=== PATIENT | female | born 1940 | race Caucasian/White ===

== ENCOUNTER 2018-07-05 16:35 | Inpatient (IN) | payer BC, MEDICARE ==
[2018-07-05] MEDS ORDERED: IPRATROPIUM-ALBUTEROL 3 ML NEB INHALATION STA ×2 (16:53→20:23)
[2018-07-05] MEDS ORDERED: DILTIAZEM DRIP BOLUS FROM BAG 1 MG SOLN IV ONE (16:54)
[2018-07-05] MEDS ORDERED: DILTIAZEM 125 MG in SODIUM CHLORIDE 0.9% 100 ML IV SCH (17:00)
--- NOTE | 2018-07-05 17:00 | ED ---
General Adult HPI - General Chief complaint: Shortness of Breath Stated complaint: SOB Time Seen by Provider: 07/05/18 16:48 Source: patient, EMS, RN notes reviewed Limitations: no limitations - History of Present Illness Initial comments: Patient is a pleasant 77-year-old female presenting to the emergency department with difficulty in breathing. Patient does have history of similar symptoms previously associated with COPD. Patient states her breathing is worse than normal. No significant cough. No chest pain or palpitations. Patient did have a fall yesterday on the steps and struck her back. Patient does not have significant discomfort at this time. No fevers. Patient denies any history of headache arrhythmia or atrial fibrillation. Patient does not take blood thinners. - Related Data Home Medications Medication Instructions Recorded Confirmed Hydroxychloroquine Sulfate 200 mg PO BID 12/25/13 07/05/18 [Plaquenil] Budesonide [Pulmicort] 0.5 mg INHALATION RT-BID 07/05/18 07/05/18 Montelukast [Singulair] 10 mg PO HS 07/05/18 07/05/18 Allergies Allergy/AdvReac Type Severity Reaction Status Date / Time Sulfa (Sulfonamide Allergy Rash/Hives Verified 07/05/18 17:26 Antibiotics) Review of Systems ROS Statement: Those systems with pertinent positive or pertinent negative responses have been documented in the HPI. ROS Other: All systems not noted in ROS Statement are negative. Constitutional: Denies: fever Eyes: Denies: eye pain ENT: Denies: ear pain Respiratory: Reports: dyspnea Cardiovascular: Denies: chest pain Endocrine: Reports: fatigue Gastrointestinal: Denies: abdominal pain Genitourinary: Denies: dysuria Musculoskeletal: Denies: back pain Skin: Denies: rash Neurological: Denies: weakness Past Medical History Past Medical History: COPD, Eye Disorder, GERD/Reflux, Rheumatoid Arthritis (RA) Additional Past Medical History / Comment(s): Scleroderma, Cataracts History of Any Multi-Drug Resistant Organisms: None Reported Past Surgical History: Tonsillectomy, Tubal Ligation Additional Past Surgical History / Comment(s): Colonoscopy, R cataract surgery in the past. Past Anesthesia/Blood Transfusion Reactions: No Reported Reaction Smoking Status: Current every day smoker - Past Family History Mother Family Medical History: Cancer Additional Family Medical History / Comment(s): OVARIAN. General Exam Limitations: no limitations General appearance: alert Head exam: Present: atraumatic Eye exam: Present: normal appearance, PERRL ENT exam: Present: normal oropharynx Neck exam: Present: normal inspection Respiratory exam: Present: respiratory distress, accessory muscle use, decreased breath sounds, prolonged expiratory Cardiovascular Exam: Present: tachycardia GI/Abdominal exam: Present: soft. Absent: tenderness Extremities exam: Present: normal inspection, other (Clubbing of the fingers). Absent: pedal edema, calf tenderness Back exam: Present: normal inspection Neurological exam: Present: alert Psychiatric exam: Present: normal affect, normal mood Skin exam: Present: normal color Course Vital Signs 07/05/18 07/05/18 07/05/18 16:50 16:59 17:06 Temperature 97.8 F Pulse Rate 163 H 149 H 154 H Respiratory 30 H Rate Blood Pressure 136/110 O2 Sat by Pulse 89 L Oximetry 07/05/18 07/05/18 07/05/18 17:19 18:01 18:26 Temperature Pulse Rate 161 H 131 H 133 H Respiratory 24 22 24 Rate Blood Pressure 115/84 112/74 102/55 O2 Sat by Pulse 89 L 99 95 Oximetry 07/05/18 07/05/18 18:28 20:28 Temperature Pulse Rate 63 105 H Respiratory 14 Rate Blood Pressure 117/56 O2 Sat by Pulse 96 Oximetry - Reevaluation(s) Reevaluation #1: 07/05/18 20:19 Patient reevaluated and somewhat improved. Patient and family updated on results and plan. Case was discussed in detail with Dr. Boucher, who will admit covering for Dr. Jeffers. He does request Hemoccult. If negative she does request heparin. He also requests one unit of red cells. Case was also discussed with Dr. Medina, who will consult for cardiology. He does also agree with heparinization. 07/05/18 20:41 Patient has pneumonia on chest x-ray. There is concern for possible sepsis diagnosed at 2039. Blood culture and lactic acid have been ordered. IV antibiotics will be ordered. EKG Findings - EKG Comments: EKG Findings:: A. fib with RVR, rate 154. QRS 84. QT 306. QTc 490. Normal axis. Lateral ST depression. Normal QRS. Medical Decision Making - Medical Decision Making Patient reevaluated and still appear short of breath however no longer in respiratory distress. Patient remains in A. fib. Heart rate has improved to 135-140. Patient and family updated on results and plan. Patient has previously seen Dr. Medina with pulmonary. - Lab Data Result diagrams: 07/05/18 17:02 07/05/18 17:02 Lab Results 07/05/18 07/05/18 07/05/18 Range/Units 17:02 17:02 17:02 WBC 12.7 H (3.8-10.6) k/uL RBC 3.21 L (3.80-5.40) m/uL Hgb 7.7 L (11.4-16.0) gm/dL Hct 25.5 L (34.0-46.0) % MCV 79.4 L (80.0-100.0) fL MCH 24.0 L (25.0-35.0) pg MCHC 30.2 L (31.0-37.0) g/dL RDW 18.0 H (11.5-15.5) % Plt Count 362 (150-450) k/uL Neutrophils % 80 % Lymphocytes % 16 % Monocytes % 3 % Eosinophils % 1 % Basophils % 0 % Neutrophils # 10.1 H (1.3-7.7) k/uL Lymphocytes # 2.1 (1.0-4.8) k/uL Monocytes # 0.3 (0-1.0) k/uL Eosinophils # 0.1 (0-0.7) k/uL Basophils # 0.1 (0-0.2) k/uL Hypochromasia Marked Anisocytosis Slight Microcytosis Slight PT (9.0-12.0) sec INR (<1.2) APTT (22.0-30.0) sec Sodium 137 (137-145) mmol/L Potassium 5.4 H (3.5-5.1) mmol/L Chloride 103 (98-107) mmol/L Carbon Dioxide 18 L (22-30) mmol/L Anion Gap 16 mmol/L BUN 51 H (7-17) mg/dL Creatinine 1.17 H (0.52-1.04) mg/dL Est GFR (CKD-EPI)AfAm 53 (>60 ml/min/1.73 sqM) Est GFR (CKD-EPI)NonAf 46 (>60 ml/min/1.73 sqM) Glucose 107 H (74-99) mg/dL Calcium 9.0 (8.4-10.2) mg/dL Magnesium 1.9 (1.6-2.3) mg/dL Total Bilirubin 0.8 (0.2-1.3) mg/dL AST 24 (14-36) U/L ALT 20 (9-52) U/L Alkaline Phosphatase 70 (38-126) U/L Creatine Kinase 66 (30-135) U/L CK-MB (CK-2) 2.3 (0.0-2.4) ng/mL Troponin I 0.065 H* (0.000-0.034) ng/mL Total Protein 6.8 (6.3-8.2) g/dL Albumin 3.3 L (3.5-5.0) g/dL TSH 5.960 H (0.465-4.680) mIU/L Free T4 1.96 (0.78-2.19) ng/dL Free T3 pg/mL 1.5 L (2.8-5.3) pg/ml Stool Occult Blood (Negative) 07/05/18 07/05/18 Range/Units 17:02 20:19 WBC (3.8-10.6) k/uL RBC (3.80-5.40) m/uL Hgb (11.4-16.0) gm/dL Hct (34.0-46.0) % MCV (80.0-100.0) fL MCH (25.0-35.0) pg MCHC (31.0-37.0) g/dL RDW (11.5-15.5) % Plt Count (150-450) k/uL Neutrophils % % Lymphocytes % % Monocytes % % Eosinophils % % Basophils % % Neutrophils # (1.3-7.7) k/uL Lymphocytes # (1.0-4.8) k/uL Monocytes # (0-1.0) k/uL Eosinophils # (0-0.7) k/uL Basophils # (0-0.2) k/uL Hypochromasia Anisocytosis Microcytosis PT 11.9 (9.0-12.0) sec INR 1.1 (<1.2) APTT 20.2 L (22.0-30.0) sec Sodium (137-145) mmol/L Potassium (3.5-5.1) mmol/L Chloride (98-107) mmol/L Carbon Dioxide (22-30) mmol/L Anion Gap mmol/L BUN (7-17) mg/dL Creatinine (0.52-1.04) mg/dL Est GFR (CKD-EPI)AfAm (>60 ml/min/1.73 sqM) Est GFR (CKD-EPI)NonAf (>60 ml/min/1.73 sqM) Glucose (74-99) mg/dL Calcium (8.4-10.2) mg/dL Magnesium (1.6-2.3) mg/dL Total Bilirubin (0.2-1.3) mg/dL AST (14-36) U/L ALT (9-52) U/L Alkaline Phosphatase (38-126) U/L Creatine Kinase (30-135) U/L CK-MB (CK-2) (0.0-2.4) ng/mL Troponin I (0.000-0.034) ng/mL Total Protein (6.3-8.2) g/dL Albumin (3.5-5.0) g/dL TSH (0.465-4.680) mIU/L Free T4 (0.78-2.19) ng/dL Free T3 pg/mL (2.8-5.3) pg/ml Stool Occult Blood Negative (Negative) - Radiology Data Radiology results: image reviewed (Chest x-ray shows pleural thickening and infiltrate. No heart failure.) Critical Care Time Critical Care Time: Yes Total Critical Care Time: 34 Disposition Clinical Impression: Atrial fibrillation with RVR, Acute exacerbation of chronic obstructive airways disease, Anemia, Pneumonia, Sepsis Disposition: ADMITTED IP TO THIS [facility] Condition: Serious Is patient prescribed a controlled substance at d/c from ED?: No Referrals: Angeles Jeffers DO [Primary Care Provider] - 1-2 days Decision Time: 20:41
[2018-07-05 17:16] LABS: Anisocytosis Slight; Basophils # (A) 0.1 k/uL (0-0.2); Basophils % (A) 0 %; Eosinophils # (A) 0.1 k/uL (0-0.7); Eosinophils % (A) 1 %; HCT 25.5 % (34.0-46.0); HGB 7.7 gm/dL (11.4-16.0); Hypochromasia Marked; Lymphocytes # (A) 2.1 k/uL (1.0-4.8); Lymphocytes % (A) 16 %; MCHC 30.2 g/dL (31.0-37.0); MCV 79.4 fL (80.0-100.0); Mean Platelet Volume 7.5; Microcytosis Slight; Monocytes # (A) 0.3 k/uL (0-1.0); Monocytes % (A) 3 %; Neutrophils # (A) 10.1 k/uL (1.3-7.7); Neutrophils % (A) 80 %; Platelet Count 362 k/uL (150-450); RBC 3.21 m/uL (3.80-5.40); WBC 12.7 k/uL (3.8-10.6)
[2018-07-05 17:24] LABS: Albumin 3.3 g/dL (3.5-5.0); Magnesium 1.9 mg/dL (1.6-2.3); Potassium 5.4 mmol/L (3.5-5.1); Total Bilirubin 0.8 mg/dL (0.2-1.3); Total Protein 6.8 g/dL (6.3-8.2)
[2018-07-05 17:34] LABS: INR 1.1 (<1.2); Prothrombin Time 11.9 sec (9.0-12.0)
[2018-07-05 17:36] LABS: Partial Thromboplastin Time 20.2 sec (22.0-30.0)
[2018-07-05 17:41] LABS: Creatine Kinase MB 2.3 ng/mL (0.0-2.4); T4, Free (Free Thyroxine) 1.96 ng/dL (0.78-2.19)
[2018-07-05 17:44] LABS: Troponin I 0.065 ng/mL (0.000-0.034)
--- NOTE | 2018-07-05 17:56 | XR ---
EXAMINATION TYPE: XR chest 1V portable DATE OF EXAM: 07/05/2018 COMPARISON: NONE HISTORY: Short of breath TECHNIQUE: Single frontal view of the chest is obtained. FINDINGS: Heart and mediastinum appear shifted slightly to the right side. There is blunting of righ t costophrenic angle and probably some atelectasis right lower lobe. There is airspace infiltrate lef t lower lobe. There is no gross heart failure. There are chest leads. IMPRESSION: Infiltrate and pleural thickening and volume loss in the right lower lobe. Follow-up rec ommended. Mild left lower lobe pneumonia. No heart failure seen.
[2018-07-05] MEDS ORDERED: HEPARIN SODIUM,PORCINE 5,000 UNIT/ML 1 ML VIAL IV PRN (20:37)
[2018-07-05] MEDS ORDERED: HEPARIN SODIUM,PORCINE 5,000 UNIT/ML 1 ML VIAL IV ONE (20:37)
[2018-07-05] MEDS ORDERED: HEPARIN SOD,PORK IN 0.45% NACL 25,000 UNIT in 0.45% NACL 1 250ML.BAG IV SCH (20:45)
[2018-07-05] MEDS ORDERED: ASPIRIN 81 MG PO STA (20:48)
[2018-07-05] MEDS ORDERED: methylPREDNISolone SOD SUCCI 125 MG/2 ML VIAL IV STA (20:48)
[2018-07-05] MEDS ORDERED: AZITHROMYCIN 500 MG in SODIUM CHLORIDE 0.9% 250 ML IVPB STA (20:48)
[2018-07-05] MEDS ORDERED: PNEUMONIA PROTOCOL UTILIZED 1 EACH MISC PO PRN (20:48)
[2018-07-05] MEDS ORDERED: SODIUM CHLORIDE 0.9% 1,000 ML IV ONE (23:34)
[2018-07-06 00:17] LABS: Glucose,Whole Blood 159 mg/dL (75-99)
[2018-07-06] MEDS ORDERED: NALOXONE 0.4 MG/ML 1 ML VIAL IV PRN (00:51)
[2018-07-06 01:07] LABS: Appearance,Urine Clear (Clear); Bilirubin,Urine Negative (Negative); Blood,Urine Negative (Negative); Color,Urine Yellow; Glucose,Urine (UA) Negative (Negative); Ketones,Urine Negative (Negative); Leukocyte Esterase,Urine Negative (Negative); Nitrite,Urine Negative (Negative); Protein,Urine Trace (Negative); Specific Gravity,Urine 1.018 (1.001-1.035); Urobilinogen,Urine <2.0 mg/dL (<2.0)
[2018-07-06] MEDS ORDERED: SODIUM CHLORIDE 0.9% 1,000 ML IV ONE ×2 (01:12→03:00)
[2018-07-06] MEDS: ALPRAZolam 0.25 MG TAB PO PRN ×3 (01:23→22:08)
[2018-07-06] MEDS: SODIUM CHLORIDE 0.9% 1,000 ML IV SCH ×3 (01:23→20:29)
[2018-07-06] MEDS: methylPREDNISolone SOD SUCCI 125 MG/2 ML VIAL IV SCH ×4 (01:26→17:17)
[2018-07-06 01:42] LABS: Glucose,Whole Blood 143 mg/dL (75-99)
[2018-07-06 04:34] LABS: Anisocytosis Slight; Basophils % (A) 0 %; Eosinophils # (A) 0.1 k/uL (0-0.7); Eosinophils % (A) 1 %; HCT 20.2 % (34.0-46.0); Hypochromasia Marked; Lymphocytes # (A) 1.6 k/uL (1.0-4.8); Lymphocytes % (A) 16 %; MCH 24.1 pg (25.0-35.0); MCHC 29.2 g/dL (31.0-37.0); MCV 82.2 fL (80.0-100.0); Mean Platelet Volume 7.7; Monocytes # (A) 0.1 k/uL (0-1.0); Monocytes % (A) 1 %; Neutrophils # (A) 8.3 k/uL (1.3-7.7); Neutrophils % (A) 82 %; Platelet Count 260 k/uL (150-450); RBC 2.45 m/uL (3.80-5.40); RDW 18.1 % (11.5-15.5); WBC 10.2 k/uL (3.8-10.6)
[2018-07-06 05:02] LABS: Calcium 8.2 mg/dL (8.4-10.2); Magnesium 1.8 mg/dL (1.6-2.3); Phosphorus 4.2 mg/dL (2.5-4.5); Potassium 4.3 mmol/L (3.5-5.1)
[2018-07-06 05:04] LABS: HGB 5.9 gm/dL (11.4-16.0)
[2018-07-06 06:06] LABS: Glucose,Whole Blood 135 mg/dL (75-99)
[2018-07-06 06:23] LABS: Anisocytosis Slight; Hypochromasia Marked; MCH 24.6 pg (25.0-35.0); MCHC 30.3 g/dL (31.0-37.0); MCV 81.1 fL (80.0-100.0); Mean Platelet Volume 7.4; Microcytosis Slight; Platelet Count 270 k/uL (150-450); RBC 2.45 m/uL (3.80-5.40); RDW 18.1 % (11.5-15.5); WBC 9.9 k/uL (3.8-10.6)
[2018-07-06 06:26] LABS: HCT 19.9 % (34.0-46.0)
[2018-07-06] MEDS: IPRATROPIUM-ALBUTEROL 3 ML NEB INHALATION SCH ×4 (07:30→21:27)
[2018-07-06] MEDS ORDERED: INSULIN ASPART (NovoLOG) 100 UNIT/ML VIAL SQ SCH ×4 (07:30→12:30)
--- NOTE | 2018-07-06 08:28 | XR ---
EXAMINATION TYPE: XR chest 1V portable DATE OF EXAM: 07/06/2018 Comparison: 07/05/2018 Clinical History: 77-year-old female pneumonia Findings: Patient is rotated towards the right ultrasound and a retrocardiac mediastinal contours. Heart appear s shifted into the right side of the chest suggesting volume loss on this side. Patchy bibasilar opac ities are demonstrated with hyperinflation. Impression: 1. Cardiomegaly and COPD. 2. There seems to be volume loss at the right base which shift of the heart to this side. Correlate f or any known diagnosis. Otherwise, further characterization may be needed. 3. Patchy bibasilar atelectasis or infiltrates are unchanged.
[2018-07-06] MEDS ORDERED: ASPIRIN 325 MG TAB PO SCH (09:00)
[2018-07-06] MEDS: HEPARIN SODIUM,PORCINE 5,000 UNIT/ML 1 ML VIAL SQ SCH ×2 (10:00→20:24)
[2018-07-06] MEDS: VERAPAMIL 40 MG TAB PO SCH ×3 (10:01→20:24)
--- NOTE | 2018-07-06 11:27 | CONS ---
CONSULTATION REASON FOR CONSULTATION: Probably new onset atrial fibrillation. Mrs Madalyn Rosado is a 77-year-old lady who is currently an active smoker, came into the hospital with increasing shortness of breath to the emergency room last evening and was hospitalized. She has history of smoking, continues to smoke even now. She came in with worsening shortness of breath and after arrival she was found to be in atrial fibrillation with moderate ventricular rate. She has been initiated on intravenous Cardizem and the rate has improved. At the time of my evaluation, she is actually resting comfortably on oxygen with acceptable oxygen saturation. PAST MEDICAL HISTORY: 1. Rheumatoid arthritis. 2. Smoking and COPD. 3. History of some previous tonsillectomy, cataract surgery. 4. Patient has a anemia of chronic disease. Details are unavailable. ALLERGIES: She is allergic to SULFA drugs. MEDICATIONS: Include Plaquenil 200 mg b.i.d., Singulair, and Pulmicort. EKG performed yesterday revealed atrial fib with a moderately rapid ventricular rate, nonspecific ST-T wave changes with poor R-wave progression. Repeat EKG revealed a lowered heart rate in the 90s with atrial fib. PHYSICAL EXAMINATION: Blood pressure is 118/70, pulse rate is about 90 irregular. HEENT unremarkable. Fundus was not examined by me. NECK: Supple, there is JVD of 1-2 cm, no carotid bruit. Heart exam reveals S1, S2 with irregular rhythm, short systolic murmur. Lungs revealed diminished air entry, bilateral lung oliver. Abdomen is soft, nontender. Lower extremities reveal diminished pulses. Central nervous system is normal. IMPRESSION: 1. Exacerbation of chronic obstructive pulmonary disease. 2. Rheumatoid arthritis. 3. Anemia. 4. Probably new onset atrial fibrillation with a controlled rate. 5. RECOMMENDATIONS: I am recommending that we discontinue the IV heparin mainly because of the fact that her hemoglobin is low and she is receiving blood transfusion. Apparently, her hemoglobin yesterday when she came in was 7.7 and heparin was initiated, but it is now 6.0 this morning. We will therefore discontinue the IV heparin, put her on 3000 units subcu heparin q.12 hours. We will continue the Cardizem drip for now but will place her on verapamil 40 mg b.i.d., assess LV function and right-sided pressures by way of echocardiogram. We will start her on verapamil 40 mg t.i.d. and based on clinical course, will make further recommendations. Given the fact the patient's hemoglobin is low and has dropped, she is not a good candidate for long-term anticoagulation. She weighs only 48 kg and overall she seems to be somewhat malnourished as well. I would not recommend long-term anticoagulation. Prognosis remains guarded. Thank you very much for the consult. HENRY / HAKEEM: [id number] /
--- NOTE | 2018-07-06 11:49 | ECHOF ---
Referral Reason:a fib MEASUREMENTS -------- HEIGHT: 170.2 cm WEIGHT: 48.1 kg BP: 89/69 RVIDd: 3.5 cm (< 3.3) IVSd: 1.2 cm (0.6 - 1.1) LVIDd: 3.9 cm (3.9 - 5.3) LVPWd: 1.1 cm (0.6 - 1.1) IVSs: 1.6 cm LVIDs: 2.1 cm LVPWs: 1.7 cm LA Diam: 3.8 cm (2.7 - 3.8) LAESV Index (A-L): 65.88 ml/m Ao Diam: 3.2 cm (2.0 - 3.7) AV Cusp: 2.0 cm (1.5 - 2.6) MV EXCURSION: 13.059 mm (> 18.000) MV EF SLOPE: 77 mm/s (70 - 150) EPSS: 0.7 cm RAP: 5.00 mmHg RVSP: 40.38 mmHg FINDINGS -------- Atrial fibrillation. This was a technically good study. The left ventricular size is normal. There is borderline concentric left ventricular hypertrophy. Overall left ventricular systolic function is normal with, an EF between 60 - 65 %. The right ventricle is mildly enlarged. LA is severely dilated >40 ml/m2 The right atrium is normal in size. Aortic valve is trileaflet and is mildly thickened. The mitral valve leaflets are mildly thickened. Mild mitral annular calcification present. Modera [id number] mitral regurgitation is present. The peak and mean MV gradients are 11.21mmHg 3.13mmH g as measured by doppler. Mild tricuspid regurgitation present. There is mild pulmonary hypertension. The right ventricular systolic pressure, as measured by Doppler, is 40.38mmHg. The pulmonic valve was not well visualized. The aortic root size is normal. Normal inferior vena cava with normal inspiratory collapse consistent with estimated right atrial pre ssure of 5 mmHg. There is a trivial pericardial effusion present. CONCLUSIONS -------- 1. Atrial fibrillation. 2. This was a technically good study. 3. The left ventricular size is normal. 4. There is borderline concentric left ventricular hypertrophy. 5. Overall left ventricular systolic function is normal with, an EF between 60 - 65 %. 6. The right ventricle is mildly enlarged. 7. LA is severely dilated >40 ml/m2 8. The right atrium is normal in size. 9. Aortic valve is trileaflet and is mildly thickened. 10. The mitral valve leaflets are mildly thickened. 11. Mild mitral annular calcification present. 12. The peak and mean MV gradients are 11.21mmHg 3.13mmHg as measured by doppler. 13. Mild tricuspid regurgitation present. 14. There is mild pulmonary hypertension. 15. The right ventricular systolic pressure, as measured by Doppler, is 40.38mmHg. 16. The pulmonic valve was not well visualized. 17. The aortic root size is normal. 18. Normal inferior vena cava with normal inspiratory collapse consistent with estimated right atrial pressure of 5 mmHg. 19. There is a trivial pericardial effusion present. PERSONAL COMPUTER NETWORK ANALYST: Roseline Dunbar RDCS
[2018-07-06 12:09] LABS: Glucose,Whole Blood 153 mg/dL (75-99)
[2018-07-06] MEDS: INSULIN ASPART (NovoLOG) 100 UNIT/ML VIAL SQ SCH ×3 (12:19→20:55)
[2018-07-06 13:00] LABS: Anisocytosis Slight; Basophils % (A) 0 %; Eosinophils % (A) 0 %; HCT 25.6 % (34.0-46.0); Hypochromasia Marked; Lymphocytes % (A) 16 %; MCH 25.1 pg (25.0-35.0); MCHC 30.6 g/dL (31.0-37.0); MCV 82.2 fL (80.0-100.0); Mean Platelet Volume 8.1; Monocytes # (A) 0.3 k/uL (0-1.0); Monocytes % (A) 2 %; Neutrophils # (A) 9.8 k/uL (1.3-7.7); Neutrophils % (A) 80 %; Platelet Count 271 k/uL (150-450); Poikilocytosis Moderate; RBC 3.12 m/uL (3.80-5.40); RDW 17.6 % (11.5-15.5); WBC 12.2 k/uL (3.8-10.6)
[2018-07-06 13:11] LABS: HGB 7.8 gm/dL (11.4-16.0)
--- NOTE | 2018-07-06 13:52 | P.CNPUL ---
History of Present Illness Consult date: 07/06/18 Reason for consult: dyspnea, chest pain Chief complaint: shortness of breath History of present illness: This is a 77-year-old female who presented emergency department complaining of shortness of breath. The patient states that she couldn't get to the bathroom without getting very short of breath and feeling a burning sensation in her chest. She states she did have a cough. She did note that laying on her side helped her breathe better. She states she had a computed tomography scan at [facility] a few months ago. She is an active smoker. She states that she did quit last year and started again smoking in June. She smokes about 5 cigarettes per day at this time. She used to smoke 1 pack per day since the age of [age] years old. She states "I was a chain smoker." She does use a nebulizer at home and follows with Dr. ELVIS Medina in the office. The patient has known pulmonary hypertension as well and was following with Dr. Horne. Last PFT was done 11/17/2017 and showed severe COPD with and FEV1 32% of predicted. The patient has a history of systemic sclerosis as well. The patient was found in the ER to be in atrial fibrillation with RVR, IV cardizen drip was initiated. She was also found to be anemic. Hemoglobin was recheck and found to be 6.0, she was transfused 1 unit of PRBC. She denies melanotic stools, hematochezia. She denies any signs/symptoms of bleeding. Her lactic acid was also elevated at 7, repeat 10, and she was subsequently admitted to the ICU. CXR shows c ardiomegaly, COPD, right base volume loss with shift of heart to the right side, patchy bibasilar atelectasis or infiltrates. After 4L of fluid bolus and IVF at 100 cc/hr over night, the patient's lactic acid is improving to 5.1. She has not been hypotensive. She is 100% on 2L NC. She has been afebrile. She did receive multiple albuterol treatments in the ED as well. Review of Systems All systems: negative Past Medical History Past Medical History: COPD, Eye Disorder, GERD/Reflux, Rheumatoid Arthritis (RA) Additional Past Medical History / Comment(s): Scleroderma, Cataracts History of Any Multi-Drug Resistant Organisms: None Reported Past Surgical History: Tonsillectomy, Tubal Ligation Additional Past Surgical History / Comment(s): Colonoscopy, R cataract surgery in the past. Past Anesthesia/Blood Transfusion Reactions: No Reported Reaction Past Psychological History: Depression Additional Psychological History / Comment(s): FROM CANCER. Smoking Status: Current every day smoker Past Alcohol Use History: Rare Past Drug Use History: None Reported - Past Family History Mother Family Medical History: Cancer Additional Family Medical History / Comment(s): OVARIAN. Medications and Allergies Home Medications Medication Instructions Recorded Confirmed Type Hydroxychloroquine Sulfate 200 mg PO BID 12/25/13 07/05/18 History [Plaquenil] Budesonide [Pulmicort] 0.5 mg INHALATION RT-BID 07/05/18 07/05/18 History Montelukast [Singulair] 10 mg PO HS 07/05/18 07/05/18 History Allergies Allergy/AdvReac Type Severity Reaction Status Date / Time Sulfa (Sulfonamide Allergy Rash/Hives Verified 07/05/18 17:26 Antibiotics) Physical Exam Osteopathic Statement: *. No significant issues noted on an osteopathic structural exam other than those noted in the History and Physical/Consult. Vitals: Vital Signs Temp Pulse Resp BP Pulse Ox 07/06/18 13:04 82 07/06/18 13:00 77 28 H 132/79 100 07/06/18 12:53 80 07/06/18 12:00 97.4 F L 85 23 111/64 98 07/06/18 11:00 76 24 128/78 99 07/06/18 10:25 97.4 F L 80 33 H 138/83 97 07/06/18 10:00 82 34 H 138/108 97 07/06/18 09:00 98 34 H 117/91 94 L 07/06/18 08:00 97.4 F L 78 36 H 110/71 99 07/06/18 07:47 97.4 F L 87 24 110/71 99 07/06/18 07:39 89 07/06/18 07:30 78 07/06/18 07:27 97.5 F L 87 26 H 113/75 97 07/06/18 07:17 97.7 F 93 27 H 93/74 98 07/06/18 07:07 97.5 F L 80 24 100/67 98 07/06/18 07:00 101 H 36 H 103/64 99 07/06/18 06:00 95 33 H 89/69 98 07/06/18 05:00 90 30 H 108/76 98 07/06/18 04:00 97.7 F 80 38 H 139/63 95 07/06/18 03:00 95 26 H 122/72 96 07/06/18 02:00 96 28 H 132/77 96 07/06/18 01:00 97.4 F L 90 34 H 122/69 95 07/05/18 23:48 98 30 H 101/66 97 07/05/18 23:00 98.5 F 109 H 26 H 105/74 97 07/05/18 21:57 115 H 30 H 126/68 95 07/05/18 21:04 115 H 24 125/64 95 07/05/18 20:38 102 H 07/05/18 20:28 105 H 07/05/18 18:28 63 14 117/56 96 07/05/18 18:26 133 H 24 102/55 95 07/05/18 18:01 131 H 22 112/74 99 07/05/18 17:19 161 H 24 115/84 89 L 07/05/18 17:06 154 H 07/05/18 16:59 149 H 07/05/18 16:50 97.8 F 163 H 30 H 136/110 89 L Intake and Output 07/05/18 07/06/18 07/06/18 22:59 06:59 14:59 Intake Total 3740.775 1620 Output Total 400 310 Balance 3340.775 1310 Intake: IV 540 Sodium Chloride 0.9% 1, 540 000 ml @ 100 mls/hr IV . Q10H OTONIEL Rx#:[id number] Intake, IV Titration 3740.775 100 Amount Azithromycin 500 mg In 250 Sodium Chloride 0.9% 250 ml @ 250 mls/hr IVPB ONCE STA Rx#:[id number] Heparin Sod,Pork in 0.45% 40.775 NaCl 25,000 unit In 0.45 % NaCl 1 250ml.bag @ 12 UNITS/KG/HR 5.77 mls/hr IV .Q24H OTONIEL Rx#: [id number] Sodium Chloride 0.9% 1, 400 100 000 ml @ 100 mls/hr IV . Q10H OTONIEL Rx#:[id number] Sodium Chloride 0.9% 1, 1000 000 ml @ 999 mls/hr IV . Q1H1M ONE Rx#:[id number] Sodium Chloride 0.9% 1, 1000 000 ml @ 999 mls/hr IV . Q1H1M ONE Rx#:[id number] Sodium Chloride 0.9% 1, 1000 000 ml @ 999 mls/hr IV . Q1H1M ONE Rx#:[id number] cefTRIAXone 1 gm In 50 Sodium Chloride 0.9% 50 ml @ 100 mls/hr IVPB ONCE STA Rx#:[id number] Oral 360 Blood Product 620 Rc As-3 Unit 310 [id number] Output: Urine 400 310 Other: Voiding Method Indwelling Catheter Indwelling Catheter Weight 48.081 kg Gen.: Patient is alert and oriented 3, conversational dyspnea Cardiovascular: Irregular rate and rhythm, S1/S2 Lungs: Diminished breath sounds bilaterally otherwise clear Abdomen: Soft nontender nondistended positive bowel sounds Extremities no edema Results - Laboratory Findings CBC and BMP: 07/06/18 12:30 07/06/18 04:20 PT/INR, D-dimer PT 11.9 sec (9.0-12.0) 07/05/18 17:02 INR 1.1 (<1.2) 07/05/18 17:02 Abnormal lab findings: Abnormal Labs 07/05/18 07/05/18 07/05/18 17:02 17:02 17:02 WBC 12.7 H RBC 3.21 L Hgb 7.7 L Hct 25.5 L MCV 79.4 L MCH 24.0 L MCHC 30.2 L RDW 18.0 H Neutrophils # 10.1 H APTT Potassium 5.4 H Carbon Dioxide 18 L BUN 51 H Creatinine 1.17 H Glucose 107 H POC Glucose (mg/dL) Plasma Lactic Acid Feliberto Calcium Troponin I 0.065 H* Albumin 3.3 L HDL Cholesterol TSH 5.960 H Free T3 pg/mL 1.5 L Urine Protein Crossmatch 07/05/18 07/05/18 07/05/18 17:02 20:50 21:32 WBC RBC Hgb Hct MCV MCH MCHC RDW Neutrophils # APTT 20.2 L Potassium Carbon Dioxide BUN Creatinine Glucose POC Glucose (mg/dL) Plasma Lactic Acid Feliberto 7.4 H* Calcium Troponin I Albumin HDL Cholesterol TSH Free T3 pg/mL Urine Protein Crossmatch See Detail 07/05/18 07/06/18 07/06/18 22:55 00:05 00:40 WBC RBC Hgb Hct MCV MCH MCHC RDW Neutrophils # APTT Potassium Carbon Dioxide BUN Creatinine Glucose POC Glucose (mg/dL) 159 H Plasma Lactic Acid Feliberto Calcium Troponin I 0.078 H* Albumin HDL Cholesterol TSH Free T3 pg/mL Urine Protein Trace H Crossmatch 07/06/18 07/06/18 07/06/18 01:13 01:30 04:20 WBC RBC 2.45 L Hgb 5.9 L* D Hct 20.2 L MCV MCH 24.1 L MCHC 29.2 L RDW 18.1 H Neutrophils # 8.3 H APTT Potassium Carbon Dioxide BUN Creatinine Glucose POC Glucose (mg/dL) 143 H Plasma Lactic Acid Feliberto 10.4 H* Calcium Troponin I Albumin HDL Cholesterol TSH Free T3 pg/mL Urine Protein Crossmatch 07/06/18 07/06/18 07/06/18 04:20 04:20 04:20 WBC RBC Hgb Hct MCV MCH MCHC RDW Neutrophils # APTT 38.3 H Potassium Carbon Dioxide 14 L BUN 58 H Creatinine 1.11 H Glucose 125 H POC Glucose (mg/dL) Plasma Lactic Acid Feliberto Calcium 8.2 L Troponin I 0.059 H* Albumin HDL Cholesterol 29 L TSH Free T3 pg/mL Urine Protein Crossmatch 07/06/18 07/06/18 07/06/18 05:54 06:02 06:02 WBC RBC 2.45 L Hgb 6.0 L* Hct 19.9 L* MCV MCH 24.6 L MCHC 30.3 L RDW 18.1 H Neutrophils # APTT Potassium Carbon Dioxide BUN Creatinine Glucose POC Glucose (mg/dL) 135 H Plasma Lactic Acid Feliberto 6.0 H* Calcium Troponin I Albumin HDL Cholesterol TSH Free T3 pg/mL Urine Protein Crossmatch 07/06/18 07/06/18 07/06/18 09:53 11:57 12:30 WBC 12.2 H RBC 3.12 L Hgb 7.8 L D Hct 25.6 L MCV MCH MCHC 30.6 L RDW 17.6 H Neutrophils # 9.8 H APTT Potassium Carbon Dioxide BUN Creatinine Glucose POC Glucose (mg/dL) 153 H Plasma Lactic Acid Feliberto 5.1 H* Calcium Troponin I Albumin HDL Cholesterol TSH Free T3 pg/mL Urine Protein Crossmatch - Diagnostic Findings Chest x-ray: report reviewed, image reviewed Assessment and Plan Assessment: Acute hypoxic respiratory failure Acute exacerbation of COPD, severe, FEV1 32% of predicted Active tobacco abuse Lactic acidosis, multifactorial 3 out of 4 SIRS present on admission, sepsis New onset atrial fibrillation Acute symptomatic anemia, unclear etiology NSTEMI ALFIE, unsure of baseline creatinine History of RA and systemic sclerosis Agree with cardiology to discontinue heparin drip due to anemia FOB negative Cardizem drip changed to oral Transfuse for hemoglobin <7 Echocardiogram Consult dietitian, PT and OT223 CTA now Solumedrol taper DC Azithromycin and Rocephin, start Levaquin and Zosyn Blood, urine, sputum cultures IVF resuscitation achieved, will decrease IVF to 40 cc/hr Repeat LA in AM Duonemonica, Pulmicort, Singulair Smoking cessation O2 to maintain saturation > or = 90% Obtain record of CT done at [facility] GI and DVT prophylaxis: Subcu heparin, Protonix CT from [facility] reviewed, shows right sided volume loss, small pleural effusions, and possible CHF, emphysema, moderate pericardial effusion Thank you for this consultation. We will continue to follow along. Further recommendations pending, patient may need bronchoscopy CCT 75 minutes
--- NOTE | 2018-07-06 15:06 | CT ---
EXAMINATION TYPE: CT angio chest DATE OF EXAM: 07/06/2018 2:42 PM COMPARISON: Chest x-ray and 07/06/2018 HISTORY: Difficulty breathing. CT DLP: 200.5 mGycm Automated exposure control for dose reduction was used. CONTRAST: CTA scan of the thorax is performed with IV Contrast, patient injected with 100 mL of Isovue 370, pul monary embolism protocol. . FINDINGS: LUNGS: Diffuse emphysematous changes. Linear areas interlobular septal thickening seen and there is p leural-based. Findings are chronic. Tree-in-bud pattern seen in the right middle lobe. There are smal l bilateral pleural effusions. Basilar consolidation noted. Axial image 22 demonstrates a 2 mm nodule in the anterior segment of the right upper lobe MEDIASTINUM: There is satisfactory enhancement of the pulmonary artery and its branches, there is no CT evidence for pulmonary embolism. There is soft tissue fullness in the subcarinal region. However, there is significant artifact. This finding could be followed with subsequent with a standard CT sca n to represent an area of adenopathy measuring 24 Hounsfield units.. Heart is markedly enlarged. Ther e is reflux of contrast within the hepatic veins which can be associated with right ventricular dysfu nction or strain, correlate clinically. Right ventricle appears to be enlarged. Atherosclerotic wall e of the aorta. Small pericardial effusion noted OTHER: Hypertrophic and degenerative changes of the vertebral column. IMPRESSION: 1. Severe cardiomegaly with small pericardial effusion and bilateral pleural effusions with basilar a telectasis favored over pneumonia correlate clinically. Mild central venous congestion in the differe ntial diagnosis. See above. 2. COPD. 3. tree-in-bud pattern seen in the right middle lobe is nonspecific but may be associated with granul omatous disease including mycobacterium. 4. There is a 2 mm nodule anterior segment right upper lobe too small to characterize. Six-month foll ow-up recommended to confirm stability. 5. Suspect a nonspecific subcarinal lymphadenopathy as discussed above.
[2018-07-06] MEDS: LEVOFLOXACIN 500 MG TAB PO SCH (15:10)
[2018-07-06] MEDS: PANTOPRAZOLE 40 MG TABLET PO SCH (15:10)
[2018-07-06] MEDS: PIPERACILLIN-TAZOBACTAM 3.375 GM in SODIUM CHLORIDE 0.9% 100 ML IVPB SCH (15:10)
--- NOTE | 2018-07-06 15:30 | XR ---
EXAMINATION TYPE: XR chest 2V DATE OF EXAM: 07/06/2018 COMPARISON: Earlier today an CT today HISTORY: 77 year-old female rule out right lung collapse, shortness of breath and cough TECHNIQUE: AP and lateral views FINDINGS: Redemonstrated shift of the heart into the right side of the chest. Review of the CT performed today show severe right atrial dilatation which may in part account for this finding. Review of the CT show s no evidence for lobar collapse. Patchy left basilar opacity. Hyperinflation. Heart is enlarged. No lobar collapse is seen on the CT performed today. There is severe right atrial dilatation which may i n part account for the radiographic appearance. Of mild reticular densities within the right midlung. IMPRESSION: 1. Moderate cardiomegaly with severe enlargement of the right atrium. This in part, likely accounts f or the appearance of the heart in the right side of the chest. 2. COPD and small effusions with adjacent atelectasis. Correlate for mild CHF. 3. Faint reticular densities right midlung could represent bronchiolitis or atypical infections.
[2018-07-06] MEDS ORDERED: FUROSEMIDE 10 MG/ML 2 ML VIAL IV ONE (16:28)
[2018-07-06 17:09] LABS: Glucose,Whole Blood 196 mg/dL (75-99)
--- NOTE | 2018-07-06 19:59 | HP ---
HISTORY AND PHYSICAL DATE OF ADMISSION: 07/05/2018 DATE OF SERVICE: 07/06/2018 PRESENTING COMPLAINT: Shortness of breath. HISTORY OF PRESENTING COMPLAINT: This is a 77-year-old patient who follows with Dr. Angeles Jeffers. The patient is a long- standing smoker. She actually fell at home, but the patient was feeling more and more short of breath with wheezing, cough, and she presented to the ER. Patient was found to be in atrial fibrillation with rapid ventricular rate. She was initially put on a Cardizem drip. The patient is primarily short of breath. There is no sputum production. No fever or chills. The patient was admitted to the ICU with consultation to phototypesetting equipment monitor. The patient does follow with police justice Dr. Andreas Medina. REVIEW OF SYSTEMS: CONSTITUTIONAL: Tired. Decreased appetite. HEENT: None. RESPIRATORY: As above. CARDIOVASCULAR: Heart racing. GASTROINTESTINAL: None. GENITOURINARY: None. MUSCULOSKELETAL: Some pain in the joints. DERMATOLOGICAL: None. HEMATOLOGICAL: None. LYMPHATICS: None. PSYCHIATRY: Anxious. NEUROLOGICAL: None. PAST MEDICAL HISTORY: 1. COPD. 2. GERD. 3. Rheumatoid arthritis. 4. Scleroderma. PAST SURGICAL HISTORY: 1. Tonsillectomy. 2. Tubal ligation. 3. Right cataract surgery. SOCIAL HISTORY: Lives by herself. . She has been smoking for a long time. Alcohol rarely. FAMILY HISTORY: Ovarian cancer. HOME MEDICATIONS: 1. Singulair 10 mg at bedtime. 2. Plaquenil 200 mg b.i.d. 3. Pulmicort 0.5 b.i.d. ALLERGIES: SULFA. PHYSICAL EXAMINATION: VITAL SIGNS ON PRESENTATION: Temperature 97.8, pulse 163, respiration 30, blood pressure 136/110, pulse ox 89% on 2 L. GENERAL APPEARANCE: Very thin build. Somewhat restless. Sitting up. EYES: Pupils equal. Conjunctivae normal. HEENT: External appearance of nose and ears normal. Oral cavity poor hygiene. NECK: JVD not raised. Mass not palpable. RESPIRATORY: Effort increased. Unable to speak in full sentences. Accessory muscles are working. CARDIOVASCULAR: First and second sounds normal. No edema. ABDOMEN: Soft, non-tender. Liver and spleen not palpable. LYMPHATIC: No lymph node palpable in neck or axillae. PSYCHIATRY: Alert and oriented x3. Mood and affect very anxious-appearing. NEUROLOGICAL: Pupils equal. Cranial nerves grossly intact. Power and sensation grossly intact. INVESTIGATIONS: White count 12.7, hemoglobin 7.7, potassium 5.4, BUN 51, creatinine 1.17. Lactic acid 7.4. Troponin 0.065. TSH 5.9. Influenza A and B negative. Chest x-ray film, personally reviewed by me, shows mediastinum pulled to the right; the film is also rotated. Cannot rule out dextrocardia. EKG tracing, personally reviewed by me, shows atrial fibrillation with rapid ventricular rate with some ST-segment depression. Chest CTA shows diffuse emphysematous changes. It shows cardiomegaly. Two- D echocardiogram shows EF of 60% to 65%, moderate to severe mitral regurgitation. Repeat chest x-ray from today again shows the heart to be pushed to the right. ASSESSMENT: 1. Acute severe chronic obstructive pulmonary disease exacerbation in a current smoker. 2. Chronic nicotine dependence. Patient is an active cigarette smoker. 3. Hyperkalemia. 4. Acute renal failure. 5. Positive troponin, probably from hemodynamic mismatch. Cannot rule out underlying coronary artery disease. 6. Severe anemia. Hemoglobin did drop down to 5.9. The patient was ordered a unit of blood. 7. Need to rule out right lower lobe collapse, given the x-ray appearances. 8. New-onset atrial fibrillation, rate uncontrolled on presentation. 9. Acute kidney injury; at this point, cause unknown. 10.Severe protein-calorie malnutrition, probably from decreased oral intake. BMI is only 16.6, with severe wasting of muscles. PLAN: Patient is on bronchodilators, inhaled steroids, IV Solu-Medrol; also on IV Zosyn. IV Cardizem was later discontinued. Put on verapamil. Because of low hemoglobin, anticoagulation was held. Both Cardiology and Pulmonary are following the patient. Also had a nicotine patch. Dietitian will be consulted and supplements will be added. MMODL / IJN: [id number] /
[2018-07-06 20:24] LABS: Glucose,Whole Blood 226 mg/dL (75-99)
[2018-07-06] MEDS: MONTELUKAST 10 MG TAB PO SCH (20:24)
[2018-07-06] MEDS: FUROSEMIDE 10 MG/ML 2 ML VIAL IV SCH (20:24)
[2018-07-06] MEDS ORDERED: AZITHROMYCIN 500 MG TAB PO SCH (20:50)
[2018-07-06] MEDS: BUDESONIDE 0.5 MG/2 ML NEBU INHALATION SCH (21:27)
[2018-07-07] MEDS: methylPREDNISolone SOD SUCCI 125 MG/2 ML VIAL IV SCH ×4 (00:09→17:02)
[2018-07-07] MEDS: PIPERACILLIN-TAZOBACTAM 3.375 GM in SODIUM CHLORIDE 0.9% 100 ML IVPB SCH ×3 (00:09→15:09)
[2018-07-07 05:51] LABS: Anisocytosis Slight; Basophils % (A) 0 %; Eosinophils # (A) 0.1 k/uL (0-0.7); Eosinophils % (A) 1 %; HCT 22.7 % (34.0-46.0); Hypochromasia Marked; Lymphocytes # (A) 0.8 k/uL (1.0-4.8); Lymphocytes % (A) 6 %; MCH 24.7 pg (25.0-35.0); MCHC 30.5 g/dL (31.0-37.0); MCV 81.1 fL (80.0-100.0); Mean Platelet Volume 7.8; Microcytosis Slight; Monocytes # (A) 0.3 k/uL (0-1.0); Monocytes % (A) 2 %; Neutrophils # (A) 12.7 k/uL (1.3-7.7); Neutrophils % (A) 90 %; Platelet Count 251 k/uL (150-450); Poikilocytosis Marked; RDW 18.3 % (11.5-15.5)
[2018-07-07 05:53] LABS: HGB 6.9 gm/dL (11.4-16.0)
[2018-07-07] MEDS: SODIUM CHLORIDE 0.9% 1,000 ML IV SCH (05:56)
[2018-07-07 06:14] LABS: Albumin 2.9 g/dL (3.5-5.0); Magnesium 1.9 mg/dL (1.6-2.3); Phosphorus 3.7 mg/dL (2.5-4.5); Potassium 3.4 mmol/L (3.5-5.1); Total Bilirubin 0.9 mg/dL (0.2-1.3); Total Protein 6.1 g/dL (6.3-8.2)
[2018-07-07] MEDS: POTASSIUM CHLORIDE ER 20 MEQ TAB.ER PO SCH ×2 (06:27→08:32)
[2018-07-07] MEDS: PANTOPRAZOLE 40 MG TABLET PO SCH (06:27)
[2018-07-07] MEDS: MAGNESIUM SULFATE-D5W PMX 1 GM in DEXTROSE/WATER 1 100ML.BAG IVPB SCH ×2 (06:29→08:31)
[2018-07-07] MEDS: INSULIN ASPART (NovoLOG) 100 UNIT/ML VIAL SQ SCH ×4 (06:50→22:08)
[2018-07-07 06:58] LABS: Glucose,Whole Blood 176 mg/dL (75-99)
--- NOTE | 2018-07-07 07:08 | XR ---
EXAMINATION TYPE: XR chest 1V portable DATE OF EXAM: 07/07/2018 HISTORY: Shortness of breath. COMPARISON: 07/06/2018 TECHNIQUE: Single view of the chest is submitted. FINDINGS: Demonstrated are scattered senescent parenchymal change. Right basilar increased density with volume loss may reflect atelectasis and/or infiltrate. No signif icant change appreciated. Improved aeration left lower lobe. The heart is stable. Hilar and mediastinal structures are within normal limits. Degenerative changes are seen of the dorsal spine. IMPRESSION: 1. Right basilar increased density with volume loss may reflect atelectasis and/or infiltrate. No si gnificant change appreciated. Improved aeration left lower lobe.
[2018-07-07] MEDS: IPRATROPIUM-ALBUTEROL 3 ML NEB INHALATION SCH ×4 (07:28→20:08)
[2018-07-07] MEDS: BUDESONIDE 0.5 MG/2 ML NEBU INHALATION SCH ×2 (07:28→20:08)
[2018-07-07] MEDS: HEPARIN SODIUM,PORCINE 5,000 UNIT/ML 1 ML VIAL SQ SCH ×2 (08:33→22:07)
[2018-07-07] MEDS: VERAPAMIL 40 MG TAB PO SCH (08:33)
[2018-07-07] MEDS: FUROSEMIDE 10 MG/ML 2 ML VIAL IV SCH ×2 (08:33→22:07)
--- NOTE | 2018-07-07 10:19 | PN ---
PROGRESS NOTE Mrs. Rosado is in atrial fib, rate is controlled. She is on verapamil, which I will increase to 180 mg SR. Given her low hemoglobin, need for blood transfusion, we will not anticoagulate her. She has significant COPD. She still smokes unfortunately. Vitals are stable. Heart rate is about 90 to 95 per minute, irregular. JVD 1 cm. No carotid bruit. S1-S2 heard normally with irregular rate and rhythm, short systolic murmur. Lungs reveal diminished air entry. Abdomen and lower extremities exam unchanged. This patient has COPD with exacerbation with atrial fibrillation which is probably new onset, but given the circumstances, no anticoagulation. Will use verapamil for rate control and she has improved a lot in terms of rate control from yesterday. No aggressive intervention. I will see her as needed from a cardiac standpoint. MMODL / IJN: [id number] /
--- NOTE | 2018-07-07 11:22 | P.PN ---
Subjective Progress Note Date: 07/07/18 07/07/2018: Patient seen and examined in the intensive care unit with nursing staff at bedside. The patient is currently on room air with O2 saturation 95%. She does have significant conversational dyspnea. She's been hemodynamically stable. Her hemoglobin did drop to 6.9 overnight. She was transfused another unit of packed red blood cells this morning. Lactic acid is improving, down to 2-3. Objective - Vital Signs Vital signs: Vital Signs Temp 97.7 F 07/07/18 10:42 Pulse 101 H 07/07/18 10:42 Resp 28 H 07/07/18 10:42 BP 131/77 07/07/18 10:42 Pulse Ox 95 07/07/18 10:42 Intake & Output 07/06/18 07/07/18 07/07/18 18:59 06:59 18:59 Intake Total 2920 580 900 Output Total 1040 1870 650 Balance 1880 -1290 250 Weight 48.081 kg 56.3 kg Intake: IV 880 580 230 Magnesium Sulfate-D5w Pmx 100 1 gm In Dextrose/Water 1 100ml.bag @ 100 mls/hr IVPB Q1H [facility] Rx#: [id number] Piperacillin-Tazobactam 3 100 100 50 .375 gm In Sodium Chloride 0.9% 100 ml @ 25 mls/hr IVPB Q8HR [facility] Rx# :[id number] Sodium Chloride 0.9% 1, 780 480 80 000 ml @ 40 mls/hr IV . Q24H [facility] Rx#:[id number] Intake, IV Titration 100 Amount Sodium Chloride 0.9% 1, 100 000 ml @ 40 mls/hr IV . Q24H [facility] Rx#:[id number] Oral 1320 360 Blood Product 620 310 Rc As-1 Unit 310 [id number] Rc As-3 Unit 310 [id number] Output: Urine 1040 1870 650 Other: Voiding Method Indwelling Catheter Indwelling Catheter Indwelling Catheter - Exam Gen.: Patient is alert and oriented 3, conversational dyspnea Cardiovascular: Irregular rate and rhythm, S1/S2 Lungs: Diminished breath sounds bilaterally otherwise clear Abdomen: Soft nontender nondistended positive bowel sounds Extremities no edema - Labs CBC & Chem 7: 07/07/18 04:30 07/07/18 04:30 Labs: Abnormal Lab Results - Last 24 Hours (Table) 07/05/18 07/06/18 07/06/18 Range/Units 20:50 11:57 12:30 WBC 12.2 H (3.8-10.6) k/uL RBC 3.12 L (3.80-5.40) m/uL Hgb 7.8 L D (11.4-16.0) gm/dL Hct 25.6 L (34.0-46.0) % MCH (25.0-35.0) pg MCHC 30.6 L (31.0-37.0) g/dL RDW 17.6 H (11.5-15.5) % Neutrophils # 9.8 H (1.3-7.7) k/uL Lymphocytes # (1.0-4.8) k/uL Sodium (137-145) mmol/L Potassium (3.5-5.1) mmol/L Chloride (98-107) mmol/L Carbon Dioxide (22-30) mmol/L BUN (7-17) mg/dL Creatinine (0.52-1.04) mg/dL Glucose (74-99) mg/dL POC Glucose (mg/dL) 153 H (75-99) mg/dL Plasma Lactic Acid Feliberto (0.7-2.0) mmol/L Total Protein (6.3-8.2) g/dL Albumin (3.5-5.0) g/dL Crossmatch See Detail 07/06/18 07/06/18 07/07/18 Range/Units 16:58 20:13 04:30 WBC 14.0 H (3.8-10.6) k/uL RBC 2.80 L (3.80-5.40) m/uL Hgb 6.9 L* (11.4-16.0) gm/dL Hct 22.7 L (34.0-46.0) % MCH 24.7 L (25.0-35.0) pg MCHC 30.5 L (31.0-37.0) g/dL RDW 18.3 H (11.5-15.5) % Neutrophils # 12.7 H (1.3-7.7) k/uL Lymphocytes # 0.8 L (1.0-4.8) k/uL Sodium (137-145) mmol/L Potassium (3.5-5.1) mmol/L Chloride (98-107) mmol/L Carbon Dioxide (22-30) mmol/L BUN (7-17) mg/dL Creatinine (0.52-1.04) mg/dL Glucose (74-99) mg/dL POC Glucose (mg/dL) 196 H 226 H (75-99) mg/dL Plasma Lactic Acid Feliberto (0.7-2.0) mmol/L Total Protein (6.3-8.2) g/dL Albumin (3.5-5.0) g/dL Crossmatch 07/07/18 07/07/18 07/07/18 Range/Units 04:30 04:30 06:46 WBC (3.8-10.6) k/uL RBC (3.80-5.40) m/uL Hgb (11.4-16.0) gm/dL Hct (34.0-46.0) % MCH (25.0-35.0) pg MCHC (31.0-37.0) g/dL RDW (11.5-15.5) % Neutrophils # (1.3-7.7) k/uL Lymphocytes # (1.0-4.8) k/uL Sodium 136 L (137-145) mmol/L Potassium 3.4 L (3.5-5.1) mmol/L Chloride 108 H (98-107) mmol/L Carbon Dioxide 17 L (22-30) mmol/L BUN 57 H (7-17) mg/dL Creatinine 1.07 H (0.52-1.04) mg/dL Glucose 144 H (74-99) mg/dL POC Glucose (mg/dL) 176 H (75-99) mg/dL Plasma Lactic Acid Feliberto 2.2 H* (0.7-2.0) mmol/L Total Protein 6.1 L (6.3-8.2) g/dL Albumin 2.9 L (3.5-5.0) g/dL Crossmatch 07/07/18 Range/Units 10:18 WBC (3.8-10.6) k/uL RBC (3.80-5.40) m/uL Hgb (11.4-16.0) gm/dL Hct (34.0-46.0) % MCH (25.0-35.0) pg MCHC (31.0-37.0) g/dL RDW (11.5-15.5) % Neutrophils # (1.3-7.7) k/uL Lymphocytes # (1.0-4.8) k/uL Sodium (137-145) mmol/L Potassium (3.5-5.1) mmol/L Chloride (98-107) mmol/L Carbon Dioxide (22-30) mmol/L BUN (7-17) mg/dL Creatinine (0.52-1.04) mg/dL Glucose (74-99) mg/dL POC Glucose (mg/dL) (75-99) mg/dL Plasma Lactic Acid Feliberto 3.6 H* (0.7-2.0) mmol/L Total Protein (6.3-8.2) g/dL Albumin (3.5-5.0) g/dL Crossmatch Microbiology - Last 24 Hours (Table) 07/06/18 16:45 Gram Stain - Preliminary Sputum Sputum Culture - Preliminary 07/05/18 20:50 Blood Culture - Preliminary Blood No Growth after 24 hours 07/06/18 16:45 Urine Culture - Preliminary Urine,Catheterized Assessment and Plan Assessment: Acute hypoxic respiratory failure Acute exacerbation of COPD, severe, FEV1 32% of predicted Active tobacco abuse Lactic acidosis, multifactorial 3 out of 4 SIRS present on admission, sepsis New onset atrial fibrillation Acute symptomatic anemia, unclear etiology NSTEMI ALFIE, unsure of baseline creatinine History of RA and systemic sclerosis Agree with cardiology to discontinue heparin drip due to anemia FOB negative PO Verapamil Transfuse for hemoglobin <7, 1 unit PRBC today ,recheck this afternoon, consider hematology consult as the patient has no s/sx of bleeding Echocardiogram reviewed Consult dietitian, PT and OT Solumedrol taper Levaquin and Zosyn Blood, urine, sputum cultures KVO IVF Duonebs, Pulmicort, Singulair Smoking cessation Check LDH, haptoglobin, PT/INR/PTT, D-dimer O2 to maintain saturation > or = 90% GI and DVT prophylaxis: Subcu heparin, Protonix CT from [facility] reviewed, shows right sided volume loss, small pleural effusions, and possible CHF, emphysema, moderate pericardial effusion
[2018-07-07 11:53] LABS: Glucose,Whole Blood 240 mg/dL (75-99)
[2018-07-07] MEDS: VERAPAMIL SR 180 MG TABLET.ER PO SCH (11:56)
[2018-07-07] MEDS: LEVOFLOXACIN 500 MG TAB PO SCH (13:18)
[2018-07-07 14:01] LABS: Anisocytosis Slight; Basophils % (A) 0 %; Eosinophils % (A) 0 %; HCT 29.6 % (34.0-46.0); Hypochromasia Marked; Lymphocytes # (A) 0.9 k/uL (1.0-4.8); Lymphocytes % (A) 4 %; MCH 25.5 pg (25.0-35.0); MCHC 31.5 g/dL (31.0-37.0); MCV 81.1 fL (80.0-100.0); Mean Platelet Volume 7.6; Microcytosis Slight; Monocytes # (A) 0.5 k/uL (0-1.0); Monocytes % (A) 3 %; Neutrophils # (A) 18.9 k/uL (1.3-7.7); Neutrophils % (A) 93 %; Platelet Count 257 k/uL (150-450); Poikilocytosis Moderate; RBC 3.65 m/uL (3.80-5.40); RDW 18.9 % (11.5-15.5); WBC 20.4 k/uL (3.8-10.6)
[2018-07-07] MEDS: ALPRAZolam 0.25 MG TAB PO PRN (14:11)
[2018-07-07 14:19] LABS: D-Dimer 1.61 mg/L FEU (<0.60); Partial Thromboplastin Time 23.1 sec (22.0-30.0); Prothrombin Time 10.7 sec (9.0-12.0)
[2018-07-07 14:39] LABS: HGB 9.3 gm/dL (11.4-16.0)
[2018-07-07 17:02] LABS: Glucose,Whole Blood 159 mg/dL (75-99)
[2018-07-07] MEDS: CALCIUM CARBONATE 500 MG CHEWABLE PO PRN (17:08)
--- NOTE | 2018-07-07 18:11 | P.PN ---
Subjective on-call hospitalist covering for Dr. Zelaya this is a pleasant 77 years old female with past medical history of COPD and rheumatoid arthritis, scleroderma and GERD. Presents with severe acute COPD exacerbation.patient currently remains in the ICU, improving slowly. She is a bit tachycardic above 100 . She saturating 93% on room air.her WBC is 20.4 k but she is on steroids too. . INR is 1.6. Plasma lactic acid 3.6. She remains on Xanax, Pulmicort, Levaquin, and Solu-Medrol 60 mg every 6 hours. She is also on Zosyn and Protonix.pulmonary team R following the case closely. As well as cardiology team review of systems CONSTITUTIONAL: No fever, no malaise, no fatigue. HEENT: No recent visual problems or hearing problems. Denied any sore throat. CARDIOVASCULAR: No orthopnea, PND, no palpitations, no syncope. PULMONARY: no hemoptysis. GASTROINTESTINAL: No diarrhea, no nausea, no vomiting, no abdominal pain. Normoactive bowel sounds. NEUROLOGICAL: No headaches, no weakness, no numbness. HEMATOLOGICAL: Denies any bleeding or petechiae. GENITOURINARY: Denies any burning micturition, frequency, or urgency. MUSCULOSKELETAL/RHEUMATOLOGICAL: Denies any joint pain, swelling, or any muscle pain. ENDOCRINE: Denies any polyuria or polydipsia. medication: Albuterol, Xanax, Pulmicort, Tums, Lasix, heparin, NovoLog, Levaquin , some Medrol, Zosyn, Singulair, Protonix, verapamil. Objective - Vital Signs Vital signs: Vital Signs Temp 97.7 F 07/07/18 16:00 Pulse 98 07/07/18 17:00 Resp 24 07/07/18 17:00 BP 150/96 07/07/18 17:00 Pulse Ox 94 L 07/07/18 17:00 Intake & Output 07/06/18 07/07/18 07/07/18 18:59 06:59 18:59 Intake Total 2920 580 2130 Output Total 1040 1870 1525 Balance 1880 -1290 605 Weight 48.081 kg 56.3 kg Intake: IV 880 580 430 Magnesium Sulfate-D5w Pmx 100 1 gm In Dextrose/Water 1 100ml.bag @ 100 mls/hr IVPB Q1H [facility] Rx#: [id number] Piperacillin-Tazobactam 3 100 100 150 .375 gm In Sodium Chloride 0.9% 100 ml @ 25 mls/hr IVPB Q8HR [facility] Rx# :[id number] Sodium Chloride 0.9% 1, 780 480 180 000 ml @ 40 mls/hr IV . Q24H [facility] Rx#:[id number] Intake, IV Titration 100 Amount Sodium Chloride 0.9% 1, 100 000 ml @ 40 mls/hr IV . Q24H [facility] Rx#:[id number] Oral 1320 1080 Blood Product 620 620 Rc As-1 Unit 310 [id number] Rc As-3 Unit 310 [id number] Output: Urine 1040 1870 1525 Other: Voiding Method Indwelling Catheter Indwelling Catheter Indwelling Catheter - Exam GENERAL: The patient is alert and oriented x3, not in any acute distress. Well developed, well nourished. HEENT: Pupils are round and equally reacting to light. EOMI. No scleral icterus. No conjunctival pallor. Normocephalic, atraumatic. No pharyngeal erythema. No thyromegaly. CARDIOVASCULAR: S1 and S2 present. No murmurs, rubs, or gallops. -PULMONARY: Chest is clear to auscultation, bilateral wheezing ABDOMEN: Soft, nontender, nondistended, normoactive bowel sounds. No palpable or ganomegaly. MUSCULOSKELETAL: No joint swelling or deformity. EXTREMITIES: No cyanosis, clubbing, or pedal edema. NEUROLOGICAL: Gross neurological examination did not reveal any focal deficits. SKIN: No rashes. - Labs CBC & Chem 7: 07/07/18 13:26 07/07/18 13:26 Labs: Abnormal Lab Results - Last 24 Hours (Table) 07/05/18 07/06/18 07/07/18 Range/Units 20:50 20:13 04:30 WBC 14.0 H (3.8-10.6) k/uL RBC 2.80 L (3.80-5.40) m/uL Hgb 6.9 L* (11.4-16.0) gm/dL Hct 22.7 L (34.0-46.0) % MCH 24.7 L (25.0-35.0) pg MCHC 30.5 L (31.0-37.0) g/dL RDW 18.3 H (11.5-15.5) % Neutrophils # 12.7 H (1.3-7.7) k/uL Lymphocytes # 0.8 L (1.0-4.8) k/uL D-Dimer (<0.60) mg/L FEU Sodium (137-145) mmol/L Potassium (3.5-5.1) mmol/L Chloride (98-107) mmol/L Carbon Dioxide (22-30) mmol/L BUN (7-17) mg/dL Creatinine (0.52-1.04) mg/dL Glucose (74-99) mg/dL POC Glucose (mg/dL) 226 H (75-99) mg/dL Plasma Lactic Acid Feliberto (0.7-2.0) mmol/L Total Protein (6.3-8.2) g/dL Albumin (3.5-5.0) g/dL Crossmatch See Detail 07/07/18 07/07/18 07/07/18 Range/Units 04:30 04:30 06:46 WBC (3.8-10.6) k/uL RBC (3.80-5.40) m/uL Hgb (11.4-16.0) gm/dL Hct (34.0-46.0) % MCH (25.0-35.0) pg MCHC (31.0-37.0) g/dL RDW (11.5-15.5) % Neutrophils # (1.3-7.7) k/uL Lymphocytes # (1.0-4.8) k/uL D-Dimer (<0.60) mg/L FEU Sodium 136 L (137-145) mmol/L Potassium 3.4 L (3.5-5.1) mmol/L Chloride 108 H (98-107) mmol/L Carbon Dioxide 17 L (22-30) mmol/L BUN 57 H (7-17) mg/dL Creatinine 1.07 H (0.52-1.04) mg/dL Glucose 144 H (74-99) mg/dL POC Glucose (mg/dL) 176 H (75-99) mg/dL Plasma Lactic Acid Feliberto 2.2 H* (0.7-2.0) mmol/L Total Protein 6.1 L (6.3-8.2) g/dL Albumin 2.9 L (3.5-5.0) g/dL Crossmatch 07/07/18 07/07/18 07/07/18 Range/Units 10:18 11:41 13:26 WBC (3.8-10.6) k/uL RBC (3.80-5.40) m/uL Hgb (11.4-16.0) gm/dL Hct (34.0-46.0) % MCH (25.0-35.0) pg MCHC (31.0-37.0) g/dL RDW (11.5-15.5) % Neutrophils # (1.3-7.7) k/uL Lymphocytes # (1.0-4.8) k/uL D-Dimer 1.61 H (<0.60) mg/L FEU Sodium (137-145) mmol/L Potassium (3.5-5.1) mmol/L Chloride (98-107) mmol/L Carbon Dioxide (22-30) mmol/L BUN (7-17) mg/dL Creatinine (0.52-1.04) mg/dL Glucose (74-99) mg/dL POC Glucose (mg/dL) 240 H (75-99) mg/dL Plasma Lactic Acid Feliberto 3.6 H* (0.7-2.0) mmol/L Total Protein (6.3-8.2) g/dL Albumin (3.5-5.0) g/dL Crossmatch 07/07/18 07/07/18 Range/Units 13:26 16:50 WBC 20.4 H (3.8-10.6) k/uL RBC 3.65 L (3.80-5.40) m/uL Hgb 9.3 L D (11.4-16.0) gm/dL Hct 29.6 L (34.0-46.0) % MCH (25.0-35.0) pg MCHC (31.0-37.0) g/dL RDW 18.9 H (11.5-15.5) % Neutrophils # 18.9 H (1.3-7.7) k/uL Lymphocytes # 0.9 L (1.0-4.8) k/uL D-Dimer (<0.60) mg/L FEU Sodium (137-145) mmol/L Potassium (3.5-5.1) mmol/L Chloride (98-107) mmol/L Carbon Dioxide (22-30) mmol/L BUN (7-17) mg/dL Creatinine (0.52-1.04) mg/dL Glucose (74-99) mg/dL POC Glucose (mg/dL) 159 H (75-99) mg/dL Plasma Lactic Acid Feliberto (0.7-2.0) mmol/L Total Protein (6.3-8.2) g/dL Albumin (3.5-5.0) g/dL Crossmatch Microbiology - Last 24 Hours (Table) 07/06/18 16:45 Gram Stain - Preliminary Sputum Sputum Culture - Preliminary 07/05/18 20:50 Blood Culture - Preliminary Blood No Growth after 24 hours 07/06/18 16:45 Urine Culture - Preliminary Urine,Catheterized Assessment and Plan Assessment: acute hypoxic respiratory failure Severe advanced COPD acute exacerbation Atrial fibrillation, heart rate slightly tachycardic. Acute blood loss anemia. Her heparin drip was stopped elevated lactic acid Leukocytosis, mostly reactive History of rheumatoid arthritis History of 60 dermal History of GERD Plan: this is a pleasant 77 years old female who presents because of acute COPD exacerbation, and atrial fibrillation, with GI bleeds after heparin was started, her heparin drip was stopped. Continue with breathing treatment, steroids, antibiotics. Oxygen therapy to keep saturation more than 90%. Cardiology and pulmonary consult is appreciated.Labs and medication were reviewed.. Continue s glenda treatment. Continue with symptomatic treatment. Resume home medication. Monitor lytes and vitals. DVT and GI prophylaxis. Further recommendations of the clinical course of the patient DVT prophylaxis: Subcutaneous heparin GI Prophylaxis: Ppi Prognosis is guarded
[2018-07-07 20:50] LABS: Glucose,Whole Blood 144 mg/dL (75-99)
[2018-07-07] MEDS: MONTELUKAST 10 MG TAB PO SCH (22:06)
[2018-07-08] MEDS: methylPREDNISolone SOD SUCCI 125 MG/2 ML VIAL IV SCH ×3 (00:55→12:36)
[2018-07-08] MEDS: PIPERACILLIN-TAZOBACTAM 3.375 GM in SODIUM CHLORIDE 0.9% 100 ML IVPB SCH ×3 (00:56→16:32)
[2018-07-08 05:55] LABS: Anisocytosis Slight; Basophils % (A) 0 %; Eosinophils % (A) 0 %; HCT 26.8 % (34.0-46.0); HGB 8.6 gm/dL (11.4-16.0); Hypochromasia Marked; Lymphocytes # (A) 0.7 k/uL (1.0-4.8); Lymphocytes % (A) 5 %; MCH 26.4 pg (25.0-35.0); MCHC 32.3 g/dL (31.0-37.0); Mean Platelet Volume 7.6; Microcytosis Slight; Monocytes # (A) 0.4 k/uL (0-1.0); Monocytes % (A) 2 %; Neutrophils # (A) 13.3 k/uL (1.3-7.7); Neutrophils % (A) 92 %; Platelet Count 226 k/uL (150-450); Poikilocytosis Marked; RBC 3.27 m/uL (3.80-5.40); RDW 19.5 % (11.5-15.5); WBC 14.5 k/uL (3.8-10.6)
[2018-07-08 06:03] LABS: Albumin 3.1 g/dL (3.5-5.0); Calcium 9.4 mg/dL (8.4-10.2); Magnesium 2.2 mg/dL (1.6-2.3); Potassium 3.5 mmol/L (3.5-5.1); Total Bilirubin 0.7 mg/dL (0.2-1.3); Total Protein 6.3 g/dL (6.3-8.2)
[2018-07-08] MEDS ORDERED: Potassium Replacement Protocol 1 EACH MISC MISCELLANE PRN (06:09)
[2018-07-08 07:12] LABS: Glucose,Whole Blood 189 mg/dL (75-99)
[2018-07-08] MEDS: PANTOPRAZOLE 40 MG TABLET PO SCH (07:21)
[2018-07-08] MEDS: POTASSIUM CHLORIDE ER 20 MEQ TAB.ER PO SCH ×2 (07:21→09:40)
[2018-07-08] MEDS: INSULIN ASPART (NovoLOG) 100 UNIT/ML VIAL SQ SCH ×4 (07:23→20:42)
[2018-07-08] MEDS: IPRATROPIUM-ALBUTEROL 3 ML NEB INHALATION SCH ×4 (07:36→20:46)
[2018-07-08] MEDS: BUDESONIDE 0.5 MG/2 ML NEBU INHALATION SCH ×2 (07:36→20:46)
--- NOTE | 2018-07-08 08:29 | XR ---
EXAMINATION TYPE: XR chest 1V portable DATE OF EXAM: 07/08/2018 COMPARISON: 07/07/2018 HISTORY: Shortness of breath TECHNIQUE: Single frontal view of the chest is obtained. FINDINGS: There is continued evidence of right hemithorax volume loss, mediastinal shift to the righ t that is partially exaggerated by rotation, right basilar airspace disease. Background emphysema is seen with hyperaeration of the left lung. Generalized osseous demineralization is present. Cardiomedi astinal silhouette is enlarged. IMPRESSION: Redemonstration of right-sided volume loss, rightward mediastinal shift, and small right pleural effusion. Volume loss suggests a component of atelectasis although underlying pneumonia morirs ins a possibility.
[2018-07-08] MEDS: FUROSEMIDE 10 MG/ML 2 ML VIAL IV SCH ×2 (09:41→20:41)
[2018-07-08] MEDS: HEPARIN SODIUM,PORCINE 5,000 UNIT/ML 1 ML VIAL SQ SCH ×2 (09:41→20:42)
[2018-07-08] MEDS: ALPRAZolam 0.25 MG TAB PO PRN ×2 (09:50→15:40)
[2018-07-08] MEDS: VERAPAMIL SR 180 MG TABLET.ER PO SCH ×2 (12:05→19:02)
[2018-07-08 12:14] LABS: Glucose,Whole Blood 209 mg/dL (75-99)
--- NOTE | 2018-07-08 12:15 | CDI ---
Documentation Clarification Form Date: 07/08/2018 12:08:01 PM From: Yen MelissaChaidezCRISTY lawton, CCDS Admit Date: 07/05/2018 10:07:00 PM Patient Name: Madalyn Rosado Visit Number: [id number] Discharge Date: ATTENTION: The Clinical Documentation Specialists (CDI) and [facility] Coding Staff appreciate your assistance in clarifying documentation. Please respond to the clarification below the line at the bottom and electronically sign. The CDI & [facility] Coding staff will review the response and follow-up if needed. Please note: Queries are made part of the Legal Health Record. If you have any questions, please contact the author of this message via ITS. Dr. See Medina: Atrial Fibrillation is documented in the Cardiology Consult and subsequent progress notes as a "new onset". History/Risk Factors: COPD, Smoker, RA & Scleroderma. Clinical Indicators: Presented with SOB, PO 89% on 2Lnc, diagnosed with Acute Exacerbation of COPD & new onset Atrial Fibrillation. Also diagnosed with severe anemia, has elevated troponins (documented as probable hemodynamic mismatch) & ALFIE. Per the pulmonary consult, also diagnosed with Sepsis. EKG: R 154 Atrial fibrillation w/RVR w/PVCs. EKG 07/06: R 88 Atrial Fibrillation Treatment: Initially started on IV Heparin drip, Albuterol INH, IV Cardizem drip, IV Azithromycin, IV Rocephin & IV Solumedrol, received IV fluid bolus. In your professional opinion, can you please clarify the type of Atrial Fibrillation, if known? Chronic/Permanent Paroxysmal Persistent Other, please specify Unable to determine (Last Revision: July 2017) Persistent MTDD
--- NOTE | 2018-07-08 12:26 | CDI ---
Documentation Clarification Form Date: 07/08/2018 12:17:16 PM From: Yen MelissaChaidezCRISTY lawton, CCDS Admit Date: 07/05/2018 10:07:00 PM Patient Name: Madalyn Rosado Visit Number: [id number] Discharge Date: ATTENTION: The Clinical Documentation Specialists (CDI) and [facility] Coding Staff appreciate your assistance in clarifying documentation. Please respond to the clarification below the line at the bottom and electronically sign. The CDI & [facility] Coding staff will review the response and follow-up if needed. Please note: Queries are made part of the Legal Health Record. If you have any questions, please contact the author of this message via ITS. Dr. Chauhan Sheet: Per the Pulmonary consult note & subsequent PN, the patient is diagnosed with Sepsis. History/Risk Factors: COPD, smoker, Scleroderma & RA. Clinical Indicators: Presented with severe SOB & anemia. Diagnosed with Acute exacerbation of COPD, Severe anemia, new onset Atrial Fibrillation & Severe protein calorie malnutrition. VS: T 97.8, P 163^, R 30^ (sob, labored, accessory muscle use), PO 89 on 2Lnc. WBC: WBC 12.7^, Hgb 7.78 - 6.0, Lactic Acid 7.4^^, Trops elevated 0.1, 0.1, 0.1. Blood cultures: Negative @ 48 hrs, Sputum culture pending, Urine culture negative: final. Chest CR: LLL Pneumonia Treatment: Albuterol INH, O2 2Lnc, IV Cardizem drip, IV Heparin drip, Transfused 2 units PRBCs, IV fluid bolus, IV Azithromycin, IV Rocephin. In your professional opinion, please clarify if these findings signify one of the following conditions, whether the condition is POA, and cause, if known: o Sepsis ruled out o SIRS, without underlying infectious process o Sepsis, please specify cause if known o Severe Sepsis, please specify any acute organ dysfunctions o Septic Shock o Other, please specify o Unable to determine Present on Admission Yes No Identify the (suspected) organism (Last Revision: July 2017) Unable to determine MTDD
[2018-07-08] MEDS ORDERED: VERAPAMIL 40 MG TAB PO STA (13:20)
[2018-07-08] MEDS: LEVOFLOXACIN 500 MG TAB PO SCH (13:24)
[2018-07-08] MEDS: CALCIUM CARBONATE 500 MG CHEWABLE PO PRN (13:24)
[2018-07-08] MEDS ORDERED: SENNOSIDES 8.6 MG TAB PO PRN (13:39)
[2018-07-08 15:29] LABS: Reticulocyte % 2.8 % (0.5-2.0)
--- NOTE | 2018-07-08 15:46 | P.PN ---
Subjective Progress Note Date: 07/08/18 07/08/2018: Patient seen and examined in the intensive care unit with nursing staff at bedside. The patient is sitting up in the chair on room air. She states that she is no longer short of breath and is feeling better overall. She denies fevers and chills. She has been hemodynamically stable and afebrile. She does continue to have atrial fibrillation, rate is uncontrolled, rate 110- 120. The patient also remains hypertensive. Objective - Vital Signs Vital signs: Vital Signs Temp 97.7 F 07/08/18 12:00 Pulse 130 H 07/08/18 14:00 Resp 46 H 07/08/18 14:00 BP 145/110 07/08/18 14:00 Pulse Ox 93 L 07/08/18 14:00 Intake & Output 07/07/18 07/08/18 07/08/18 18:59 06:59 18:59 Intake Total 2165 465 1030 Output Total 5049 030 0530 Balance 565 -400 -305 Weight 55.1 kg 55.1 kg Intake: IV 465 225 90 Magnesium Sulfate-D5w Pmx 100 1 gm In Dextrose/Water 1 100ml.bag @ 100 mls/hr IVPB Q1H [facility] Rx#: [id number] Piperacillin-Tazobactam 3 175 125 .375 gm In Sodium Chloride 0.9% 100 ml @ 25 mls/hr IVPB Q8HR [facility] Rx# :[id number] Sodium Chloride 0.9% 1, 190 100 90 000 ml @ 40 mls/hr IV . Q24H [facility] Rx#:[id number] Intake, IV Titration 100 Amount Piperacillin-Tazobactam 3 100 .375 gm In Sodium Chloride 0.9% 100 ml @ 25 mls/hr IVPB Q8HR [facility] Rx# :[id number] Oral 1080 240 840 Blood Product 620 Rc As-1 Unit 310 [id number] Output: Urine 4555 506 3749 Other: Voiding Method Indwelling Catheter Indwelling Catheter - Exam Gen.: Patient is alert and oriented 3, conversational dyspnea Cardiovascular: Tachycardia, Irregular rate and rhythm, S1/S2 Lungs: Diminished breath sounds bilaterally otherwise clear Abdomen: Soft nontender nondistended positive bowel sounds Extremities no edema - Labs CBC & Chem 7: 07/08/18 05:28 07/08/18 05:28 Labs: Abnormal Lab Results - Last 24 Hours (Table) 07/07/18 07/07/18 07/07/18 Range/Units 04:30 16:50 20:38 WBC (3.8-10.6) k/uL RBC (3.80-5.40) m/uL Hgb (11.4-16.0) gm/dL Hct (34.0-46.0) % RDW (11.5-15.5) % Neutrophils # (1.3-7.7) k/uL Lymphocytes # (1.0-4.8) k/uL Haptoglobin 220.0 H (31.2-198.0) mg/dL BUN (7-17) mg/dL Creatinine (0.52-1.04) mg/dL Glucose (74-99) mg/dL POC Glucose (mg/dL) 159 H 144 H (75-99) mg/dL Albumin (3.5-5.0) g/dL 07/08/18 07/08/18 07/08/18 Range/Units 05:28 05:28 07:01 WBC 14.5 H (3.8-10.6) k/uL RBC 3.27 L (3.80-5.40) m/uL Hgb 8.6 L (11.4-16.0) gm/dL Hct 26.8 L (34.0-46.0) % RDW 19.5 H (11.5-15.5) % Neutrophils # 13.3 H (1.3-7.7) k/uL Lymphocytes # 0.7 L (1.0-4.8) k/uL Haptoglobin (31.2-198.0) mg/dL BUN 53 H (7-17) mg/dL Creatinine 1.18 H (0.52-1.04) mg/dL Glucose 166 H (74-99) mg/dL POC Glucose (mg/dL) 189 H (75-99) mg/dL Albumin 3.1 L (3.5-5.0) g/dL 07/08/18 Range/Units 12:02 WBC (3.8-10.6) k/uL RBC (3.80-5.40) m/uL Hgb (11.4-16.0) gm/dL Hct (34.0-46.0) % RDW (11.5-15.5) % Neutrophils # (1.3-7.7) k/uL Lymphocytes # (1.0-4.8) k/uL Haptoglobin (31.2-198.0) mg/dL BUN (7-17) mg/dL Creatinine (0.52-1.04) mg/dL Glucose (74-99) mg/dL POC Glucose (mg/dL) 209 H (75-99) mg/dL Albumin (3.5-5.0) g/dL Microbiology - Last 24 Hours (Table) 07/06/18 16:45 Gram Stain - Final Sputum Sputum Culture - Final 07/05/18 20:50 Blood Culture - Preliminary Blood No Growth after 48 hours 07/06/18 16:45 Urine Culture - Final Urine,Catheterized Assessment and Plan Assessment: Acute hypoxic respiratory failure, improving Acute exacerbation of COPD, severe, FEV1 32% of predicted Active tobacco abuse Lactic acidosis, multifactorial 3 out of 4 SIRS present on admission, sepsis New onset atrial fibrillation Acute symptomatic anemia, unclear etiology NSTEMI ALFIE, unsure of baseline creatinine History of RA and systemic sclerosis PO Verapamil Transfuse for hemoglobin <7, 1 unit PRBC today ,recheck this afternoon, consider hematology consult as the patient has no s/sx of bleeding PT and OT Solumedrol taper Levaquin and Zosyn KVO IVF Duonebs, Pulmicort, Singulair Smoking cessation O2 to maintain saturation > or = 90% GI and DVT prophylaxis: Subcu heparin, Protonix CT from [facility] reviewed, shows right sided volume loss, small pleural effusions, and possible CHF, emphysema, moderate pericardial effusion Ok to transfer out of the ICU today, anticipate DC in 24-48 hours pending patient's course
[2018-07-08] MEDS: methylPREDNISolone SOD SUCCI 40 MG/ML 1 ML VIAL IV SCH (16:32)
[2018-07-08 17:45] LABS: Glucose,Whole Blood 205 mg/dL (75-99)
[2018-07-08] MEDS ORDERED: INSULIN ASPART (NovoLOG) 100 UNIT/ML VIAL SQ ONE (17:48)
--- NOTE | 2018-07-08 17:55 | P.PN ---
Subjective on-call hospitalist covering for Dr. Zelaya this is a pleasant 77 years old female with past medical history of COPD and rheumatoid arthritis, scleroderma and GERD. Presents with severe acute COPD exacerbation.patient currently remains in the ICU, improving slowly. She is a bit tachycardic above 100 . She saturating 93% on room air.her WBC is 20.4 k but she is on steroids too. . INR is 1.6. Plasma lactic acid 3.6. She remains on Xanax, Pulmicort, Levaquin, and Solu-Medrol 60 mg every 6 hours. She is also on Zosyn and Protonix.pulmonary team R following the case closely. As well as cardiology team 07/08/2018 Patient remains in the ICU, however her dyspnea is significantly improved. She denies chest pain, she has some coughing. No abdominal pain. Patient is still tachycardiac and heart rate is uncontrolled, discussed with us to speak with fixture repairer fabricator team for further evaluation. However her blood pressure is stable and she saturating 91% on room air. I reviewed the labs which showing WBC of 14.5 K, hemoglobin 8.6, creatinine 1.1. Patient remains on Lasix 20 mg twice a day, Levaquin and steroids. Today also patient was complaining of from constipation. Senna and Colace has been added. Verapamil dose has been inc reased by cardiology team. We'll keep monitoring her heart rate closely. However patient has been evaluated by pulmonary team given her breathing is more stable she was cleared by sterile processing manager for patient to be transferred to the general medical floor review of systems CONSTITUTIONAL: No fever, no malaise, no fatigue. HEENT: No recent visual problems or hearing problems. Denied any sore throat. CARDIOVASCULAR: No orthopnea, PND, no palpitations, no syncope. PULMONARY: no hemoptysis. GASTROINTESTINAL: No diarrhea, no nausea, no vomiting, no abdominal pain. Normoactive bowel sounds. NEUROLOGICAL: No headaches, no weakness, no numbness. HEMATOLOGICAL: Denies any bleeding or petechiae. GENITOURINARY: Denies any burning micturition, frequency, or urgency. MUSCULOSKELETAL/RHEUMATOLOGICAL: Denies any joint pain, swelling, or any muscle pain. ENDOCRINE: Denies any polyuria or polydipsia. medication: Albuterol, Xanax, Pulmicort, Tums, Lasix, heparin, NovoLog, Levaquin, some Medrol, Zosyn, Singulair, Protonix, verapamil. Objective - Vital Signs Vital signs: Vital Signs Temp 97.6 F 07/08/18 16:00 Pulse 110 H 07/08/18 17:00 Resp 23 07/08/18 17:00 BP 148/88 07/08/18 17:00 Pulse Ox 83 L 07/08/18 17:00 Intake & Output 07/07/18 07/08/18 07/08/18 18:59 06:59 18:59 Intake Total 2165 465 1150 Output Total 4783 682 5009 Balance 565 -400 -340 Weight 55.1 kg 55.1 kg Intake: IV 465 225 110 Magnesium Sulfate-D5w Pmx 100 1 gm In Dextrose/Water 1 100ml.bag @ 100 mls/hr IVPB Q1H [facility] Rx#: [id number] Piperacillin-Tazobactam 3 175 125 .375 gm In Sodium Chloride 0.9% 100 ml @ 25 mls/hr IVPB Q8HR [facility] Rx# :[id number] Sodium Chloride 0.9% 1, 190 100 110 000 ml @ 40 mls/hr IV . Q24H [facility] Rx#:[id number] Intake, IV Titration 200 Amount Piperacillin-Tazobactam 3 200 .375 gm In Sodium Chloride 0.9% 100 ml @ 25 mls/hr IVPB Q8HR [facility] Rx# :[id number] Oral 1080 240 840 Blood Product 620 Rc As-1 Unit 310 [id number] Output: Urine 6736 686 6014 Other: Voiding Method Indwelling Catheter Indwelling Catheter - Exam GENERAL: The patient is alert and oriented x3, not in any acute distress. Well developed, well nourished. HEENT: Pupils are round and equally reacting to light. EOMI. No scleral icterus. No conjunctival pallor. Normocephalic, atraumatic. No pharyngeal erythema. No thyromegaly. CARDIOVASCULAR: S1 and S2 present. No murmurs, rubs, or gallops. -PULMONARY: Chest is clear to auscultation, bilateral wheezing ABDOMEN: Soft, nontender, nondistended, normoactive bowel sounds. No palpable organomegaly. MUSCULOSKELETAL: No joint swelling or deformity. EXTREMITIES: No cyanosis, clubbing, or pedal edema. NEUROLOGICAL: Gross neurological examination did not reveal any focal deficits. SKIN: No rashes. - Labs CBC & Chem 7: 07/08/18 05:28 07/08/18 05:28 Labs: Abnormal Lab Results - Last 24 Hours (Table) 07/07/18 07/07/18 07/08/18 Range/Units 04:30 20:38 05:28 WBC 14.5 H (3.8-10.6) k/uL RBC 3.27 L (3.80-5.40) m/uL Hgb 8.6 L (11.4-16.0) gm/dL Hct 26.8 L (34.0-46.0) % RDW 19.5 H (11.5-15.5) % Neutrophils # 13.3 H (1.3-7.7) k/uL Lymphocytes # 0.7 L (1.0-4.8) k/uL Retic Count (0.5-2.0) % Haptoglobin 220.0 H (31.2-198.0) mg/dL BUN (7-17) mg/dL Creatinine (0.52-1.04) mg/dL Glucose (74-99) mg/dL POC Glucose (mg/dL) 144 H (75-99) mg/dL Albumin (3.5-5.0) g/dL 07/08/18 07/08/18 07/08/18 Range/Units 05:28 05:30 07:01 WBC (3.8-10.6) k/uL RBC (3.80-5.40) m/uL Hgb (11.4-16.0) gm/dL Hct (34.0-46.0) % RDW (11.5-15.5) % Neutrophils # (1.3-7.7) k/uL Lymphocytes # (1.0-4.8) k/uL Retic Count 2.8 H (0.5-2.0) % Haptoglobin (31.2-198.0) mg/dL BUN 53 H (7-17) mg/dL Creatinine 1.18 H (0.52-1.04) mg/dL Glucose 166 H (74-99) mg/dL POC Glucose (mg/dL) 189 H (75-99) mg/dL Albumin 3.1 L (3.5-5.0) g/dL 07/08/18 07/08/18 Range/Units 12:02 17:33 WBC (3.8-10.6) k/uL RBC (3.80-5.40) m/uL Hgb (11.4-16.0) gm/dL Hct (34.0-46.0) % RDW (11.5-15.5) % Neutrophils # (1.3-7.7) k/uL Lymphocytes # (1.0-4.8) k/uL Retic Count (0.5-2.0) % Haptoglobin (31.2-198.0) mg/dL BUN (7-17) mg/dL Creatinine (0.52-1.04) mg/dL Glucose (74-99) mg/dL POC Glucose (mg/dL) 209 H 205 H (75-99) mg/dL Albumin (3.5-5.0) g/dL Microbiology - Last 24 Hours (Table) 07/06/18 16:45 Gram Stain - Final Sputum Sputum Culture - Final 07/05/18 20:50 Blood Culture - Preliminary Blood No Growth after 48 hours 07/06/18 16:45 Urine Culture - Final Urine,Catheterized Assessment and Plan Assessment: acute hypoxic respiratory failure Severe advanced COPD acute exacerbation Atrial fibrillation, heart rate slightly tachycardic. Acute blood loss anemia. Her heparin drip was stopped elevated lactic acid Leukocytosis, mostly reactive History of rheumatoid arthritis History of 60 dermal History of GERD Plan: this is a pleasant 77 years old female who presents because of acute COPD exacerbation, and atrial fibrillation, with GI bleeds after heparin was started, her heparin drip was stopped. Continue with breathing treatment, steroids, antibiotics. Oxygen therapy to keep saturation more than 90%. Cardiology and pulmonary consult is appreciated.Labs and medication were reviewed.. Continue same treatment. Continue with symptomatic treatment. Resume home medication. Monitor lytes and vitals. DVT and GI prophylaxis. Further recommendations of the clinical course of the patient DVT prophylaxis: Subcutaneous heparin GI Prophylaxis: Ppi Prognosis is guarded
[2018-07-08 19:47] LABS: Folate, Serum 15.2 ng/mL; Iron Saturation 5.41 (12.00-45.00)
[2018-07-08 20:10] LABS: Protein, Total 6.6 g/dL (6.2-8.2)
[2018-07-08 20:38] LABS: Glucose,Whole Blood 179 mg/dL (75-99)
[2018-07-08] MEDS: MONTELUKAST 10 MG TAB PO SCH (20:42)
[2018-07-08] MEDS: DOCUSATE 100 MG CAP PO SCH (20:42)
--- NOTE | 2018-07-08 22:53 | P.CONS ---
History of Present Illness - Reason for Consult Consult date: 07/08/18 Anemia Requesting physician: Debra Abrams - Chief Complaint Shortness of Breath - History of Present Illness Ms Rosado is a 77-year-old female, lifelong Smoker, with known history of pulmonary hypertension, COPD, systemic sclerosis, Rheumatoid Arthritis (follows with Rheumatology) and per patient has been on the same treatment for her RA over the past 3 years. She originally presented to ED with complaints of burning in chest, increased shortness of breath, and non-productive cough. She follows with pulmonology as an outpatient. On presentation she was found to be anemic, hgb 5.9. She was in Atrial Fibbrillation with RVR, and IV Cardizem was initiated. She received a unit of PRBC. She denies s/s bleeding. On presentation she did have lactic acid 7, then 10. Admitted to ICU for close monitoring. She has remained afebrile. IV Hydration, Septic WOrk-up, and aggressive supportive care has followed since admission. During interview on initial consultation patient is very winded with speaking, labile oxygen saturation, without oxygen. 86-90%. She is jumping subjects and pleasantly excited about discussion. Son at bedside states this is normal, although her effort of breathing is more. She denies personal history of cancer. Per Patient she has taken Plaquenil for three years Because of her anemia Hematology has been consulted. Review of Systems A 14 point review of systems assessed and completed and all negative except HPI Past Medical History Past Medical History: COPD, Eye Disorder, GERD/Reflux, Rheumatoid Arthritis (RA) Additional Past Medical History / Comment(s): Scleroderma, Cataracts History of Any Multi-Drug Resistant Organisms: None Reported Past Surgical History: Tonsillectomy, Tubal Ligation Additional Past Surgical History / Comment(s): Colonoscopy, R cataract surgery in the past. Past Anesthesia/Blood Transfusion Reactions: No Reported Reaction Past Psychological History: Depression Additional Psychological History / Comment(s): FROM CANCER. Smoking Status: Current every day smoker Past Alcohol Use History: Rare Past Drug Use History: None Reported - Past Family History Mother Family Medical History: Cancer Additional Family Medical History / Comment(s): OVARIAN. Medications and Allergies Home Medications Medication Instructions Recorded Confirmed Type Hydroxychloroquine Sulfate 200 mg PO BID 12/25/13 07/05/18 History [Plaquenil] Budesonide [Pulmicort] 0.5 mg INHALATION RT-BID 07/05/18 07/05/18 History Montelukast [Singulair] 10 mg PO HS 07/05/18 07/05/18 History Allergies Allergy/AdvReac Type Severity Reaction Status Date / Time Sulfa (Sulfonamide Allergy Rash/Hives Verified 07/05/18 17:26 Antibiotics) Physical Exam Vitals: Vital Signs Temp Pulse Resp BP Pulse Ox 07/08/18 21:01 101 H 07/08/18 20:48 105 H 07/08/18 20:00 97.5 F L 108 H 26 H 146/97 93 L 07/08/18 19:00 115 H 24 146/100 92 L 07/08/18 18:00 123 H 23 152/97 78 L 07/08/18 17:00 110 H 23 148/88 83 L 07/08/18 16:38 114 H 07/08/18 16:29 115 H 07/08/18 16:00 97.6 F 109 H 24 151/93 91 L 07/08/18 15:00 108 H 23 154/96 92 L 07/08/18 14:00 130 H 46 H 145/110 93 L 07/08/18 13:00 117 H 28 H 130/102 90 L 07/08/18 12:00 97.7 F 113 H 30 H 144/101 91 L 07/08/18 11:20 105 H 07/08/18 11:07 107 H 07/08/18 11:00 112 H 25 H 134/98 91 L 07/08/18 10:00 109 H 13 134/98 92 L 07/08/18 09:00 112 H 24 147/95 93 L 07/08/18 08:00 97.6 F 104 H 23 128/106 92 L 07/08/18 07:52 100 07/08/18 07:36 109 H 07/08/18 07:00 96 17 144/85 88 L 07/08/18 06:00 101 H 29 H 120/79 90 L 07/08/18 05:00 98 33 H 125/73 93 L 07/08/18 04:00 98.2 F 97 29 H 126/66 91 L 07/08/18 03:00 87 28 H 121/68 92 L 07/08/18 02:00 89 30 H 119/72 91 L 07/08/18 01:00 97 29 H 108/61 90 L 07/08/18 00:00 98 F 84 23 105/62 92 L 07/07/18 23:00 86 23 142/91 93 L Intake and Output 07/08/18 07/08/18 07/08/18 06:59 14:59 22:59 Intake Total 160 1020 160 Output Total 650 1255 345 Balance -311 -090 -571 Intake: IV 160 80 60 Piperacillin-Tazobactam 3 100 .375 gm In Sodium Chloride 0.9% 100 ml @ 25 mls/hr IVPB Q8HR [facility] Rx# :[id number] Sodium Chloride 0.9% 1, 60 80 60 000 ml @ 40 mls/hr IV . Q24H [facility] Rx#:[id number] Intake, IV Titration 100 100 Amount Piperacillin-Tazobactam 3 100 100 .375 gm In Sodium Chloride 0.9% 100 ml @ 25 mls/hr IVPB Q8HR [facility] Rx# :[id number] Oral 840 Output: Urine 650 1255 345 Other: Voiding Method Indwelling Catheter Indwelling Catheter Indwelling Catheter Weight 55.1 kg 55.1 kg Gen: ALert, FLight of ideas, Mild respiratory Distress with fast communication Head: NC/NT Neck: Supple, Midline No adenopathy on palpation axilary or cervical Denition poor, no thrush Lungs: Wheezes expiratory and Diminished throughout, Increased effort noted Heart: Irreg, Irreg Abdomen: Soft, ND, NT Ext: No edema Results CBC & Chem 7: 07/08/18 05:28 07/08/18 05:28 Labs: Abnormal Lab Results - Last 24 Hours (Table) 07/07/18 07/08/18 07/08/18 Range/Units 04:30 05:28 05:28 WBC 14.5 H (3.8-10.6) k/uL RBC 3.27 L (3.80-5.40) m/uL Hgb 8.6 L (11.4-16.0) gm/dL Hct 26.8 L (34.0-46.0) % RDW 19.5 H (11.5-15.5) % Neutrophils # 13.3 H (1.3-7.7) k/uL Lymphocytes # 0.7 L (1.0-4.8) k/uL Retic Count (0.5-2.0) % Haptoglobin 220.0 H (31.2-198.0) mg/dL BUN 53 H (7-17) mg/dL Creatinine 1.18 H (0.52-1.04) mg/dL Glucose 166 H (74-99) mg/dL POC Glucose (mg/dL) (75-99) mg/dL Iron (50-170) ug/dL Iron Saturation (12.00-45.00) Albumin 3.1 L (3.5-5.0) g/dL 07/08/18 07/08/18 07/08/18 Range/Units 05:30 07:01 07:30 WBC (3.8-10.6) k/uL RBC (3.80-5.40) m/uL Hgb (11.4-16.0) gm/dL Hct (34.0-46.0) % RDW (11.5-15.5) % Neutrophils # (1.3-7.7) k/uL Lymphocytes # (1.0-4.8) k/uL Retic Count 2.8 H (0.5-2.0) % Haptoglobin (31.2-198.0) mg/dL BUN (7-17) mg/dL Creatinine (0.52-1.04) mg/dL Glucose (74-99) mg/dL POC Glucose (mg/dL) 189 H (75-99) mg/dL Iron 19 L (50-170) ug/dL Iron Saturation 5.41 L (12.00-45.00) Albumin (3.5-5.0) g/dL 07/08/18 07/08/18 07/08/18 Range/Units 12:02 17:33 20:27 WBC (3.8-10.6) k/uL RBC (3.80-5.40) m/uL Hgb (11.4-16.0) gm/dL Hct (34.0-46.0) % RDW (11.5-15.5) % Neutrophils # (1.3-7.7) k/uL Lymphocytes # (1.0-4.8) k/uL Retic Count (0.5-2.0) % Haptoglobin (31.2-198.0) mg/dL BUN (7-17) mg/dL Creatinine (0.52-1.04) mg/dL Glucose (74-99) mg/dL POC Glucose (mg/dL) 209 H 205 H 179 H (75-99) mg/dL Iron (50-170) ug/dL Iron Saturation (12.00-45.00) Albumin (3.5-5.0) g/dL Microbiology - Last 24 Hours (Table) 07/06/18 16:45 Gram Stain - Final Sputum Sputum Culture - Final 07/05/18 20:50 Blood Culture - Preliminary Blood No Growth after 48 hours 07/06/18 16:45 Urine Culture - Final Urine,Catheterized CT scan - chest: report reviewed Assessment and Plan (1) Normocytic anemia Current Visit: Yes Status: Acute Code(s): D64.9 - ANEMIA, UNSPECIFIED SNOMED Code(s): 798886946 (2) Acute chronic obstructive pulmonary disease with respiratory distress Current Visit: Yes Status: Acute Code(s): J44.9 - CHRONIC OBSTRUCTIVE PULMONARY DISEASE, UNSPECIFIED; R06.03 - ACUTE RESPIRATORY DISTRESS SNOMED Code(s): 109064233 (3) Leukocytosis Current Visit: Yes Status: Acute Code(s): D72.829 - ELEVATED WHITE BLOOD CELL COUNT, UNSPECIFIED SNOMED Code(s): 701752831 (4) Rheumatoid arthritis Current Visit: Yes Status: Acute Code(s): M06.9 - RHEUMATOID ARTHRITIS, UNSPECIFIED SNOMED Code(s): 98290556 (5) SIRS (systemic inflammatory response syndrome) Current Visit: Yes Status: Acute Code(s): R65.10 - SIRS OF NON-INFECTIOUS ORIGIN W/O ACUTE ORGAN DYSFUNCTION SNOMED Code(s): 695072171 (6) Atrial fibrillation with RVR Current Visit: Yes Status: Acute Code(s): I48.91 - UNSPECIFIED ATRIAL FIBRILLATION SNOMED Code(s): 184652502524005 Plan: Assessment and Recommendations: 1. Acute on Chronic Normocytic Anemia: - Likely Multifactorial with components of: * Deficiency (Saturation 5%, Iron = 19), Ferritin 109 - Increased secondary to Inflammation * Chronic Inflammation/Illness * Bone Marrow Suppression secondary to Antirheumatic Agent - Monitor Daily CBC and Transfuse with PRBC for Hemoglobin 7 or less - Parental Iron is resonable once bacteremia is ruled out, PO Iron ok at this time - Stool for Occult blood negative, although with evidence of iron deficiency component a GI Evaluation is recommended - Further anemia work-up ordered, will await results. 2. 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 SIRS 3/4: - Awaiting Guillory Cultures - Supportive Care and management ICU Team 4. Rheumatoid Arthritis: - FOllows with Rheumatology - Treatment with PLaquenil, currently on hold 5. Leukocytosis - Reactive 6. New onset Afib with RVR: - Cardiology and ICU Management Thank you for allowing us to care for this patient, we will follow along with you.
[2018-07-09] MEDS: PIPERACILLIN-TAZOBACTAM 3.375 GM in SODIUM CHLORIDE 0.9% 100 ML IVPB SCH ×4 (00:15→23:29)
[2018-07-09] MEDS: methylPREDNISolone SOD SUCCI 40 MG/ML 1 ML VIAL IV SCH ×4 (00:15→23:29)
--- NOTE | 2018-07-09 02:32 | P.PN ---
Subjective Progress Note Date: 07/09/18 07/09/2018: Patient seen and examined in the intensive care unit. Patient states she is doing very well. She states her breathing is getting better. She states she is unable to sleep well and has no needs or complaints at this time. The patient's O2 saturation is 93% on room air. Her heart rate is down to 100s. Objective - Vital Signs Vital signs: Vital Signs Temp 97.6 F 07/09/18 00:00 Pulse 99 07/09/18 00:00 Resp 24 07/09/18 00:00 BP 125/66 07/09/18 00:00 Pulse Ox 92 L 07/09/18 00:00 Intake & Output 07/08/18 07/08/18 07/09/18 06:59 18:59 06:59 Intake Total 465 1150 20 Output Total 865 1490 420 Balance -400 -340 -400 Weight 55.1 kg 55.1 kg Intake: IV 225 110 20 Piperacillin-Tazobactam 3 125 .375 gm In Sodium Chloride 0.9% 100 ml @ 25 mls/hr IVPB Q8HR [facility] Rx# :[id number] Sodium Chloride 0.9% 1, 100 110 20 000 ml @ 40 mls/hr IV . Q24H [facility] Rx#:[id number] Intake, IV Titration 200 Amount Piperacillin-Tazobactam 3 200 .375 gm In Sodium Chloride 0.9% 100 ml @ 25 mls/hr IVPB Q8HR [facility] Rx# :[id number] Oral 240 840 Output: Urine 865 1490 420 Other: Voiding Method Indwelling Catheter Indwelling Catheter Indwelling Catheter - Exam Gen.: Patient is alert and oriented 3, conversational dyspnea Cardiovascular: Tachycardia, Irregular rate and rhythm, S1/S2 Lungs: Diminished breath sounds bilaterally otherwise clear Abdomen: Soft nontender nondistended positive bowel sounds Extremities no edema - Labs CBC & Chem 7: 07/08/18 05:28 07/08/18 05:28 Labs: Abnormal Lab Results - Last 24 Hours (Table) 07/07/18 07/08/18 07/08/18 Range/Units 04:30 05:28 05:28 WBC 14.5 H (3.8-10.6) k/uL RBC 3.27 L (3.80-5.40) m/uL Hgb 8.6 L (11.4-16.0) gm/dL Hct 26.8 L (34.0-46.0) % RDW 19.5 H (11.5-15.5) % Neutrophils # 13.3 H (1.3-7.7) k/uL Lymphocytes # 0.7 L (1.0-4.8) k/uL Retic Count (0.5-2.0) % Haptoglobin 220.0 H (31.2-198.0) mg/dL BUN 53 H (7-17) mg/dL Creatinine 1.18 H (0.52-1.04) mg/dL Glucose 166 H (74-99) mg/dL POC Glucose (mg/dL) (75-99) mg/dL Iron (50-170) ug/dL Iron Saturation (12.00-45.00) Albumin 3.1 L (3.5-5.0) g/dL 07/08/18 07/08/18 07/08/18 Range/Units 05:30 07:01 07:30 WBC (3.8-10.6) k/uL RBC (3.80-5.40) m/uL Hgb (11.4-16.0) gm/dL Hct (34.0-46.0) % RDW (11.5-15.5) % Neutrophils # (1.3-7.7) k/uL Lymphocytes # (1.0-4.8) k/uL Retic Count 2.8 H (0.5-2.0) % Haptoglobin (31.2-198.0) mg/dL BUN (7-17) mg/dL Creatinine (0.52-1.04) mg/dL Glucose (74-99) mg/dL POC Glucose (mg/dL) 189 H (75-99) mg/dL Iron 19 L (50-170) ug/dL Iron Saturation 5.41 L (12.00-45.00) Albumin (3.5-5.0) g/dL 07/08/18 07/08/18 07/08/18 Range/Units 12:02 17:33 20:27 WBC (3.8-10.6) k/uL RBC (3.80-5.40) m/uL Hgb (11.4-16.0) gm/dL Hct (34.0-46.0) % RDW (11.5-15.5) % Neutrophils # (1.3-7.7) k/uL Lymphocytes # (1.0-4.8) k/uL Retic Count (0.5-2.0) % Haptoglobin (31.2-198.0) mg/dL BUN (7-17) mg/dL Creatinine (0.52-1.04) mg/dL Glucose (74-99) mg/dL POC Glucose (mg/dL) 209 H 205 H 179 H (75-99) mg/dL Iron (50-170) ug/dL Iron Saturation (12.00-45.00) Albumin (3.5-5.0) g/dL Microbiology - Last 24 Hours (Table) 07/05/18 20:50 Blood Culture - Preliminary Blood No Growth after 72 hours 07/06/18 16:45 Gram Stain - Final Sputum Sputum Culture - Final Assessment and Plan Assessment: Acute hypoxic respiratory failure, improving Acute exacerbation of COPD, severe, FEV1 32% of predicted Active tobacco abuse Lactic acidosis, multifactorial 3 out of 4 SIRS present on admission, sepsis New onset atrial fibrillation Acute symptomatic anemia, unclear etiology NSTEMI ALFIE, unsure of baseline creatinine History of RA and systemic sclerosis PO Verapamil Transfuse for hemoglobin <7, 1 unit PRBC today ,recheck this afternoon, consider hematology consult as the patient has no s/sx of bleeding PT and OT Solumedrol taper Levaquin and Zosyn KVO IVF Duonebs, Pulmicort, Singulair Smoking cessation O2 to maintain saturation > or = 90% GI and DVT prophylaxis: Subcu heparin, Protonix CT from [facility] reviewed, shows right sided volume loss, small pleural effusions, and possible CHF, emphysema, moderate pericardial effusion Ok to transfer out of the ICU today, anticipate DC in 24-48 hours pending patient's course Start PO ferrous sulfate
[2018-07-09 05:23] LABS: Anisocytosis Moderate; Basophils % (A) 0 %; Eosinophils % (A) 0 %; HCT 27.4 % (34.0-46.0); HGB 8.8 gm/dL (11.4-16.0); Hypochromasia Marked; Lymphocytes # (A) 0.6 k/uL (1.0-4.8); Lymphocytes % (A) 5 %; MCH 26.4 pg (25.0-35.0); MCV 82.6 fL (80.0-100.0); Microcytosis Slight; Monocytes # (A) 0.3 k/uL (0-1.0); Monocytes % (A) 3 %; Neutrophils # (A) 10.5 k/uL (1.3-7.7); Neutrophils % (A) 91 %; Platelet Count 221 k/uL (150-450); Poikilocytosis Moderate; RBC 3.32 m/uL (3.80-5.40); WBC 11.5 k/uL (3.8-10.6)
[2018-07-09 05:32] LABS: Potassium 3.7 mmol/L (3.5-5.1)
[2018-07-09 05:33] LABS: Albumin 3.1 g/dL (3.5-5.0); Calcium 9.8 mg/dL (8.4-10.2); Total Bilirubin 0.7 mg/dL (0.2-1.3); Total Protein 6.3 g/dL (6.3-8.2)
[2018-07-09] MEDS ORDERED: POTASSIUM CHLORIDE ER 20 MEQ TAB.ER PO SCH (07:00)
[2018-07-09 07:05] LABS: Glucose,Whole Blood 183 mg/dL (75-99)
[2018-07-09] MEDS: IPRATROPIUM-ALBUTEROL 3 ML NEB INHALATION SCH ×4 (08:14→19:40)
[2018-07-09] MEDS: BUDESONIDE 0.5 MG/2 ML NEBU INHALATION SCH ×2 (08:14→19:40)
[2018-07-09] MEDS: PANTOPRAZOLE 40 MG TABLET PO SCH (08:39)
[2018-07-09] MEDS: FERROUS SULFATE 325 MG TAB PO SCH ×2 (08:39→15:13)
[2018-07-09] MEDS: INSULIN ASPART (NovoLOG) 100 UNIT/ML VIAL SQ SCH ×4 (08:39→21:25)
[2018-07-09] MEDS: HEPARIN SODIUM,PORCINE 5,000 UNIT/ML 1 ML VIAL SQ SCH ×2 (08:40→21:24)
[2018-07-09] MEDS: DOCUSATE 100 MG CAP PO SCH ×2 (08:40→21:24)
[2018-07-09] MEDS: FUROSEMIDE 10 MG/ML 2 ML VIAL IV SCH ×2 (08:40→21:24)
[2018-07-09] MEDS: VERAPAMIL SR 240 MG TABLET.ER PO SCH (08:41)
[2018-07-09] MEDS: ALPRAZolam 0.25 MG TAB PO PRN ×2 (08:59→15:12)
[2018-07-09] MEDS: LEVOFLOXACIN 500 MG TAB PO SCH (11:07)
[2018-07-09 11:43] LABS: Glucose,Whole Blood 163 mg/dL (75-99)
[2018-07-09] MEDS ORDERED: VERAPAMIL SR 240 MG TABLET.ER PO SCH (12:00)
--- NOTE | 2018-07-09 12:44 | P.PN ---
Subjective on-call hospitalist covering for Dr. Zelaya this is a pleasant 77 years old female with past medical history of COPD and rheumatoid arthritis, scleroderma and GERD. Presents with severe acute COPD exacerbation.patient currently remains in the ICU, improving slowly. She is a bit tachycardic above 100 . She saturating 93% on room air.her WBC is 20.4 k but she is on steroids too. . INR is 1.6. Plasma lactic acid 3.6. She remains on Xanax, Pulmicort, Levaquin, and Solu-Medrol 60 mg every 6 hours. She is also on Zosyn and Protonix.pulmonary team R following the case closely. As well as cardiology team 07/08/2018 Patient remains in the ICU, however her dyspnea is significantly improved. She denies chest pain, she has some coughing. No abdominal pain. Patient is still tachycardiac and heart rate is uncontrolled, discussed with us to speak with double bass player team for further evaluation. However her blood pressure is stable and she saturating 91% on room air. I reviewed the labs which showing WBC of 14.5 K, hemoglobin 8.6, creatinine 1.1. Patient remains on Lasix 20 mg twice a day, Levaquin and steroids. Today also patient was complaining of from constipation. Senna and Colace has been added. Verapamil dose has been inc reased by cardiology team. We'll keep monitoring her heart rate closely. However patient has been evaluated by pulmonary team given her breathing is more stable she was cleared by it program auditor for patient to be transferred to the general medical floor 07/09/18 pt is doing better today , she is less dyspneic , with some cough, no chest pain , she eating diet well , she is still on oxygen therapy 2 L with nasal cannulas. he is tachycardic around 104. Leukocytosis improving. Anemia at 8.8. Cr eatinine is stable at 1.1pulmonary follow-up is appreciated. Start iron pills. Cardiology team placed the patient on verapamil 240 mg by mouth daily. physical therapy evaluation Discharge planning in 24-48 hours review of systems CONSTITUTIONAL: No fever, no malaise, no fatigue. HEENT: No recent visual problems or hearing problems. Denied any sore throat. CARDIOVASCULAR: No orthopnea, PND, no palpitations, no syncope. PULMONARY: no hemoptysis. GASTROINTESTINAL: No diarrhea, no nausea, no vomiting, no abdominal pain. Normoactive bowel sounds. NEUROLOGICAL: No headaches, no weakness, no numbness. HEMATOLOGICAL: Denies any bleeding or petechiae. GENITOURINARY: Denies any burning micturition, frequency, or urgency. MUSCULOSKELETAL/RHEUMATOLOGICAL: Denies any joint pain, swelling, or any muscle pain. ENDOCRINE: Denies any polyuria or polydipsia. medication: Albuterol, Xanax, Pulmicort, Tums, Lasix, heparin, NovoLog, Levaquin, some Medrol, Zosyn, Singulair, Protonix, verapamil. Objective - Vital Signs Vital signs: Vital Signs Temp 97.8 F 07/09/18 11:04 Pulse 104 H 07/09/18 11:53 Resp 18 07/09/18 11:04 BP 123/71 07/09/18 11:04 Pulse Ox 93 L 07/09/18 11:04 Intake & Output 07/08/18 07/09/18 07/09/18 18:59 06:59 18:59 Intake Total 1150 110 140 Output Total 3975 858 7891 Balance -340 -710 -1060 Weight 55.1 kg Intake: IV 110 110 40 Sodium Chloride 0.9% 1, 110 110 40 000 ml @ 40 mls/hr IV . Q24H [facility] Rx#:[id number] Intake, IV Titration 200 Amount Piperacillin-Tazobactam 3 200 .375 gm In Sodium Chloride 0.9% 100 ml @ 25 mls/hr IVPB Q8HR [facility] Rx# :[id number] Oral 840 100 Output: Urine 2259 444 0224 Uretheral (Simmons) 1200 Other: Voiding Method Indwelling Catheter Indwelling Catheter Indwelling Catheter - Exam GENERAL: The patient is alert and oriented x3, not in any acute distress. Well developed, well nourished. HEENT: Pupils are round and equally reacting to light. EOMI. No scleral icterus. No conjunctival pallor. Normocephalic, atraumatic. No pharyngeal erythema. No thyromegaly. CARDIOVASCULAR: S1 and S2 present. No murmurs, rubs, or gallops. -PULMONARY: Chest is clear to auscultation, bilateral wheezing ABDOMEN: Soft, nontender, nondistended, normoactive bowel sounds. No palpable organomegaly. MUSCULOSKELETAL: No joint swelling or deformity. EXTREMITIES: No cyanosis, clubbing, or pedal edema. NEUROLOGICAL: Gross neurological examination did not reveal any focal deficits. SKIN: No rashes. - Labs CBC & Chem 7: 07/09/18 04:39 07/09/18 04:39 Labs: Abnormal Lab Results - Last 24 Hours (Table) 07/08/18 07/08/18 07/08/18 Range/Units 05:30 07:30 17:33 WBC (3.8-10.6) k/uL RBC (3.80-5.40) m/uL Hgb (11.4-16.0) gm/dL Hct (34.0-46.0) % RDW (11.5-15.5) % Neutrophils # (1.3-7.7) k/uL Lymphocytes # (1.0-4.8) k/uL Retic Count 2.8 H (0.5-2.0) % BUN (7-17) mg/dL Creatinine (0.52-1.04) mg/dL Glucose (74-99) mg/dL POC Glucose (mg/dL) 205 H (75-99) mg/dL Iron 19 L (50-170) ug/dL Iron Saturation 5.41 L (12.00-45.00) Albumin (3.5-5.0) g/dL Free [place] LC, Quant 3.18 H (0.33-1.94) mg/dL 07/08/18 07/09/18 07/09/18 Range/Units 20:27 04:39 04:39 WBC 11.5 H (3.8-10.6) k/uL RBC 3.32 L (3.80-5.40) m/uL Hgb 8.8 L (11.4-16.0) gm/dL Hct 27.4 L (34.0-46.0) % RDW 20.0 H (11.5-15.5) % Neutrophils # 10.5 H (1.3-7.7) k/uL Lymphocytes # 0.6 L (1.0-4.8) k/uL Retic Count (0.5-2.0) % BUN 53 H (7-17) mg/dL Creatinine 1.14 H (0.52-1.04) mg/dL Glucose 153 H (74-99) mg/dL POC Glucose (mg/dL) 179 H (75-99) mg/dL Iron (50-170) ug/dL Iron Saturation (12.00-45.00) Albumin 3.1 L (3.5-5.0) g/dL Free [place] LC, Quant (0.33-1.94) mg/dL 07/09/18 07/09/18 Range/Units 06:54 11:14 WBC (3.8-10.6) k/uL RBC (3.80-5.40) m/uL Hgb (11.4-16.0) gm/dL Hct (34.0-46.0) % RDW (11.5-15.5) % Neutrophils # (1.3-7.7) k/uL Lymphocytes # (1.0-4.8) k/uL Retic Count (0.5-2.0) % BUN (7-17) mg/dL Creatinine (0.52-1.04) mg/dL Glucose (74-99) mg/dL POC Glucose (mg/dL) 183 H 163 H (75-99) mg/dL Iron (50-170) ug/dL Iron Saturation (12.00-45.00) Albumin (3.5-5.0) g/dL Free [place] LC, Quant (0.33-1.94) mg/dL Microbiology - Last 24 Hours (Table) 07/05/18 20:50 Blood Culture - Preliminary Blood No Growth after 72 hours 07/06/18 16:45 Gram Stain - Final Sputum Sputum Culture - Final Assessment and Plan Assessment: acute hypoxic respiratory failure Severe advanced COPD acute exacerbation Atrial fibrillation, heart rate slightly tachycardic. Acute blood loss anemia. Her heparin drip was stopped elevated lactic acid Leukocytosis, mostly reactive History of rheumatoid arthritis History of 60 dermal History of GERD Plan: this is a pleasant 77 years old female who presents because of acute COPD exacerbation, and atrial fibrillation, with GI bleeds after heparin was started, her heparin drip was stopped. Continue with breathing treatment, steroids, antibiotics. Oxygen therapy to keep saturation more than 90%. Cardiology and pulmonary consult is appreciated.Labs and medication were reviewed.. Continue same treatment. Continue with symptomatic treatment. Resume home medication. Monitor lytes and vitals. DVT and GI prophylaxis. Further recommendations of the clinical course of the patient DVT prophylaxis: Subcutaneous heparin GI Prophylaxis: Ppi Prognosis is guarded
[2018-07-09 16:28] LABS: Glucose,Whole Blood 204 mg/dL (75-99)
[2018-07-09 21:10] LABS: Glucose,Whole Blood 143 mg/dL (75-99)
[2018-07-09] MEDS: VERAPAMIL SR 180 MG TABLET.ER PO SCH (21:25)
[2018-07-09] MEDS: MONTELUKAST 10 MG TAB PO SCH (21:25)
[2018-07-09 22:17] LABS: Glucose,Whole Blood 221 mg/dL (75-99)
[2018-07-10 06:14] LABS: Glucose,Whole Blood 204 mg/dL (75-99)
[2018-07-10] MEDS: INSULIN ASPART (NovoLOG) 100 UNIT/ML VIAL SQ SCH ×4 (06:33→23:06)
[2018-07-10] MEDS: FERROUS SULFATE 325 MG TAB PO SCH ×2 (06:34→17:01)
[2018-07-10] MEDS: PANTOPRAZOLE 40 MG TABLET PO SCH (06:34)
[2018-07-10 07:57] LABS: Anisocytosis Moderate; Basophils % (A) 0 %; Eosinophils % (A) 0 %; HGB 9.5 gm/dL (11.4-16.0); Hypochromasia Marked; Lymphocytes # (A) 0.6 k/uL (1.0-4.8); Lymphocytes % (A) 7 %; MCH 25.7 pg (25.0-35.0); MCHC 30.7 g/dL (31.0-37.0); MCV 83.8 fL (80.0-100.0); Mean Platelet Volume 7.9; Microcytosis Slight; Monocytes # (A) 0.3 k/uL (0-1.0); Monocytes % (A) 3 %; Neutrophils # (A) 8.1 k/uL (1.3-7.7); Neutrophils % (A) 89 %; Platelet Count 223 k/uL (150-450); Poikilocytosis Moderate; RDW 20.9 % (11.5-15.5); WBC 9.1 k/uL (3.8-10.6)
[2018-07-10] MEDS: HEPARIN SODIUM,PORCINE 5,000 UNIT/ML 1 ML VIAL SQ SCH ×2 (08:11→23:03)
[2018-07-10] MEDS: FUROSEMIDE 10 MG/ML 2 ML VIAL IV SCH ×2 (08:11→23:02)
[2018-07-10] MEDS: methylPREDNISolone SOD SUCCI 40 MG/ML 1 ML VIAL IV SCH ×3 (08:12→23:03)
[2018-07-10] MEDS: DOCUSATE 100 MG CAP PO SCH ×2 (08:12→23:02)
[2018-07-10] MEDS: PIPERACILLIN-TAZOBACTAM 3.375 GM in SODIUM CHLORIDE 0.9% 100 ML IVPB SCH ×3 (08:12→23:09)
--- NOTE | 2018-07-10 08:27 | P.PN ---
<Ann Pierson A - Last Filed: 07/10/18 09:58> Subjective Progress Note Date: 07/10/18 IMPRESSION / ASSESSMENT: New onset atrial fibrillation Acute hypoxic respiratory failure with COPD exacerbation Sepsis Rheumatoid arthritis Anemia, symptomatic of unclear etiology PLAN: Increase verapamil to 240 mg twice daily Monitor rate for possible further medication adjustments Continue Lasix 20 mg IV every 12 hours Not candidate for long-term anticoagulation due to anemia HPI This is a 77-year-old female presented to the hospital with increasing shortness of breath and has been under treatment with Dr. Abrams for COPD exacerbation. Upon arrival to the hospital patient was in atrial fibrillation with moderate ventricular rate and patient initially started on Cardizem drip with improved rate. Patient was also on heparin drip which was discontinued and started heparin subcu. Patient is currently on verapamil 240 mg in the a.m. and 180 mg at bedtime, Lasix 20 mg IV every 12 hours. Patient has had good urine output. Patient was transferred to the selective care stepdown unit yesterday area and her manager cardiac cath has been A. fib running up to 120s with PVCs in pairs. Patient denies shortness of breath but appears dyspneic with talking. She is complaining of midabdominal stomachache, dry mouth and anxiety. Patient has not had a bowel movement since admission. She currently denies chest pain or shortness of breath. ROS: No fever chills or rigors, no cough, phlegm or expectoration, no nausea, vomiting or diarrhea, no hematuria, dysuria, no musculoskeletal complaints, no strokes or seizures, no skin lesions. EXAMINATION: Gen: This is a thin 77-year-old female. Patient appears dyspneic with conversation. HEENT: Head is atraumatic, normocephalic. Pupils equal, round. Sclerae is anicteric. NECK: Supple. No JVD. No lymphadenopathy. No thyromegaly. LUNGS: Diminished breath sounds with a few scattered wheezes. Mild intercostal retractions and accessory muscle usage. HEART: Irregularly irregular. No murmur. ABDOMEN: Soft. Bowel sounds are present. No masses. Mild mid abdominal tenderness. Simmons draining clear [place] urine. EXTREMITIES: No pedal edema. No calf tenderness. Dorsalis pedis +2 bilaterally. NEUROLOGICAL: Patient is awake, alert and oriented x3. Cranial nerves 2 through 12 are grossly intact. REVIEW OF LABS, ECG & MEDICAL DATA WBC 9.1, hemoglobin 9.5, platelet count 223. TSH 5.960 with normal free T4 1 0.96. Nurse practitioner note has been reviewed, I agree with documented findings and plan of care. Patient was seen and examined. Objective - Vital Signs Vital signs: Vital Signs Temp 97.3 F L 07/10/18 08:00 Pulse 102 H 07/10/18 08:00 Resp 18 07/10/18 08:00 BP 180/88 07/10/18 08:00 Pulse Ox 95 07/10/18 08:00 Intake & Output 07/09/18 07/10/18 07/10/18 18:59 06:59 18:59 Intake Total 140 Output Total 1200 1200 Balance -1060 -1200 Intake: IV 40 Sodium Chloride 0.9% 1, 40 000 ml @ 40 mls/hr IV . Q24H [facility] Rx#:[id number] Oral 100 Output: Urine 1200 1200 Uretheral (Simmons) 1200 Other: Voiding Method Indwelling Catheter Indwelling Catheter Indwelling Catheter - Labs CBC & Chem 7: 07/10/18 07:21 07/10/18 07:21 Labs: Abnormal Lab Results - Last 24 Hours (Table) 07/08/18 07/09/18 07/09/18 Range/Units 07:30 11:14 16:17 RBC (3.80-5.40) m/uL Hgb (11.4-16.0) gm/dL Hct (34.0-46.0) % MCHC (31.0-37.0) g/dL RDW (11.5-15.5) % Neutrophils # (1.3-7.7) k/uL Lymphocytes # (1.0-4.8) k/uL POC Glucose (mg/dL) 163 H 204 H (75-99) mg/dL Free [place] LC, Quant 3.18 H (0.33-1.94) mg/dL 07/09/18 07/09/18 07/10/18 Range/Units 21:09 21:47 06:12 RBC (3.80-5.40) m/uL Hgb (11.4-16.0) gm/dL Hct (34.0-46.0) % MCHC (31.0-37.0) g/dL RDW (11.5-15.5) % Neutrophils # (1.3-7.7) k/uL Lymphocytes # (1.0-4.8) k/uL POC Glucose (mg/dL) 143 H 221 H 204 H (75-99) mg/dL Free [place] LC, Quant (0.33-1.94) mg/dL 07/10/18 Range/Units 07:21 RBC 3.70 L (3.80-5.40) m/uL Hgb 9.5 L (11.4-16.0) gm/dL Hct 31.0 L (34.0-46.0) % MCHC 30.7 L (31.0-37.0) g/dL RDW 20.9 H (11.5-15.5) % Neutrophils # 8.1 H (1.3-7.7) k/uL Lymphocytes # 0.6 L (1.0-4.8) k/uL POC Glucose (mg/dL) (75-99) mg/dL Free [place] LC, Quant (0.33-1.94) mg/dL Microbiology - Last 24 Hours (Table) 07/05/18 20:50 Blood Culture - Preliminary Blood No Growth after 96 hours <Roger Salinas - Last Filed: 07/11/18 10:35> Objective - Vital Signs Vital signs: Vital Signs Temp 98 F 07/11/18 08:00 Pulse 88 07/11/18 08:57 Resp 20 07/11/18 08:00 BP 180/82 07/11/18 08:00 Pulse Ox 96 07/11/18 08:00 Intake & Output 07/10/18 07/11/18 07/11/18 18:59 06:59 18:59 Intake Total 200 200 240 Output Total 1300 1750 Balance -1100 -1550 240 Intake: IV 200 Sodium Chloride 0.9% 1, 200 000 ml @ 40 mls/hr IV . Q24H [facility] Rx#:[id number] Oral 200 240 Output: Urine 1300 1750 Other: Voiding Method Indwelling Catheter Indwelling Catheter # Bowel Movements 1 - Labs CBC & Chem 7: 07/11/18 06:18 07/11/18 06:18 Labs: Abnormal Lab Results - Last 24 Hours (Table) 07/10/18 07/10/18 07/10/18 Range/Units 11:14 16:19 20:59 WBC (3.8-10.6) k/uL Hgb (11.4-16.0) gm/dL Hct (34.0-46.0) % RDW (11.5-15.5) % Neutrophils # (1.3-7.7) k/uL Lymphocytes # (1.0-4.8) k/uL Potassium (3.5-5.1) mmol/L Chloride (98-107) mmol/L Carbon Dioxide (22-30) mmol/L BUN (7-17) mg/dL Creatinine (0.52-1.04) mg/dL Glucose (74-99) mg/dL POC Glucose (mg/dL) 111 H 188 H 185 H (75-99) mg/dL Total Protein (6.3-8.2) g/dL Albumin (3.5-5.0) g/dL 07/11/18 07/11/18 07/11/18 Range/Units 05:55 06:18 06:18 WBC 22.0 H (3.8-10.6) k/uL Hgb 10.4 L (11.4-16.0) gm/dL Hct 32.3 L (34.0-46.0) % RDW 20.8 H (11.5-15.5) % Neutrophils # 20.6 H (1.3-7.7) k/uL Lymphocytes # 0.4 L (1.0-4.8) k/uL Potassium 3.1 L (3.5-5.1) mmol/L Chloride 97 L (98-107) mmol/L Carbon Dioxide 33 H (22-30) mmol/L BUN 58 H (7-17) mg/dL Creatinine 1.15 H (0.52-1.04) mg/dL Glucose 117 H (74-99) mg/dL POC Glucose (mg/dL) 133 H (75-99) mg/dL Total Protein 6.2 L (6.3-8.2) g/dL Albumin 3.1 L (3.5-5.0) g/dL Microbiology - Last 24 Hours (Table) 07/05/18 20:50 Blood Culture - Preliminary Blood No Growth after 120 hours
[2018-07-10 08:36] LABS: Albumin 3.2 g/dL (3.5-5.0); Calcium 9.7 mg/dL (8.4-10.2); Potassium 4.4 mmol/L (3.5-5.1); Total Bilirubin 0.9 mg/dL (0.2-1.3); Total Protein 6.5 g/dL (6.3-8.2)
[2018-07-10] MEDS: IPRATROPIUM-ALBUTEROL 3 ML NEB INHALATION SCH ×4 (08:49→20:04)
[2018-07-10] MEDS: BUDESONIDE 0.5 MG/2 ML NEBU INHALATION SCH ×2 (08:49→20:15)
[2018-07-10] MEDS: VERAPAMIL SR 240 MG TABLET.ER PO SCH ×2 (09:07→23:02)
[2018-07-10 11:15] LABS: Glucose,Whole Blood 111 mg/dL (75-99)
[2018-07-10] MEDS: LEVOFLOXACIN 500 MG TAB PO SCH (12:05)
[2018-07-10 16:40] LABS: Glucose,Whole Blood 188 mg/dL (75-99)
--- NOTE | 2018-07-10 17:01 | P.PN ---
Subjective on-call hospitalist covering for Dr. Zelaya this is a pleasant 77 years old female with past medical history of COPD and rheumatoid arthritis, scleroderma and GERD. Presents with severe acute COPD exacerbation.patient currently remains in the ICU, improving slowly. She is a bit tachycardic above 100 . She saturating 93% on room air.her WBC is 20.4 k but she is on steroids too. . INR is 1.6. Plasma lactic acid 3.6. She remains on Xanax, Pulmicort, Levaquin, and Solu-Medrol 60 mg every 6 hours. She is also on Zosyn and Protonix.pulmonary team R following the case closely. As well as cardiology team 07/08/2018 Patient remains in the ICU, however her dyspnea is significantly improved. She denies chest pain, she has some coughing. No abdominal pain. Patient is still tachycardiac and heart rate is uncontrolled, discussed with us to speak with construction administrator team for further evaluation. However her blood pressure is stable and she saturating 91% on room air. I reviewed the labs which showing WBC of 14.5 K, hemoglobin 8.6, creatinine 1.1. Patient remains on Lasix 20 mg twice a day, Levaquin and steroids. Today also patient was complaining of from constipation. Senna and Colace has been added. Verapamil dose has been inc reased by cardiology team. We'll keep monitoring her heart rate closely. However patient has been evaluated by pulmonary team given her breathing is more stable she was cleared by mess attendant for patient to be transferred to the general medical floor 07/09/18 pt is doing better today , she is less dyspneic , with some cough, no chest pain , she eating diet well , she is still on oxygen therapy 2 L with nasal cannulas. he is tachycardic around 104. Leukocytosis improving. Anemia at 8.8. Cr eatinine is stable at 1.1pulmonary follow-up is appreciated. Start iron pills. Cardiology team placed the patient on verapamil 240 mg by mouth daily. physical therapy evaluation Discharge planning in 24-48 hours 07/10/2018 She remains intubated comfortable not in distress. She is still have some dyspnea with some cough. No chest pain. Vitals stable. Patient is afebrile. She saturating 96% on 2 L via NC. Leukocytosis is improved from 11.5 down to 9.1K, creatinine is slightly went up from 1.1 to 1.3. Posterior as well as decrease yesterday by pulmonary team. Patient plan was discussed with the patient including her problems like anemia. Also patient remains on antibiotics including Levaquin and Zosyn. Lasix IV twice a day and steroids review of systems CONSTITUTIONAL: No fever, no malaise, no fatigue. HEENT: No recent visual problems or hearing problems. Denied any sore throat. CARDIOVASCULAR: No orthopnea, PND, no palpitations, no syncope. PULMONARY: no hemoptysis. GASTROINTESTINAL: No diarrhea, no nausea, no vomiting, no abdominal pain. Normoactive bowel sounds. NEUROLOGICAL: No headaches, no weakness, no numbness. HEMATOLOGICAL: Denies any bleeding or petechiae. GENITOURINARY: Denies any burning micturition, frequency, or urgency. MUSCULOSKELETAL/RHEUMATOLOGICAL: Denies any joint pain, swelling, or any muscle pain. ENDOCRINE: Denies any polyuria or polydipsia. medication: Albuterol, Xanax, Pulmicort, Tums, Lasix, heparin, NovoLog, Levaquin, some Medrol, Zosyn, Singulair, Protonix, verapamil. Objective - Vital Signs Vital signs: Vital Signs Temp 97.3 F L 07/10/18 12:00 Pulse 96 07/10/18 15:55 Resp 18 07/10/18 12:00 BP 157/91 07/10/18 12:00 Pulse Ox 96 07/10/18 15:46 Intake & Output 07/09/18 07/10/18 07/10/18 18:59 06:59 18:59 Intake Total 140 Output Total 1200 1200 1300 Balance -1060 -1200 -1300 Intake: IV 40 Sodium Chloride 0.9% 1, 40 000 ml @ 40 mls/hr IV . Q24H [facility] Rx#:[id number] Oral 100 Output: Urine 1200 1200 1300 Uretheral (Simmons) 1200 Other: Voiding Method Indwelling Catheter Indwelling Catheter Indwelling Catheter - Exam GENERAL: The patient is alert and oriented x3, not in any acute distress. Well developed, well nourished. HEENT: Pupils are round and equally reacting to light. EOMI. No scleral icterus. No conjunctival pallor. Normocephalic, atraumatic. No pharyngeal erythema. No thyromegaly. CARDIOVASCULAR: S1 and S2 present. No murmurs, rubs, or gallops. -PULMONARY: Chest is clear to auscultation, bilateral wheezing ABDOMEN: Soft, nontender, nondistended, normoactive bowel sounds. No palpable organomegaly. MUSCULOSKELETAL: No joint swelling or deformity. EXTREMITIES: No cyanosis, clubbing, or pedal edema. NEUROLOGICAL: Gross neurological examination did not reveal any focal deficits. SKIN: No rashes. - Labs CBC & Chem 7: 07/10/18 07:21 07/10/18 07:21 Labs: Abnormal Lab Results - Last 24 Hours (Table) 07/09/18 07/09/18 07/10/18 Range/Units 21:09 21:47 06:12 RBC (3.80-5.40) m/uL Hgb (11.4-16.0) gm/dL Hct (34.0-46.0) % MCHC (31.0-37.0) g/dL RDW (11.5-15.5) % Neutrophils # (1.3-7.7) k/uL Lymphocytes # (1.0-4.8) k/uL Carbon Dioxide (22-30) mmol/L BUN (7-17) mg/dL Creatinine (0.52-1.04) mg/dL Glucose (74-99) mg/dL POC Glucose (mg/dL) 143 H 221 H 204 H (75-99) mg/dL Albumin (3.5-5.0) g/dL 07/10/18 07/10/18 07/10/18 Range/Units 07:21 07:21 11:14 RBC 3.70 L (3.80-5.40) m/uL Hgb 9.5 L (11.4-16.0) gm/dL Hct 31.0 L (34.0-46.0) % MCHC 30.7 L (31.0-37.0) g/dL RDW 20.9 H (11.5-15.5) % Neutrophils # 8.1 H (1.3-7.7) k/uL Lymphocytes # 0.6 L (1.0-4.8) k/uL Carbon Dioxide 32 H (22-30) mmol/L BUN 54 H (7-17) mg/dL Creatinine 1.35 H (0.52-1.04) mg/dL Glucose 155 H (74-99) mg/dL POC Glucose (mg/dL) 111 H (75-99) mg/dL Albumin 3.2 L (3.5-5.0) g/dL 07/10/18 Range/Units 16:19 RBC (3.80-5.40) m/uL Hgb (11.4-16.0) gm/dL Hct (34.0-46.0) % MCHC (31.0-37.0) g/dL RDW (11.5-15.5) % Neutrophils # (1.3-7.7) k/uL Lymphocytes # (1.0-4.8) k/uL Carbon Dioxide (22-30) mmol/L BUN (7-17) mg/dL Creatinine (0.52-1.04) mg/dL Glucose (74-99) mg/dL POC Glucose (mg/dL) 188 H (75-99) mg/dL Albumin (3.5-5.0) g/dL Microbiology - Last 24 Hours (Table) 07/05/18 20:50 Blood Culture - Preliminary Blood No Growth after 96 hours Assessment and Plan Assessment: acute hypoxic respiratory failure Severe advanced COPD acute exacerbation Atrial fibrillation, heart rate slightly tachycardic. Acute blood loss anemia. Her heparin drip was stopped elevated lactic acid Leukocytosis, mostly reactive History of rheumatoid arthritis History of 60 dermal History of GERD Plan: this is a pleasant 77 years old female who presents because of acute COPD e xacerbation, and atrial fibrillation, with GI bleeds after heparin was started, her heparin drip was stopped. Continue with breathing treatment, steroids, antibiotics. Oxygen therapy to keep saturation more than 90%. Cardiology and pulmonary consult is appreciated.Labs and medication were reviewed.. Continue same treatment. Continue with symptomatic treatment. Resume home medication. Monitor lytes and vitals. DVT and GI prophylaxis. Further recommendations of the clinical course of the patient DVT prophylaxis: Subcutaneous heparin GI Prophylaxis: Ppi Prognosis is guarded
--- NOTE | 2018-07-10 20:01 | PN ---
PROGRESS NOTE DATE OF SERVICE: July 10, 2018. She continues to have shortness of breath. PHYSICAL EXAMINATION: Respiratory rate is 18, pulse rate of 70, temperature 97.3, blood pressure 139/70, O2 saturation on 2 L by nasal cannula is 94%. HEENT: Unremarkable. Chest is prolonged expiration. Occasional crackles. Cardiovascular system is S1, S2. Abdomen is soft. There is no pedal edema. Labs and medications were reviewed. IMPRESSION: At this time: 1. Acute hypoxic respiratory failure. 2. Chronic obstructive pulmonary disease with acute exacerbation. 3. History of rheumatoid arthritis on systemic sclerosis with recent pleural effusion and pericardial effusion that seems to be doing better overall. Continue current medications. Taper Solu-Medrol. Continue Levaquin and Zosyn. Increase activity level. Prognosis at this time is fair. MMODL / IJN: [id number] /
[2018-07-10 21:00] LABS: Glucose,Whole Blood 185 mg/dL (75-99)
[2018-07-10] MEDS: MONTELUKAST 10 MG TAB PO SCH (23:02)
[2018-07-11 05:56] LABS: Glucose,Whole Blood 133 mg/dL (75-99)
[2018-07-11] MEDS: PANTOPRAZOLE 40 MG TABLET PO SCH (06:47)
[2018-07-11] MEDS: FERROUS SULFATE 325 MG TAB PO SCH ×2 (06:47→16:54)
[2018-07-11] MEDS: INSULIN ASPART (NovoLOG) 100 UNIT/ML VIAL SQ SCH ×4 (06:48→21:58)
[2018-07-11 07:30] LABS: Albumin 3.1 g/dL (3.5-5.0); Anisocytosis Moderate; Basophils # (A) 0.1 k/uL (0-0.2); Basophils % (A) 0 %; Calcium 9.2 mg/dL (8.4-10.2); Eosinophils # (A) 0.1 k/uL (0-0.7); Eosinophils % (A) 1 %; HCT 32.3 % (34.0-46.0); HGB 10.4 gm/dL (11.4-16.0); Hypochromasia Slight; Lymphocytes # (A) 0.4 k/uL (1.0-4.8); Lymphocytes % (A) 2 %; MCH 26.4 pg (25.0-35.0); MCHC 32.2 g/dL (31.0-37.0); MCV 81.9 fL (80.0-100.0); Mean Platelet Volume 6.9; Microcytosis Slight; Monocytes # (A) 0.8 k/uL (0-1.0); Monocytes % (A) 3 %; Neutrophils # (A) 20.6 k/uL (1.3-7.7); Neutrophils % (A) 94 %; Platelet Count 247 k/uL (150-450); Poikilocytosis Moderate; Potassium 3.1 mmol/L (3.5-5.1); RBC 3.94 m/uL (3.80-5.40); RDW 20.8 % (11.5-15.5); Total Bilirubin 1.1 mg/dL (0.2-1.3); Total Protein 6.2 g/dL (6.3-8.2)
[2018-07-11] MEDS: IPRATROPIUM-ALBUTEROL 3 ML NEB INHALATION SCH ×4 (08:40→19:23)
[2018-07-11] MEDS: BUDESONIDE 0.5 MG/2 ML NEBU INHALATION SCH ×2 (08:40→19:23)
[2018-07-11] MEDS: PIPERACILLIN-TAZOBACTAM 3.375 GM in SODIUM CHLORIDE 0.9% 100 ML IVPB SCH ×2 (09:26→16:11)
[2018-07-11] MEDS: methylPREDNISolone SOD SUCCI 40 MG/ML 1 ML VIAL IV SCH ×3 (09:26→22:45)
[2018-07-11] MEDS: FUROSEMIDE 10 MG/ML 2 ML VIAL IV SCH ×2 (09:27→21:57)
[2018-07-11] MEDS: DOCUSATE 100 MG CAP PO SCH ×2 (09:34→21:57)
[2018-07-11] MEDS: HEPARIN SODIUM,PORCINE 5,000 UNIT/ML 1 ML VIAL SQ SCH ×2 (09:34→21:59)
[2018-07-11] MEDS: POTASSIUM CHLORIDE ER 20 MEQ TAB.ER PO SCH ×4 (09:34→18:29)
[2018-07-11 11:27] LABS: Glucose,Whole Blood 135 mg/dL (75-99)
[2018-07-11] MEDS: VERAPAMIL SR 240 MG TABLET.ER PO SCH ×2 (11:54→21:58)
--- NOTE | 2018-07-11 13:58 | P.PN ---
Subjective Progress Note Date: 07/11/18 This is a 77-year-old female presented to the hospital with increasing shortness of breath and has been under treatment with Dr. Abrams for COPD exacerbation. Upon arrival to the hospital patient was in atrial fibrillation with moderate ventricular rate and patient initially started on Cardizem drip with improved rate. Patient was also on heparin drip which was discontinued and started heparin subcu. Patient is currently on verapamil 240 mg twice a day , Lasix 20 mg IV every 12 hours. Patient has had good urine output. Been up in the chair at bedside today, overall breathing is significantly improved. He diuresed well through the night last night. Sodium 139, potassium 3.1, BUN 58 creatinine 1.1. White blood cell count 22, hemoglobin 10.4, platelet count 247. Objective - Vital Signs Vital signs: Vital Signs Temp 97.6 F 07/11/18 11:41 Pulse 80 07/11/18 12:11 Resp 28 H 07/11/18 11:41 BP 122/64 07/11/18 11:41 Pulse Ox 95 07/11/18 11:41 Intake & Output 07/10/18 07/11/18 07/11/18 18:59 06:59 18:59 Intake Total 200 200 480 Output Total 1300 1750 300 Balance -1100 -1550 180 Intake: IV 200 Sodium Chloride 0.9% 1, 200 000 ml @ 40 mls/hr IV . Q24H [facility] Rx#:[id number] Oral 200 480 Output: Urine 1300 1750 300 Other: Voiding Method Indwelling Catheter Indwelling Catheter # Bowel Movements 1 - Exam Gen: This is a thin 77-year-old female. In no acute distress at the time of my examination HEENT: Head is atraumatic, normocephalic. Pupils equal, round. Sclerae is anict dorothy. NECK: Supple. No JVD. No lymphadenopathy. No thyromegaly. LUNGS: Diminished breath sounds with a few scattered wheezes. Mild intercostal retractions and accessory muscle usage. HEART: Irregularly irregular. No murmur. ABDOMEN: Soft. Bowel sounds are present. No masses. Mild mid abdominal tenderness. Simmons draining clear [place] urine. EXTREMITIES: No pedal edema. No calf tenderness. Dorsalis pedis +2 bilaterally. NEUROLOGICAL: Patient is awake, alert and oriented x3. Cranial nerves 2 through 12 are grossly intact. - Labs CBC & Chem 7: 07/11/18 06:18 07/11/18 06:18 Labs: Abnormal Lab Results - Last 24 Hours (Table) 07/10/18 07/10/18 07/11/18 Range/Units 16:19 20:59 05:55 WBC (3.8-10.6) k/uL Hgb (11.4-16.0) gm/dL Hct (34.0-46.0) % RDW (11.5-15.5) % Neutrophils # (1.3-7.7) k/uL Lymphocytes # (1.0-4.8) k/uL Potassium (3.5-5.1) mmol/L Chloride (98-107) mmol/L Carbon Dioxide (22-30) mmol/L BUN (7-17) mg/dL Creatinine (0.52-1.04) mg/dL Glucose (74-99) mg/dL POC Glucose (mg/dL) 188 H 185 H 133 H (75-99) mg/dL Total Protein (6.3-8.2) g/dL Albumin (3.5-5.0) g/dL 07/11/18 07/11/18 07/11/18 Range/Units 06:18 06:18 11:23 WBC 22.0 H (3.8-10.6) k/uL Hgb 10.4 L (11.4-16.0) gm/dL Hct 32.3 L (34.0-46.0) % RDW 20.8 H (11.5-15.5) % Neutrophils # 20.6 H (1.3-7.7) k/uL Lymphocytes # 0.4 L (1.0-4.8) k/uL Potassium 3.1 L (3.5-5.1) mmol/L Chloride 97 L (98-107) mmol/L Carbon Dioxide 33 H (22-30) mmol/L BUN 58 H (7-17) mg/dL Creatinine 1.15 H (0.52-1.04) mg/dL Glucose 117 H (74-99) mg/dL POC Glucose (mg/dL) 135 H (75-99) mg/dL Total Protein 6.2 L (6.3-8.2) g/dL Albumin 3.1 L (3.5-5.0) g/dL Microbiology - Last 24 Hours (Table) 07/05/18 20:50 Blood Culture - Preliminary Blood No Growth after 120 hours Assessment and Plan Plan: Assessment and plan #1 New onset atrial fibrillation, paroxysmal #2 Acute hypoxic respiratory failure with COPD exacerbation #3 Sepsis #4 Rheumatoid arthritis #5 Anemia, symptomatic of unclear etiology Plan We will repeat a chest x-ray, continue current dose of IV Lasix for 24 hours. Continue verapamil 240 mg twice a day. Patient is felt not to be a candidate for long-term anticoagulation because of low hemoglobin. DNP note has been reviewed, I agree with a documented findings and plan of care. Patient was seen and examined.
--- NOTE | 2018-07-11 15:45 | XR ---
EXAMINATION TYPE: XR chest 2V DATE OF EXAM: 07/11/2018 COMPARISON: Chest CT July 06, 2018. Chest x-ray July 08, 2018 and older x-rays. HISTORY: CHF progress study. TECHNIQUE: Frontal and lateral views of the chest are obtained. FINDINGS: There is persistent right-sided volume loss with mediastinal shift. There is persistent c ardiomegaly. There is persistent small right pleural effusion with associated right basilar atelectas is and/or infiltrate felt slightly improved from prior but there is new small left pleural effusion i dentified on current study. Upper lungs remain clear without pneumothorax. Overlying EKG leads are re demonstrated. Background chronic emphysematous change noted seen better on recent CT. The osseous str uctures are intact. IMPRESSION: Persistent right-sided volume loss and cardiomegaly on background chronic emphysematous change. New small left pleural effusion is present. Small right pleural effusion with right basilar a telectasis and/or infiltrate is slightly improved from most recent prior.
[2018-07-11] MEDS: LEVOFLOXACIN 250 MG TAB PO SCH (16:10)
[2018-07-11 16:35] LABS: Glucose,Whole Blood 130 mg/dL (75-99)
--- NOTE | 2018-07-11 17:45 | P.PN ---
Subjective Progress Note Date: 07/11/18 Principal diagnosis: Pneumonia, iron deficiency In f/u today pt is sitting in chair, she states feeling ok, no fever, nausea, vomiting, she is SOB on exertion, no chest pain, bleeding to report Objective - Vital Signs Vital signs: Vital Signs Temp 97.6 F 07/11/18 15:40 Pulse 99 07/11/18 15:40 Resp 20 07/11/18 15:40 BP 123/76 07/11/18 15:40 Pulse Ox 92 L 07/11/18 15:40 Intake & Output 07/10/18 07/11/18 07/11/18 18:59 06:59 18:59 Intake Total 200 200 680 Output Total 1300 1750 300 Balance -1100 -1550 380 Intake: IV 200 200 Piperacillin-Tazobactam 3 200 .375 gm In Sodium Chloride 0.9% 100 ml @ 25 mls/hr IVPB Q8HR [facility] Rx# :[id number] Sodium Chloride 0.9% 1, 200 000 ml @ 40 mls/hr IV . Q24H [facility] Rx#:[id number] Oral 200 480 Output: Urine 1300 1750 300 Other: Voiding Method Indwelling Catheter Indwelling Catheter Indwelling Catheter # Bowel Movements 1 - Constitutional General appearance: Present: cooperative, no acute distress, thin - EENT Eyes: Present: anicteric sclerae, EOMI, poor dentition ENT: Present: hearing grossly normal - Respiratory Respiratory: bilateral: other (harsh breath sounds throughout) - Cardiovascular Details: mild finger clubbing, nicotine stains to nails Heart sounds: normal: S1, S2 - Gastrointestinal General gastrointestinal: Present: normal bowel sounds, soft - Neurologic Neurologic: Present: CNII-XII intact - Musculoskeletal Musculoskeletal: Present: strength equal bilaterally - Psychiatric Psychiatric: Present: A&O x's 3, appropriate affect, intact judgment & insight - Labs CBC & Chem 7: 07/11/18 06:18 07/11/18 16:35 Labs: Abnormal Lab Results - Last 24 Hours (Table) 07/10/18 07/11/18 07/11/18 Range/Units 20:59 05:55 06:18 WBC 22.0 H (3.8-10.6) k/uL Hgb 10.4 L (11.4-16.0) gm/dL Hct 32.3 L (34.0-46.0) % RDW 20.8 H (11.5-15.5) % Neutrophils # 20.6 H (1.3-7.7) k/uL Lymphocytes # 0.4 L (1.0-4.8) k/uL Potassium (3.5-5.1) mmol/L Chloride (98-107) mmol/L Carbon Dioxide (22-30) mmol/L BUN (7-17) mg/dL Creatinine (0.52-1.04) mg/dL Glucose (74-99) mg/dL POC Glucose (mg/dL) 185 H 133 H (75-99) mg/dL Total Protein (6.3-8.2) g/dL Albumin (3.5-5.0) g/dL 07/11/18 07/11/18 07/11/18 Range/Units 06:18 11:23 16:31 WBC (3.8-10.6) k/uL Hgb (11.4-16.0) gm/dL Hct (34.0-46.0) % RDW (11.5-15.5) % Neutrophils # (1.3-7.7) k/uL Lymphocytes # (1.0-4.8) k/uL Potassium 3.1 L (3.5-5.1) mmol/L Chloride 97 L (98-107) mmol/L Carbon Dioxide 33 H (22-30) mmol/L BUN 58 H (7-17) mg/dL Creatinine 1.15 H (0.52-1.04) mg/dL Glucose 117 H (74-99) mg/dL POC Glucose (mg/dL) 135 H 130 H (75-99) mg/dL Total Protein 6.2 L (6.3-8.2) g/dL Albumin 3.1 L (3.5-5.0) g/dL 07/11/18 Range/Units 16:35 WBC (3.8-10.6) k/uL Hgb (11.4-16.0) gm/dL Hct (34.0-46.0) % RDW (11.5-15.5) % Neutrophils # (1.3-7.7) k/uL Lymphocytes # (1.0-4.8) k/uL Potassium 3.3 L (3.5-5.1) mmol/L Chloride (98-107) mmol/L Carbon Dioxide (22-30) mmol/L BUN (7-17) mg/dL Creatinine (0.52-1.04) mg/dL Glucose (74-99) mg/dL POC Glucose (mg/dL) (75-99) mg/dL Total Protein (6.3-8.2) g/dL Albumin (3.5-5.0) g/dL Microbiology - Last 24 Hours (Table) 07/05/18 20:50 Blood Culture - Preliminary Blood No Growth after 120 hours Assessment and Plan (1) Iron deficiency anemia Narrative/Plan: GI consult requested. Pt states a history of colon polyp, she does not remember last colonoscopy, no documentation in this EMR of procedure. Oral iron ordered, cont at home. May consider a dose of parenteral iron dose once cleared from pneumonia Current Visit: Yes Status: Acute Priority: Medium Code(s): D50.9 - IRON DEFICIENCY ANEMIA, UNSPECIFIED SNOMED Code(s): 98861767
--- NOTE | 2018-07-11 18:48 | P.PN ---
Subjective on-call hospitalist covering for Dr. Zelaya this is a pleasant 77 years old female with past medical history of COPD and rheumatoid arthritis, scleroderma and GERD. Presents with severe acute COPD exacerbation.patient currently remains in the ICU, improving slowly. She is a bit tachycardic above 100 . She saturating 93% on room air.her WBC is 20.4 k but she is on steroids too. . INR is 1.6. Plasma lactic acid 3.6. She remains on Xanax, Pulmicort, Levaquin, and Solu-Medrol 60 mg every 6 hours. She is also on Zosyn and Protonix.pulmonary team R following the case closely. As well as cardiology team 07/08/2018 Patient remains in the ICU, however her dyspnea is significantly improved. She denies chest pain, she has some coughing. No abdominal pain. Patient is still tachycardiac and heart rate is uncontrolled, discussed with us to speak with financial reporting director team for further evaluation. However her blood pressure is stable and she saturating 91% on room air. I reviewed the labs which showing WBC of 14.5 K, hemoglobin 8.6, creatinine 1.1. Patient remains on Lasix 20 mg twice a day, Levaquin and steroids. Today also patient was complaining of from constipation. Senna and Colace has been added. Verapamil dose has been inc reased by cardiology team. We'll keep monitoring her heart rate closely. However patient has been evaluated by pulmonary team given her breathing is more stable she was cleared by ncr operator for patient to be transferred to the general medical floor 07/09/18 pt is doing better today , she is less dyspneic , with some cough, no chest pain , she eating diet well , she is still on oxygen therapy 2 L with nasal cannulas. he is tachycardic around 104. Leukocytosis improving. Anemia at 8.8. Cr eatinine is stable at 1.1pulmonary follow-up is appreciated. Start iron pills. Cardiology team placed the patient on verapamil 240 mg by mouth daily. physical therapy evaluation Discharge planning in 24-48 hours 07/10/2018 She remains intubated comfortable not in distress. She is still have some dyspnea with some cough. No chest pain. Vitals stable. Patient is afebrile. She saturating 96% on 2 L via NC. Leukocytosis is improved from 11.5 down to 9.1K, creatinine is slightly went up from 1.1 to 1.3. Posterior as well as decrease yesterday by pulmonary team. Patient plan was discussed with the patient including her problems like anemia. Also patient remains on antibiotics including Levaquin and Zosyn. Lasix IV twice a day and steroids 07/11/2018 pt is still dyspneic , not in resp distress. CXR: new small left pleural effusion , with a small right pleural effusion with right basilar atelectasis and/or infiltrate is slightly improved. Patient was not found to candidate for long-term anticoagulation because of his low hemoglobin as per cardiology team review of systems CONSTITUTIONAL: No fever, no malaise, no fatigue. HEENT: No recent visual problems or hearing problems. Denied any sore throat. CARDIOVASCULAR: No orthopnea, PND, no palpitations, no syncope. PULMONARY: no hemoptysis. GASTROINTESTINAL: No diarrhea, no nausea, no vomiting, no abdominal pain. Normoactive bowel sounds. NEUROLOGICAL: No headaches, no weakness, no numbness. HEMATOLOGICAL: Denies any bleeding or petechiae. GENITOURINARY: Denies any burning micturition, frequency, or urgency. MUSCULOSKELETAL/RHEUMATOLOGICAL: Denies any joint pain, swelling, or any muscle pain. ENDOCRINE: Denies any polyuria or polydipsia. medication: Albuterol, Xanax, Pulmicort, Tums, Lasix, heparin, NovoLog, Levaquin, some Medrol, Zosyn, Singulair, Protonix, verapamil. Objective - Vital Signs Vital signs: Vital Signs Temp 97.6 F 07/11/18 15:40 Pulse 99 07/11/18 15:40 Resp 20 07/11/18 15:40 BP 123/76 07/11/18 15:40 Pulse Ox 92 L 07/11/18 15:40 Intake & Output 07/10/18 07/11/18 07/11/18 18:59 06:59 18:59 Intake Total 200 200 680 Output Total 1300 1750 300 Balance -1100 -1550 380 Intake: IV 200 200 Piperacillin-Tazobactam 3 200 .375 gm In Sodium Chloride 0.9% 100 ml @ 25 mls/hr IVPB Q8HR [facility] Rx# :[id number] Sodium Chloride 0.9% 1, 200 000 ml @ 40 mls/hr IV . Q24H [facility] Rx#:[id number] Oral 200 480 Output: Urine 1300 1750 300 Other: Voiding Method Indwelling Catheter Indwelling Catheter Indwelling Catheter # Bowel Movements 1 - Exam GENERAL: The patient is alert and oriented x3, not in any acute distress. Well developed, well nourished. HEENT: Pupils are round and equally reacting to light. EOMI. No scleral icterus. No conjunctival pallor. Normocephalic, atraumatic. No pharyngeal erythema. No thyromegaly. CARDIOVASCULAR: S1 and S2 present. No murmurs, rubs, or gallops. -PULMONARY: Chest is clear to auscultation, bilateral wheezing ABDOMEN: Soft, nontender, nondistended, normoactive bowel sounds. No palpable organomegaly. MUSCULOSKELETAL: No joint swelling or deformity. EXTREMITIES: No cyanosis, clubbing, or pedal edema. NEUROLOGICAL: Gross neurological examination did not reveal any focal deficits. SKIN: No rashes. - Labs CBC & Chem 7: 07/11/18 06:18 07/11/18 16:35 Labs: Abnormal Lab Results - Last 24 Hours (Table) 07/10/18 07/11/18 07/11/18 Range/Units 20:59 05:55 06:18 WBC 22.0 H (3.8-10.6) k/uL Hgb 10.4 L (11.4-16.0) gm/dL Hct 32.3 L (34.0-46.0) % RDW 20.8 H (11.5-15.5) % Neutrophils # 20.6 H (1.3-7.7) k/uL Lymphocytes # 0.4 L (1.0-4.8) k/uL Potassium (3.5-5.1) mmol/L Chloride (98-107) mmol/L Carbon Dioxide (22-30) mmol/L BUN (7-17) mg/dL Creatinine (0.52-1.04) mg/dL Glucose (74-99) mg/dL POC Glucose (mg/dL) 185 H 133 H (75-99) mg/dL Total Protein (6.3-8.2) g/dL Albumin (3.5-5.0) g/dL 07/11/18 07/11/18 07/11/18 Range/Units 06:18 11:23 16:31 WBC (3.8-10.6) k/uL Hgb (11.4-16.0) gm/dL Hct (34.0-46.0) % RDW (11.5-15.5) % Neutrophils # (1.3-7.7) k/uL Lymphocytes # (1.0-4.8) k/uL Potassium 3.1 L (3.5-5.1) mmol/L Chloride 97 L (98-107) mmol/L Carbon Dioxide 33 H (22-30) mmol/L BUN 58 H (7-17) mg/dL Creatinine 1.15 H (0.52-1.04) mg/dL Glucose 117 H (74-99) mg/dL POC Glucose (mg/dL) 135 H 130 H (75-99) mg/dL Total Protein 6.2 L (6.3-8.2) g/dL Albumin 3.1 L (3.5-5.0) g/dL 07/11/18 Range/Units 16:35 WBC (3.8-10.6) k/uL Hgb (11.4-16.0) gm/dL Hct (34.0-46.0) % RDW (11.5-15.5) % Neutrophils # (1.3-7.7) k/uL Lymphocytes # (1.0-4.8) k/uL Potassium 3.3 L (3.5-5.1) mmol/L Chloride (98-107) mmol/L Carbon Dioxide (22-30) mmol/L BUN (7-17) mg/dL Creatinine (0.52-1.04) mg/dL Glucose (74-99) mg/dL POC Glucose (mg/dL) (75-99) mg/dL Total Protein (6.3-8.2) g/dL Albumin (3.5-5.0) g/dL Microbiology - Last 24 Hours (Table) 07/05/18 20:50 Blood Culture - Preliminary Blood No Growth after 120 hours Assessment and Plan Assessment: acute hypoxic respiratory failure Severe advanced COPD acute exacerbation Atrial fibrillation, heart rate slightly tachycardic. Acute blood loss anemia. Her heparin drip was stopped elevated lactic acid Leukocytosis, mostly reactive History of rheumatoid arthritis History of 62 dermal History of GERD Plan: this is a pleasant 77 years old female who presents because of acute COPD ex acerbation, and atrial fibrillation, with GI bleeds after heparin was started, her heparin drip was stopped. Continue with breathing treatment, steroids, antibiotics. Oxygen therapy to keep saturation more than 90%. Cardiology and pulmonary consult is appreciated.Labs and medication were reviewed.. Continue same treatment. Continue with symptomatic treatment. Resume home medication. Monitor lytes and vitals. DVT and GI prophylaxis. Further recommendations of the clinical course of the patient DVT prophylaxis: Subcutaneous heparin GI Prophylaxis: Ppi Prognosis is guarded
--- NOTE | 2018-07-11 20:18 | PN ---
PROGRESS NOTE DATE OF SERVICE: 07/11/2018 This patient is doing better overall. She is less short of breath. On physical examination, respiratory rate is 20, pulse rate 99, temperature 97.6, blood pressure 123/76. Oxygen saturation on 2 L by nasal cannula is 92%. HEENT: Unremarkable. Chest reveals prolonged expiration with expiratory wheeze. Cardiovascular system reveals an S1, S2. No S3. No S4. Abdomen is soft. There is no pedal edema. Chest x-ray continues to show some volume loss on the right with small pleural effusions. IMPRESSION AT THIS TIME: 1. Acute hypoxic respiratory failure. 2. Chronic obstructive pulmonary disease with exacerbation. 3. History of rheumatoid arthritis with recent pleural and pericardial effusion, which seems to be doing somewhat better overall. Continue Levaquin, Zosyn and steroids. Increase her activity level. Continue bronchodilators. Her prognosis at this time is fair. MMODL / IJN: [id number] /
[2018-07-11] MEDS: MONTELUKAST 10 MG TAB PO SCH (21:58)
[2018-07-11] MEDS ORDERED: POTASSIUM CHLORIDE ER 20 MEQ TAB.ER PO STA (23:11)
[2018-07-11 23:19] LABS: Glucose,Whole Blood 185 mg/dL (75-99)
[2018-07-12] MEDS: PIPERACILLIN-TAZOBACTAM 3.375 GM in SODIUM CHLORIDE 0.9% 100 ML IVPB SCH ×3 (01:22→17:53)
[2018-07-12] MEDS: LEVOFLOXACIN 500 MG TAB PO SCH (02:20)
[2018-07-12 05:42] LABS: Glucose,Whole Blood 199 mg/dL (75-99)
[2018-07-12] MEDS: FERROUS SULFATE 325 MG TAB PO SCH ×2 (05:50→17:53)
[2018-07-12] MEDS: PANTOPRAZOLE 40 MG TABLET PO SCH (05:50)
[2018-07-12] MEDS: INSULIN ASPART (NovoLOG) 100 UNIT/ML VIAL SQ SCH ×4 (06:31→17:38)
[2018-07-12] MEDS: IPRATROPIUM-ALBUTEROL 3 ML NEB INHALATION SCH ×4 (07:02→21:32)
[2018-07-12] MEDS: BUDESONIDE 0.5 MG/2 ML NEBU INHALATION SCH ×2 (07:02→22:44)
[2018-07-12 07:10] LABS: Anisocytosis Moderate; Basophils % (A) 0 %; Eosinophils # (A) 0.2 k/uL (0-0.7); Eosinophils % (A) 1 %; HCT 30.1 % (34.0-46.0); HGB 9.5 gm/dL (11.4-16.0); Hypochromasia Moderate; Lymphocytes # (A) 0.5 k/uL (1.0-4.8); Lymphocytes % (A) 2 %; MCH 25.9 pg (25.0-35.0); MCHC 31.6 g/dL (31.0-37.0); Mean Platelet Volume 7.3; Microcytosis Slight; Monocytes # (A) 0.7 k/uL (0-1.0); Monocytes % (A) 3 %; Neutrophils # (A) 22.9 k/uL (1.3-7.7); Neutrophils % (A) 94 %; Platelet Count 235 k/uL (150-450); Poikilocytosis Slight; RBC 3.67 m/uL (3.80-5.40); RDW 21.2 % (11.5-15.5); WBC 24.4 k/uL (3.8-10.6)
[2018-07-12 07:20] LABS: Calcium 9.5 mg/dL (8.4-10.2); Potassium 4.9 mmol/L (3.5-5.1)
[2018-07-12] MEDS: HEPARIN SODIUM,PORCINE 5,000 UNIT/ML 1 ML VIAL SQ SCH ×2 (08:51→23:57)
[2018-07-12] MEDS: methylPREDNISolone SOD SUCCI 40 MG/ML 1 ML VIAL IV SCH ×2 (08:51→17:52)
[2018-07-12] MEDS: DOCUSATE 100 MG CAP PO SCH ×2 (08:51→22:32)
[2018-07-12] MEDS ORDERED: Potassium Replacement Protocol 1 EACH MISC MISCELLANE PRN (10:02)
--- NOTE | 2018-07-12 10:23 | P.PN ---
Subjective on-call hospitalist covering for Dr. Zelaya this is a pleasant 77 years old female with past medical history of COPD and rheumatoid arthritis, scleroderma and GERD. Presents with severe acute COPD exacerbation.patient currently remains in the ICU, improving slowly. She is a bit tachycardic above 100 . She saturating 93% on room air.her WBC is 20.4 k but she is on steroids too. . INR is 1.6. Plasma lactic acid 3.6. She remains on Xanax, Pulmicort, Levaquin, and Solu-Medrol 60 mg every 6 hours. She is also on Zosyn and Protonix.pulmonary team R following the case closely. As well as cardiology team 07/08/2018 Patient remains in the ICU, however her dyspnea is significantly improved. She denies chest pain, she has some coughing. No abdominal pain. Patient is still tachycardiac and heart rate is uncontrolled, discussed with us to speak with shrimp trawler team for further evaluation. However her blood pressure is stable and she saturating 91% on room air. I reviewed the labs which showing WBC of 14.5 K, hemoglobin 8.6, creatinine 1.1. Patient remains on Lasix 20 mg twice a day, Levaquin and steroids. Today also patient was complaining of from constipation. Senna and Colace has been added. Verapamil dose has been inc reased by cardiology team. We'll keep monitoring her heart rate closely. However patient has been evaluated by pulmonary team given her breathing is more stable she was cleared by fish hatchery laborer for patient to be transferred to the general medical floor 07/09/18 pt is doing better today , she is less dyspneic , with some cough, no chest pain , she eating diet well , she is still on oxygen therapy 2 L with nasal cannulas. he is tachycardic around 104. Leukocytosis improving. Anemia at 8.8. Cr eatinine is stable at 1.1pulmonary follow-up is appreciated. Start iron pills. Cardiology team placed the patient on verapamil 240 mg by mouth daily. physical therapy evaluation Discharge planning in 24-48 hours 07/10/2018 She remains intubated comfortable not in distress. She is still have some dyspnea with some cough. No chest pain. Vitals stable. Patient is afebrile. She saturating 96% on 2 L via NC. Leukocytosis is improved from 11.5 down to 9.1K, creatinine is slightly went up from 1.1 to 1.3. Posterior as well as decrease yesterday by pulmonary team. Patient plan was discussed with the patient including her problems like anemia. Also patient remains on antibiotics including Levaquin and Zosyn. Lasix IV twice a day and steroids 07/11/2018 pt is still dyspneic , not in resp distress. CXR: new small left pleural effusion , with a small right pleural effusion with right basilar atelectasis and/or infiltrate is slightly improved. Patient was not found to candidate for long-term anticoagulation because of his low hemoglobin as per cardiology team 07/12/2018 Patient remains to be dyspneic, however is better than before and it looks like to close to her baseline. She is needing only 4 L of oxygen via nasal cannula. An patient's postoperative go to [facility] upon discharge. She walked a little bit today. However she needs more strengthening exercises. Her creatinine went today from 1.1 to 1.99. Patient is currently on IV Lasix 20 mg twice a day. We are going to hold that. Pulmonary team R following the case closely. Patient also on A. fib but she is not a candidate for anticoagulation because of her anemia. She is status post blood transfusion. GI appointments/referral is recommended. review of systems CONSTITUTIONAL: No fever, no malaise, no fatigue. HEENT: No recent visual problems or hearing problems. Denied any sore throat. CARDIOVASCULAR: No orthopnea, PND, no palpitations, no syncope. PULMONARY: no hemoptysis. GASTROINTESTINAL: No diarrhea, no nausea, no vomiting, no abdominal pain. Normoactive bowel sounds. NEUROLOGICAL: No headaches, no weakness, no numbness. HEMATOLOGICAL: Denies any bleeding or petechiae. GENITOURINARY: Denies any burning micturition, frequency, or urgency. MUSCULOSKELETAL/RHEUMATOLOGICAL: Denies any joint pain, swelling, or any muscle pain. ENDOCRINE: Denies any polyuria or polydipsia. medication: Albuterol, Xanax, Pulmicort, Tums, Lasix, heparin, NovoLog, Levaquin, some Medrol, Zosyn, Singulair, Protonix, verapamil. Objective - Vital Signs Vital signs: Vital Signs Temp 97.7 F 07/12/18 08:30 Pulse 80 07/12/18 08:30 Resp 22 07/12/18 08:30 BP 137/84 07/12/18 08:30 Pulse Ox 99 07/12/18 08:30 Intake & Output 07/11/18 07/12/18 07/12/18 18:59 06:59 18:59 Intake Total 680 200 Output Total 300 300 Balance 380 -100 Intake: IV 200 Piperacillin-Tazobactam 3 200 .375 gm In Sodium Chloride 0.9% 100 ml @ 25 mls/hr IVPB Q8HR [facility] Rx# :[id number] Oral 480 200 Output: Urine 300 300 Other: Voiding Method Indwelling Catheter Indwelling Catheter Indwelling Catheter # Voids 0 # Bowel Movements 1 - Exam GENERAL: The patient is alert and oriented x3, not in any acute distress. Well developed, well nourished. HEENT: Pupils are round and equally reacting to light. EOMI. No scleral icterus. No conjunctival pallor. Normocephalic, atraumatic. No pharyngeal erythema. No thyromegaly. CARDIOVASCULAR: S1 and S2 present. No murmurs, rubs, or gallops. -PULMONARY: Chest is clear to auscultation, bilateral wheezing ABDOMEN: Soft, nontender, nondistended, normoactive bowel sounds. No palpable organomegaly. MUSCULOSKELETAL: No joint swelling or deformity. EXTREMITIES: No cyanosis, clubbing, or pedal edema. NEUROLOGICAL: Gross neurological examination did not reveal any focal deficits. SKIN: No rashes. - Labs CBC & Chem 7: 07/12/18 06:13 07/12/18 06:13 Labs: Abnormal Lab Results - Last 24 Hours (Table) 07/11/18 07/11/18 07/11/18 Range/Units 11:23 16:31 16:35 WBC (3.8-10.6) k/uL RBC (3.80-5.40) m/uL Hgb (11.4-16.0) gm/dL Hct (34.0-46.0) % RDW (11.5-15.5) % Neutrophils # (1.3-7.7) k/uL Lymphocytes # (1.0-4.8) k/uL Potassium 3.3 L (3.5-5.1) mmol/L Chloride (98-107) mmol/L BUN (7-17) mg/dL Creatinine (0.52-1.04) mg/dL Glucose (74-99) mg/dL POC Glucose (mg/dL) 135 H 130 H (75-99) mg/dL 07/11/18 07/12/18 07/12/18 Range/Units 21:26 05:40 06:13 WBC 24.4 H (3.8-10.6) k/uL RBC 3.67 L (3.80-5.40) m/uL Hgb 9.5 L (11.4-16.0) gm/dL Hct 30.1 L (34.0-46.0) % RDW 21.2 H (11.5-15.5) % Neutrophils # 22.9 H (1.3-7.7) k/uL Lymphocytes # 0.5 L (1.0-4.8) k/uL Potassium (3.5-5.1) mmol/L Chloride (98-107) mmol/L BUN (7-17) mg/dL Creatinine (0.52-1.04) mg/dL Glucose (74-99) mg/dL POC Glucose (mg/dL) 185 H 199 H (75-99) mg/dL 07/12/18 Range/Units 06:13 WBC (3.8-10.6) k/uL RBC (3.80-5.40) m/uL Hgb (11.4-16.0) gm/dL Hct (34.0-46.0) % RDW (11.5-15.5) % Neutrophils # (1.3-7.7) k/uL Lymphocytes # (1.0-4.8) k/uL Potassium (3.5-5.1) mmol/L Chloride 96 L (98-107) mmol/L BUN 72 H (7-17) mg/dL Creatinine 1.99 H (0.52-1.04) mg/dL Glucose 164 H (74-99) mg/dL POC Glucose (mg/dL) (75-99) mg/dL Microbiology - Last 24 Hours (Table) 07/05/18 20:50 Blood Culture - Final Blood No Growth after 144 hours Assessment and Plan Assessment: acute hypoxic respiratory failure Severe advanced COPD acute exacerbation Atrial fibrillation, heart rate slightly tachycardic. Acute blood loss anemia. Her heparin drip was stopped elevated lactic acid Leukocytosis, mostly reactive History of rheumatoid arthritis History of 60 dermal History of GERD Plan: this is a pleasant 77 years old female who presents because of acute COPD exacerbation, and atrial fibrillation, with GI bleeds after heparin was started, her heparin drip was stopped. Continue with breathing treatment, steroids, antibiotics. Oxygen therapy to keep saturation more than 90%. Cardiology and pulmonary consult is appreciated.Labs and medication were reviewed.. Continue same treatment. Continue with symptomatic treatment. Resume home medication. Monitor lytes and vitals. DVT and GI prophylaxis. Further recommendations of the clinical course of the patient DVT prophylaxis: Subcutaneous heparin GI Prophylaxis: Ppi Prognosis is guarded
--- NOTE | 2018-07-12 10:39 | P.PN ---
Subjective Progress Note Date: 07/12/18 This is a 77-year-old female presented to the hospital with increasing shortness of breath and has been under treatment with Dr. Abrams for COPD exacerbation. Upon arrival to the hospital patient was in atrial fibrillation with moderate ventricular rate and patient initially started on Cardizem drip with improved rate. Patient was also on heparin drip which was discontinued and started heparin subcu. Patient is currently on verapamil 240 mg twice a day , Lasix 20 mg IV every 12 hours. Patient has had good urine output. Been up in the chair at bedside today, overall breathing is significantly improved. He diuresed well through the night last night. Sodium 139, potassium 3.1, BUN 58 creatinine 1.1. White blood cell count 22, hemoglobin 10.4, platelet count 247. 07/12/2018 Patient was seen and examined this morning, much more short of breath today. Continues to be in atrial fibrillation, heart rate in the 80s. Repeat chest x- ray performed yesterday showed persistent right sided volume loss and cardiomegaly on the background of chronic emphysema. New small left pleural e ffusion noted. Small right pleural effusion with right basilar atelectasis and/or infiltrate is slightly improved from most recent. Blood pressure 136/80 this morning. 99% on 4 L of oxygen. White blood cell count 24.4, hemoglobin 9.5, platelet count 235. Sodium 138, potassium 4.9, BUN 72 and creatinine 1.9. We will discontinue her IV Lasix today, creatinine did go from 1.1-1.9. From tomorrow start her on a small dose of oral diuretics. Objective - Vital Signs Vital signs: Vital Signs Temp 97.7 F 07/12/18 08:30 Pulse 80 07/12/18 08:30 Resp 22 07/12/18 08:30 BP 137/84 07/12/18 08:30 Pulse Ox 99 07/12/18 08:30 Intake & Output 07/11/18 07/12/18 07/12/18 18:59 06:59 18:59 Intake Total 680 200 Output Total 300 300 Balance 380 -100 Intake: IV 200 Piperacillin-Tazobactam 3 200 .375 gm In Sodium Chloride 0.9% 100 ml @ 25 mls/hr IVPB Q8HR [facility] Rx# :[id number] Oral 480 200 Output: Urine 300 300 Other: Voiding Method Indwelling Catheter Indwelling Catheter Indwelling Catheter # Voids 0 # Bowel Movements 1 - Exam Gen: This is a thin 77-year-old female. In no acute distress at the time of my examination HEENT: Head is atraumatic, normocephalic. Pupils equal, round. Sclerae is anicteric. NECK: Supple. No JVD. No lymphadenopathy. No thyromegaly. LUNGS: Diminished breath sounds with a few scattered wheezes. Mild intercostal retractions and accessory muscle usage. Decreased air exchange throughout HEART: Irregularly irregular. No murmur. ABDOMEN: Soft. Bowel sounds are present. No masses. Mild mid abdominal tenderness. Simmons draining clear [place] urine. EXTREMITIES: No pedal edema. No calf tenderness. Dorsalis pedis +2 bilaterally. NEUROLOGICAL: Patient is awake, alert and oriented x3. Cranial nerves 2 through 12 are grossly intact. - Labs CBC & Chem 7: 07/12/18 06:13 07/12/18 06:13 Labs: Abnormal Lab Results - Last 24 Hours (Table) 07/11/18 07/11/18 07/11/18 Range/Units 11:23 16:31 16:35 WBC (3.8-10.6) k/uL RBC (3.80-5.40) m/uL Hgb (11.4-16.0) gm/dL Hct (34.0-46.0) % RDW (11.5-15.5) % Neutrophils # (1.3-7.7) k/uL Lymphocytes # (1.0-4.8) k/uL Potassium 3.3 L (3.5-5.1) mmol/L Chloride (98-107) mmol/L BUN (7-17) mg/dL Creatinine (0.52-1.04) mg/dL Glucose (74-99) mg/dL POC Glucose (mg/dL) 135 H 130 H (75-99) mg/dL 07/11/18 07/12/18 07/12/18 Range/Units 21:26 05:40 06:13 WBC 24.4 H (3.8-10.6) k/uL RBC 3.67 L (3.80-5.40) m/uL Hgb 9.5 L (11.4-16.0) gm/dL Hct 30.1 L (34.0-46.0) % RDW 21.2 H (11.5-15.5) % Neutrophils # 22.9 H (1.3-7.7) k/uL Lymphocytes # 0.5 L (1.0-4.8) k/uL Potassium (3.5-5.1) mmol/L Chloride (98-107) mmol/L BUN (7-17) mg/dL Creatinine (0.52-1.04) mg/dL Glucose (74-99) mg/dL POC Glucose (mg/dL) 185 H 199 H (75-99) mg/dL 07/12/18 Range/Units 06:13 WBC (3.8-10.6) k/uL RBC (3.80-5.40) m/uL Hgb (11.4-16.0) gm/dL Hct (34.0-46.0) % RDW (11.5-15.5) % Neutrophils # (1.3-7.7) k/uL Lymphocytes # (1.0-4.8) k/uL Potassium (3.5-5.1) mmol/L Chloride 96 L (98-107) mmol/L BUN 72 H (7-17) mg/dL Creatinine 1.99 H (0.52-1.04) mg/dL Glucose 164 H (74-99) mg/dL POC Glucose (mg/dL) (75-99) mg/dL Microbiology - Last 24 Hours (Table) 07/05/18 20:50 Blood Culture - Final Blood No Growth after 144 hours Assessment and Plan Plan: Assessment and plan #1 New onset atrial fibrillation, paroxysmal #2 Acute hypoxic respiratory failure with COPD exacerbation #3 Sepsis #4 Rheumatoid arthritis #5 Anemia, symptomatic of unclear etiology Plan We will repeat a chest x-ray, discontinue IV Lasix.. Continue verapamil 240 mg twice a day. GI service is also been consulted regarding the anemia, if cleared by them patient will require anticoagulation for stroke prevention. DNP note has been reviewed, I agree with a documented findings and plan of care. Patient was seen and examined.
[2018-07-12] MEDS ORDERED: POTASSIUM CHLORIDE ER 20 MEQ TAB.ER PO SCH (11:00)
[2018-07-12 11:17] LABS: Albumin 3.05 g/dL (3.80-4.90); Gamma Globulin 1.56 g/dL (0.70-1.50)
[2018-07-12 11:31] LABS: Glucose,Whole Blood 111 mg/dL (75-99)
--- NOTE | 2018-07-12 11:34 | XR ---
EXAMINATION TYPE: XR chest 1V portable DATE OF EXAM: 07/12/2018 COMPARISON: 07/11/2018 HISTORY: Shortness of breath TECHNIQUE: Single frontal view of the chest is obtained. FINDINGS: There is continued evidence of right hemithorax volume loss, mediastinal shift to the righ t that is partially exaggerated by rotation, right basilar airspace disease. Background emphysema is seen with hyperaeration of the left lung. Generalized osseous demineralization is present. Cardiomedi astinal silhouette is enlarged. 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 IMPRESSION: Stable bilateral consolidation and pleural effusion correlate for pneumonia. Otherwise c onsider CHF.
[2018-07-12] MEDS: VERAPAMIL SR 240 MG TABLET.ER PO SCH ×2 (12:31→22:49)
[2018-07-12] MEDS ORDERED: SODIUM CHLORIDE 0.9% 500 ML 500 ML IV ONE (13:14)
[2018-07-12 14:46] LABS: ABG Base Excess 6.5 mmol/L; ABG HCO3 31 mmol/L (21-25); ABG Oxygen Saturation 95.2 % (94-97); ABG PCO2 48 mmHg (35-45); ABG PH 7.42 (7.35-7.45); ABG PO2 77 mmHg (83-108); ABG TCO2 32 mmol/L (19-24)
[2018-07-12] MEDS: ALPRAZolam 0.25 MG TAB PO PRN (15:03)
[2018-07-12] MEDS: LEVOFLOXACIN 250 MG TAB PO SCH (15:03)
[2018-07-12] MEDS: SODIUM CHLORIDE 0.9% 1,000 ML IV SCH (15:04)
--- NOTE | 2018-07-12 15:12 | P.PN ---
Subjective Progress Note Date: 07/12/18 Principal diagnosis: Pneumonia, iron deficiency In f/u today pt is sitting up in bed, she is angry and not very co-operative Objective - Vital Signs Vital signs: Vital Signs Temp 97.7 F 07/12/18 08:30 Pulse 91 07/12/18 11:28 Resp 16 07/12/18 11:28 BP 137/84 07/12/18 08:30 Pulse Ox 99 07/12/18 08:30 Intake & Output 07/11/18 07/12/18 07/12/18 18:59 06:59 18:59 Intake Total 680 200 Output Total 300 300 Balance 380 -100 Weight 55.1 kg Intake: IV 200 Piperacillin-Tazobactam 3 200 .375 gm In Sodium Chloride 0.9% 100 ml @ 25 mls/hr IVPB Q8HR [facility] Rx# :[id number] Oral 480 200 Output: Urine 300 300 Other: Voiding Method Indwelling Catheter Indwelling Catheter Indwelling Catheter # Voids 0 # Bowel Movements 1 - Exam Patient is sitting up in bed when I entered the room. She asked me if I was "in on it with them", when I asked her what was the matter she explained that she felt that staff was "out to get her" she was not able to clearly define what she though was going on. Staff member walked by the open-door to the room patient shouted to her "what do you want with me?" I did not perform a physical exam due to patient's agitation. She was visualized sitting up in bed, her respirations became shallow and she was losing her breath with speaking as she became more anxious, she started to settle down as I was closer to the door. - Labs CBC & Chem 7: 07/12/18 06:13 07/12/18 06:13 Labs: Abnormal Lab Results - Last 24 Hours (Table) 07/08/18 07/11/18 07/11/18 Range/Units 07:30 16:31 16:35 WBC (3.8-10.6) k/uL RBC (3.80-5.40) m/uL Hgb (11.4-16.0) gm/dL Hct (34.0-46.0) % RDW (11.5-15.5) % Neutrophils # (1.3-7.7) k/uL Lymphocytes # (1.0-4.8) k/uL ABG pCO2 (35-45) mmHg ABG pO2 (83-108) mmHg ABG HCO3 (21-25) mmol/L ABG Total CO2 (19-24) mmol/L Potassium 3.3 L (3.5-5.1) mmol/L Chloride (98-107) mmol/L BUN (7-17) mg/dL Creatinine (0.52-1.04) mg/dL Glucose (74-99) mg/dL POC Glucose (mg/dL) 130 H (75-99) mg/dL Albumin (PEP) 3.05 L (3.80-4.90) g/dL [id number] 0.54 H (0.10-0.40) g/dL Gamma Globulins 1.56 H (0.70-1.50) g/dL 07/11/18 07/12/18 07/12/18 Range/Units 21:26 05:40 06:13 WBC 24.4 H (3.8-10.6) k/uL RBC 3.67 L (3.80-5.40) m/uL Hgb 9.5 L (11.4-16.0) gm/dL Hct 30.1 L (34.0-46.0) % RDW 21.2 H (11.5-15.5) % Neutrophils # 22.9 H (1.3-7.7) k/uL Lymphocytes # 0.5 L (1.0-4.8) k/uL ABG pCO2 (35-45) mmHg ABG pO2 (83-108) mmHg ABG HCO3 (21-25) mmol/L ABG Total CO2 (19-24) mmol/L Potassium (3.5-5.1) mmol/L Chloride (98-107) mmol/L BUN (7-17) mg/dL Creatinine (0.52-1.04) mg/dL Glucose (74-99) mg/dL POC Glucose (mg/dL) 185 H 199 H (75-99) mg/dL Albumin (PEP) (3.80-4.90) g/dL Kysie-6-Axkhzhdiw (0.10-0.40) g/dL Gamma Globulins (0.70-1.50) g/dL 07/12/18 07/12/18 07/12/18 Range/Units 06:13 11:29 14:43 WBC (3.8-10.6) k/uL RBC (3.80-5.40) m/uL Hgb (11.4-16.0) gm/dL Hct (34.0-46.0) % RDW (11.5-15.5) % Neutrophils # (1.3-7.7) k/uL Lymphocytes # (1.0-4.8) k/uL ABG pCO2 48 H (35-45) mmHg ABG pO2 77 L (83-108) mmHg ABG HCO3 31 H (21-25) mmol/L ABG Total CO2 32 H (19-24) mmol/L Potassium (3.5-5.1) mmol/L Chloride 96 L (98-107) mmol/L BUN 72 H (7-17) mg/dL Creatinine 1.99 H (0.52-1.04) mg/dL Glucose 164 H (74-99) mg/dL POC Glucose (mg/dL) 111 H (75-99) mg/dL Albumin (PEP) (3.80-4.90) g/dL Txemx-0-Cxbpumafg (0.10-0.40) g/dL Gamma Globulins (0.70-1.50) g/dL Microbiology - Last 24 Hours (Table) 07/05/18 20:50 Blood Culture - Final Blood No Growth after 144 hours Assessment and Plan (1) Iron deficiency anemia Narrative/Plan: I reviewed with patient the reason that I was seeing her. Clarified I was seeing her for anemia and that it was good that she was taking her iron. GI consult pending. History of colon polyp, she does not remember last colonoscopy. Oral iron ordered, cont at home. May consider a dose of parenteral iron dose once cleared from pneumonia Current Visit: Yes Status: Acute Priority: Medium Code(s): D50.9 - IRON DEFICIENCY ANEMIA, UNSPECIFIED SNOMED Code(s): 19463581
--- NOTE | 2018-07-12 16:19 | PN ---
PROGRESS NOTE DATE OF SERVICE: 07/12/2018 This patient has been hemodynamically stable and is less short of breath. On physical examination respiratory rate is 22, pulse rate 80, temperature 97.7, blood pressure 137/84, oxygen saturation on 4 L by nasal cannula 99%. HEENT is unremarkable. Chest reveals prolonged expiration. Cardiovascular system is in S1, S2. Abdomen is soft. There is no edema. IMPRESSION AT THIS TIME: 1. Acute hypoxic respiratory failure secondary to chronic obstructive pulmonary disease with acute exacerbation. 2. Rheumatoid arthritis with recent pleural and pericardial effusion. 3. Pneumonia. 4. Renal failure. 5. Atrial fibrillation with rapid ventricular response. Continue current medications. I agree with discharge planning with close outpatient followup. Increase her activity level. MMODL / IJN: [id number] /
[2018-07-12 16:50] LABS: Glucose,Whole Blood 115 mg/dL (75-99)
[2018-07-12 17:14] LABS: Amorphous Sediment,Urine Occasional /hpf; Appearance,Urine Cloudy (Clear); Bilirubin,Urine Negative (Negative); Blood,Urine Small (Negative); Budding Yeast,Urine Moderate /hpf; Color,Urine Yellow; Glucose,Urine (UA) Negative (Negative); Hyaline Casts,Urine 1 /lpf (0-2); Hyphae Yeast, Urine Occasional /hpf; Ketones,Urine Negative (Negative); Leukocyte Esterase,Urine Negative (Negative); Mucus,Urine Rare /hpf; Nitrite,Urine Negative (Negative); Protein,Urine 1+ (Negative); RBC,Urine 23 /hpf (0-5); Specific Gravity,Urine 1.018 (1.001-1.035); Squamous Epithelial Cell,Urine 29 /hpf (0-4); Urobilinogen,Urine <2.0 mg/dL (<2.0); WBC,Urine 11 /hpf (0-5)
--- NOTE | 2018-07-12 18:04 | CT ---
EXAMINATION TYPE: CT brain wo con DATE OF EXAM: 07/12/2018 COMPARISON: None HISTORY: Altered mental status. CT DLP: 1083.4 mGycm Automated exposure control for dose reduction was used. FINDINGS: There is cerebral cortical atrophy. There is no mass effect nor midline shift. There is no sign of in tracranial hemorrhage. There is some white matter hypodensity in both parietal lobes. There is 1.5 cm hypodense area anterior right internal capsule. There is 7 mm hypodensity in the genu of the right i nternal capsule. Calvarium is intact. IMPRESSION: CEREBRAL ATROPHY. OLD LACUNAR INFARCTS. NO ACUTE INTRACRANIAL ABNORMALITY.
[2018-07-12 19:43] LABS: Anisocytosis Moderate; HCT 33.5 % (34.0-46.0); Hypochromasia Marked; MCH 25.5 pg (25.0-35.0); MCHC 29.9 g/dL (31.0-37.0); MCV 85.1 fL (80.0-100.0); Mean Platelet Volume 8.1; Microcytosis Slight; Platelet Count 281 k/uL (150-450); Poikilocytosis Slight; RBC 3.94 m/uL (3.80-5.40); RDW 21.1 % (11.5-15.5); WBC 28.9 k/uL (3.8-10.6)
[2018-07-12 19:54] LABS: Calcium 9.7 mg/dL (8.4-10.2); Potassium 4.8 mmol/L (3.5-5.1)
[2018-07-12 20:45] LABS: Glucose,Whole Blood 111 mg/dL (75-99)
[2018-07-12] MEDS ORDERED: VANCOMYCIN IV PER PHARMACY 1 EACH MISC MISCELLANE PRN (20:47)
[2018-07-12] MEDS ORDERED: VANCOMYCIN 1,000 MG in SODIUM CHLORIDE 0.9% 250 ML IVPB ONE (21:30)
[2018-07-12 21:32] LABS: ABG Base Excess 2.1 mmol/L; ABG HCO3 30 mmol/L (21-25); ABG Oxygen Saturation 92.5 % (94-97); ABG PH 7.22 (7.35-7.45); ABG PO2 79 mmHg (83-108); ABG TCO2 32 mmol/L (19-24)
[2018-07-12] MEDS: FORMOTEROL FUMARATE 20 MCG/2 ML NEBU INHALATION SCH (21:32)
[2018-07-12 21:36] LABS: ABG PCO2 73 mmHg (35-45)
--- NOTE | 2018-07-12 21:39 | XR ---
EXAMINATION TYPE: XR chest 1V portable DATE OF EXAM: 07/12/2018 COMPARISON: Today HISTORY: Short of breath TECHNIQUE: Single frontal view of the chest is obtained. FINDINGS: Heart is enlarged. There is pulmonary vascular congestion. There is mild blunting of the c ostophrenic angles. There is airspace infiltrate left lower lobe. IMPRESSION: Mild congestive heart failure. Left lower lobe pneumonia. No change compared to exam ear lier today.
[2018-07-12 22:05] LABS: Glucose,Whole Blood 106 mg/dL (75-99)
--- NOTE | 2018-07-12 22:35 | P.CONS ---
History of Present Illness - Reason for Consult Consult date: 07/12/18 Anemia Requesting physician: Tanvir Zelaya - Chief Complaint Shortness of breath - History of Present Illness 77-year-old female with a medical history significant for pulmonary hypertension, COPD, systemic sclerosis, rheumatoid arthritis and tobacco abuse who presented to the hospital with complaints of shortness of breath. The patient reported worsening shortness of breath with associated cough and chest pain. Currently the patient is being treated for an exacerbation of COPD as well as atrial fibrillation. The patient was found to be anemic during her hospitalization and has been seen by the hematology service and started on iron supplementation. She denies any prior history of peptic ulcer disease. She does believe she was treated for anemia in the past. She denies any associated abdominal pain. She denies any change in bowel habits. She denies any upper endoscopy, but does report a remote history of colonoscopy. Patient had iron studies consistent with deficiency with iron level XIX, TIBC 351, iron saturation 5.9, hemoglobin was found to be 9.5 today from 10.4 previously, alkaline phosphatase 57, total bilirubin 1.1, AST 34 and ALT 42. The patient had stool testing which was negative for occult blood. Review of Systems REVIEW OF SYSTEMS: CONSTITUTIONAL: Denies any fevers, chills, weight change or fatigue. CARDIOVASCULAR: Denies any chest pain, palpitations high or low blood pressures RESPIRATORY: Shortness of breath and cough on presentation, denies any hemoptysis. GENITOURINARY: No dysuria or hematuria. MUSCULOSKELETAL: No weakness reported. SKIN: Denies any new rashes or lesions, jaundice or pallor. PSYCHIATRIC: Denies any depression or anxiety. NEUROLOGY: Denies headache, denies any new focal deficits. EARS/NOSE/THROAT: No recent hearing change, congestion, nasal discharge or sore throat. EYES: No pain in eyes, discharge or change in vision. GASTROINTESTINAL: As per HPI. Past Medical History Past Medical History: COPD, Eye Disorder, GERD/Reflux, Rheumatoid Arthritis (RA) Additional Past Medical History / Comment(s): Scleroderma, Cataracts History of Any Multi-Drug Resistant Organisms: None Reported Past Surgical History: Tonsillectomy, Tubal Ligation Additional Past Surgical History / Comment(s): Colonoscopy, R cataract surgery in the past. Past Anesthesia/Blood Transfusion Reactions: No Reported Reaction Past Psychological History: Depression Additional Psychological History / Comment(s): FROM CANCER. Smoking Status: Current every day smoker Past Alcohol Use History: Rare Past Drug Use History: None Reported - Past Family History Mother Family Medical History: Cancer Additional Family Medical History / Comment(s): OVARIAN. Medications and Allergies Home Medications Medication Instructions Recorded Confirmed Type Hydroxychloroquine Sulfate 200 mg PO BID 12/25/13 07/05/18 History [Plaquenil] Budesonide [Pulmicort] 0.5 mg INHALATION RT-BID 07/05/18 07/05/18 History Montelukast [Singulair] 10 mg PO HS 07/05/18 07/05/18 History Allergies Allergy/AdvReac Type Severity Reaction Status Date / Time Sulfa (Sulfonamide Allergy Rash/Hives Verified 07/05/18 17:26 Antibiotics) Physical Exam Vitals: Vital Signs Temp Pulse Pulse Resp BP Pulse Ox 07/12/18 20:00 97.9 F 111 H 26 H 132/79 88 L 07/12/18 17:02 92 07/12/18 16:55 90 07/12/18 16:00 97.8 F 100 22 129/85 93 L 07/12/18 12:00 98.0 F 92 24 119/90 93 L 07/12/18 11:28 91 16 07/12/18 11:20 90 18 07/12/18 08:30 97.7 F 80 22 137/84 99 07/12/18 07:18 90 07/12/18 07:05 94 94 L 07/12/18 04:15 98 F 85 22 121/56 95 07/12/18 04:00 85 22 07/12/18 00:00 97.8 F 80 20 129/60 92 L Intake and Output 07/12/18 07/12/18 07/12/18 06:59 14:59 22:59 Intake Total 200 700 Output Total 300 150 Balance -300 50 700 Intake: IV 100 Piperacillin-Tazobactam 3 100 .375 gm In Sodium Chloride 0.9% 100 ml @ 25 mls/hr IVPB Q8HR [facility] Rx# :[id number] Intake, IV Titration 600 Amount Sodium Chloride 0.9% 1, 600 000 ml @ 75 mls/hr IV . [id number] [facility] Rx#:[id number] Oral 200 Output: Urine 300 150 Other: Voiding Method Indwelling Catheter Indwelling Catheter Indwelling Catheter # Voids 0 Weight 55.1 kg On physical examination, patient appears comfortable in no apparent distress. HEAD: Normocephalic, atraumatic. EYES: No scleral icterus. No conjunctival injection. MOUTH: No lesions, tongue midline. NECK: Trachea midline, no gross abnormalities. CHEST: Decreased air entry in all lung oliver. HEART: Irregularly irregular. ABDOMEN: Soft. Bowel sounds are positive. No organomegaly. No guarding or rigidity. EXTREMITIES: No pedal edema. SKIN: No rashes, no jaundice. NEUROLOGIC: Alert and oriented x3. No focal deficits. Results CBC & Chem 7: 07/12/18 19:19 07/12/18 19:19 Labs: Abnormal Lab Results - Last 24 Hours (Table) 07/08/18 07/11/18 07/12/18 Range/Units 07:30 21:26 05:40 WBC (3.8-10.6) k/uL RBC (3.80-5.40) m/uL Hgb (11.4-16.0) gm/dL Hct (34.0-46.0) % MCHC (31.0-37.0) g/dL RDW (11.5-15.5) % Neutrophils # (1.3-7.7) k/uL Lymphocytes # (1.0-4.8) k/uL ABG pH (7.35-7.45) ABG pCO2 (35-45) mmHg ABG pO2 (83-108) mmHg ABG HCO3 (21-25) mmol/L ABG Total CO2 (19-24) mmol/L ABG O2 Saturation (94-97) % Chloride (98-107) mmol/L Carbon Dioxide (22-30) mmol/L BUN (7-17) mg/dL Creatinine (0.52-1.04) mg/dL Glucose (74-99) mg/dL POC Glucose (mg/dL) 185 H 199 H (75-99) mg/dL Troponin I (0.000-0.034) ng/mL Albumin (PEP) 3.05 L (3.80-4.90) g/dL Ffzvk-3-Qzpeekqns 0.54 H (0.10-0.40) g/dL Gamma Globulins 1.56 H (0.70-1.50) g/dL Urine Appearance (Clear) Urine Protein (Negative) Urine Blood (Negative) Urine RBC (0-5) /hpf Urine WBC (0-5) /hpf Ur Squamous Epith Cells (0-4) /hpf Amorphous Sediment (None) /hpf Urine Mucus (None) /hpf Urine Yeast (Budding) (None) /hpf 07/12/18 07/12/18 07/12/18 Range/Units 06:13 06:13 11:29 WBC 24.4 H (3.8-10.6) k/uL RBC 3.67 L (3.80-5.40) m/uL Hgb 9.5 L (11.4-16.0) gm/dL Hct 30.1 L (34.0-46.0) % MCHC (31.0-37.0) g/dL RDW 21.2 H (11.5-15.5) % Neutrophils # 22.9 H (1.3-7.7) k/uL Lymphocytes # 0.5 L (1.0-4.8) k/uL ABG pH (7.35-7.45) ABG pCO2 (35-45) mmHg ABG pO2 (83-108) mmHg ABG HCO3 (21-25) mmol/L ABG Total CO2 (19-24) mmol/L ABG O2 Saturation (94-97) % Chloride 96 L (98-107) mmol/L Carbon Dioxide (22-30) mmol/L BUN 72 H (7-17) mg/dL Creatinine 1.99 H (0.52-1.04) mg/dL Glucose 164 H (74-99) mg/dL POC Glucose (mg/dL) 111 H (75-99) mg/dL Troponin I (0.000-0.034) ng/mL Albumin (PEP) (3.80-4.90) g/dL Dbmww-2-Pzdboredo (0.10-0.40) g/dL Gamma Globulins (0.70-1.50) g/dL Urine Appearance (Clear) Urine Protein (Negative) Urine Blood (Negative) Urine RBC (0-5) /hpf Urine WBC (0-5) /hpf Ur Squamous Epith Cells (0-4) /hpf Amorphous Sediment (None) /hpf Urine Mucus (None) /hpf Urine Yeast (Budding) (None) /hpf 07/12/18 07/12/18 07/12/18 Range/Units 14:43 16:30 16:40 WBC (3.8-10.6) k/uL RBC (3.80-5.40) m/uL Hgb (11.4-16.0) gm/dL Hct (34.0-46.0) % MCHC (31.0-37.0) g/dL RDW (11.5-15.5) % Neutrophils # (1.3-7.7) k/uL Lymphocytes # (1.0-4.8) k/uL ABG pH (7.35-7.45) ABG pCO2 48 H (35-45) mmHg ABG pO2 77 L (83-108) mmHg ABG HCO3 31 H (21-25) mmol/L ABG Total CO2 32 H (19-24) mmol/L ABG O2 Saturation (94-97) % Chloride (98-107) mmol/L Carbon Dioxide (22-30) mmol/L BUN (7-17) mg/dL Creatinine (0.52-1.04) mg/dL Glucose (74-99) mg/dL POC Glucose (mg/dL) 115 H (75-99) mg/dL Troponin I (0.000-0.034) ng/mL Albumin (PEP) (3.80-4.90) g/dL Hwkoc-0-Alsryqhzp (0.10-0.40) g/dL Gamma Globulins (0.70-1.50) g/dL Urine Appearance Cloudy H (Clear) Urine Protein 1+ H (Negative) Urine Blood Small H (Negative) Urine RBC 23 H (0-5) /hpf Urine WBC 11 H (0-5) /hpf Ur Squamous Epith Cells 29 H (0-4) /hpf Amorphous Sediment Occasional H (None) /hpf Urine Mucus Rare H (None) /hpf Urine Yeast (Budding) Moderate H (None) /hpf 07/12/18 07/12/18 07/12/18 Range/Units 19:19 19:19 19:19 WBC 28.9 H (3.8-10.6) k/uL RBC (3.80-5.40) m/uL Hgb 10.0 L (11.4-16.0) gm/dL Hct 33.5 L (34.0-46.0) % MCHC 29.9 L (31.0-37.0) g/dL RDW 21.1 H (11.5-15.5) % Neutrophils # (1.3-7.7) k/uL Lymphocytes # (1.0-4.8) k/uL ABG pH (7.35-7.45) ABG pCO2 (35-45) mmHg ABG pO2 (83-108) mmHg ABG HCO3 (21-25) mmol/L ABG Total CO2 (19-24) mmol/L ABG O2 Saturation (94-97) % Chloride 97 L (98-107) mmol/L Carbon Dioxide 31 H (22-30) mmol/L BUN 79 H (7-17) mg/dL Creatinine 2.24 H (0.52-1.04) mg/dL Glucose 107 H (74-99) mg/dL POC Glucose (mg/dL) (75-99) mg/dL Troponin I 0.087 H* (0.000-0.034) ng/mL Albumin (PEP) (3.80-4.90) g/dL Meqjc-8-Srerpptex (0.10-0.40) g/dL Gamma Globulins (0.70-1.50) g/dL Urine Appearance (Clear) Urine Protein (Negative) Urine Blood (Negative) Urine RBC (0-5) /hpf Urine WBC (0-5) /hpf Ur Squamous Epith Cells (0-4) /hpf Amorphous Sediment (None) /hpf Urine Mucus (None) /hpf Urine Yeast (Budding) (None) /hpf 07/12/18 07/12/18 07/12/18 Range/Units 20:44 21:13 22:03 WBC (3.8-10.6) k/uL RBC (3.80-5.40) m/uL Hgb (11.4-16.0) gm/dL Hct (34.0-46.0) % MCHC (31.0-37.0) g/dL RDW (11.5-15.5) % Neutrophils # (1.3-7.7) k/uL Lymphocytes # (1.0-4.8) k/uL ABG pH 7.22 L (7.35-7.45) ABG pCO2 73 H* (35-45) mmHg ABG pO2 79 L (83-108) mmHg ABG HCO3 30 H (21-25) mmol/L ABG Total CO2 32 H (19-24) mmol/L ABG O2 Saturation 92.5 L (94-97) % Chloride (98-107) mmol/L Carbon Dioxide (22-30) mmol/L BUN (7-17) mg/dL Creatinine (0.52-1.04) mg/dL Glucose (74-99) mg/dL POC Glucose (mg/dL) 111 H 106 H (75-99) mg/dL Troponin I (0.000-0.034) ng/mL Albumin (PEP) (3.80-4.90) g/dL Sbyvq-4-Rhuyfpdpw (0.10-0.40) g/dL Gamma Globulins (0.70-1.50) g/dL Urine Appearance (Clear) Urine Protein (Negative) Urine Blood (Negative) Urine RBC (0-5) /hpf Urine WBC (0-5) /hpf Ur Squamous Epith Cells (0-4) /hpf Amorphous Sediment (None) /hpf Urine Mucus (None) /hpf Urine Yeast (Budding) (None) /hpf Microbiology - Last 24 Hours (Table) 07/05/18 20:50 Blood Culture - Final Blood No Growth after 144 hours Assessment and Plan (1) Iron deficiency anemia Narrative/Plan: Patient found to be anemic with laboratory findings consistent with iron deficiency, however normocytic nature likely secondary to multifactorial et iology of anemia with likely component of anemia of chronic disease given chronic diseases. Stool testing was also found to be negative for occult blood making GI bleed less likely. Current Visit: Yes Status: Acute Priority: Medium Code(s): D50.9 - IRON DEFICIENCY ANEMIA, UNSPECIFIED SNOMED Code(s): 43813037 (2) Atrial fibrillation with RVR Current Visit: Yes Status: Acute Code(s): I48.91 - UNSPECIFIED ATRIAL FIBRILLATION SNOMED Code(s): 530406867968169 (3) Rheumatoid arthritis Current Visit: Yes Status: Acute Code(s): M06.9 - RHEUMATOID ARTHRITIS, UNSPECIFIED SNOMED Code(s): 41662491 Plan: Supportive care Okay for diet Continue treatment of other comorbidities Continue iron supplementation Continue to monitor hemoglobin and hematocrit and transfuse as needed Continue to monitor for signs or symptoms of GI bleeding No plans for endoscopic evaluation at this time given current treatment of COPD exacerbation and comorbidities, would likely benefit from EGD and colonoscopy. In the outpatient setting when medically optimized Thank you for allowing us participate in the care of the patient we will continue to follow
[2018-07-12] MEDS ORDERED: LORazepam 2 MG/ML INJ IV STA (22:45)
[2018-07-12] MEDS: MONTELUKAST 10 MG TAB PO SCH (22:49)
[2018-07-13] MEDS: methylPREDNISolone SOD SUCCI 125 MG/2 ML VIAL IV SCH ×3 (00:01→17:29)
[2018-07-13 00:10] LABS: ABG Base Excess 1.9 mmol/L; ABG HCO3 28 mmol/L (21-25); ABG Oxygen Saturation 85.6 % (94-97); ABG PCO2 56 mmHg (35-45); ABG PH 7.31 (7.35-7.45); ABG TCO2 30 mmol/L (19-24)
[2018-07-13 00:14] LABS: ABG PO2 57 mmHg (83-108)
[2018-07-13] MEDS: LORazepam 2 MG/ML INJ IV PRN ×2 (01:25→04:34)
[2018-07-13] MEDS: SODIUM CHLORIDE 0.9% 1,000 ML IV SCH (02:36)
[2018-07-13 06:34] LABS: Calcium 9.2 mg/dL (8.4-10.2); Magnesium 2.3 mg/dL (1.6-2.3); Phosphorus 8.4 mg/dL (2.5-4.5); Potassium 4.9 mmol/L (3.5-5.1)
[2018-07-13 06:35] LABS: Anisocytosis Moderate; HCT 29.8 % (34.0-46.0); HGB 9.1 gm/dL (11.4-16.0); Hypochromasia Marked; MCH 26.2 pg (25.0-35.0); MCHC 30.7 g/dL (31.0-37.0); MCV 85.6 fL (80.0-100.0); Mean Platelet Volume 8.4; Platelet Count 222 k/uL (150-450); Poikilocytosis Slight; RBC 3.48 m/uL (3.80-5.40); RDW 20.8 % (11.5-15.5); WBC 26.9 k/uL (3.8-10.6)
[2018-07-13 06:50] LABS: Glucose,Whole Blood 60 mg/dL (75-99)
[2018-07-13] MEDS ORDERED: DEXTROSE 50%-WATER 50 ML SYRINGE IVP STA (06:51)
[2018-07-13 06:52] LABS: Glucose,Whole Blood 58 mg/dL (75-99)
[2018-07-13] MEDS ORDERED: DEXTROSE 50%-WATER 50 ML SYRINGE IVP ONE (06:55)
[2018-07-13] MEDS ORDERED: DEXTROSE 5% IN WATER 1,000 ML IV SCH (07:15)
[2018-07-13 07:17] LABS: Glucose,Whole Blood 88 mg/dL (75-99)
[2018-07-13] MEDS: FERROUS SULFATE 325 MG TAB PO SCH ×2 (07:56→17:29)
[2018-07-13] MEDS: INSULIN ASPART (NovoLOG) 100 UNIT/ML VIAL SQ SCH ×4 (07:56→20:23)
[2018-07-13] MEDS: PANTOPRAZOLE 40 MG TABLET PO SCH (07:57)
[2018-07-13] MEDS: DOCUSATE 100 MG CAP PO SCH ×2 (07:57→20:21)
[2018-07-13] MEDS: VERAPAMIL SR 240 MG TABLET.ER PO SCH ×2 (08:57→20:22)
[2018-07-13] MEDS: HEPARIN SODIUM,PORCINE 5,000 UNIT/ML 1 ML VIAL SQ SCH ×2 (09:00→17:29)
[2018-07-13] MEDS: IPRATROPIUM-ALBUTEROL 3 ML NEB INHALATION SCH ×4 (09:03→20:03)
[2018-07-13] MEDS: FORMOTEROL FUMARATE 20 MCG/2 ML NEBU INHALATION SCH ×2 (09:03→20:03)
[2018-07-13] MEDS: BUDESONIDE 1 MG/2 ML NEBU INHALATION SCH ×2 (09:03→20:03)
[2018-07-13] MEDS: PIPERACILLIN-TAZOBACTAM 3.375 GM in SODIUM CHLORIDE 0.9% 100 ML IVPB SCH ×2 (09:33→21:07)
[2018-07-13 09:44] LABS: Glucose,Whole Blood 111 mg/dL (75-99)
--- NOTE | 2018-07-13 11:23 | P.PN ---
Subjective She is still short of breath. She was in atrial fibrillation with RVR but is unable to swallow pills. On examination her blood pressures 139/87 mmHg pulse rate is in the 70s in A. fib. She was on oral verapamil which controlled her rates Breath sounds are reduced bilaterally Rhythm is irregular Suggest Start IV Cardizem without a bolus until she is able to swallow and then reconsider back to by mouth verapamil. However up until then IV Cardizem should continue Objective - Vital Signs Vital signs: Vital Signs Temp 97.4 F L 07/13/18 08:00 Pulse 75 07/13/18 09:24 Resp 22 07/13/18 09:00 BP 139/87 07/13/18 09:00 Pulse Ox 99 07/13/18 09:00 Intake & Output 07/12/18 07/13/18 07/13/18 18:59 06:59 18:59 Intake Total 900 925 225 Output Total 150 370 190 Balance 750 555 35 Weight 55.1 kg 54 kg Intake: IV 100 75 Dextrose 5% in Water 1, 75 000 ml @ 75 mls/hr IV . [id number] [facility] Rx#:[id number] Piperacillin-Tazobactam 3 100 .375 gm In Sodium Chloride 0.9% 100 ml @ 25 mls/hr IVPB Q8HR [facility] Rx# :[id number] Intake, IV Titration 600 925 150 Amount Sodium Chloride 0.9% 1, 600 675 150 000 ml @ 75 mls/hr IV . [id number] [facility] Rx#:[id number] Vancomycin 1,000 mg In 250 Sodium Chloride 0.9% 250 ml @ 125 mls/hr IVPB ONCE ONE Rx#:[id number] Oral 200 Output: Urine 150 370 190 Other: Voiding Method Indwelling Catheter Indwelling Catheter Indwelling Catheter # Voids 0 - Labs CBC & Chem 7: 07/13/18 05:23 07/13/18 05:23 Labs: Abnormal Lab Results - Last 24 Hours (Table) 07/12/18 07/12/18 07/12/18 Range/Units 00:02 11:29 14:43 WBC (3.8-10.6) k/uL RBC (3.80-5.40) m/uL Hgb (11.4-16.0) gm/dL Hct (34.0-46.0) % MCHC (31.0-37.0) g/dL RDW (11.5-15.5) % ABG pH 7.31 L (7.35-7.45) ABG pCO2 56 H 48 H (35-45) mmHg ABG pO2 57 L* 77 L (83-108) mmHg ABG HCO3 28 H 31 H (21-25) mmol/L ABG Total CO2 30 H 32 H (19-24) mmol/L ABG O2 Saturation 85.6 L (94-97) % Chloride (98-107) mmol/L Carbon Dioxide (22-30) mmol/L BUN (7-17) mg/dL Creatinine (0.52-1.04) mg/dL Glucose (74-99) mg/dL POC Glucose (mg/dL) 111 H (75-99) mg/dL Phosphorus (2.5-4.5) mg/dL Troponin I (0.000-0.034) ng/mL Urine Appearance (Clear) Urine Protein (Negative) Urine Blood (Negative) Urine RBC (0-5) /hpf Urine WBC (0-5) /hpf Ur Squamous Epith Cells (0-4) /hpf Amorphous Sediment (None) /hpf Urine Mucus (None) /hpf Urine Yeast (Budding) (None) /hpf 07/12/18 07/12/18 07/12/18 Range/Units 16:30 16:40 19:19 WBC 28.9 H (3.8-10.6) k/uL RBC (3.80-5.40) m/uL Hgb 10.0 L (11.4-16.0) gm/dL Hct 33.5 L (34.0-46.0) % MCHC 29.9 L (31.0-37.0) g/dL RDW 21.1 H (11.5-15.5) % ABG pH (7.35-7.45) ABG pCO2 (35-45) mmHg ABG pO2 (83-108) mmHg ABG HCO3 (21-25) mmol/L ABG Total CO2 (19-24) mmol/L ABG O2 Saturation (94-97) % Chloride (98-107) mmol/L Carbon Dioxide (22-30) mmol/L BUN (7-17) mg/dL Creatinine (0.52-1.04) mg/dL Glucose (74-99) mg/dL POC Glucose (mg/dL) 115 H (75-99) mg/dL Phosphorus (2.5-4.5) mg/dL Troponin I (0.000-0.034) ng/mL Urine Appearance Cloudy H (Clear) Urine Protein 1+ H (Negative) Urine Blood Small H (Negative) Urine RBC 23 H (0-5) /hpf Urine WBC 11 H (0-5) /hpf Ur Squamous Epith Cells 29 H (0-4) /hpf Amorphous Sediment Occasional H (None) /hpf Urine Mucus Rare H (None) /hpf Urine Yeast (Budding) Moderate H (None) /hpf 07/12/18 07/12/18 07/12/18 Range/Units 19:19 19: 20:44 WBC (3.8-10.6) k/uL RBC (3.80-5.40) m/uL Hgb (11.4-16.0) gm/dL Hct (34.0-46.0) % MCHC (31.0-37.0) g/dL RDW (11.5-15.5) % ABG pH (7.35-7.45) ABG pCO2 (35-45) mmHg ABG pO2 (83-108) mmHg ABG HCO3 (21-25) mmol/L ABG Total CO2 (19-24) mmol/L ABG O2 Saturation (94-97) % Chloride 97 L (98-107) mmol/L Carbon Dioxide 31 H (22-30) mmol/L BUN 79 H (7-17) mg/dL Creatinine 2.24 H (0.52-1.04) mg/dL Glucose 107 H (74-99) mg/dL POC Glucose (mg/dL) 111 H (75-99) mg/dL Phosphorus (2.5-4.5) mg/dL Troponin I 0.087 H* (0.000-0.034) ng/mL Urine Appearance (Clear) Urine Protein (Negative) Urine Blood (Negative) Urine RBC (0-5) /hpf Urine WBC (0-5) /hpf Ur Squamous Epith Cells (0-4) /hpf Amorphous Sediment (None) /hpf Urine Mucus (None) /hpf Urine Yeast (Budding) (None) /hpf 07/12/18 07/12/18 07/13/18 Range/Units 21:13 22:03 05:23 WBC 26.9 H (3.8-10.6) k/uL RBC 3.48 L (3.80-5.40) m/uL Hgb 9.1 L (11.4-16.0) gm/dL Hct 29.8 L (34.0-46.0) % MCHC 30.7 L (31.0-37.0) g/dL RDW 20.8 H (11.5-15.5) % ABG pH 7.22 L (7.35-7.45) ABG pCO2 73 H* (35-45) mmHg ABG pO2 79 L (83-108) mmHg ABG HCO3 30 H (21-25) mmol/L ABG Total CO2 32 H (19-24) mmol/L ABG O2 Saturation 92.5 L (94-97) % Chloride (98-107) mmol/L Carbon Dioxide (22-30) mmol/L BUN (7-17) mg/dL Creatinine (0.52-1.04) mg/dL Glucose (74-99) mg/dL POC Glucose (mg/dL) 106 H (75-99) mg/dL Phosphorus (2.5-4.5) mg/dL Troponin I (0.000-0.034) ng/mL Urine Appearance (Clear) Urine Protein (Negative) Urine Blood (Negative) Urine RBC (0-5) /hpf Urine WBC (0-5) /hpf Ur Squamous Epith Cells (0-4) /hpf Amorphous Sediment (None) /hpf Urine Mucus (None) /hpf Urine Yeast (Budding) (None) /hpf 07/13/18 07/13/18 07/13/18 Range/Units 05:23 06:48 06:51 WBC (3.8-10.6) k/uL RBC (3.80-5.40) m/uL Hgb (11.4-16.0) gm/dL Hct (34.0-46.0) % MCHC (31.0-37.0) g/dL RDW (11.5-15.5) % ABG pH (7.35-7.45) ABG pCO2 (35-45) mmHg ABG pO2 (83-108) mmHg ABG HCO3 (21-25) mmol/L ABG Total CO2 (19-24) mmol/L ABG O2 Saturation (94-97) % Chloride (98-107) mmol/L Carbon Dioxide (22-30) mmol/L BUN 88 H (7-17) mg/dL Creatinine 2.35 H (0.52-1.04) mg/dL Glucose 127 H (74-99) mg/dL POC Glucose (mg/dL) 60 L 58 L (75-99) mg/dL Phosphorus 8.4 H (2.5-4.5) mg/dL Troponin I (0.000-0.034) ng/mL Urine Appearance (Clear) Urine Protein (Negative) Urine Blood (Negative) Urine RBC (0-5) /hpf Urine WBC (0-5) /hpf Ur Squamous Epith Cells (0-4) /hpf Amorphous Sediment (None) /hpf Urine Mucus (None) /hpf Urine Yeast (Budding) (None) /hpf 07/13/18 Range/Units 09:42 WBC (3.8-10.6) k/uL RBC (3.80-5.40) m/uL Hgb (11.4-16.0) gm/dL Hct (34.0-46.0) % MCHC (31.0-37.0) g/dL RDW (11.5-15.5) % ABG pH (7.35-7.45) ABG pCO2 (35-45) mmHg ABG pO2 (83-108) mmHg ABG HCO3 (21-25) mmol/L ABG Total CO2 (19-24) mmol/L ABG O2 Saturation (94-97) % Chloride (98-107) mmol/L Carbon Dioxide (22-30) mmol/L BUN (7-17) mg/dL Creatinine (0.52-1.04) mg/dL Glucose (74-99) mg/dL POC Glucose (mg/dL) 111 H (75-99) mg/dL Phosphorus (2.5-4.5) mg/dL Troponin I (0.000-0.034) ng/mL Urine Appearance (Clear) Urine Protein (Negative) Urine Blood (Negative) Urine RBC (0-5) /hpf Urine WBC (0-5) /hpf Ur Squamous Epith Cells (0-4) /hpf Amorphous Sediment (None) /hpf Urine Mucus (None) /hpf Urine Yeast (Budding) (None) /hpf Microbiology - Last 24 Hours (Table) 07/12/18 16:40 Urine Culture - Preliminary Urine,Catheterized
[2018-07-13 11:50] LABS: Glucose,Whole Blood 205 mg/dL (75-99)
[2018-07-13] MEDS: DILTIAZEM 125 MG in SODIUM CHLORIDE 0.9% 100 ML IV SCH ×2 (11:50→23:05)
[2018-07-13] MEDS ORDERED: VANCOMYCIN 1,000 MG in SODIUM CHLORIDE 0.9% 250 ML IVPB ONE (12:00)
--- NOTE | 2018-07-13 12:02 | XR ---
EXAMINATION TYPE: XR chest 1V portable DATE OF EXAM: 07/13/2018 COMPARISON: 07/12/2018 HISTORY: Shortness of breath TECHNIQUE: Single frontal view of the chest is obtained. FINDINGS: Bilateral consolidation and small effusion. Heart markedly enlarged. Hyperinflation sugges ts COPD. Calcified nodule the right upper lobe could been the basis of a granuloma. Findings stable. IMPRESSION: Bilateral infiltrate and pleural effusion superimposed on a background of COPD are stabl e..
--- NOTE | 2018-07-13 12:05 | P.PN ---
Subjective Progress Note Date: 07/13/18 07/13/2017: Patient seen and examined in the intensive care unit with nursing staff and the patient's son at bedside. The patient is currently on BiPAP and is resting comfortably. She does open her eyes to verbal stimuli. The patient has been given Ativan overnight in order to tolerate the BiPAP. Her a.m. ABG is reviewed and shows improving hypercapnic respiratory failure. We will obtain a repeat chest x-ray this morning. The patient's condition along with multiple comorbidities is discussed with the sudden at length. The son is agreeable to continue DO NOT RESUSCITATE and DO NOT INTUBATE CODE STATUS. If the patient's condition does not improve in the next 24-48 hours he will consider comfort care. Objective - Vital Signs Vital signs: Vital Signs Temp 97.4 F L 07/13/18 08:00 Pulse 86 07/13/18 11:37 Resp 17 07/13/18 11:00 BP 134/70 07/13/18 11:00 Pulse Ox 97 07/13/18 11:00 Intake & Output 07/12/18 07/13/18 07/13/18 18:59 06:59 18:59 Intake Total 900 925 375 Output Total 150 370 280 Balance 750 555 95 Weight 55.1 kg 54 kg Intake: IV 100 225 Dextrose 5% in Water 1, 225 000 ml @ 75 mls/hr IV . [id number] [facility] Rx#:[id number] Piperacillin-Tazobactam 3 100 .375 gm In Sodium Chloride 0.9% 100 ml @ 25 mls/hr IVPB Q8HR [facility] Rx# :[id number] Intake, IV Titration 600 925 150 Amount Sodium Chloride 0.9% 1, 600 675 150 000 ml @ 75 mls/hr IV . [id number] [facility] [place] Rx#:[id number] Vancomycin 1,000 mg In 250 Sodium Chloride 0.9% 250 ml @ 125 mls/hr IVPB ONCE ONE Rx#:[id number] Oral 200 Output: Urine 150 370 280 Other: Voiding Method Indwelling Catheter Indwelling Catheter Indwelling Catheter # Voids 0 - Exam Gen.: Patient is somnolent but arousable to verbal stimuli, on BiPAP, resting comfortably Cardiovascular: Regular rate and rhythm, S1/S2 Lungs: Diminished breath sounds bilaterally Abdomen: Soft nontender nondistended positive bowel sounds Extremities: No edema - Labs CBC & Chem 7: 07/13/18 05:23 07/13/18 05:23 Labs: Abnormal Lab Results - Last 24 Hours (Table) 07/12/18 07/12/18 07/12/18 Range/Units 00:02 14:43 16:30 WBC (3.8-10.6) k/uL RBC (3.80-5.40) m/uL Hgb (11.4-16.0) gm/dL Hct (34.0-46.0) % MCHC (31.0-37.0) g/dL RDW (11.5-15.5) % ABG pH 7.31 L (7.35-7.45) ABG pCO2 56 H 48 H (35-45) mmHg ABG pO2 57 L* 77 L (83-108) mmHg ABG HCO3 28 H 31 H (21-25) mmol/L ABG Total CO2 30 H 32 H (19-24) mmol/L ABG O2 Saturation 85.6 L (94-97) % Chloride (98-107) mmol/L Carbon Dioxide (22-30) mmol/L BUN (7-17) mg/dL Creatinine (0.52-1.04) mg/dL Glucose (74-99) mg/dL POC Glucose (mg/dL) 115 H (75-99) mg/dL Phosphorus (2.5-4.5) mg/dL Troponin I (0.000-0.034) ng/mL Urine Appearance (Clear) Urine Protein (Negative) Urine Blood (Negative) Urine RBC (0-5) /hpf Urine WBC (0-5) /hpf Ur Squamous Epith Cells (0-4) /hpf Amorphous Sediment (None) /hpf Urine Mucus (None) /hpf Urine Yeast (Budding) (None) /hpf 07/12/18 07/12/18 07/12/18 Range/Units 16:40 19:19 19:19 WBC 28.9 H (3.8-10.6) k/uL RBC (3.80-5.40) m/uL Hgb 10.0 L (11.4-16.0) gm/dL Hct 33.5 L (34.0-46.0) % MCHC 29.9 L (31.0-37.0) g/dL RDW 21.1 H (11.5-15.5) % ABG pH (7.35-7.45) ABG pCO2 (35-45) mmHg ABG pO2 (83-108) mmHg ABG HCO3 (21-25) mmol/L ABG Total CO2 (19-24) mmol/L ABG O2 Saturation (94-97) % Chloride 97 L (98-107) mmol/L Carbon Dioxide 31 H (22-30) mmol/L BUN 79 H (7-17) mg/dL Creatinine 2.24 H (0.52-1.04) mg/dL Glucose 107 H (74-99) mg/dL POC Glucose (mg/dL) (75-99) mg/dL Phosphorus (2.5-4.5) mg/dL Troponin I (0.000-0.034) ng/mL Urine Appearance Cloudy H (Clear) Urine Protein 1+ H (Negative) Urine Blood Small H (Negative) Urine RBC 23 H (0-5) /hpf Urine WBC 11 H (0-5) /hpf Ur Squamous Epith Cells 29 H (0-4) /hpf Amorphous Sediment Occasional H (None) /hpf Urine Mucus Rare H (None) /hpf Urine Yeast (Budding) Moderate H (None) /hpf 07/12/18 07/12/18 07/12/18 Range/Units 19:19 20:44 21:13 WBC (3.8-10.6) k/uL RBC (3.80-5.40) m/uL Hgb (11.4-16.0) gm/dL Hct (34.0-46.0) % MCHC (31.0-37.0) g/dL RDW (11.5-15.5) % ABG pH 7.22 L (7.35-7.45) ABG pCO2 73 H* (35-45) mmHg ABG pO2 79 L (83-108) mmHg ABG HCO3 30 H (21-25) mmol/L ABG Total CO2 32 H (19-24) mmol/L ABG O2 Saturation 92.5 L (94-97) % Chloride (98-107) mmol/L Carbon Dioxide (22-30) mmol/L BUN (7-17) mg/dL Creatinine (0.52-1.04) mg/dL Glucose (74-99) mg/dL POC Glucose (mg/dL) 111 H (75-99) mg/dL Phosphorus (2.5-4.5) mg/dL Troponin I 0.087 H* (0.000-0.034) ng/mL Urine Appearance (Clear) Urine Protein (Negative) Urine Blood (Negative) Urine RBC (0-5) /hpf Urine WBC (0-5) /hpf Ur Squamous Epith Cells (0-4) /hpf Amorphous Sediment (None) /hpf Urine Mucus (None) /hpf Urine Yeast (Budding) (None) /hpf 07/12/18 07/13/18 07/13/18 Range/Units 22:03 05:23 05:23 WBC 26.9 H (3.8-10.6) k/uL RBC 3.48 L (3.80-5.40) m/uL Hgb 9.1 L (11.4-16.0) gm/dL Hct 29.8 L (34.0-46.0) % MCHC 30.7 L (31.0-37.0) g/dL RDW 20.8 H (11.5-15.5) % ABG pH (7.35-7.45) ABG pCO2 (35-45) mmHg ABG pO2 (83-108) mmHg ABG HCO3 (21-25) mmol/L ABG Total CO2 (19-24) mmol/L ABG O2 Saturation (94-97) % Chloride (98-107) mmol/L Carbon Dioxide (22-30) mmol/L BUN 88 H (7-17) mg/dL Creatinine 2.35 H (0.52-1.04) mg/dL Glucose 127 H (74-99) mg/dL POC Glucose (mg/dL) 106 H (75-99) mg/dL Phosphorus 8.4 H (2.5-4.5) mg/dL Troponin I (0.000-0.034) ng/mL Urine Appearance (Clear) Urine Protein (Negative) Urine Blood (Negative) Urine RBC (0-5) /hpf Urine WBC (0-5) /hpf Ur Squamous Epith Cells (0-4) /hpf Amorphous Sediment (None) /hpf Urine Mucus (None) /hpf Urine Yeast (Budding) (None) /hpf 04/06/2807/13/18 07/13/18 Range/Units 06:48 06:51 09:42 WBC (3.8-10.6) k/uL RBC (3.80-5.40) m/uL Hgb (11.4-16.0) gm/dL Hct (34.0-46.0) % MCHC (31.0-37.0) g/dL RDW (11.5-15.5) % ABG pH (7.35-7.45) ABG pCO2 (35-45) mmHg ABG pO2 (83-108) mmHg ABG HCO3 (21-25) mmol/L ABG Total CO2 (19-24) mmol/L ABG O2 Saturation (94-97) % Chloride (98-107) mmol/L Carbon Dioxide (22-30) mmol/L BUN (7-17) mg/dL Creatinine (0.52-1.04) mg/dL Glucose (74-99) mg/dL POC Glucose (mg/dL) 60 L 58 L 111 H (75-99) mg/dL Phosphorus (2.5-4.5) mg/dL Troponin I (0.000-0.034) ng/mL Urine Appearance (Clear) Urine Protein (Negative) Urine Blood (Negative) Urine RBC (0-5) /hpf Urine WBC (0-5) /hpf Ur Squamous Epith Cells (0-4) /hpf Amorphous Sediment (None) /hpf Urine Mucus (None) /hpf Urine Yeast (Budding) (None) /hpf Microbiology - Last 24 Hours (Table) 07/12/18 16:40 Urine Culture - Preliminary Urine,Catheterized Assessment and Plan Assessment: Acute hypoxic respiratory failure, improving Acute exacerbation of COPD, severe, FEV1 32% of predicted Active tobacco abuse Lactic acidosis, multifactorial 3 out of 4 SIRS present on admission, sepsis Hypoglycemia New onset atrial fibrillation Acute symptomatic anemia, unclear etiology NSTEMI ALFIE, unsure of baseline creatinine History of RA and systemic sclerosis Continue bipap support, family has made the decision for DNR/DNI PO Verapamil changed to IV cardizem per cardiology Transfuse for hemoglobin <7 Solumedrol 60 Q8 Levaquin, vanco, Zosyn D5W @ 75 cc/hr, DC 0.9NS @ 75 cc/hr Duonebs, Pulmicort, Singulair Smoking cessation Consult nephrology and ID O2 to maintain saturation > or = 90% GI and DVT prophylaxis: Subcu heparin, Protonix CT from [facility] reviewed, shows right sided volume loss, small pleural effusions, and possible CHF, emphysema, moderate pericardial effusion CXR now- reviewed, shows improving left midlung infiltrate and improving atelectasis right lung Blood, urine, sputum cultures Monitor urine output and renal function Stop Ativan and try to wake patient up and wean off bipap Goals of care discussed with the patient's son, will continue care and re- discuss in 24-48 hours depending on patient's clinical course.
[2018-07-13 14:14] LABS: Glucose,Whole Blood 130 mg/dL (75-99)
--- NOTE | 2018-07-13 14:43 | P.PN ---
Subjective Progress Note Date: 07/13/18 Principal diagnosis: Pneumonia, iron deficiency, identified IgM lambda paraprotein Pt is seen in ICU with bi-pap on, she was hard to arouse and went back to sleep right away Objective - Vital Signs Vital signs: Vital Signs Temp 97.4 F L 07/13/18 08:00 Pulse 86 07/13/18 11:37 Resp 17 07/13/18 11:00 BP 134/70 07/13/18 11:00 Pulse Ox 97 07/13/18 11:00 Intake & Output 07/12/18 07/13/18 07/13/18 18:59 06:59 18:59 Intake Total 900 925 450 Output Total 150 370 325 Balance 750 555 125 Weight 55.1 kg 54 kg Intake: IV 100 300 Dextrose 5% in Water 1, 300 000 ml @ 75 mls/hr IV . [id number] [facility] Rx#:[id number] Piperacillin-Tazobactam 3 100 .375 gm In Sodium Chloride 0.9% 100 ml @ 25 mls/hr IVPB Q8HR [facility] Rx# :[id number] Intake, IV Titration 600 925 150 Amount Sodium Chloride 0.9% 1, 600 675 150 000 ml @ 75 mls/hr IV . [id number] [facility] Rx#:[id number] Vancomycin 1,000 mg In 250 Sodium Chloride 0.9% 250 ml @ 125 mls/hr IVPB ONCE ONE Rx#:[id number] Oral 200 Output: Urine 150 370 325 Other: Voiding Method Indwelling Catheter Indwelling Catheter Indwelling Catheter # Voids 0 - Constitutional General appearance: Present: no acute distress, thin - EENT Eyes: Present: poor dentition - Respiratory Respiratory: bilateral: diminished - Cardiovascular Heart sounds: normal: S1, S2 - Peripheral edema leg Peripheral Edema: bilateral: None - Gastrointestinal General gastrointestinal: Present: normal bowel sounds, soft - Musculoskeletal Musculoskeletal: Present: generalized weakness - Psychiatric Psychiatric: Absent: A&O x's 3, appropriate affect, intact judgment & insight - Labs CBC & Chem 7: 07/13/18 05:23 07/13/18 05:23 Labs: Abnormal Lab Results - Last 24 Hours (Table) 07/12/18 07/12/18 07/12/18 Range/Units 00:02 14:43 16:30 WBC (3.8-10.6) k/uL RBC (3.80-5.40) m/uL Hgb (11.4-16.0) gm/dL Hct (34.0-46.0) % MCHC (31.0-37.0) g/dL RDW (11.5-15.5) % ABG pH 7.31 L (7.35-7.45) ABG pCO2 56 H 48 H (35-45) mmHg ABG pO2 57 L* 77 L (83-108) mmHg ABG HCO3 28 H 31 H (21-25) mmol/L ABG Total CO2 30 H 32 H (19-24) mmol/L ABG O2 Saturation 85.6 L (94-97) % Chloride (98-107) mmol/L Carbon Dioxide (22-30) mmol/L BUN (7-17) mg/dL Creatinine (0.52-1.04) mg/dL Glucose (74-99) mg/dL POC Glucose (mg/dL) 115 H (75-99) mg/dL Phosphorus (2.5-4.5) mg/dL Troponin I (0.000-0.034) ng/mL Urine Appearance (Clear) Urine Protein (Negative) Urine Blood (Negative) Urine RBC (0-5) /hpf Urine WBC (0-5) /hpf Ur Squamous Epith Cells (0-4) /hpf Amorphous Sediment (None) /hpf Urine Mucus (None) /hpf Urine Yeast (Budding) (None) /hpf 07/12/18 07/12/18 07/12/18 Range/Units 16:40 19:19 19:19 WBC 28.9 H (3.8-10.6) k/uL RBC (3.80-5.40) m/uL Hgb 10.0 L (11.4-16.0) gm/dL Hct 33.5 L (34.0-46.0) % MCHC 29.9 L (31.0-37.0) g/dL RDW 21.1 H (11.5-15.5) % ABG pH (7.35-7.45) ABG pCO2 (35-45) mmHg ABG pO2 (83-108) mmHg ABG HCO3 (21-25) mmol/L ABG Total CO2 (19-24) mmol/L ABG O2 Saturation (94-97) % Chloride 97 L (98-107) mmol/L Carbon Dioxide 31 H (22-30) mmol/L BUN 79 H (7-17) mg/dL Creatinine 2.24 H (0.52-1.04) mg/dL Glucose 107 H (74-99) mg/dL POC Glucose (mg/dL) (75-99) mg/dL Phosphorus (2.5-4.5) mg/dL Troponin I (0.000-0.034) ng/mL Urine Appearance Cloudy H (Clear) Urine Protein 1+ H (Negative) Urine Blood Small H (Negative) Urine RBC 23 H (0-5) /hpf Urine WBC 11 H (0-5) /hpf Ur Squamous Epith Cells 29 H (0-4) /hpf Amorphous Sediment Occasional H (None) /hpf Urine Mucus Rare H (None) /hpf Urine Yeast (Budding) Moderate H (None) /hpf 07/12/18 07/12/18 07/12/18 Range/Units 19:19 20:44 21:13 WBC (3.8-10.6) k/uL RBC (3.80-5.40) m/uL Hgb (11.4-16.0) gm/dL Hct (34.0-46.0) % MCHC (31.0-37.0) g/dL RDW (11.5-15.5) % ABG pH 7.22 L (7.35-7.45) ABG pCO2 73 H* (35-45) mmHg ABG pO2 79 L (83-108) mmHg ABG HCO3 30 H (21-25) mmol/L ABG Total CO2 32 H (19-24) mmol/L ABG O2 Saturation 92.5 L (94-97) % Chloride (98-107) mmol/L Carbon Dioxide (22-30) mmol/L BUN (7-17) mg/dL Creatinine (0.52-1.04) mg/dL Glucose (74-99) mg/dL POC Glucose (mg/dL) 111 H (75-99) mg/dL Phosphorus (2.5-4.5) mg/dL Troponin I 0.087 H* (0.000-0.034) ng/mL Urine Appearance (Clear) Urine Protein (Negative) Urine Blood (Negative) Urine RBC (0-5) /hpf Urine WBC (0-5) /hpf Ur Squamous Epith Cells (0-4) /hpf Amorphous Sediment (None) /hpf Urine Mucus (None) /hpf Urine Yeast (Budding) (None) /hpf 07/12/18 07/13/18 07/13/18 Range/Units 22:03 05:23 05:23 WBC 26.9 H (3.8-10.6) k/uL RBC 3.48 L (3.80-5.40) m/uL Hgb 9.1 L (11.4-16.0) gm/dL Hct 29.8 L (34.0-46.0) % MCHC 30.7 L (31.0-37.0) g/dL RDW 20.8 H (11.5-15.5) % ABG pH (7.35-7.45) ABG pCO2 (35-45) mmHg ABG pO2 (83-108) mmHg ABG HCO3 (21-25) mmol/L ABG Total CO2 (19-24) mmol/L ABG O2 Saturation (94-97) % Chloride (98-107) mmol/L Carbon Dioxide (22-30) mmol/L BUN 88 H (7-17) mg/dL Creatinine 2.35 H (0.52-1.04) mg/dL Glucose 127 H (74-99) mg/dL POC Glucose (mg/dL) 106 H (75-99) mg/dL Phosphorus 8.4 H (2.5-4.5) mg/dL Troponin I (0.000-0.034) ng/mL Urine Appearance (Clear) Urine Protein (Negative) Urine Blood (Negative) Urine RBC (0-5) /hpf Urine WBC (0-5) /hpf Ur Squamous Epith Cells (0-4) /hpf Amorphous Sediment (None) /hpf Urine Mucus (None) /hpf Urine Yeast (Budding) (None) /hpf 07/13/18 07/13/18 07/13/18 Range/Units 06:48 06:51 09:42 WBC (3.8-10.6) k/uL RBC (3.80-5.40) m/uL Hgb (11.4-16.0) gm/dL Hct (34.0-46.0) % MCHC (31.0-37.0) g/dL RDW (11.5-15.5) % ABG pH (7.35-7.45) ABG pCO2 (35-45) mmHg ABG pO2 (83-108) mmHg ABG HCO3 (21-25) mmol/L ABG Total CO2 (19-24) mmol/L ABG O2 Saturation (94-97) % Chloride (98-107) mmol/L Carbon Dioxide (22-30) mmol/L BUN (7-17) mg/dL Creatinine (0.52-1.04) mg/dL Glucose (74-99) mg/dL POC Glucose (mg/dL) 60 L 58 L 111 H (75-99) mg/dL Phosphorus (2.5-4.5) mg/dL Troponin I (0.000-0.034) ng/mL Urine Appearance (Clear) Urine Protein (Negative) Urine Blood (Negative) Urine RBC (0-5) /hpf Urine WBC (0-5) /hpf Ur Squamous Epith Cells (0-4) /hpf Amorphous Sediment (None) /hpf Urine Mucus (None) /hpf Urine Yeast (Budding) (None) /hpf 07/13/18 Range/Units 11:48 WBC (3.8-10.6) k/uL RBC (3.80-5.40) m/uL Hgb (11.4-16.0) gm/dL Hct (34.0-46.0) % MCHC (31.0-37.0) g/dL RDW (11.5-15.5) % ABG pH (7.35-7.45) ABG pCO2 (35-45) mmHg ABG pO2 (83-108) mmHg ABG HCO3 (21-25) mmol/L ABG Total CO2 (19-24) mmol/L ABG O2 Saturation (94-97) % Chloride (98-107) mmol/L Carbon Dioxide (22-30) mmol/L BUN (7-17) mg/dL Creatinine (0.52-1.04) mg/dL Glucose (74-99) mg/dL POC Glucose (mg/dL) 205 H (75-99) mg/dL Phosphorus (2.5-4.5) mg/dL Troponin I (0.000-0.034) ng/mL Urine Appearance (Clear) Urine Protein (Negative) Urine Blood (Negative) Urine RBC (0-5) /hpf Urine WBC (0-5) /hpf Ur Squamous Epith Cells (0-4) /hpf Amorphous Sediment (None) /hpf Urine Mucus (None) /hpf Urine Yeast (Budding) (None) /hpf Microbiology - Last 24 Hours (Table) 07/12/18 16:40 Urine Culture - Preliminary Urine,Catheterized - Imaging and Cardiology Chest x-ray: report reviewed CT Scan - head: report reviewed Assessment and Plan (1) Iron deficiency anemia Narrative/Plan: Pt is currently on oral iron. Hgb stable, not requiring transfusion at this time Current Visit: Yes Status: Acute Priority: Medium Code(s): D50.9 - IRON DEFICIENCY ANEMIA, UNSPECIFIED SNOMED Code(s): 78249135 (2) IgM lambda monoclonal gammopathy Narrative/Plan: IgM lambda paraprotein with an M-spike of 0.34 g/dl. 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 Not urgent, can be done as an outpatient. Anticipate lab monitoring initially before procedure is planned. No acute intervention needed. Current condition is not related Hgb is stable. Transfuse for Hgb<7 or if symptomatic Current Visit: Yes Status: Acute Priority: Medium Code(s): D47.2 - MONOCLONAL GAMMOPATHY SNOMED Code(s): 613504396 Plan: Will plan for outpatient f/u of labs Will cont to follow CBC while inpatient Agree with continuing iron supplementation
[2018-07-13] MEDS: LEVOFLOXACIN 250 MG TAB PO SCH (16:24)
[2018-07-13 16:55] LABS: Glucose,Whole Blood 128 mg/dL (75-99)
[2018-07-13] MEDS: DEXTROSE 5%-0.45% NACL 1,000 ML IV SCH (17:27)
--- NOTE | 2018-07-13 17:56 | P.PN ---
Subjective Progress Note Date: 07/13/18 Principal diagnosis: Anemia Patient seen lying in bed in the intensive care unit after being transferred due to respiratory distress. Currently on BiPAP therapy. No reports of GI bleeding per nursing staff. Objective - Vital Signs Vital signs: Vital Signs Temp 97.4 F L 07/13/18 08:00 Pulse 94 07/13/18 16:26 Resp 28 H 07/13/18 16:26 BP 134/70 07/13/18 11:00 Pulse Ox 97 07/13/18 11:00 Intake & Output 07/12/18 07/13/18 07/13/18 18:59 06:59 18:59 Intake Total 900 925 700 Output Total 150 370 795 Balance 750 555 -95 Weight 55.1 kg 54 kg Intake: IV 100 550 Dextrose 5% in Water 1, 400 000 ml @ 75 mls/hr IV . [id number] [facility] Rx#:[id number] Dextrose 5%-0.45% NaCl 1, 150 000 ml @ 50 mls/hr IV . Q20H [facility] Rx#:[id number] Piperacillin-Tazobactam 3 100 .375 gm In Sodium Chloride 0.9% 100 ml @ 25 mls/hr IVPB Q8HR [facility] Rx# :[id number] Intake, IV Titration 600 925 150 Amount Sodium Chloride 0.9% 1, 600 675 150 000 ml @ 75 mls/hr IV . [id number] [facility] Rx#:[id number] Vancomycin 1,000 mg In 250 Sodium Chloride 0.9% 250 ml @ 125 mls/hr IVPB ONCE ONE Rx#:[id number] Oral 200 Output: Urine 150 370 795 Other: Voiding Method Indwelling Catheter Indwelling Catheter Indwelling Catheter # Voids 0 - Exam On physical examination, patient appears comfortable in no apparent distress. HEAD: Normocephalic, atraumatic. EYES: No scleral icterus. No conjunctival injection. MOUTH: No lesions, tongue midline, patient wearing a BiPAP mask. NECK: Trachea midline, no gross abnormalities. CHEST: Coarse respiratory noises in all lung oliver. ABDOMEN: Soft, obese. Bowel sounds are positive. No organomegaly. No guarding or rigidity. EXTREMITIES: No pedal edema. SKIN: No rashes, no jaundice. NEUROLOGIC: Arousable but somnolent. No focal deficits. - Labs CBC & Chem 7: 07/13/18 05:23 07/13/18 05:23 Labs: Abnormal Lab Results - Last 24 Hours (Table) 07/12/18 07/12/18 07/12/18 Range/Units 00:02 19:19 19:19 WBC 28.9 H (3.8-10.6) k/uL RBC (3.80-5.40) m/uL Hgb 10.0 L (11.4-16.0) gm/dL Hct 33.5 L (34.0-46.0) % MCHC 29.9 L (31.0-37.0) g/dL RDW 21.1 H (11.5-15.5) % ABG pH 7.31 L (7.35-7.45) ABG pCO2 56 H (35-45) mmHg ABG pO2 57 L* (83-108) mmHg ABG HCO3 28 H (21-25) mmol/L ABG Total CO2 30 H (19-24) mmol/L ABG O2 Saturation 85.6 L (94-97) % Chloride 97 L (98-107) mmol/L Carbon Dioxide 31 H (22-30) mmol/L BUN 79 H (7-17) mg/dL Creatinine 2.24 H (0.52-1.04) mg/dL Glucose 107 H (74-99) mg/dL POC Glucose (mg/dL) (75-99) mg/dL Phosphorus (2.5-4.5) mg/dL Troponin I (0.000-0.034) ng/mL 07/12/18 07/12/18 07/12/18 Range/Units 19: 20:44 21:13 WBC (3.8-10.6) k/uL RBC (3.80-5.40) m/uL Hgb (11.4-16.0) gm/dL Hct (34.0-46.0) % MCHC (31.0-37.0) g/dL RDW (11.5-15.5) % ABG pH 7.22 L (7.35-7.45) ABG pCO2 73 H* (35-45) mmHg ABG pO2 79 L (83-108) mmHg ABG HCO3 30 H (21-25) mmol/L ABG Total CO2 32 H (19-24) mmol/L ABG O2 Saturation 92.5 L (94-97) % Chloride (98-107) mmol/L Carbon Dioxide (22-30) mmol/L BUN (7-17) mg/dL Creatinine (0.52-1.04) mg/dL Glucose (74-99) mg/dL POC Glucose (mg/dL) 111 H (75-99) mg/dL Phosphorus (2.5-4.5) mg/dL Troponin I 0.087 H* (0.000-0.034) ng/mL 07/12/18 07/13/18 07/13/18 Range/Units 22:03 05:23 05:23 WBC 26.9 H (3.8-10.6) k/uL RBC 3.48 L (3.80-5.40) m/uL Hgb 9.1 L (11.4-16.0) gm/dL Hct 29.8 L (34.0-46.0) % MCHC 30.7 L (31.0-37.0) g/dL RDW 20.8 H (11.5-15.5) % ABG pH (7.35-7.45) ABG pCO2 (35-45) mmHg ABG pO2 (83-108) mmHg ABG HCO3 (21-25) mmol/L ABG Total CO2 (19-24) mmol/L ABG O2 Saturation (94-97) % Chloride (98-107) mmol/L Carbon Dioxide (22-30) mmol/L BUN 88 H (7-17) mg/dL Creatinine 2.35 H (0.52-1.04) mg/dL Glucose 127 H (74-99) mg/dL POC Glucose (mg/dL) 106 H (75-99) mg/dL Phosphorus 8.4 H (2.5-4.5) mg/dL Troponin I (0.000-0.034) ng/mL 07/13/18 07/13/18 07/13/18 Range/Units 06:48 06:51 09:42 WBC (3.8-10.6) k/uL RBC (3.80-5.40) m/uL Hgb (11.4-16.0) gm/dL Hct (34.0-46.0) % MCHC (31.0-37.0) g/dL RDW (11.5-15.5) % ABG pH (7.35-7.45) ABG pCO2 (35-45) mmHg ABG pO2 (83-108) mmHg ABG HCO3 (21-25) mmol/L ABG Total CO2 (19-24) mmol/L ABG O2 Saturation (94-97) % Chloride (98-107) mmol/L Carbon Dioxide (22-30) mmol/L BUN (7-17) mg/dL Creatinine (0.52-1.04) mg/dL Glucose (74-99) mg/dL POC Glucose (mg/dL) 60 L 58 L 111 H (75-99) mg/dL Phosphorus (2.5-4.5) mg/dL Troponin I (0.000-0.034) ng/mL 07/13/18 07/13/18 07/13/18 Range/Units 11:48 14:12 16:53 WBC (3.8-10.6) k/uL RBC (3.80-5.40) m/uL Hgb (11.4-16.0) gm/dL Hct (34.0-46.0) % MCHC (31.0-37.0) g/dL RDW (11.5-15.5) % ABG pH (7.35-7.45) ABG pCO2 (35-45) mmHg ABG pO2 (83-108) mmHg ABG HCO3 (21-25) mmol/L ABG Total CO2 (19-24) mmol/L ABG O2 Saturation (94-97) % Chloride (98-107) mmol/L Carbon Dioxide (22-30) mmol/L BUN (7-17) mg/dL Creatinine (0.52-1.04) mg/dL Glucose (74-99) mg/dL POC Glucose (mg/dL) 205 H 130 H 128 H (75-99) mg/dL Phosphorus (2.5-4.5) mg/dL Troponin I (0.000-0.034) ng/mL Microbiology - Last 24 Hours (Table) 07/12/18 16:40 Urine Culture - Preliminary Urine,Catheterized Assessment and Plan (1) Iron deficiency anemia Narrative/Plan: Patient found to be anemic with laboratory findings consistent with iron deficiency, however normocytic nature likely secondary to multifactorial etiology of anemia with likely component of anemia of chronic disease given chronic diseases, as well as possibility of MGUS. Stool testing was also found to be negative for occult blood making GI bleed less likely. Current Visit: Yes Status: Acute Priority: Medium Code(s): D50.9 - IRON DEFICIENCY ANEMIA, UNSPECIFIED SNOMED Code(s): 71383991 (2) Atrial fibrillation with RVR Current Visit: Yes Status: Acute Code(s): I48.91 - UNSPECIFIED ATRIAL FIBRILLATION SNOMED Code(s): 419533195755783 (3) Rheumatoid arthritis Current Visit: Yes Status: Acute Code(s): M06.9 - RHEUMATOID ARTHRITIS, UNSPECIFIED SNOMED Code(s): 84336473 Plan: Supportive care Okay for diet Continue treatment of other comorbidities Continue iron supplementation Continue to monitor hemoglobin and hematocrit and transfuse as needed Continue to monitor for signs or symptoms of GI bleeding No plans for endoscopic evaluation at this time given current treatment of COPD exacerbation and comorbidities, would likely benefit from EGD and colonoscopy. In the outpatient setting when medically optimized Thank you for allowing us participate in the care of the patient we will continue to follow
[2018-07-13] MEDS: MONTELUKAST 10 MG TAB PO SCH (20:22)
[2018-07-13 20:24] LABS: Glucose,Whole Blood 117 mg/dL (75-99)
--- NOTE | 2018-07-13 21:01 | P.PN ---
Subjective on-call hospitalist covering for Dr. Zelaya this is a pleasant 77 years old female with past medical history of COPD and rheumatoid arthritis, scleroderma and GERD. Presents with severe acute COPD exacerbation.patient currently remains in the ICU, improving slowly. She is a bit tachycardic above 100 . She saturating 93% on room air.her WBC is 20.4 k but she is on steroids too. . INR is 1.6. Plasma lactic acid 3.6. She remains on Xanax, Pulmicort, Levaquin, and Solu-Medrol 60 mg every 6 hours. She is also on Zosyn and Protonix.pulmonary team R following the case closely. As well as cardiology team 07/08/2018 Patient remains in the ICU, however her dyspnea is significantly improved. She denies chest pain, she has some coughing. No abdominal pain. Patient is still tachycardiac and heart rate is uncontrolled, discussed with us to speak with muck miner team for further evaluation. However her blood pressure is stable and she saturating 91% on room air. I reviewed the labs which showing WBC of 14.5 K, hemoglobin 8.6, creatinine 1.1. Patient remains on Lasix 20 mg twice a day, Levaquin and steroids. Today also patient was complaining of from constipation. Senna and Colace has been added. Verapamil dose has been inc reased by cardiology team. We'll keep monitoring her heart rate closely. However patient has been evaluated by pulmonary team given her breathing is more stable she was cleared by marine steam fitter for patient to be transferred to the general medical floor 07/09/18 pt is doing better today , she is less dyspneic , with some cough, no chest pain , she eating diet well , she is still on oxygen therapy 2 L with nasal cannulas. he is tachycardic around 104. Leukocytosis improving. Anemia at 8.8. Cr eatinine is stable at 1.1pulmonary follow-up is appreciated. Start iron pills. Cardiology team placed the patient on verapamil 240 mg by mouth daily. physical therapy evaluation Discharge planning in 24-48 hours 07/10/2018 She remains intubated comfortable not in distress. She is still have some dyspnea with some cough. No chest pain. Vitals stable. Patient is afebrile. She saturating 96% on 2 L via NC. Leukocytosis is improved from 11.5 down to 9.1K, creatinine is slightly went up from 1.1 to 1.3. Posterior as well as decrease yesterday by pulmonary team. Patient plan was discussed with the patient including her problems like anemia. Also patient remains on antibiotics including Levaquin and Zosyn. Lasix IV twice a day and steroids 07/11/2018 pt is still dyspneic , not in resp distress. CXR: new small left pleural effusion , with a small right pleural effusion with right basilar atelectasis and/or infiltrate is slightly improved. Patient was not found to candidate for long-term anticoagulation because of his low hemoglobin as per cardiology team 07/12/2018 Patient remains to be dyspneic, however is better than before and it looks like to close to her baseline. She is needing only 4 L of oxygen via nasal cannula. An patient's postoperative go to [facility] upon discharge. She walked a little bit today. However she needs more strengthening exercises. Her creatinine went today from 1.1 to 1.99. Patient is currently on IV Lasix 20 mg twice a day. We are going to hold that. Pulmonary team R following the case closely. Patient also on A. fib but she is not a candidate for anticoagulation because of her anemia. She is status post blood transfusion. GI appointments/referral is recommended. 07/13/2018 pt is seen and exmined by me in the morning , pt got into respiratory distress in the night before , i was contacted and repeat abg showing ph of PH of 7.22 a nd pco2 of 733. pt was moved to the icu, dr kathleen has been contacted and he reviewed the management with the staff. this morning pt is resting while in BiPAP, i talked to the family Son Pedro Luis and discussed the case with them and the severity of his mother sickness. he mentioned he does not want her intubated , and he said he will discuss it with his 2 sisters also. family are considering comfort care too giving her advanced dis. , pt is not stable enough to do ct scan for now. review of systems CONSTITUTIONAL: No fever, no malaise, no fatigue. HEENT: No recent visual problems or hearing problems. Denied any sore throat. CARDIOVASCULAR: No orthopnea, PND, no palpitations, no syncope. PULMONARY: no hemoptysis. GASTROINTESTINAL: No diarrhea, no nausea, no vomiting, no abdominal pain. Normoactive bowel sounds. NEUROLOGICAL: No headaches, no weakness, no numbness. HEMATOLOGICAL: Denies any bleeding or petechiae. GENITOURINARY: Denies any burning micturition, frequency, or urgency. MUSCULOSKELETAL/RHEUMATOLOGICAL: Denies any joint pain, swelling, or any muscle pain. ENDOCRINE: Denies any polyuria or polydipsia. medication: Albuterol, Xanax, Pulmicort, Tums, Lasix, heparin, NovoLog, Levaquin, some Medrol, Zosyn, Singulair, Protonix, verapamil. Objective - Vital Signs Vital signs: Vital Signs Temp 97.4 F L 07/13/18 08:00 Pulse 80 07/13/18 20:26 Resp 26 H 07/13/18 20:26 BP 134/70 07/13/18 11:00 Pulse Ox 97 07/13/18 11:00 Intake & Output 07/13/18 07/13/18 07/14/18 06:59 18:59 06:59 Intake Total 925 750 100 Output Total 370 870 130 Balance 555 -120 -30 Weight 54 kg Intake: IV 600 100 Dextrose 5% in Water 1, 400 000 ml @ 75 mls/hr IV . [id number] [facility] Rx#:[id number] Dextrose 5%-0.45% NaCl 1, 200 100 000 ml @ 50 mls/hr IV . Q20H [facility] Rx#:[id number] Intake, IV Titration 925 150 Amount Sodium Chloride 0.9% 1, 675 150 000 ml @ 75 mls/hr IV . [id number] [facility] Rx#:[id number] Vancomycin 1,000 mg In 250 Sodium Chloride 0.9% 250 ml @ 125 mls/hr IVPB ONCE ONE Rx#:[id number] Output: Urine 370 870 130 Other: Voiding Method Indwelling Catheter Indwelling Catheter Indwelling Catheter - Exam GENERAL: The patient is alert and oriented x3, not in any acute distress. Well developed, well nourished. HEENT: Pupils are round and equally reacting to light. EOMI. No scleral icterus. No conjunctival pallor. Normocephalic, atraumatic. No pharyngeal erythema. No thyromegaly. CARDIOVASCULAR: S1 and S2 present. No murmurs, rubs, or gallops. -PULMONARY: Chest is clear to auscultation, bilateral wheezing ABDOMEN: Soft, nontender, nondistended, normoactive bowel sounds. No palpable organomegaly. MUSCULOSKELETAL: No joint swelling or deformity. EXTREMITIES: No cyanosis, clubbing, or pedal edema. NEUROLOGICAL: Gross neurological examination did not reveal any focal deficits. SKIN: No rashes. - Labs CBC & Chem 7: 07/13/18 05:23 07/13/18 05:23 Labs: Abnormal Lab Results - Last 24 Hours (Table) 07/12/18 07/12/18 07/12/18 Range/Units 00:02 21:13 22:03 WBC (3.8-10.6) k/uL RBC (3.80-5.40) m/uL Hgb (11.4-16.0) gm/dL Hct (34.0-46.0) % MCHC (31.0-37.0) g/dL RDW (11.5-15.5) % ABG pH 7.31 L 7.22 L (7.35-7.45) ABG pCO2 56 H 73 H* (35-45) mmHg ABG pO2 57 L* 79 L (83-108) mmHg ABG HCO3 28 H 30 H (21-25) mmol/L ABG Total CO2 30 H 32 H (19-24) mmol/L ABG O2 Saturation 85.6 L 92.5 L (94-97) % BUN (7-17) mg/dL Creatinine (0.52-1.04) mg/dL Glucose (74-99) mg/dL POC Glucose (mg/dL) 106 H (75-99) mg/dL Phosphorus (2.5-4.5) mg/dL 07/13/18 07/13/18 07/13/18 Range/Units 05:23 05:23 06:48 WBC 26.9 H (3.8-10.6) k/uL RBC 3.48 L (3.80-5.40) m/uL Hgb 9.1 L (11.4-16.0) gm/dL Hct 29.8 L (34.0-46.0) % MCHC 30.7 L (31.0-37.0) g/dL RDW 20.8 H (11.5-15.5) % ABG pH (7.35-7.45) ABG pCO2 (35-45) mmHg ABG pO2 (83-108) mmHg ABG HCO3 (21-25) mmol/L ABG Total CO2 (19-24) mmol/L ABG O2 Saturation (94-97) % BUN 88 H (7-17) mg/dL Creatinine 2.35 H (0.52-1.04) mg/dL Glucose 127 H (74-99) mg/dL POC Glucose (mg/dL) 60 L (75-99) mg/dL Phosphorus 8.4 H (2.5-4.5) mg/dL 07/13/18 07/13/18 07/13/18 Range/Units 06:51 09:42 11:48 WBC (3.8-10.6) k/uL RBC (3.80-5.40) m/uL Hgb (11.4-16.0) gm/dL Hct (34.0-46.0) % MCHC (31.0-37.0) g/dL RDW (11.5-15.5) % ABG pH (7.35-7.45) ABG pCO2 (35-45) mmHg ABG pO2 (83-108) mmHg ABG HCO3 (21-25) mmol/L ABG Total CO2 (19-24) mmol/L ABG O2 Saturation (94-97) % BUN (7-17) mg/dL Creatinine (0.52-1.04) mg/dL Glucose (74-99) mg/dL POC Glucose (mg/dL) 58 L 111 H 205 H (75-99) mg/dL Phosphorus (2.5-4.5) mg/dL 07/13/18 07/13/18 07/13/18 Range/Units 14:12 16:53 20:22 WBC (3.8-10.6) k/uL RBC (3.80-5.40) m/uL Hgb (11.4-16.0) gm/dL Hct (34.0-46.0) % MCHC (31.0-37.0) g/dL RDW (11.5-15.5) % ABG pH (7.35-7.45) ABG pCO2 (35-45) mmHg ABG pO2 (83-108) mmHg ABG HCO3 (21-25) mmol/L ABG Total CO2 (19-24) mmol/L ABG O2 Saturation (94-97) % BUN (7-17) mg/dL Creatinine (0.52-1.04) mg/dL Glucose (74-99) mg/dL POC Glucose (mg/dL) 130 H 128 H 117 H (75-99) mg/dL Phosphorus (2.5-4.5) mg/dL Microbiology - Last 24 Hours (Table) 07/12/18 16:40 Urine Culture - Preliminary Urine,Catheterized Assessment and Plan Assessment: acute hypoxic respiratory failure Severe advanced COPD acute exacerbation Atrial fibrillation, heart rate slightly tachycardic. Acute blood loss anemia. Her heparin drip was stopped elevated lactic acid Leukocytosis, mostly reactive History of rheumatoid arthritis History of 62 dermal History of GERD Plan: this is a pleasant 77 years old female who presents because of acute COPD exacerbation, and atrial fibrillation, with GI bleeds after heparin was started, her heparin drip was stopped. Continue with breathing treatment, steroids, antibiotics. Oxygen therapy to keep saturation more than 90%. Cardiology and pulmonary consult is appreciated.Labs and medication were reviewed.. Continue same treatment. Continue with symptomatic treatment. Resume home medication. Monitor lytes and vitals. DVT and GI prophylaxis. Further recommendations of the clinical course of the patient DVT prophylaxis: Subcutaneous heparin GI Prophylaxis: Ppi Prognosis is guarded
--- NOTE | 2018-07-13 23:24 | P.CONS ---
History of Present Illness - Reason for Consult Consult date: 07/13/18 - Chief Complaint Progressive shortness of breath - History of Present Illness 77-year-old female presented hospital 8 days ago which point in time she was with severe shortness of breath and was having difficulty with acute exacerbation of COPD and had developed difficulties with atrial fibrillation with a rapid ventricular response and concerns pneumonia. She subsequently has been treated was having some improvement. However. Just today she had acute decompensation and again had atrial fibrillation with rapid ventricular response and was brought to the intensive care unit where she's been treated with BiPAP, Cardizem drip and supportive care. It is noted from documentation that the family is contemplating further reduction of level of care but for now she will not be intubated. The patient is able to relate to no further history given that she has BiPAP in place and is remaining with significant dyspnea. Review of Systems ROS unobtainable: due to mental status (Related to her hypoxia in BiPAP status) Past Medical History Past Medical History: COPD, Eye Disorder, GERD/Reflux, Rheumatoid Arthritis (RA) Additional Past Medical History / Comment(s): Scleroderma, Cataracts History of Any Multi-Drug Resistant Organisms: None Reported Past Surgical History: Tonsillectomy, Tubal Ligation Additional Past Surgical History / Comment(s): Colonoscopy, R cataract surgery in the past. Past Anesthesia/Blood Transfusion Reactions: No Reported Reaction Past Psychological History: Depression Additional Psychological History / Comment(s): FROM CANCER. Smoking Status: Current every day smoker Past Alcohol Use History: Rare Past Drug Use History: None Reported - Past Family History Mother Family Medical History: Cancer Additional Family Medical History / Comment(s): OVARIAN. Medications and Allergies Home Medications and Allergies Comment(s): Current Medications Albuterol/Ipratropium (Duoneb 0.5 Mg-3 Mg/3 Ml Soln) 3 ml INHALATION RT-QID [facility] Last Admin: 07/13/18 20:03 Dose: 3 ml Documented by: Albuterol/Ipratropium (Duoneb 0.5 Mg-3 Mg/3 Ml Soln) 3 ml INHALATION RT-Q4H PRN PRN Reason: shortness of breath Alprazolam (Xanax) 0.25 mg PO TID PRN PRN Reason: Agitation or Acute Anxiety Last Admin: 07/12/18 15:03 Dose: 0.25 mg Documented by: Budesonide (Pulmicort) 1 mg INHALATION RT-BID [facility] Last Admin: 07/13/18 20:03 Dose: 1 mg Documented by: Calcium Carbonate/Glycine (Tums) 500 mg PO QID PRN PRN Reason: Heartburn Last Admin: 07/08/18 13:24 Dose: 500 mg Documented by: Docusate Sodium (Colace) 100 mg PO BID [facility] Last Admin: 07/13/18 20:21 Dose: Not Given Documented by: Ferrous Sulfate (Feosol) 325 mg PO BID-W/MEALS [facility] Last Admin: 07/13/18 17:29 Dose: Not Given Documented by: Formoterol Fumarate (Perforomist) 20 mcg INHALATION RT-BID [facility] Last Admin: 07/13/18 20:03 Dose: 20 mcg Documented by: Heparin Sodium (Porcine) (Heparin) 5,000 unit SQ Q8HR [facility] Last Admin: 07/13/18 17:29 Dose: 5,000 unit Documented by: Piperacillin Sod/Tazobactam (Sod 3.375 gm/ Sodium Chloride) 100 mls @ 25 mls/hr IVPB Q12HR [facility] Last Admin: 07/13/18 21:07 Dose: 25 mls/hr Documented by: Diltiazem HCl 125 mg/ Sodium (Chloride) 125 mls @ 10 mls/hr IV .[id number] [facility] Last Admin: 07/13/18 23:05 Dose: 10 mg/hr, 10 mls/hr Documented by: Dextrose/Sodium Chloride (Dextrose 5%-1/2ns Iv Soln) 1,000 mls @ 50 mls/hr IV .Q20H [facility] Last Admin: 07/13/18 17:27 Dose: 50 mls/hr Documented by: Insulin Aspart (Novolog) 0 unit SQ ACHS [facility]; Protocol Last Admin: 07/13/18 20:23 Dose: Not Given Documented by: Levofloxacin (Levaquin) 250 mg PO Q24H [facility] Last Admin: 07/13/18 16:24 Dose: Not Given Documented by: Methylprednisolone Sodium Succinate (Solu-Medrol) 60 mg IV Q8HR [facility] Last Admin: 07/13/18 17:29 Dose: 60 mg Documented by: Miscellaneous Information (Pneumonia Protocol Utilized) 1 each PO ONCE PRN PRN Reason: Per Protocol Miscellaneous Information (Potassium Per Protocol) 1 each MISCELLANE DAILY PRN; Protocol PRN Reason: Per Protocol Miscellaneous Information (Potassium Per Protocol) 1 each MISCELLANE DAILY PRN; Protocol PRN Reason: Per Protocol Miscellaneous Information (Pharmacy To Dose Iv Vancomycin) 1 each MISCELLANE DIRECTED PRN PRN Reason: Per Protocol Montelukast Sodium (Singulair) 10 mg PO HS [facility] Last Admin: 07/13/18 20:22 Dose: Not Given Documented by: Naloxone HCl (Narcan) 0.2 mg IV Q2M PRN PRN Reason: Opioid Reversal Pantoprazole Sodium (Protonix) 40 mg PO AC-BRKFST [facility] Last Admin: 07/13/18 07:57 Dose: Not Given Documented by: Senna (Senokot) 2 mg PO HS PRN PRN Reason: Constipation Verapamil HCl (Isoptin Sr) 240 mg PO BID [facility] Last Admin: 07/13/18 20:22 Dose: Not Given Documented by: Home Medications Medication Instructions Recorded Confirmed Type Hydroxychloroquine Sulfate 200 mg PO BID 12/25/13 07/05/18 History [Plaquenil] Budesonide [Pulmicort] 0.5 mg INHALATION RT-BID 07/05/18 07/05/18 History Montelukast [Singulair] 10 mg PO HS 07/05/18 07/05/18 History Allergies Allergy/AdvReac Type Severity Reaction Status Date / Time Sulfa (Sulfonamide Allergy Rash/Hives Verified 07/05/18 17:26 Antibiotics) Physical Exam Vitals: Vital Signs Temp Pulse Resp BP Pulse Ox 07/13/18 23:00 86 19 134/81 96 07/13/18 22:00 99 22 143/80 97 07/13/18 21:00 90 22 161/65 98 07/13/18 20:26 80 26 H 07/13/18 20:18 88 26 H 07/13/18 20:03 89 25 H 07/13/18 20:00 97.9 F 89 21 131/65 97 07/13/18 19:00 93 21 136/80 97 07/13/18 16:26 94 28 H 07/13/18 16:14 92 27 H 07/13/18 11:37 86 07/13/18 11:26 84 07/13/18 11:00 82 17 134/70 97 07/13/18 10:00 72 19 130/76 98 07/13/18 09:24 75 07/13/18 09:14 76 07/13/18 09:13 76 07/13/18 09:12 76 22 130/76 100 07/13/18 09:03 76 07/13/18 09:00 73 22 139/87 99 07/13/18 08:00 97.4 F L 73 22 138/69 93 L 07/13/18 07:00 82 23 131/76 93 L 07/13/18 06:00 78 23 126/70 93 L 07/13/18 05:00 69 24 130/65 92 L 07/13/18 04:00 97.7 F 76 22 130/65 92 L 07/13/18 03:00 71 22 128/63 93 L 07/13/18 02:00 75 22 121/64 94 L 07/13/18 01:00 79 24 122/68 91 L 07/13/18 00:00 97.7 F 82 25 H 128/63 90 L Intake and Output 07/13/18 07/13/18 07/14/18 14:59 22:59 06:59 Intake Total 550 500 162.5 Output Total 425 700 40 Balance 125 -200 122.5 Intake: IV 400 400 50 Dextrose 5% in Water 1, 400 000 ml @ 75 mls/hr IV . [id number] [facility] Rx#:[id number] Dextrose 5%-0.45% NaCl 1, 400 50 000 ml @ 50 mls/hr IV . Q20H [facility] Rx#:[id number] Intake, IV Titration 150 100 112.5 Amount Diltiazem 125 mg In 112.5 Sodium Chloride 0.9% 100 ml @ 10 MG/HR 10 mls/hr IV .[id number] [facility] Rx#: [id number] Piperacillin-Tazobactam 3 100 .375 gm In Sodium Chloride 0.9% 100 ml @ 25 mls/hr IVPB Q12HR [facility] Rx #:[id number] Sodium Chloride 0.9% 1, 150 000 ml @ 75 mls/hr IV . [id number] [facility] Rx#:[id number] Output: Urine 425 700 40 Other: Voiding Method Indwelling Catheter Indwelling Catheter 77-year-old woman cachectic HEENT: Anicteric conjunctiva are pink and moist nasal mucosa grossly intact without significant lesions, oral mucosa is dry but no lesions Neck: The neck is supple without significant lymphadenopathy or thyromegaly. Lungs: Symmetrical air entry is noted few basilar cracklesagain wheezing Heart: Irregular with an audible S4 2/6 systolic murmur that does not radiate PMI was nondisplaced Abdomen: Scaphoid Positive bowel sounds soft and nontender without palpable masses or organomegaly. There was no guarding or rebound. Extremities: Extremities show the extensive muscular wasting, lower extremity edema is minimal feet are warm and no acute ulcerations are seen Neuro: Patient is awake with a change of her BiPAP mask she was assisted into a sitting position but she is not able to communicate in an effective fashion. Di d seem to move upper and lower extremities though upon attempting to sit up. Profound generalized weakness skin is evidence of blanchable erythema to the coccyx. Results CBC & Chem 7: 07/13/18 05:23 07/13/18 05:23 Labs: Abnormal Lab Results - Last 24 Hours (Table) 07/12/18 07/13/18 07/13/18 Range/Units 00:02 05:23 05:23 WBC 26.9 H (3.8-10.6) k/uL RBC 3.48 L (3.80-5.40) m/uL Hgb 9.1 L (11.4-16.0) gm/dL Hct 29.8 L (34.0-46.0) % MCHC 30.7 L (31.0-37.0) g/dL RDW 20.8 H (11.5-15.5) % ABG pH 7.31 L (7.35-7.45) ABG pCO2 56 H (35-45) mmHg ABG pO2 57 L* (83-108) mmHg ABG HCO3 28 H (21-25) mmol/L ABG Total CO2 30 H (19-24) mmol/L ABG O2 Saturation 85.6 L (94-97) % BUN 88 H (7-17) mg/dL Creatinine 2.35 H (0.52-1.04) mg/dL Glucose 127 H (74-99) mg/dL POC Glucose (mg/dL) (75-99) mg/dL Phosphorus 8.4 H (2.5-4.5) mg/dL 07/13/18 07/13/18 07/13/18 Range/Units 06:48 06:51 09:42 WBC (3.8-10.6) k/uL RBC (3.80-5.40) m/uL Hgb (11.4-16.0) gm/dL Hct (34.0-46.0) % MCHC (31.0-37.0) g/dL RDW (11.5-15.5) % ABG pH (7.35-7.45) ABG pCO2 (35-45) mmHg ABG pO2 (83-108) mmHg ABG HCO3 (21-25) mmol/L ABG Total CO2 (19-24) mmol/L ABG O2 Saturation (94-97) % BUN (7-17) mg/dL Creatinine (0.52-1.04) mg/dL Glucose (74-99) mg/dL POC Glucose (mg/dL) 60 L 58 L 111 H (75-99) mg/dL Phosphorus (2.5-4.5) mg/dL 07/13/18 07/13/18 07/13/18 Range/Units 11:48 14:12 16:53 WBC (3.8-10.6) k/uL RBC (3.80-5.40) m/uL Hgb (11.4-16.0) gm/dL Hct (34.0-46.0) % MCHC (31.0-37.0) g/dL RDW (11.5-15.5) % ABG pH (7.35-7.45) ABG pCO2 (35-45) mmHg ABG pO2 (83-108) mmHg ABG HCO3 (21-25) mmol/L ABG Total CO2 (19-24) mmol/L ABG O2 Saturation (94-97) % BUN (7-17) mg/dL Creatinine (0.52-1.04) mg/dL Glucose (74-99) mg/dL POC Glucose (mg/dL) 205 H 130 H 128 H (75-99) mg/dL Phosphorus (2.5-4.5) mg/dL 07/13/18 Range/Units 20:22 WBC (3.8-10.6) k/uL RBC (3.80-5.40) m/uL Hgb (11.4-16.0) gm/dL Hct (34.0-46.0) % MCHC (31.0-37.0) g/dL RDW (11.5-15.5) % ABG pH (7.35-7.45) ABG pCO2 (35-45) mmHg ABG pO2 (83-108) mmHg ABG HCO3 (21-25) mmol/L ABG Total CO2 (19-24) mmol/L ABG O2 Saturation (94-97) % BUN (7-17) mg/dL Creatinine (0.52-1.04) mg/dL Glucose (74-99) mg/dL POC Glucose (mg/dL) 117 H (75-99) mg/dL Phosphorus (2.5-4.5) mg/dL Microbiology - Last 24 Hours (Table) 07/12/18 16:40 Urine Culture - Preliminary Urine,Catheterized Laboratory Results WBC 26.9 k/uL (3.8-10.6) H 07/13/18 05:23 RBC 3.48 m/uL (3.80-5.40) L 07/13/18 05:23 Hgb 9.1 gm/dL (11.4-16.0) L 07/13/18 05:23 Hct 29.8 % (34.0-46.0) L 07/13/18 05:23 MCV 85.6 fL (80.0-100.0) 07/13/18 05:23 MCH 26.2 pg (25.0-35.0) 07/13/18 05:23 MCHC 30.7 g/dL (31.0-37.0) L 07/13/18 05:23 RDW 20.8 % (11.5-15.5) H 07/13/18 05:23 Plt Count 222 k/uL (150-450) 07/13/18 05:23 Neutrophils % 94 % 07/12/18 06:13 Lymphocytes % 2 % 07/12/18 06:13 Monocytes % 3 % 07/12/18 06:13 Eosinophils % 1 % 07/12/18 06:13 Basophils % 0 % 07/12/18 06:13 Neutrophils # 22.9 k/uL (1.3-7.7) H 07/12/18 06:13 Lymphocytes # 0.5 k/uL (1.0-4.8) L 07/12/18 06:13 Monocytes # 0.7 k/uL (0-1.0) 07/12/18 06:13 Eosinophils # 0.2 k/uL (0-0.7) 07/12/18 06:13 Basophils # 0.0 k/uL (0-0.2) 07/12/18 06:13 Hypochromasia Marked 07/13/18 05:23 Poikilocytosis Slight 07/13/18 05:23 Anisocytosis Moderate 07/13/18 05:23 Microcytosis Slight 07/12/18 19:19 ESR 2 mm/hr (0-20) 07/08/18 05:30 Retic Count 2.8 % (0.5-2.0) H 07/08/18 05:30 Haptoglobin 220.0 mg/dL (31.2-198.0) H 07/07/18 04:30 PT 10.7 sec (9.0-12.0) 07/07/18 13:26 INR 1.0 (<1.2) 07/07/18 13:26 APTT 23.1 sec (22.0-30.0) 07/07/18 13:26 D-Dimer 1.61 mg/L FEU (<0.60) H 07/07/18 13:26 Sample Site left radial 07/12/18 21:13 ABG pH 7.22 (7.35-7.45) L 07/12/18 21:13 ABG pCO2 73 mmHg (35-45) H* 07/12/18 21:13 ABG pO2 79 mmHg (83-108) L 07/12/18 21:13 ABG HCO3 30 mmol/L (21-25) H 07/12/18 21:13 ABG Total CO2 32 mmol/L (19-24) H 07/12/18 21:13 ABG O2 Saturation 92.5 % (94-97) L 07/12/18 21:13 ABG Base Excess 2.1 mmol/L 07/12/18 21:13 Christiano Test Yes 07/12/18 21:13 FiO2 36 % 07/12/18 21:13 Sodium 141 mmol/L (137-145) 07/13/18 05:23 Potassium 4.9 mmol/L (3.5-5.1) 07/13/18 05:23 Chloride 101 mmol/L (98-107) 07/13/18 05:23 Carbon Dioxide 25 mmol/L (22-30) 07/13/18 05:23 Anion Gap 15 mmol/L 07/13/18 05:23 BUN 88 mg/dL (7-17) H 07/13/18 05:23 Creatinine 2.35 mg/dL (0.52-1.04) H 07/13/18 05:23 Est GFR (CKD-EPI)AfAm 23 (>60 ml/min/1.73 sqM) 07/13/18 05:23 Est GFR (CKD-EPI)NonAf 20 (>60 ml/min/1.73 sqM) 07/13/18 05:23 Glucose 127 mg/dL (74-99) H 07/13/18 05:23 POC Glucose (mg/dL) 117 mg/dL (75-99) H 07/13/18 20:22 POC Glu Department Director ID Kira Fitch 07/13/18 20:22 Lactic Ac Sepsis Rflx Y 07/07/18 06:23 Plasma Lactic Acid Feliberto 1.1 mmol/L (0.7-2.0) 07/12/18 19:19 Calcium 9.2 mg/dL (8.4-10.2) 07/13/18 05:23 Phosphorus 8.4 mg/dL (2.5-4.5) H 07/13/18 05:23 Magnesium 2.3 mg/dL (1.6-2.3) 07/13/18 05:23 Iron 19 ug/dL (50-170) L 07/08/18 07:30 TIBC 351 ug/dL (228-460) 07/08/18 07:30 Iron Saturation 5.41 (12.00-45.00) L 07/08/18 07:30 Ferritin 107.9 ng/mL (10.0-291.0) 07/08/18 07:30 Total Bilirubin 1.1 mg/dL (0.2-1.3) 07/11/18 06:18 AST 34 U/L (14-36) 07/11/18 06:18 ALT 42 U/L (9-52) 07/11/18 06:18 Alkaline Phosphatase 57 U/L (38-126) 07/11/18 06:18 Lactate Dehydrogenase 561 U/L (313-618) 07/08/18 07:30 Creatine Kinase 66 U/L (30-135) 07/05/18 17:02 CK-MB (CK-2) 2.3 ng/mL (0.0-2.4) 07/05/18 17:02 Troponin I 0.087 ng/mL (0.000-0.034) H* 07/12/18 19:19 Total Protein 6.2 g/dL (6.3-8.2) L 07/11/18 06:18 Total Protein (PEP) 6.6 g/dL (6.2-8.2) 07/08/18 07:30 Albumin 3.1 g/dL (3.5-5.0) L 07/11/18 06:18 Albumin (PEP) 3.05 g/dL (3.80-4.90) L 07/08/18 07:30 Srwfi-5-Rrlderxrr 0.54 g/dL (0.10-0.40) H 07/08/18 07:30 Uigsp-0-Hqdzwjpdg 0.73 g/dL (0.60-1.00) 07/08/18 07:30 Beta Globulins 0.71 g/dL (0.60-1.30) 07/08/18 07:30 Gamma Globulins 1.56 g/dL (0.70-1.50) H 07/08/18 07:30 PEP Interpretation SEE NOTE 07/08/18 07:30 Triglycerides 68 mg/dL (<150) 07/06/18 04:20 Cholesterol 90 mg/dL (<200) 07/06/18 04:20 LDL Cholesterol, Calc 47 mg/dL (0-99) 07/06/18 04:20 HDL Cholesterol 29 mg/dL (40-60) L 07/06/18 04:20 Vitamin B12 748.0 pg/mL (200.0-944.0) 07/08/18 07:30 Methylmalonic Acid 0.28 umol/L (<0.40) 07/08/18 07:30 Folate 15.2 ng/mL 07/08/18 07:30 TSH 5.960 mIU/L (0.465-4.680) H 07/05/18 17:02 Free T4 1.96 ng/dL (0.78-2.19) 07/05/18 17:02 Free T3 pg/mL 1.5 pg/ml (2.8-5.3) L 07/05/18 17:02 Urine Color Yellow 07/12/18 16:40 Urine Appearance Cloudy (Clear) H 07/12/18 16:40 Urine pH 5.0 (5.0-8.0) 07/12/18 16:40 Ur Specific [place] 1.018 (1.001-1.035) 07/12/18 16:40 Urine Protein 1+ (Negative) H 07/12/18 16:40 Urine Glucose (UA) Negative (Negative) 07/12/18 16:40 Urine Ketones Negative (Negative) 07/12/18 16:40 Urine Blood Small (Negative) H 07/12/18 16:40 Urine Nitrite Negative (Negative) 07/12/18 16:40 Urine Bilirubin Negative (Negative) 07/12/18 16:40 Urine Urobilinogen <2.0 mg/dL (<2.0) 07/12/18 16:40 Ur Leukocyte Esterase Negative (Negative) 07/12/18 16:40 Urine RBC 23 /hpf (0-5) H 07/12/18 16:40 Urine WBC 11 /hpf (0-5) H 07/12/18 16:40 Ur Squamous Epith Cells 29 /hpf (0-4) H 07/12/18 16:40 Amorphous Sediment Occasional /hpf (None) H 07/12/18 16:40 Hyaline Casts 1 /lpf (0-2) 07/12/18 16:40 Urine Mucus Rare /hpf (None) H 07/12/18 16:40 Ur Yeast w Hyphae Occasional /hpf (None) 07/12/18 16:40 Urine Yeast (Budding) Moderate /hpf (None) H 07/12/18 16:40 Stool Occult Blood Negative (Negative) 07/05/18 20:19 IgG 1580.0 mg/dL (700.0-1600.0) 07/08/18 07:30 IgA 169.0 mg/dL (60.0-350.0) 07/08/18 07:30 IgM 146.0 mg/dL (40.0-280.0) 07/08/18 07:30 Serum MANDEEP Interpret SEE NOTE 07/08/18 07:30 Free [place] LC, Quant 3.18 mg/dL (0.33-1.94) H 07/08/18 07:30 Free Lambda LC, Quant 2.55 mg/dL (0.57-2.63) 07/08/18 07:30 Influenza Type A RNA Not Detected (Not Detectd) 07/05/18 21:00 Influenza Type B (PCR) Not Detected (Not Detectd) 07/05/18 21:00 Blood Type AB Positive 07/05/18 20:50 Blood Type Confirm AB Positive 07/05/18 17:02 Blood Type Recheck CABO Indicated 07/05/18 20:50 Antibody Screen NEGATIVE 07/05/18 20:50 Crossmatch See Detail 07/05/18 20:50 Spec Expiration Date 07/08/2018234907/05/18 20:50 Microbiology 07/12/18 16:40 Urine,Catheterized Urine Culture - Preliminary 07/05/18 20:50 Blood Blood Culture - Final No Growth after 144 hours 07/06/18 16:45 Sputum Gram Stain - Final 07/06/18 16:45 Sputum Sputum Culture - Final 07/06/18 16:45 Urine,Catheterized Urine Culture - Final Chest x-ray: report reviewed (Chest x-ray shows evidence of volume loss the right but no acute infiltrate) CT scan - chest: report reviewed (CT from 8 days prior revealed evidence of the severe cardiomyopathy in the chronic pulmonary changes consistent with COPD and volume overload) Assessment and Plan (1) Acute and chronic respiratory failure ([id number]) Narrative/Plan: 77-year-old female that has a history of advanced COPD has presented with respiratory failure acute on chronic in nature. Now requiring BiPAP therapy has evidence of abnormalities including possibility of infiltrate although the original computed tomography scan at admission did not show evidence of lily pneumonia. She's had significant anemia also complicating her stay. Evidence of some candiduria is seen at this time. Patient is being treated with antibiotic therapy includes vancomycin and Zosyn for concerns to pneumonia in this compromised patient. Eraxis is added for treatment of the underlying fungal infection of the urine that has occurred. Her prognosis is poor and family is contemplating transition to comfort care. Current Visit: Yes Status: Acute Code(s): J96.20 - ACUTE AND CHR RESP FAILURE, UNSP W HYPOXIA OR HYPERCAPNIA SNOMED Code(s): 74559383 (2) IgM lambda monoclonal gammopathy Current Visit: Yes Status: Acute Priority: Medium Code(s): D47.2 - MONOCLONAL GAMMOPATHY SNOMED Code(s): 476270330 (3) Pulmonary cachexia due to chronic obstructive pulmonary disease Current Visit: Yes Status: Acute Code(s): J44.9 - CHRONIC OBSTRUCTIVE PULMONARY DISEASE, UNSPECIFIED; R64 - CACHEXIA SNOMED Code(s): 428909469
[2018-07-14] MEDS: methylPREDNISolone SOD SUCCI 125 MG/2 ML VIAL IV SCH ×4 (00:15→23:59)
[2018-07-14] MEDS: HEPARIN SODIUM,PORCINE 5,000 UNIT/ML 1 ML VIAL SQ SCH ×4 (00:16→23:59)
[2018-07-14 05:10] LABS: Anisocytosis Moderate; HCT 30.1 % (34.0-46.0); HGB 9.6 gm/dL (11.4-16.0); Hypochromasia Moderate; MCH 26.3 pg (25.0-35.0); MCHC 31.8 g/dL (31.0-37.0); MCV 82.5 fL (80.0-100.0); Mean Platelet Volume 8.6; Microcytosis Slight; Platelet Count 210 k/uL (150-450); Poikilocytosis Slight; RBC 3.65 m/uL (3.80-5.40); RDW 21.5 % (11.5-15.5); WBC 23.3 k/uL (3.8-10.6)
[2018-07-14 05:39] LABS: Calcium 9.1 mg/dL (8.4-10.2); Magnesium 2.5 mg/dL (1.6-2.3); Potassium 3.7 mmol/L (3.5-5.1)
[2018-07-14 05:43] LABS: Vancomycin,Random 18.5 ug/mL
[2018-07-14 06:54] LABS: Glucose,Whole Blood 128 mg/dL (75-99)
[2018-07-14] MEDS: IPRATROPIUM-ALBUTEROL 3 ML NEB INHALATION SCH ×4 (07:26→20:56)
[2018-07-14] MEDS: FORMOTEROL FUMARATE 20 MCG/2 ML NEBU INHALATION SCH ×2 (07:26→20:56)
[2018-07-14] MEDS: BUDESONIDE 1 MG/2 ML NEBU INHALATION SCH ×2 (07:26→20:56)
[2018-07-14] MEDS: FERROUS SULFATE 325 MG TAB PO SCH ×2 (07:49→17:16)
[2018-07-14] MEDS: PANTOPRAZOLE 40 MG TABLET PO SCH (07:49)
[2018-07-14] MEDS: INSULIN ASPART (NovoLOG) 100 UNIT/ML VIAL SQ SCH ×4 (07:49→21:46)
[2018-07-14] MEDS: VERAPAMIL SR 240 MG TABLET.ER PO SCH ×2 (07:49→21:36)
[2018-07-14] MEDS: DOCUSATE 100 MG CAP PO SCH ×2 (07:49→21:36)
[2018-07-14] MEDS: PIPERACILLIN-TAZOBACTAM 3.375 GM in SODIUM CHLORIDE 0.9% 100 ML IVPB SCH ×3 (08:00→23:59)
[2018-07-14] MEDS ORDERED: VANCOMYCIN 1,000 MG in SODIUM CHLORIDE 0.9% 250 ML IVPB ONE (09:00)
[2018-07-14] MEDS: DEXTROSE 5%-0.45% NACL 1,000 ML IV SCH (09:54)
[2018-07-14 12:10] LABS: Glucose,Whole Blood 149 mg/dL (75-99)
--- NOTE | 2018-07-14 12:19 | P.PN ---
Subjective Progress Note Date: 07/14/18 Principal diagnosis: Pneumonia, iron deficiency, identified IgM lambda paraprotein In follow-up today patient continues on BiPAP, she is more alert today than yesterday, conversation is still confused. Objective - Vital Signs Vital signs: Vital Signs Temp 98.1 F 07/14/18 08:00 Pulse 86 07/14/18 11:26 Resp 22 07/14/18 09:00 BP 129/80 07/14/18 09:00 Pulse Ox 98 07/14/18 09:00 Intake & Output 07/13/18 07/14/18 07/14/18 18:59 06:59 18:59 Intake Total 750 812.5 400 Output Total 870 985 445 Balance -120 -172.5 -45 Weight 57.3 kg Intake: IV 600 600 400 Dextrose 5% in Water 1, 400 000 ml @ 75 mls/hr IV . [id number] [facility] Rx#:[id number] Dextrose 5%-0.45% NaCl 1, 200 600 300 000 ml @ 50 mls/hr IV . Q20H [facility] Rx#:[id number] Piperacillin-Tazobactam 3 100 .375 gm In Sodium Chloride 0.9% 100 ml @ 25 mls/hr IVPB Q12HR [facility] Rx #:[id number] Intake, IV Titration 150 212.5 Amount Diltiazem 125 mg In 112.5 Sodium Chloride 0.9% 100 ml @ 10 MG/HR 10 mls/hr IV .[id number] [facility] Rx#: [id number] Piperacillin-Tazobactam 3 100 .375 gm In Sodium Chloride 0.9% 100 ml @ 25 mls/hr IVPB Q12HR [facility] Rx #:[id number] Sodium Chloride 0.9% 1, 150 000 ml @ 75 mls/hr IV . [id number] [facility] Rx#:[id number] Output: Urine 870 985 445 Other: Voiding Method Indwelling Catheter Indwelling Catheter Indwelling Catheter - Exam Thin, frail, female laying in bed with BiPAP on, she is in mild distress, she is alert, oriented to self, clubbing of the nails, poor dentition, tenderness to deeper palpation of the abdomen, bowel sounds are positive, bilat eral breath sounds are diminished a few scattered rales, respiratory effort is weak, S1 and S2, irregular. - Labs CBC & Chem 7: 07/14/18 04:14 07/14/18 04:14 Labs: Abnormal Lab Results - Last 24 Hours (Table) 07/13/18 07/13/18 07/13/18 Range/Units 14:12 16:53 20:22 WBC (3.8-10.6) k/uL RBC (3.80-5.40) m/uL Hgb (11.4-16.0) gm/dL Hct (34.0-46.0) % RDW (11.5-15.5) % BUN (7-17) mg/dL Creatinine (0.52-1.04) mg/dL Glucose (74-99) mg/dL POC Glucose (mg/dL) 130 H 128 H 117 H (75-99) mg/dL Magnesium (1.6-2.3) mg/dL 07/14/18 07/14/18 07/14/18 Range/Units 04:14 04:14 06:52 WBC 23.3 H (3.8-10.6) k/uL RBC 3.65 L (3.80-5.40) m/uL Hgb 9.6 L (11.4-16.0) gm/dL Hct 30.1 L (34.0-46.0) % RDW 21.5 H (11.5-15.5) % BUN 79 H (7-17) mg/dL Creatinine 1.83 H (0.52-1.04) mg/dL Glucose 172 H (74-99) mg/dL POC Glucose (mg/dL) 128 H (75-99) mg/dL Magnesium 2.5 H (1.6-2.3) mg/dL 07/14/18 Range/Units 12:08 WBC (3.8-10.6) k/uL RBC (3.80-5.40) m/uL Hgb (11.4-16.0) gm/dL Hct (34.0-46.0) % RDW (11.5-15.5) % BUN (7-17) mg/dL Creatinine (0.52-1.04) mg/dL Glucose (74-99) mg/dL POC Glucose (mg/dL) 149 H (75-99) mg/dL Magnesium (1.6-2.3) mg/dL Microbiology - Last 24 Hours (Table) 07/12/18 21:50 Blood Culture - Preliminary Blood No Growth after 24 hours Assessment and Plan (1) Iron deficiency anemia Narrative/Plan: Pt is currently on oral iron. Hgb stable, not requiring transfusion at this time Current Visit: Yes Status: Acute Priority: Medium Code(s): D50.9 - IRON DEFICIENCY ANEMIA, UNSPECIFIED SNOMED Code(s): 63012428 (2) IgM lambda monoclonal gammopathy Narrative/Plan: IgM lambda paraprotein with an M-spike of 0.34 g/dl. 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 Not urgent, can be done as an outpatient. Anticipate lab monitoring initially before procedure planned. No acute intervention needed. Current condition is not related Did review the above with the patient today. I am not certain of how much of that she understood. Reassured her that we would continue to monitor her labs as appropriate. Current Visit: Yes Status: Acute Priority: Medium Code(s): D47.2 - MONOCLONAL GAMMOPATHY SNOMED Code(s): 050200273 (3) Leukocytosis Narrative/Plan: Leukocytosis is stable, noted to be neutrophils and likely reactive from infection. No acute intervention, patient is being seen and treated by Infectious Disease. Current Visit: Yes Status: Acute Priority: High Code(s): D72.829 - ELEVATED WHITE BLOOD CELL COUNT, UNSPECIFIED SNOMED Code(s): 752506162
[2018-07-14] MEDS: DILTIAZEM 125 MG in SODIUM CHLORIDE 0.9% 100 ML IV SCH ×2 (12:24→23:58)
--- NOTE | 2018-07-14 14:21 | P.PN ---
Subjective Patient is doing very well. She is very excited because [birth year] today Afebrile 97.7F pulse rate in the 80s A. fib Blood pressure 130 was 78 mmHg Breath sounds are reduced bilaterally Heart sounds are soft Impression Atrial fibrillation with RVR, persistent Respiratory failure, on BiPAP machine and unable to swallow Plan Continue IV Cardizem until she can swallow and then she goes back to verapamil 240 mg twice daily Once she is able to swallow please switched to verapamil 240 mg twice daily and stop IV Cardizem Please call cardiology as needed Objective - Vital Signs Vital signs: Vital Signs Temp 97.7 F 07/14/18 12:00 Pulse 84 07/14/18 14:00 Resp 22 07/14/18 14:00 BP 152/67 07/14/18 14:00 Pulse Ox 100 07/14/18 14:00 Intake & Output 07/13/18 07/14/18 07/14/18 18:59 06:59 18:59 Intake Total 750 812.5 625 Output Total 870 985 545 Balance -120 -172.5 80 Weight 57.3 kg Intake: IV 600 600 500 Dextrose 5% in Water 1, 400 000 ml @ 75 mls/hr IV . [id number] [facility] Rx#:[id number] Dextrose 5%-0.45% NaCl 1, 200 600 400 000 ml @ 50 mls/hr IV . Q20H [facility] Rx#:[id number] Piperacillin-Tazobactam 3 100 .375 gm In Sodium Chloride 0.9% 100 ml @ 25 mls/hr IVPB Q12HR [facility] Rx #:[id number] Intake, IV Titration 150 212.5 125 Amount Diltiazem 125 mg In 112.5 125 Sodium Chloride 0.9% 100 ml @ 10 MG/HR 10 mls/hr IV .[id number] [facility] Rx#: [id number] Piperacillin-Tazobactam 3 100 .375 gm In Sodium Chloride 0.9% 100 ml @ 25 mls/hr IVPB Q12HR [facility] Rx #:[id number] Sodium Chloride 0.9% 1, 150 000 ml @ 75 mls/hr IV . [id number] [facility] Rx#:[id number] Output: Urine 870 985 545 Other: Voiding Method Indwelling Catheter Indwelling Catheter Indwelling Catheter - Labs CBC & Chem 7: 07/14/18 04:14 07/14/18 04:14 Labs: Abnormal Lab Results - Last 24 Hours (Table) 07/13/18 07/13/18 07/14/18 Range/Units 16:53 20:22 04:14 WBC (3.8-10.6) k/uL RBC (3.80-5.40) m/uL Hgb (11.4-16.0) gm/dL Hct (34.0-46.0) % RDW (11.5-15.5) % BUN 79 H (7-17) mg/dL Creatinine 1.83 H (0.52-1.04) mg/dL Glucose 172 H (74-99) mg/dL POC Glucose (mg/dL) 128 H 117 H (75-99) mg/dL Magnesium 2.5 H (1.6-2.3) mg/dL 07/14/18 07/14/18 07/14/18 Range/Units 04:14 06:52 12:08 WBC 23.3 H (3.8-10.6) k/uL RBC 3.65 L (3.80-5.40) m/uL Hgb 9.6 L (11.4-16.0) gm/dL Hct 30.1 L (34.0-46.0) % RDW 21.5 H (11.5-15.5) % BUN (7-17) mg/dL Creatinine (0.52-1.04) mg/dL Glucose (74-99) mg/dL POC Glucose (mg/dL) 128 H 149 H (75-99) mg/dL Magnesium (1.6-2.3) mg/dL Microbiology - Last 24 Hours (Table) 07/12/18 21:50 Blood Culture - Preliminary Blood No Growth after 24 hours
[2018-07-14] MEDS: LEVOFLOXACIN 250 MG TAB PO SCH (14:59)
--- NOTE | 2018-07-14 15:59 | CONS ---
CONSULTATION REASON FOR CONSULT: Renal failure. HISTORY OF PRESENT ILLNESS: Patient is a 78-year-old female who was initially admitted to the hospital on 07/05/2018 with shortness of breath and COPD exacerbation. Patient also had new onset AFib with RVR. Patient had chest CT angiogram on 07/06/2018. She was initially admitted to the ICU, improved and was transferred to the floor, then brought back to the ICU with worsening shortness of breath. Serum creatinine was 1.1 on initial admission. It increased to about 1.35 on 07/10/2018 and further increased to 2.24 and 2.3 yesterday. It is now down to 1.83 again. In the meantime, blood pressure has not been significantly low. The patient is maintained on BiPAP. She did have rapid ventricular response and is now on a Cardizem drip. The patient had been on vancomycin as well. Her vancomycin level this morning was 18.5. Currently patient is not on any diuretics. She had an echocardiogram which showed severely dilated left atrium and moderate to severe mitral regurg. Ejection fraction was 60%-65%. Patient has also sustained a non ST-elevation AK. Her cultures are so far negative. Family is present at bedside and they are considering possible comfort care measures. PAST MEDICAL HISTORY: Significant for COPD, gastroesophageal reflux disease, rheumatoid arthritis, scleroderma. PAST SURGICAL HISTORY: Tonsillectomy, tubal ligation, colonoscopy, cataract surgery. SOCIAL HISTORY: Positive for smoking. MEDICATIONS: At home prior to admission included Plaquenil, Pulmicort, Singulair. ALLERGIES: Include SULFA which causes rash and hives. REVIEW OF SYSTEMS: Cannot be obtained. However, there is no active bleeding noted. The patient is not having any fever. No nausea or vomiting. PHYSICAL EXAMINATION: This morning, blood pressure was 129/80, heart rate of 90 per minute. Patient is afebrile. Examination of the heart, S1, S2. Examination of the lungs, bilateral breath sounds are heard. Abdomen is soft, nontender. Examination of the lower extremities shows trace edema bilaterally. SET UP MECHANIC [employer]ATING MACHINES exam is grossly intact. Patient moving all 4 extremities. LABS: Show hemoglobin 9.6 g/dL, sodium 143, potassium 3.7, BUN 79, serum creatinine 1.83. Random vancomycin level 18.5. UA shows 1+ protein on 07/12/2018, blood small. ASSESSMENT: 1. Acute kidney injury, most likely contrast nephropathy. Serum creatinine started to worsen about 3 days after the CAT scan; however, the creatinine really jumped from 1.1-1.9 between 07/11 and 07/12/2018. I do not see any major blood pressure fluctuations at that time. Vancomycin level is not significantly elevated. I believe it is mostly ATN, which is currently nonoliguric. I am not sure if the patient had an episode of atrial fibrillation with RVR around that time. Currently patient is not on any nephrotoxic medications. She is maintained on fluids at 50 mL an hour, which we can continue. I will continue with the antibiotics. Continue treatment for chronic obstructive pulmonary disease. 2. Chronic obstructive pulmonary disease exacerbation. 3. Anemia, rule out iron deficiency. Iron level was as low as 5.4% on iron saturation on 07/08. Patient should get IV iron if she has not received any yet. 4. Atrial fibrillation with a rapid ventricular rate, currently with controlled ventricular response. 5. History of hypertension. 6. Status post acute myocardial infarction, being followed by Cardiology. PLAN: Continue with normal saline at 50 mL an hour. Repeat labs in a.m. Avoid nephrotoxic agents. Renal function is improving. Start IV iron. Overall prognosis is guarded. MMODL / IJN: [id number] /
--- NOTE | 2018-07-14 16:31 | P.PN ---
Subjective on-call hospitalist covering for Dr. Zelaya this is a pleasant 77 years old female with past medical history of COPD and rheumatoid arthritis, scleroderma and GERD. Presents with severe acute COPD exacerbation.patient currently remains in the ICU, improving slowly. She is a bit tachycardic above 100 . She saturating 93% on room air.her WBC is 20.4 k but she is on steroids too. . INR is 1.6. Plasma lactic acid 3.6. She remains on Xanax, Pulmicort, Levaquin, and Solu-Medrol 60 mg every 6 hours. She is also on Zosyn and Protonix.pulmonary team R following the case closely. As well as cardiology team 07/08/2018 Patient remains in the ICU, however her dyspnea is significantly improved. She denies chest pain, she has some coughing. No abdominal pain. Patient is still tachycardiac and heart rate is uncontrolled, discussed with us to speak with computer programming manager team for further evaluation. However her blood pressure is stable and she saturating 91% on room air. I reviewed the labs which showing WBC of 14.5 K, hemoglobin 8.6, creatinine 1.1. Patient remains on Lasix 20 mg twice a day, Levaquin and steroids. Today also patient was complaining of from constipation. Senna and Colace has been added. Verapamil dose has been inc reased by cardiology team. We'll keep monitoring her heart rate closely. However patient has been evaluated by pulmonary team given her breathing is more stable she was cleared by staining machine operator for patient to be transferred to the general medical floor 07/09/18 pt is doing better today , she is less dyspneic , with some cough, no chest pain , she eating diet well , she is still on oxygen therapy 2 L with nasal cannulas. he is tachycardic around 104. Leukocytosis improving. Anemia at 8.8. Cr eatinine is stable at 1.1pulmonary follow-up is appreciated. Start iron pills. Cardiology team placed the patient on verapamil 240 mg by mouth daily. physical therapy evaluation Discharge planning in 24-48 hours 07/10/2018 She remains intubated comfortable not in distress. She is still have some dyspnea with some cough. No chest pain. Vitals stable. Patient is afebrile. She saturating 96% on 2 L via NC. Leukocytosis is improved from 11.5 down to 9.1K, creatinine is slightly went up from 1.1 to 1.3. Posterior as well as decrease yesterday by pulmonary team. Patient plan was discussed with the patient including her problems like anemia. Also patient remains on antibiotics including Levaquin and Zosyn. Lasix IV twice a day and steroids 07/11/2018 pt is still dyspneic , not in resp distress. CXR: new small left pleural effusion , with a small right pleural effusion with right basilar atelectasis and/or infiltrate is slightly improved. Patient was not found to candidate for long-term anticoagulation because of his low hemoglobin as per cardiology team 07/12/2018 Patient remains to be dyspneic, however is better than before and it looks like to close to her baseline. She is needing only 4 L of oxygen via nasal cannula. An patient's postoperative go to [facility] upon discharge. She walked a little bit today. However she needs more strengthening exercises. Her creatinine went today from 1.1 to 1.99. Patient is currently on IV Lasix 20 mg twice a day. We are going to hold that. Pulmonary team R following the case closely. Patient also on A. fib but she is not a candidate for anticoagulation because of her anemia. She is status post blood transfusion. GI appointments/referral is recommended. 07/13/2018 pt is seen and exmined by me in the morning , pt got into respiratory distress in the night before , i was contacted and repeat abg showing ph of PH of 7.22 a nd pco2 of 733. pt was moved to the icu, dr kathleen has been contacted and he reviewed the management with the staff. this morning pt is resting while in BiPAP, i talked to the family Son Pedro Luis and discussed the case with them and the severity of his mother sickness. he mentioned he does not want her intubated , and he said he will discuss it with his 2 sisters also. family are considering comfort care too giving her advanced dis. , pt is not stable enough to do ct scan for now. 08/03/2018 Patient is more awake and alert today. She still in BiPAP in the ICU. However she Holds Logic Conversation . we are trying to take her off BiPAP for short time so she can eat. And also we might send her to CAT scan of the chest without contrast for follow-up since she has worsening dyspnea. However patient has no chest pain. And she was asking me "can I go home tomorrow" . pulmonary/critical care input is appreciated and they R following case closely. Son Mr. Park at bedside and he confirmed to me they want the patient DO NOT RESUSCITATE/DO NOT INTUBATE. Prognosis is guarded review of systems CONSTITUTIONAL: No fever, no malaise, no fatigue. HEENT: No recent visual problems or hearing problems. Denied any sore throat. CARDIOVASCULAR: No orthopnea, PND, no palpitations, no syncope. PULMONARY: no hemoptysis. GASTROINTESTINAL: No diarrhea, no nausea, no vomiting, no abdominal pain. Normoactive bowel sounds. NEUROLOGICAL: No headaches, no weakness, no numbness. HEMATOLOGICAL: Denies any bleeding or petechiae. GENITOURINARY: Denies any burning micturition, frequency, or urgency. MUSCULOSKELETAL/RHEUMATOLOGICAL: Denies any joint pain, swelling, or any muscle pain. ENDOCRINE: Denies any polyuria or polydipsia. medication: Albuterol, Xanax, Pulmicort, Tums, Lasix, heparin, NovoLog, Levaquin, some Medrol, Zosyn, Singulair, Protonix, verapamil. Objective - Vital Signs Vital signs: Vital Signs Temp 97.8 F 07/14/18 16:00 Pulse 93 07/14/18 16:00 Resp 24 07/14/18 16:00 BP 137/77 07/14/18 16:00 Pulse Ox 83 L 07/14/18 16:00 Intake & Output 07/13/18 07/14/18 07/14/18 18:59 06:59 18:59 Intake Total 750 812.5 825 Output Total 870 985 720 Balance -120 -172.5 105 Weight 57.3 kg 57.3 kg Intake: IV 600 600 700 Dextrose 5% in Water 1, 400 000 ml @ 75 mls/hr IV . [id number] [facility] Rx#:[id number] Dextrose 5%-0.45% NaCl 1, 200 600 500 000 ml @ 50 mls/hr IV . Q20H [facility] Rx#:[id number] Piperacillin-Tazobactam 3 200 .375 gm In Sodium Chloride 0.9% 100 ml @ 25 mls/hr IVPB Q12HR [facility] Rx #:[id number] Intake, IV Titration 150 212.5 125 Amount Diltiazem 125 mg In 112.5 125 Sodium Chloride 0.9% 100 ml @ 10 MG/HR 10 mls/hr IV .[id number] [facility] Rx#: [id number] Piperacillin-Tazobactam 3 100 .375 gm In Sodium Chloride 0.9% 100 ml @ 25 mls/hr IVPB Q12HR [facility] Rx #:[id number] Sodium Chloride 0.9% 1, 150 000 ml @ 75 mls/hr IV . [id number] [facility] Rx#:[id number] Output: Urine 870 985 720 Other: Voiding Method Indwelling Catheter Indwelling Catheter Indwelling Catheter - Exam GENERAL: The patient is alert and oriented x3, not in any acute distress. Well developed, well nourished. HEENT: Pupils are round and equally reacting to light. EOMI. No scleral icterus. No conjunctival pallor. Normocephalic, atraumatic. No pharyngeal erythema. No thyromegaly. CARDIOVASCULAR: S1 and S2 present. No murmurs, rubs, or gallops. -PULMONARY: Chest is clear to auscultation, bilateral wheezing ABDOMEN: Soft, nontender, nondistended, normoactive bowel sounds. No palpable organomegaly. MUSCULOSKELETAL: No joint swelling or deformity. EXTREMITIES: No cyanosis, clubbing, or pedal edema. NEUROLOGICAL: Gross neurological examination did not reveal any focal deficits. SKIN: No rashes. - Labs CBC & Chem 7: 07/14/18 04:14 07/14/18 04:14 Labs: Abnormal Lab Results - Last 24 Hours (Table) 07/13/18 07/13/18 07/14/18 Range/Units 16:53 20:22 04:14 WBC (3.8-10.6) k/uL RBC (3.80-5.40) m/uL Hgb (11.4-16.0) gm/dL Hct (34.0-46.0) % RDW (11.5-15.5) % BUN 79 H (7-17) mg/dL Creatinine 1.83 H (0.52-1.04) mg/dL Glucose 172 H (74-99) mg/dL POC Glucose (mg/dL) 128 H 117 H (75-99) mg/dL Magnesium 2.5 H (1.6-2.3) mg/dL 07/14/18 07/14/18 07/14/18 Range/Units 04:14 06:52 12:08 WBC 23.3 H (3.8-10.6) k/uL RBC 3.65 L (3.80-5.40) m/uL Hgb 9.6 L (11.4-16.0) gm/dL Hct 30.1 L (34.0-46.0) % RDW 21.5 H (11.5-15.5) % BUN (7-17) mg/dL Creatinine (0.52-1.04) mg/dL Glucose (74-99) mg/dL POC Glucose (mg/dL) 128 H 149 H (75-99) mg/dL Magnesium (1.6-2.3) mg/dL Microbiology - Last 24 Hours (Table) 07/12/18 21:50 Blood Culture - Preliminary Blood No Growth after 24 hours Assessment and Plan Assessment: acute hypoxic respiratory failure Severe advanced COPD acute exacerbation Atrial fibrillation, heart rate slightly tachycardic. Acute blood loss anemia. Her heparin drip was stopped elevated lactic acid Leukocytosis, mostly reactive History of rheumatoid arthritis History of 60 dermal History of GERD Plan: this is a pleasant 77 years old female who presents because of acute COPD exacerbation, and atrial fibrillation, with GI bleeds after heparin was started, her heparin drip was stopped. Continue with breathing treatment, steroids, antibiotics. Oxygen therapy to keep saturation more than 90%. Cardiology and pulmonary consult is appreciated.Labs and medication were reviewed.. Continue s glenda treatment. Continue with symptomatic treatment. Resume home medication. Monitor lytes and vitals. DVT and GI prophylaxis. Further recommendations of the clinical course of the patient DVT prophylaxis: Subcutaneous heparin GI Prophylaxis: Ppi Prognosis is guarded
[2018-07-14 17:10] LABS: Glucose,Whole Blood 136 mg/dL (75-99)
--- NOTE | 2018-07-14 19:52 | P.PN ---
Subjective Progress Note Date: 07/14/18 Principal diagnosis: Anemia Patient seen lying in bed in the intensive care unit. Currently on BiPAP therapy. No reports of GI bleeding per nursing staff. Patient denying any ab dominal pain. Objective - Vital Signs Vital signs: Vital Signs Temp 97.8 F 07/14/18 16:00 Pulse 87 07/14/18 19:00 Resp 24 07/14/18 19:00 BP 134/84 07/14/18 19:00 Pulse Ox 90 L 07/14/18 19:00 Intake & Output 07/14/18 07/14/18 07/15/18 06:59 18:59 06:59 Intake Total 812.5 925 50 Output Total 985 845 45 Balance -172.5 80 5 Weight 57.3 kg 57.3 kg Intake: IV 600 800 50 Dextrose 5%-0.45% NaCl 1, 600 600 50 000 ml @ 50 mls/hr IV . Q20H [facility] Rx#:[id number] Piperacillin-Tazobactam 3 200 .375 gm In Sodium Chloride 0.9% 100 ml @ 25 mls/hr IVPB Q12HR [facility] Rx #:[id number] Intake, IV Titration 212.5 125 Amount Diltiazem 125 mg In 112.5 125 Sodium Chloride 0.9% 100 ml @ 10 MG/HR 10 mls/hr IV .[id number] [facility] Rx#: [id number] Piperacillin-Tazobactam 3 100 .375 gm In Sodium Chloride 0.9% 100 ml @ 25 mls/hr IVPB Q12HR [facility] Rx #:[id number] Output: Urine 985 845 45 Other: Voiding Method Indwelling Catheter Indwelling Catheter - Exam On physical examination, patient appears comfortable in no apparent distress. HEAD: Normocephalic, atraumatic. EYES: No scleral icterus. No conjunctival injection. MOUTH: No lesions, tongue midline, patient wearing a BiPAP mask. NECK: Trachea midline, no gross abnormalities. CHEST: Coarse respiratory noises in all lung oliver. ABDOMEN: Soft, obese. Bowel sounds are positive. No organomegaly. No guarding or rigidity. EXTREMITIES: No pedal edema. SKIN: No rashes, no jaundice. NEUROLOGIC: Arousable but somnolent. No focal deficits. - Labs CBC & Chem 7: 07/14/18 04:14 07/14/18 04:14 Labs: Abnormal Lab Results - Last 24 Hours (Table) 07/13/18 07/14/18 07/14/18 Range/Units 20:22 04:14 04:14 WBC 23.3 H (3.8-10.6) k/uL RBC 3.65 L (3.80-5.40) m/uL Hgb 9.6 L (11.4-16.0) gm/dL Hct 30.1 L (34.0-46.0) % RDW 21.5 H (11.5-15.5) % BUN 79 H (7-17) mg/dL Creatinine 1.83 H (0.52-1.04) mg/dL Glucose 172 H (74-99) mg/dL POC Glucose (mg/dL) 117 H (75-99) mg/dL Magnesium 2.5 H (1.6-2.3) mg/dL 07/14/18 07/14/18 07/14/18 Range/Units 06:52 12:08 17:08 WBC (3.8-10.6) k/uL RBC (3.80-5.40) m/uL Hgb (11.4-16.0) gm/dL Hct (34.0-46.0) % RDW (11.5-15.5) % BUN (7-17) mg/dL Creatinine (0.52-1.04) mg/dL Glucose (74-99) mg/dL POC Glucose (mg/dL) 128 H 149 H 136 H (75-99) mg/dL Magnesium (1.6-2.3) mg/dL Microbiology - Last 24 Hours (Table) 07/12/18 21:50 Blood Culture Gram Stain - Preliminary Blood Yeast species 07/12/18 21:50 Blood Culture - Final Blood Assessment and Plan (1) Iron deficiency anemia Narrative/Plan: Patient found to be anemic with laboratory findings consistent with iron deficiency, however normocytic nature likely secondary to multifactorial etiology of anemia with likely component of anemia of chronic disease given chronic diseases, as well as possibility of MGUS. Stool testing was also found to be negative for occult blood making GI bleed less likely. Current Visit: Yes Status: Acute Priority: Medium Code(s): D50.9 - IRON DEFICIENCY ANEMIA, UNSPECIFIED SNOMED Code(s): 92176304 (2) Atrial fibrillation with RVR Current Visit: Yes Status: Acute Code(s): I48.91 - UNSPECIFIED ATRIAL FIBRILLATION SNOMED Code(s): 403757907913278 (3) Rheumatoid arthritis Current Visit: Yes Status: Acute Code(s): M06.9 - RHEUMATOID ARTHRITIS, UNSPECIFIED SNOMED Code(s): 37233822 Plan: Supportive care Okay for diet Continue treatment of other comorbidities Continue iron supplementation Continue to monitor hemoglobin and hematocrit and transfuse as needed Continue to monitor for signs or symptoms of GI bleeding No plans for endoscopic evaluation at this time given current treatment of COPD exacerbation and comorbidities, would likely benefit from EGD and colonoscopy. In the outpatient setting when medically optimized Thank you for allowing us participate in the care of the patient, the GI service will stand by please call us with any questions or concerns
[2018-07-14 20:58] LABS: Glucose,Whole Blood 155 mg/dL (75-99)
[2018-07-14] MEDS: MONTELUKAST 10 MG TAB PO SCH (21:36)
--- NOTE | 2018-07-14 22:35 | P.PN ---
Subjective Progress Note Date: 07/14/18 77-year-old female presented hospital 8 days ago which point in time she was with severe shortness of breath and was having difficulty with acute exacerbation of COPD and had developed difficulties with atrial fibrillation with a rapid ventricular response and concerns pneumonia. She subsequently has been treated was having some improvement. However. Just today she had acute decompensation and again had atrial fibrillation with rapid ventricular response and was brought to the intensive care unit where she's been treated with BiPAP, Cardizem drip and supportive care. It is noted from documentation that the family is contemplating further reduction of level of care but for now she will not be intubated. The patient is able to relate to no further history given that she has BiPAP in place and is remaining with significant dyspnea. 07/14/2018 patient is feeling better today. BiPAP is off and she has nasal cannula is eating her meal without difficulties. She received a carrot cake today for her birthday she turned 78 today. Her family members are present and believe that she is definitely more comfortable. Patient vocalizes no new complaints. Pain is under good control. Objective - Vital Signs Vital signs: Vital Signs Temp 98.1 F 07/14/18 20:00 Pulse 90 07/14/18 21:26 Resp 22 07/14/18 21:00 BP 134/84 07/14/18 20:00 Pulse Ox 96 07/14/18 21:00 Intake & Output 07/14/18 07/14/18 07/15/18 06:59 18:59 06:59 Intake Total 812.5 925 200 Output Total 985 845 215 Balance -172.5 80 -15 Weight 57.3 kg 57.3 kg Intake: IV 600 800 200 Dextrose 5%-0.45% NaCl 1, 600 600 200 000 ml @ 50 mls/hr IV . Q20H [facility] Rx#:[id number] Piperacillin-Tazobactam 3 200 .375 gm In Sodium Chloride 0.9% 100 ml @ 25 mls/hr IVPB Q12HR [facility] Rx #:[id number] Intake, IV Titration 212.5 125 Amount Diltiazem 125 mg In 112.5 125 Sodium Chloride 0.9% 100 ml @ 10 MG/HR 10 mls/hr IV .[id number] [facility] Rx#: [id number] Piperacillin-Tazobactam 3 100 .375 gm In Sodium Chloride 0.9% 100 ml @ 25 mls/hr IVPB Q12HR [facility] Rx #:[id number] Output: Urine 985 845 215 Other: Voiding Method Indwelling Catheter Indwelling Catheter Indwelling Catheter - Exam 77-year-old woman cachectic HEENT: Anicteric conjunctiva are pink and moist nasal mucosa grossly intact without significant lesions, oral mucosa is dry but no lesions Neck: The neck is supple without significant lymphadenopathy or thyromegaly. Lungs: Symmetrical air entry is noted few basilar crackles and wheezing Heart: Irregular with an audible S4 2/6 systolic murmur that does not radiate PMI was nondisplaced Abdomen: Scaphoid Positive bowel sounds soft and nontender without palpable masses or organomegaly. There was no guarding or rebound. Extremities: Extremities show the extensive muscular wasting, lower extremity edema is minimal feet are warm and no acute ulcerations are seen Neuro: Patient is awake she is now much more interactive. BiPAP is off. She is able to communicate. Enjoying her meal and her carrot cake for her birthday skin is evidence of blanchable erythema to the coccyx. - Labs CBC & Chem 7: 07/14/18 04:14 07/14/18 04:14 Labs: Abnormal Lab Results - Last 24 Hours (Table) 07/14/18 07/14/18 07/14/18 Range/Units 04:14 04:14 06:52 WBC 23.3 H (3.8-10.6) k/uL RBC 3.65 L (3.80-5.40) m/uL Hgb 9.6 L (11.4-16.0) gm/dL Hct 30.1 L (34.0-46.0) % RDW 21.5 H (11.5-15.5) % BUN 79 H (7-17) mg/dL Creatinine 1.83 H (0.52-1.04) mg/dL Glucose 172 H (74-99) mg/dL POC Glucose (mg/dL) 128 H (75-99) mg/dL Magnesium 2.5 H (1.6-2.3) mg/dL 07/14/18 07/14/18 07/14/18 Range/Units 12:08 17:08 20:56 WBC (3.8-10.6) k/uL RBC (3.80-5.40) m/uL Hgb (11.4-16.0) gm/dL Hct (34.0-46.0) % RDW (11.5-15.5) % BUN (7-17) mg/dL Creatinine (0.52-1.04) mg/dL Glucose (74-99) mg/dL POC Glucose (mg/dL) 149 H 136 H 155 H (75-99) mg/dL Magnesium (1.6-2.3) mg/dL Microbiology - Last 24 Hours (Table) 07/12/18 21:50 Blood Culture Gram Stain - Preliminary Blood Yeast species 07/12/18 21:50 Blood Culture - Final Blood Laboratory Results WBC 23.3 k/uL (3.8-10.6) H 07/14/18 04:14 RBC 3.65 m/uL (3.80-5.40) L 07/14/18 04:14 Hgb 9.6 gm/dL (11.4-16.0) L 07/14/18 04:14 Hct 30.1 % (34.0-46.0) L 07/14/18 04:14 MCV 82.5 fL (80.0-100.0) 07/14/18 04:14 MCH 26.3 pg (25.0-35.0) 07/14/18 04:14 MCHC 31.8 g/dL (31.0-37.0) 07/14/18 04:14 RDW 21.5 % (11.5-15.5) H 07/14/18 04:14 Plt Count 210 k/uL (150-450) 07/14/18 04:14 Neutrophils % 94 % 07/12/18 06:13 Lymphocytes % 2 % 07/12/18 06:13 Monocytes % 3 % 07/12/18 06:13 Eosinophils % 1 % 07/12/18 06:13 Basophils % 0 % 07/12/18 06:13 Neutrophils # 22.9 k/uL (1.3-7.7) H 07/12/18 06:13 Lymphocytes # 0.5 k/uL (1.0-4.8) L 07/12/18 06:13 Monocytes # 0.7 k/uL (0-1.0) 07/12/18 06:13 Eosinophils # 0.2 k/uL (0-0.7) 07/12/18 06:13 Basophils # 0.0 k/uL (0-0.2) 07/12/18 06:13 Hypochromasia Moderate 07/14/18 04:14 Poikilocytosis Slight 07/14/18 04:14 Anisocytosis Moderate 07/14/18 04:14 Microcytosis Slight 07/14/18 04:14 ESR 2 mm/hr (0-20) 07/08/18 05:30 Retic Count 2.8 % (0.5-2.0) H 07/08/18 05:30 Haptoglobin 220.0 mg/dL (31.2-198.0) H 07/07/18 04:30 PT 10.7 sec (9.0-12.0) 07/07/18 13:26 INR 1.0 (<1.2) 07/07/18 13:26 APTT 23.1 sec (22.0-30.0) 07/07/18 13:26 D-Dimer 1.61 mg/L FEU (<0.60) H 07/07/18 13:26 Sample Site left radial 07/12/18 21:13 ABG pH 7.22 (7.35-7.45) L 07/12/18 21:13 ABG pCO2 73 mmHg (35-45) H* 07/12/18 21:13 ABG pO2 79 mmHg (83-108) L 07/12/18 21:13 ABG HCO3 30 mmol/L (21-25) H 07/12/18 21:13 ABG Total CO2 32 mmol/L (19-24) H 07/12/18 21:13 ABG O2 Saturation 92.5 % (94-97) L 07/12/18 21:13 ABG Base Excess 2.1 mmol/L 07/12/18 21:13 Christiano Test Yes 07/12/18 21:13 FiO2 36 % 07/12/18 21:13 Sodium 143 mmol/L (137-145) 07/14/18 04:14 Potassium 3.7 mmol/L (3.5-5.1) 07/14/18 04:14 Chloride 105 mmol/L (98-107) 07/14/18 04:14 Carbon Dioxide 27 mmol/L (22-30) 07/14/18 04:14 Anion Gap 11 mmol/L 07/14/18 04:14 BUN 79 mg/dL (7-17) H 07/14/18 04:14 Creatinine 1.83 mg/dL (0.52-1.04) H 07/14/18 04:14 Est GFR (CKD-EPI)AfAm 31 (>60 ml/min/1.73 sqM) 07/14/18 04:14 Est GFR (CKD-EPI)NonAf 26 (>60 ml/min/1.73 sqM) 07/14/18 04:14 Glucose 172 mg/dL (74-99) H 07/14/18 04:14 POC Glucose (mg/dL) 155 mg/dL (75-99) H 07/14/18 20:56 POC Glu Manager Nc MONROE Purvi Vang 07/14/18 20:56 Lactic Ac Sepsis Rflx Y 07/07/18 06:23 Plasma Lactic Acid Feliberto 1.1 mmol/L (0.7-2.0) 07/12/18 19:19 Calcium 9.1 mg/dL (8.4-10.2) 07/14/18 04:14 Phosphorus 8.4 mg/dL (2.5-4.5) H 07/13/18 05:23 Magnesium 2.5 mg/dL (1.6-2.3) H 07/14/18 04:14 Iron 19 ug/dL (50-170) L 07/08/18 07:30 TIBC 351 ug/dL (228-460) 07/08/18 07:30 Iron Saturation 5.41 (12.00-45.00) L 07/08/18 07:30 Ferritin 107.9 ng/mL (10.0-291.0) 07/08/18 07:30 Total Bilirubin 1.1 mg/dL (0.2-1.3) 07/11/18 06:18 AST 34 U/L (14-36) 07/11/18 06:18 ALT 42 U/L (9-52) 07/11/18 06:18 Alkaline Phosphatase 57 U/L (38-126) 07/11/18 06:18 Lactate Dehydrogenase 561 U/L (313-618) 07/08/18 07:30 Creatine Kinase 66 U/L (30-135) 07/05/18 17:02 CK-MB (CK-2) 2.3 ng/mL (0.0-2.4) 07/05/18 17:02 Troponin I 0.087 ng/mL (0.000-0.034) H* 07/12/18 19:19 Total Protein 6.2 g/dL (6.3-8.2) L 07/11/18 06:18 Total Protein (PEP) 6.6 g/dL (6.2-8.2) 07/08/18 07:30 Albumin 3.1 g/dL (3.5-5.0) L 07/11/18 06:18 Albumin (PEP) 3.05 g/dL (3.80-4.90) L 07/08/18 07:30 Rrstl-3-Ajqtibtiv 0.54 g/dL (0.10-0.40) H 07/08/18 07:30 Iutqz-8-Ycxmcfbtv 0.73 g/dL (0.60-1.00) 07/08/18 07:30 Beta Globulins 0.71 g/dL (0.60-1.30) 07/08/18 07:30 Gamma Globulins 1.56 g/dL (0.70-1.50) H 07/08/18 07:30 PEP Interpretation SEE NOTE 07/08/18 07:30 Triglycerides 68 mg/dL (<150) 07/06/18 04:20 Cholesterol 90 mg/dL (<200) 07/06/18 04:20 LDL Cholesterol, Calc 47 mg/dL (0-99) 07/06/18 04:20 HDL Cholesterol 29 mg/dL (40-60) L 07/06/18 04:20 Vitamin B12 748.0 pg/mL (200.0-944.0) 07/08/18 07:30 Methylmalonic Acid 0.28 umol/L (<0.40) 07/08/18 07:30 Folate 15.2 ng/mL 07/08/18 07:30 TSH 5.960 mIU/L (0.465-4.680) H 07/05/18 17:02 Free T4 1.96 ng/dL (0.78-2.19) 07/05/18 17:02 Free T3 pg/mL 1.5 pg/ml (2.8-5.3) L 07/05/18 17:02 Urine Color Yellow 07/12/18 16:40 Urine Appearance Cloudy (Clear) H 07/12/18 16:40 Urine pH 5.0 (5.0-8.0) 07/12/18 16:40 Ur Specific [place] 1.018 (1.001-1.035) 07/12/18 16:40 Urine Protein 1+ (Negative) H 07/12/18 16:40 Urine Glucose (UA) Negative (Negative) 07/12/18 16:40 Urine Ketones Negative (Negative) 07/12/18 16:40 Urine Blood Small (Negative) H 07/12/18 16:40 Urine Nitrite Negative (Negative) 07/12/18 16:40 Urine Bilirubin Negative (Negative) 07/12/18 16:40 Urine Urobilinogen <2.0 mg/dL (<2.0) 07/12/18 16:40 Ur Leukocyte Esterase Negative (Negative) 07/12/18 16:40 Urine RBC 23 /hpf (0-5) H 07/12/18 16:40 Urine WBC 11 /hpf (0-5) H 07/12/18 16:40 Ur Squamous Epith Cells 29 /hpf (0-4) H 07/12/18 16:40 Amorphous Sediment Occasional /hpf (None) H 07/12/18 16:40 Hyaline Casts 1 /lpf (0-2) 07/12/18 16:40 Urine Mucus Rare /hpf (None) H 07/12/18 16:40 Ur Yeast w Hyphae Occasional /hpf (None) 07/12/18 16:40 Urine Yeast (Budding) Moderate /hpf (None) H 07/12/18 16:40 Stool Occult Blood Negative (Negative) 07/05/18 20:19 Random Vancomycin 18.5 ug/mL 07/14/18 04:14 IgG 1580.0 mg/dL (700.0-1600.0) 07/08/18 07:30 IgA 169.0 mg/dL (60.0-350.0) 07/08/18 07:30 IgM 146.0 mg/dL (40.0-280.0) 07/08/18 07:30 Serum MANDEEP Interpret SEE NOTE 07/08/18 07:30 [place] LC, Quant 3.18 mg/dL (0.33-1.94) H 07/08/18 07:30 Free Lambda LC, Quant 2.55 mg/dL (0.57-2.63) 07/08/18 07:30 Influenza Type A RNA Not Detected (Not Detectd) 07/05/18 21:00 Influenza Type B (PCR) Not Detected (Not Detectd) 07/05/18 21:00 Blood Type AB Positive 07/05/18 20:50 Blood Type Confirm AB Positive 07/05/18 17:02 Blood Type Recheck CABO Indicated 07/05/18 20:50 Antibody Screen NEGATIVE 07/05/18 20:50 Crossmatch See Detail 07/05/18 20:50 Spec Expiration Date 07/08/2018 - 234907/05/18 20:50 Microbiology 07/12/18 21:50 Blood Blood Culture Gram Stain - Preliminary Yeast species 07/12/18 21:50 Blood Blood Culture - Final 07/12/18 16:40 Urine,Catheterized Urine Culture - Preliminary 07/05/18 20:50 Blood Blood Culture - Final No Growth after 144 hours 07/06/18 16:45 Sputum Gram Stain - Final 07/06/18 16:45 Sputum Sputum Culture - Final 07/06/18 16:45 Urine,Catheterized Urine Culture - Final - Imaging and Cardiology Chest x-ray: report reviewed (COPD) Assessment and Plan (1) Acute and chronic respiratory failure ([id number]) Narrative/Plan: 77-year-old female that has a history of advanced COPD has presented with respiratory failure acute on chronic in nature. Now requiring BiPAP therapy has evidence of abnormalities including possibility of infiltrate although the original computed tomography scan at admission did not show evidence of lily pneumonia. She's had significant anemia also complicating her stay. Evidence of some candiduria is seen at this time. Patient is being treated with antibiotic therapy includes vancomycin and Zosyn for concerns to pneumonia in this compromised patient. Eraxis is added for treatment of the underlying fungal infection of the urine that has occurred. Her prognosis is poor and family is contemplating transition to comfort care. 07/14/2018 is on the patient had evidence of candiduria and other laboratory has reported to a positive blood culture for yeast in the blood. Eraxis assertive and started. Follow blood cultures requested for tomorrow. She does not have an dwelling intravenous catheter. His peripheral IVs. We'll continue the Eraxis for now, given her current medications would not be a good candidate for fluconazole. Family is continuing to consider overall care plan. Current Visit: Yes Status: Acute Code(s): J96.20 - ACUTE AND CHR RESP FAILURE, UNSP W HYPOXIA OR HYPERCAPNIA SNOMED Code(s): 95018291 (2) IgM lambda monoclonal gammopathy Current Visit: Yes Status: Acute Priority: Medium Code(s): D47.2 - MONOCLONAL GAMMOPATHY SNOMED Code(s): 824661002 (3) Pulmonary cachexia due to chronic obstructive pulmonary disease Current Visit: Yes Status: Acute Code(s): J44.9 - CHRONIC OBSTRUCTIVE PULMONARY DISEASE, UNSPECIFIED; R64 - CACHEXIA SNOMED Code(s): 212232698
[2018-07-14] MEDS: ANIDULAFUNGIN 100 MG in SODIUM CHLORIDE 0.9% 100 ML IVPB SCH (23:58)
--- NOTE | 2018-07-15 01:03 | PN ---
PROGRESS NOTE DATE OF SERVICE: 07/14/2018. HISTORY: The patient is more awake and alert. She has been off the BiPAP for 2 hours. She has been communicating with the family. On physical examination, respiratory rate is 22, pulse rate of 90, blood pressure 134/84, O2 saturation on 5 L by nasal cannula is 96%. Temperature is 98.1. PHYSICAL EXAM: HEENT reveals pupils are equal. Chest reveals decreased breath sounds with prolonged expiration. There is expiratory wheeze. Cardiovascular system reveals S1, S2. Abdomen is soft. There is trace pedal edema side. LABS: White count is 23.3, hemoglobin of 9.6, platelet count of 210,000. Sodium 143, potassium 3.7, chloride 105, bicarb 27, BUN 79, creatinine 1.83. Microbiological cultures are growing yeast species from her blood. IMPRESSION: 1. Chronic obstructive pulmonary disease with acute exacerbation. 2. Atrial fibrillation with RVR. 3. Terrie sepsis. 4. History of systemic sclerosis. At this point in time, would continue the patient on anti-fungal medication in the form of anidulafungin. Continue bronchodilators, IV steroids, montelukast, and inhaled steroids. Maintain nutrition. Her condition continues to be guarded. She is not to be considered for CPR or intubation. MMODL / IJN: [id number] /
[2018-07-15] MEDS: DEXTROSE 5%-0.45% NACL 1,000 ML IV SCH (06:36)
[2018-07-15 07:16] LABS: Glucose,Whole Blood 113 mg/dL (75-99)
[2018-07-15] MEDS: BUDESONIDE 1 MG/2 ML NEBU INHALATION SCH ×2 (07:16→19:35)
[2018-07-15] MEDS: FORMOTEROL FUMARATE 20 MCG/2 ML NEBU INHALATION SCH ×2 (07:16→19:35)
[2018-07-15] MEDS: IPRATROPIUM-ALBUTEROL 3 ML NEB INHALATION SCH ×4 (07:16→19:35)
[2018-07-15] MEDS: INSULIN ASPART (NovoLOG) 100 UNIT/ML VIAL SQ SCH ×4 (07:25→21:15)
[2018-07-15] MEDS: PIPERACILLIN-TAZOBACTAM 3.375 GM in SODIUM CHLORIDE 0.9% 100 ML IVPB SCH ×2 (08:20→19:59)
[2018-07-15 08:21] LABS: Calcium 9.6 mg/dL (8.4-10.2); Magnesium 2.7 mg/dL (1.6-2.3); Phosphorus 3.6 mg/dL (2.5-4.5)
[2018-07-15 08:34] LABS: Potassium 3.5 mmol/L (3.5-5.1)
[2018-07-15 08:40] LABS: Anisocytosis Moderate; HCT 35.5 % (34.0-46.0); HGB 11.4 gm/dL (11.4-16.0); Hypochromasia Marked; MCH 26.7 pg (25.0-35.0); MCHC 32.1 g/dL (31.0-37.0); MCV 83.1 fL (80.0-100.0); Mean Platelet Volume 9.1; Microcytosis Slight; Platelet Count 198 k/uL (150-450); Poikilocytosis Slight; RBC 4.27 m/uL (3.80-5.40); RDW 20.8 % (11.5-15.5); WBC 28.4 k/uL (3.8-10.6)
[2018-07-15] MEDS: FERROUS SULFATE 325 MG TAB PO SCH ×2 (09:07→16:32)
[2018-07-15] MEDS: VERAPAMIL SR 240 MG TABLET.ER PO SCH ×2 (09:08→21:24)
[2018-07-15] MEDS: CALCIUM CARBONATE 500 MG CHEWABLE PO PRN (09:17)
[2018-07-15] MEDS: POTASSIUM CHLORIDE ER 20 MEQ TAB.ER PO SCH ×2 (09:18→15:12)
[2018-07-15] MEDS: HEPARIN SODIUM,PORCINE 5,000 UNIT/ML 1 ML VIAL SQ SCH ×2 (09:18→16:32)
[2018-07-15] MEDS: PANTOPRAZOLE 40 MG TABLET PO SCH (09:18)
[2018-07-15] MEDS: DOCUSATE 100 MG CAP PO SCH ×2 (09:19→21:23)
[2018-07-15] MEDS: SODIUM FERRIC GLUCONAT-SUCROSE 125 MG in SODIUM CHLORIDE 0.9% 100 ML IVPB SCH (09:19)
[2018-07-15] MEDS: methylPREDNISolone SOD SUCCI 125 MG/2 ML VIAL IV SCH ×2 (09:19→16:35)
[2018-07-15 12:19] LABS: Glucose,Whole Blood 134 mg/dL (75-99)
--- NOTE | 2018-07-15 12:30 | CT ---
EXAMINATION TYPE: CT chest wo con DATE OF EXAM: 07/15/2018 COMPARISON: 07/06/2018 HISTORY: Increased shortness of breath CT DLP: 180.2 mGycm, Automated exposure control for dose reduction was used. CONTRAST: Performed injected with 0 mL of Isovue 300. TECHNIQUE: Axial images were obtained at 5 mm thick sections. Reconstructed images are reviewed on [employer] computer in the coronal plane. FINDINGS: Portion of the thyroid visualized is normal. Small bilateral pleural effusions have developed from the minimal pleural effusions from the comparis on. Compressive atelectasis is at the right base. Mild compressive atelectasis is adjacent to the lef t pleural effusion. No enlarged mediastinal or hilar adenopathy is evident. The heart size is mildly prominent. Moderat e to large pericardial effusion is present. Maximal depth is 2.0 cm. The ascending aorta diameter at the level of the main pulmonary artery is 3.4 cm. The main pulmonary artery diameter at the bifurca tion is 2.[address] sections are obtained through the upper abdomen. Ascites is present. IMPRESSIONS: 1. Increasing size small bilateral pleural effusions. Adjacent compressive atelectasis is present. 2. Mild cardiomegaly. 3. Moderate pericardial effusion. 4. Ascites.
[2018-07-15] MEDS: DILTIAZEM 125 MG in SODIUM CHLORIDE 0.9% 100 ML IV SCH (13:16)
--- NOTE | 2018-07-15 13:32 | P.PN ---
Subjective Progress Note Date: 07/15/18 07/15/2018: Patient seen and examined in the intensive care unit with nursing staff at bedside. The patient just returned from CT of the chest. The patient is having abdominal distention and pain. She has not had much to eat because of this. She did have a bowel movement overnight. The patient has been hemodynamically stable. She was off of BiPAP from 3 AM until 11 AM. She's been placed on BiPAP again so that she can take a nap. CT of the chest shows small bilateral pleural effusions, mild cardiomegaly, moderate pericardial effusion, ascites. Objective - Vital Signs Vital signs: Vital Signs Temp 97.8 F 07/15/18 12:00 Pulse 79 07/15/18 13:00 Resp 16 07/15/18 13:00 BP 145/80 07/15/18 13:00 Pulse Ox 97 07/15/18 12:00 Intake & Output 07/14/18 07/15/18 07/15/18 18:59 06:59 18:59 Intake Total 925 965.667 685 Output Total 845 755 325 Balance 80 210.667 360 Weight 57.3 kg Intake: IV 800 850 300 Anidulafungin 100 mg In 100 Sodium Chloride 0.9% 100 ml @ 84 mls/hr IVPB DAILY @2100 [facility] Rx#:[id number] Dextrose 5%-0.45% NaCl 1, 600 650 300 000 ml @ 50 mls/hr IV . Q20H [facility] Rx#:[id number] Piperacillin-Tazobactam 3 200 100 .375 gm In Sodium Chloride 0.9% 100 ml @ 25 mls/hr IVPB Q12HR [facility] Rx #:[id number] Intake, IV Titration 125 115.667 125 Amount Diltiazem 125 mg In 125 115.667 125 Sodium Chloride 0.9% 100 ml @ 10 MG/HR 10 mls/hr IV .[id number] [facility] Rx#: [id number] Oral 260 Output: Urine 845 755 325 Other: Voiding Method Indwelling Catheter Indwelling Catheter Indwelling Catheter - Exam Gen.: Patient is somnolent but arousable to verbal stimuli, on BiPAP, resting comfortably Cardiovascular: Regular rate and rhythm, S1/S2 Lungs: Diminished breath sounds bilaterally Abdomen: Soft nontender nondistended positive bowel sounds Extremities: No edema - Labs CBC & Chem 7: 07/15/18 07:21 07/15/18 07:21 Labs: Abnormal Lab Results - Last 24 Hours (Table) 07/14/18 07/14/18 07/15/18 Range/Units 17:08 20:56 07:13 WBC (3.8-10.6) k/uL RDW (11.5-15.5) % Sodium (137-145) mmol/L Chloride (98-107) mmol/L BUN (7-17) mg/dL Creatinine (0.52-1.04) mg/dL Glucose (74-99) mg/dL POC Glucose (mg/dL) 136 H 155 H 113 H (75-99) mg/dL Magnesium (1.6-2.3) mg/dL 07/15/18 07/15/18 07/15/18 Range/Units 07:21 07:21 12:17 WBC 28.4 H (3.8-10.6) k/uL RDW 20.8 H (11.5-15.5) % Sodium 146 H (137-145) mmol/L Chloride 111 H (98-107) mmol/L BUN 70 H (7-17) mg/dL Creatinine 1.46 H (0.52-1.04) mg/dL Glucose 153 H (74-99) mg/dL POC Glucose (mg/dL) 134 H (75-99) mg/dL Magnesium 2.7 H (1.6-2.3) mg/dL Microbiology - Last 24 Hours (Table) 07/12/18 16:40 Urine Culture - Final Urine,Catheterized Terrie albicans 07/12/18 21:50 Blood Culture Gram Stain - Preliminary Blood Blood Culture - Preliminary Terrie albicans 07/12/18 21:50 Blood Culture - Final Blood Assessment and Plan Assessment: Acute hypoxic and hypercapnic respiratory failure, requiring NIPPV Acute exacerbation of COPD, severe, FEV1 32% of predicted Small bilateral pleural effusions Moderate pericardial effusion Cadida urine and blood stream infection Active tobacco abuse Lactic acidosis, multifactorial 3 out of 4 SIRS present on admission, sepsis Hypoglycemia New onset atrial fibrillation Acute symptomatic anemia, unclear etiology NSTEMI ALFIE, unsure of baseline creatinine History of RA and systemic sclerosis Continue bipap support, family has made the decision for DNR/DNI Rate control per cardiology Transfuse for hemoglobin <7 Solumedrol 40 Q8 IV iron per nephrology Levaquin, vanco, Zosyn, anidulafungin per ID D5W decrease to 20 cc/hr due to increasing pleural and pericardial effusions Nicolette Puldeborah, Jeaneth, Perforomist Smoking cessation O2 to maintain saturation > or = 90% GI and DVT prophylaxis: Subcu heparin, Protonix Monitor urine output and renal function Abdominal XRay now Continue to monitor in the ICU overnight
--- NOTE | 2018-07-15 14:04 | PN ---
PROGRESS NOTE The patient is seen for followup for acute kidney injury. She is currently seen in the ICU. Patient is comfortable. She is complaining of mild shortness of breath. She is off the BiPAP now. Renal function has improved with creatinine down from 2.35 to 1.4 now. The patient did receive did receive IV contrast for CAT scan on 07/06/2018. She has had good urine output. Patient was admitted for COPD exacerbation. PHYSICAL EXAMINATION: On examination this morning, blood pressure was 153/76, heart rate 78 per minute. Patient is afebrile. EXAMINATION OF THE HEART: S1, S2. EXAMINATION OF THE LUNGS: Bilateral breath sounds are heard. Abdomen is soft, nontender. Examination of lower extremities shows no significant edema. 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 LABS: Labs show sodium 146, potassium 3.5, BUN 70, serum creatinine 1.46. Hemoglobin 11.4. ASSESSMENT: 1. Acute kidney injury, acute tubular necrosis, nonoliguric, currently improving. 2. Disproportionately elevated BUN secondary to steroids. 3. Acute chronic obstructive pulmonary disease exacerbation, somewhat improved. 4. Severe iron deficiency, maintained on IV iron. 5. Atrial fibrillation, currently with controlled ventricular response. 6. Mild hypernatremia. The patient is encouraged to increase oral free water intake. She is maintained on half-normal saline. 7. Hypoglycemia. Maintained on D5 0.45 and patient is encouraged to increase her oral intake. PLAN: Continue gentle IV hydration. Repeat labs in a.m. Avoid nephrotoxic agents. Replace potassium. MMODL / IJN: [id number] /
--- NOTE | 2018-07-15 14:29 | XR ---
EXAMINATION TYPE: XR abdomen acute w cxr DATE OF EXAM: 07/15/2018 COMPARISON: Chest CT same date HISTORY: Dyspnea TECHNIQUE: Supine, upright, and frontal chest views of the abdomen and chest are obtained. FINDINGS: Bilateral pleural effusions and associated atelectasis are again noted. Aorta is dense. He art is enlarged. There are gas-distended loops of small and large bowel in the mid abdomen. There is pneumoperitoneum noted on the CT. There are overlying leads present. No mass effects are seen. No unusual calcifications. Vascular calcifications are present in the pelvis. IMPRESSION: Difficult to exclude bowel obstruction. Probable bibasilar effusions and associated atelectasis. Pneu moperitoneum noted on the CT. Results relayed to patient's nurse Jeanne at the time of interpretat ion at exam in the ICU.
[2018-07-15] MEDS: VANCOMYCIN 1,000 MG in SODIUM CHLORIDE 0.9% 250 ML IVPB SCH (14:56)
[2018-07-15] MEDS: LEVOFLOXACIN 250 MG TAB PO SCH (15:10)
--- NOTE | 2018-07-15 15:29 | P.PN ---
Subjective Progress Note Date: 07/15/18 Principal diagnosis: Multiple Myeloma Hemoglobin stable today and renal function improved. Objective - Vital Signs Vital signs: Vital Signs Temp 97.8 F 07/15/18 12:00 Pulse 79 07/15/18 13:00 Resp 16 07/15/18 13:00 BP 145/80 07/15/18 13:00 Pulse Ox 97 07/15/18 12:00 Intake & Output 07/14/18 07/15/18 07/15/18 18:59 06:59 18:59 Intake Total 925 965.667 685 Output Total 845 755 325 Balance 80 210.667 360 Weight 57.3 kg 57.3 kg Intake: IV 800 850 300 Anidulafungin 100 mg In 100 Sodium Chloride 0.9% 100 ml @ 84 mls/hr IVPB DAILY @2100 [facility] Rx#:[id number] Dextrose 5%-0.45% NaCl 1, 600 650 300 000 ml @ 50 mls/hr IV . Q20H [facility] Rx#:[id number] Piperacillin-Tazobactam 3 200 100 .375 gm In Sodium Chloride 0.9% 100 ml @ 25 mls/hr IVPB Q12HR [facility] Rx #:[id number] Intake, IV Titration 125 115.667 125 Amount Diltiazem 125 mg In 125 115.667 125 Sodium Chloride 0.9% 100 ml @ 10 MG/HR 10 mls/hr IV .[id number] [facility] Rx#: [id number] Oral 260 Output: Urine 845 755 325 Other: Voiding Method Indwelling Catheter Indwelling Catheter Indwelling Catheter - Exam Gen: Awakens and responds, Flight of ideas, Mild respiratory Distress with fast communication Head: NC/NT Neck: Supple, Midline No adenopathy on palpation axilary or cervical Denition poor, no thrush Lungs: Wheezes expiratory and Diminished throughout, Increased effort noted Heart: Irreg, Irreg Abdomen: Soft, ND, N - Labs CBC & Chem 7: 07/15/18 07:21 07/15/18 07:21 Labs: Abnormal Lab Results - Last 24 Hours (Table) 07/14/18 07/14/18 07/15/18 Range/Units 17:08 20:56 07:13 WBC (3.8-10.6) k/uL RDW (11.5-15.5) % Sodium (137-145) mmol/L Chloride (98-107) mmol/L BUN (7-17) mg/dL Creatinine (0.52-1.04) mg/dL Glucose (74-99) mg/dL POC Glucose (mg/dL) 136 H 155 H 113 H (75-99) mg/dL Magnesium (1.6-2.3) mg/dL 07/15/18 07/15/18 07/15/18 Range/Units 07:21 07:21 12:17 WBC 28.4 H (3.8-10.6) k/uL RDW 20.8 H (11.5-15.5) % Sodium 146 H (137-145) mmol/L Chloride 111 H (98-107) mmol/L BUN 70 H (7-17) mg/dL Creatinine 1.46 H (0.52-1.04) mg/dL Glucose 153 H (74-99) mg/dL POC Glucose (mg/dL) 134 H (75-99) mg/dL Magnesium 2.7 H (1.6-2.3) mg/dL Microbiology - Last 24 Hours (Table) 07/12/18 16:40 Urine Culture - Final Urine,Catheterized Terrie albicans 07/12/18 21:50 Blood Culture Gram Stain - Preliminary Blood Blood Culture - Preliminary Terrie albicans 07/12/18 21:50 Blood Culture - Final Blood Assessment and Plan (1) Normocytic anemia Current Visit: Yes Status: Acute Code(s): D64.9 - ANEMIA, UNSPECIFIED SNOMED Code(s): 651879493 (2) Acute chronic obstructive pulmonary disease with respiratory distress Current Visit: Yes Status: Acute Code(s): J44.9 - CHRONIC OBSTRUCTIVE PULMONARY DISEASE, UNSPECIFIED; R06.03 - ACUTE RESPIRATORY DISTRESS SNOMED Code(s): 871443840 (3) Leukocytosis Current Visit: Yes Status: Acute Priority: High Code(s): D72.829 - ELEVATED WHITE BLOOD CELL COUNT, UNSPECIFIED SNOMED Code(s): 998972909 (4) Rheumatoid arthritis Current Visit: Yes Status: Acute Code(s): M06.9 - RHEUMATOID ARTHRITIS, UNSPECIFIED SNOMED Code(s): 00343610 (5) SIRS (systemic inflammatory response syndrome) Current Visit: Yes Status: Acute Code(s): R65.10 - SIRS OF NON-INFECTIOUS ORIGIN W/O ACUTE ORGAN DYSFUNCTION SNOMED Code(s): 419426575 (6) Atrial fibrillation with RVR Current Visit: Yes Status: Acute Code(s): I48.91 - UNSPECIFIED ATRIAL FIBRILLATION SNOMED Code(s): 505619331029928 Plan: Assessment and Recommendations: IgM lambda monoclonal gammopathy - IgM lambda paraprotein with an M-spike of 0.34 g/dl. 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 Not urgent, can be done as an outpatient. Anticipate lab monitoring initially before procedure meliza nned. - No acute intervention needed. - Acute Current condition is not related, incidental finding - [employer] did review the above with the patient this week. Remediation and Reassurance her that we would continue to monitor her labs as appropriate was again given today Acute on Chronic Normocytic Anemia: - Likely Multifactorial with components of: * Iron Deficiency Component (Saturation 5%, Iron = 19), Ferritin 109 - Increased secondary to Inflammation * Chronic Inflammation/Illness * Bone Marrow Suppression secondary to Antirheumatic Agent - Monitor Daily CBC and Transfuse with PRBC for Hemoglobin 7 or less - Work-up for monoclonal proteins - new diagnosis made IgM Lambda Monoclonal Gammopathy Acute on Chronic Hypoxic Respiratory Failure - CTA reviewed, no Pulmonary Embolism - Tree bud appearance mentioned - ?infectious - USP tobacco abuse/dependence, COPD - Pulmonary Following SIRS 3/4: - Guillory Cultures - Supportive Care and management ICU Team Rheumatoid Arthritis: - FOllows with Rheumatology - Treatment with PLaquenil, currently on hold Leukocytosis - Reactive - Monitor CBC, noted to be neutrophils and likely reactive from infection. No acute intervention, patient is being seen and treated by Infectious Disease. New onset Afib with RVR: - Cardiology and ICU Management
--- NOTE | 2018-07-15 16:35 | P.GSCN ---
History of Present Illness Consult date: 07/15/18 History of present illness: This is a 77-year-old female who presented emergency department complaining of shortness of breath. She initially presented on 07/05/2018. She is noted to have a history of chronic COPD and on presentation was noted to have a cough. She is an active smoker. She does follow with pulmonology, Dr. ELVIS Medina. She is also known to have a history of pulmonary hypertension. She has been treated for her COPD exacerbation as an inpatient. She recently was transferred to the intensive care unit due to worsening of her symptoms and altered mental status. At that time, the patient was placed on a BiPAP and family was noted to make the patient DO NOT RESUSCITATE and DO NOT INTUBATE. The patient began to improve mildly. She was found to have abdominal distention and complained of abdominal pain today. Abdominal x-ray was performed and CT of the chest was also performed. The CT of the chest did reveal pneumoperitoneum noted just below the right diaphragm. On exam, the patient did complain of pain in the right upper quadrant of her abdomen. She is also noted to be distended. She denies any emesis episodes but does complain of nausea. She denies any previous abdominal surgery. The patient's two daughters and Son are at bedside throughout my exam. Review of Systems All systems: negative Past Medical History Past Medical History: COPD, Eye Disorder, GERD/Reflux, Rheumatoid Arthritis (RA) Additional Past Medical History / Comment(s): Scleroderma, Cataracts History of Any Multi-Drug Resistant Organisms: None Reported Past Surgical History: Tonsillectomy, Tubal Ligation Additional Past Surgical History / Comment(s): Colonoscopy, R cataract surgery in the past. Past Anesthesia/Blood Transfusion Reactions: No Reported Reaction Past Psychological History: Depression Additional Psychological History / Comment(s): FROM CANCER. Smoking Status: Current every day smoker Past Alcohol Use History: Rare Past Drug Use History: None Reported - Past Family History Mother Family Medical History: Cancer Additional Family Medical History / Comment(s): OVARIAN. Medications and Allergies Home Medications Medication Instructions Recorded Confirmed Type Hydroxychloroquine Sulfate 200 mg PO BID 12/25/13 07/05/18 History [Plaquenil] Budesonide [Pulmicort] 0.5 mg INHALATION RT-BID 03/26/19 03/26/19 History Montelukast [Singulair] 10 mg PO HS 07/05/18 07/05/18 History Allergies Allergy/AdvReac Type Severity Reaction Status Date / Time Sulfa (Sulfonamide Allergy Rash/Hives Verified 07/05/18 17:26 Antibiotics) Surgical - Exam Osteopathic Statement: *. No significant issues noted on an osteopathic structural exam other than those noted in the History and Physical/Consult. Vital Signs Temp Pulse Resp BP Pulse Ox 97.8 F 163 H 30 H 136/110 89 L 07/05/18 16:50 07/05/18 16:50 07/05/18 16:50 07/05/18 16:50 07/05/18 16:50 - General well nourished, no distress - Eyes normal ocular movement - Neck trachea midline - Respiratory Mild difficulty with respiration, nasal cannula in place - Abdomen Soft, moderately distended, pain to palpation, specifically in the right upper quadrant, mild rebound tenderness, no guarding, tympany on percussion - Neurologic normal sensation - Psychiatric oriented to time, oriented to person, oriented to place Results - Labs 07/15/18 07:21 07/15/18 07:21 Abnormal Lab Results - Last 24 Hours (Table) 07/14/18 07/14/18 07/15/18 Range/Units 17:08 20:56 07:13 WBC (3.8-10.6) k/uL RDW (11.5-15.5) % Sodium (137-145) mmol/L Chloride (98-107) mmol/L BUN (7-17) mg/dL Creatinine (0.52-1.04) mg/dL Glucose (74-99) mg/dL POC Glucose (mg/dL) 136 H 155 H 113 H (75-99) mg/dL Magnesium (1.6-2.3) mg/dL 07/15/18 07/15/18 07/15/18 Range/Units 07:21 07:21 12:17 WBC 28.4 H (3.8-10.6) k/uL RDW 20.8 H (11.5-15.5) % Sodium 146 H (137-145) mmol/L Chloride 111 H (98-107) mmol/L BUN 70 H (7-17) mg/dL Creatinine 1.46 H (0.52-1.04) mg/dL Glucose 153 H (74-99) mg/dL POC Glucose (mg/dL) 134 H (75-99) mg/dL Magnesium 2.7 H (1.6-2.3) mg/dL Microbiology - Last 24 Hours (Table) 07/12/18 16:40 Urine Culture - Final Urine,Catheterized Terrie albicans 07/12/18 21:50 Blood Culture Gram Stain - Preliminary Blood Blood Culture - Preliminary Terrie albicans 07/12/18 21:50 Blood Culture - Final Blood Diabetes panel 07/15/18 Range/Units 07:21 Sodium 146 H (137-145) mmol/L Potassium 3.5 (3.5-5.1) mmol/L Chloride 111 H (98-107) mmol/L Carbon Dioxide 28 (22-30) mmol/L BUN 70 H (7-17) mg/dL Creatinine 1.46 H (0.52-1.04) mg/dL Glucose 153 H (74-99) mg/dL Calcium 9.6 (8.4-10.2) mg/dL Calcium panel 07/15/18 Range/Units 07:21 Calcium 9.6 (8.4-10.2) mg/dL Phosphorus 3.6 (2.5-4.5) mg/dL Pituitary panel 07/15/18 Range/Units 07:21 Sodium 146 H (137-145) mmol/L Potassium 3.5 (3.5-5.1) mmol/L Chloride 111 H (98-107) mmol/L Carbon Dioxide 28 (22-30) mmol/L BUN 70 H (7-17) mg/dL Creatinine 1.46 H (0.52-1.04) mg/dL Glucose 153 H (74-99) mg/dL Calcium 9.6 (8.4-10.2) mg/dL Adrenal panel 07/15/18 Range/Units 07:21 Sodium 146 H (137-145) mmol/L Potassium 3.5 (3.5-5.1) mmol/L Chloride 111 H (98-107) mmol/L Carbon Dioxide 28 (22-30) mmol/L BUN 70 H (7-17) mg/dL Creatinine 1.46 H (0.52-1.04) mg/dL Glucose 153 H (74-99) mg/dL Calcium 9.6 (8.4-10.2) mg/dL - Imaging Abdominal x-ray: report reviewed, image reviewed CT scan - chest: report reviewed, image reviewed Assessment and Plan (1) Pneumoperitoneum Narrative/Plan: 78-year-old female with pneumoperitoneum - I had a very long discussion with the patient and the patient's family about her current finding of pneumoperitoneum. Due to the pneumoperitoneum, surgery is an option for the patient. Due to the patient's current clinical status, she is very high risk for surgery and for prolonged intubation after surgery due to chronic COPD. The Patient is noted to have a poor prognosis due to her current clinical condition along with finding of pneumoperitoneum. I did discuss all of these details with the patient's family in depth. The patient's daughter also did call the patient's granddaughter who does have a selective care in critical care background. The family did voiced their understanding of the patient's clinical condition and risks of surgery along with risk of prolonged intubation along with risk of during or after surgical procedure. The family has discussed amongst themselves and with the patient and has opted for surgical intervention. We will plan for expiratory laparotomy and possible bowel resection along with possible ostomy. Further recommendations after surgery. Current Visit: Yes Status: Acute Code(s): K66.8 - OTHER SPECIFIED DISORDERS OF PERITONEUM SNOMED Code(s): 09131195
[2018-07-15] MEDS ORDERED: LACTATED RINGERS 1,000 ML IV ONE ×3 (17:12→19:01)
[2018-07-15] MEDS ORDERED: HYDROmorphone (PF) 1 MG/ML ONE (17:12)
[2018-07-15] MEDS ORDERED: fentaNYL (PF) 50 MCG/ML 2 ML AMP ONE (17:12)
[2018-07-15] MEDS ORDERED: LIDOCAINE 1% INJ 10MG/ML (20 ML MDV) ONE (17:12)
[2018-07-15] MEDS ORDERED: ETOMIDATE 2 MG/ML 10 ML VIAL ONE (17:12)
[2018-07-15] MEDS ORDERED: SUCCINYLCHOLINE CHLORIDE 100 MG/5 ML SYR IV ONE (17:12)
[2018-07-15] MEDS ORDERED: MIDAZOLAM 2 MG/2 ML VIAL ONE (17:12)
[2018-07-15] MEDS ORDERED: ROCURONIUM BROMIDE 10 MG/ML 10 ML VIAL IV ONE (17:12)
--- NOTE | 2018-07-15 19:33 | P.OP ---
Date of Procedure: 07/15/18 Preoperative Diagnosis: Pneumoperitoneum Postoperative Diagnosis: Perforated diverticulitis Intra-abdominal turbid fluid and stool Ileus Procedure(s) Performed: Exploratory laparotomy Sigmoid colectomy with end ostomy (Andrew's procedure) Anesthesia: ADELSO Surgeon: John Negro Pathology: other (Sigmoid colon) Condition: critical Disposition: ICU Indications for Procedure: 78-year-old female was found to have pneumoperitoneum on CT of the chest. On exam, the patient was distended with some abdominal pain and some rebound tenderness. Secondary to these findings, surgery was opted for by the patient and the patient's family. The patient was noted to be very high risk due to her chronic COPD and atrial fibrillation. She also was noted to have a chronic smoking history. I did explain all of this to the patient and the patient's family prior to surgery. The patient was explained the risks, benefits and alternatives of the procedure did provide consent understanding the risk of . Operative Findings: Perforated sigmoid colon with many diverticuli Large amount of intra-abdominal stool and turbid fluid Dilated small bowel and stomach, ileus Description of Procedure: The patient was brought into the operating suite and placed in supine position on the operating table. Sedation was provided by anesthesia and the patient underwent endotracheal to patient. The patient was then prepped and draped in regular sterile fashion. Anesthesia did place a right IJ central line along with left arterial line during the procedure. A midline incision was made dissection was carried to the fascia. The fascia was incised along the length of the incision. Immediate expulsion of turbid fluid was noted. The stomach and small bowel were noted to be severely dilated. Nasogastric tube was placed. The abdomen was then explored. There was a large amount of stool noted in the pelvis. Copious amounts of irrigation was used and stool was cleared. The sigmoid colon was visualized and a perforation was noted amongst multiple divert iculi. The rest of the abdomen was examined. The small bowel was run from the ligament of Treitz towards the cecum. There were notable exudate findings on the small bowel that were slowly peeled away with warm sponges. The colon was also noted to be quite distended. The small bowel was then packed into the right upper quadrant and a Bookwalter was put into place. A proximal and distal transection point was decided on the sigmoid colon. A window was created at the distal point of transection in the mesentery. A 60 mm purple staple load was fired across the colon. LigaSure device was then used to dissect the colon from the mesentery towards the proximal transection point. Once this point was reached transection was made with a stapler device of 60 mm purple load. At this point the specimen was handed off. Hemostasis was noted to be maintained. Dissection was carried along the white line of Toldt to free the descending colon to provide an adequate amount of colon to create a ostomy. Once an adequate amount was noted, and anticipated ostomy site was picked on the left side of the abdomen. Dissection was carried towards the fascia. The fascia was incised in a cruciate manner and the muscle was split. The peritoneum was then divided and the anticipated stoma was delivered through this site. At this point and proximally 4 L of saline was used to irrigate the abdomen very well. The Bookwalter was removed and the bowel was placed back into position. A midline incision was closed with a running looped PDS suture. Skin rubina were then placed. The ostomy was matured in a standard Debbie fashion. Due to the patient's chronic COPD, smoking and steroid use, the skin and tissue in this area was noted to be quite thin and friable. Multiple additional 3-0 Vicryl sutures were used to secure the Debbie fashioned ostomy. The patient was noted to be in critical condition throughout the case and was returned back to the intensive care unit in critical condition and intubated. I did discuss the case in depth with the patient's family. All questions were answered.
[2018-07-15 20:23] LABS: ABG Base Excess 3.5 mmol/L; ABG HCO3 29 mmol/L (21-25); ABG Oxygen Saturation 92.9 % (94-97); ABG PCO2 55 mmHg (35-45); ABG PH 7.34 (7.35-7.45); ABG PO2 72 mmHg (83-108); ABG TCO2 31 mmol/L (19-24)
[2018-07-15] MEDS: PROPOFOL 1,000 MG in EMPTY BAG 1 BAG IV SCH (20:30)
[2018-07-15] MEDS ORDERED: DEXTROSE 50%-WATER 50 ML SYRINGE IVP ONE (21:10)
[2018-07-15 21:11] LABS: Glucose,Whole Blood 54 mg/dL (75-99)
[2018-07-15] MEDS ORDERED: DEXTROSE 50%-WATER 50 ML SYRINGE IVP STA (21:14)
[2018-07-15] MEDS: ANIDULAFUNGIN 100 MG in SODIUM CHLORIDE 0.9% 100 ML IVPB SCH (21:23)
[2018-07-15] MEDS: MONTELUKAST 10 MG TAB PO SCH (21:23)
[2018-07-15 21:25] LABS: Glucose,Whole Blood 197 mg/dL (75-99)
--- NOTE | 2018-07-15 23:04 | P.PN ---
Subjective Progress Note Date: 07/15/18 77-year-old female presented hospital 8 days ago which point in time she was with severe shortness of breath and was having difficulty with acute exacerbation of COPD and had developed difficulties with atrial fibrillation with a rapid ventricular response and concerns pneumonia. She subsequently has been treated was having some improvement. However. Just today she had acute decompensation and again had atrial fibrillation with rapid ventricular response and was brought to the intensive care unit where she's been treated with BiPAP, Cardizem drip and supportive care. It is noted from documentation that the family is contemplating further reduction of level of care but for now she will not be intubated. The patient is able to relate to no further history given that she has BiPAP in place and is remaining with significant dyspnea. 07/14/2018 patient is feeling better today. BiPAP is off and she has nasal cannula is eating her meal without difficulties. She received a carrot cake today for her birthday she turned 78 today. Her family members are present and believe that she is definitely more comfortable. Patient vocalizes no new complaints. Pain is under good control. 07/15/2018 initially the patient had worsening dyspnea. It with that further interventions occurred with a computed tomography scan. There was an evidence of acute changes and abdominal flat plate was performed. This confirmed the pneumoperitoneum. Surgical consult occurred the patient's been taken the operating room for the exploratory laparotomy with evidence of the perforated sigmoid colon, colostomy has been performed. Objective - Vital Signs Vital signs: Vital Signs Temp 95.8 F L 07/15/18 21:00 Pulse 87 07/15/18 22:00 Resp 14 07/15/18 22:00 BP 112/64 07/15/18 22:00 Pulse Ox 97 07/15/18 22:00 Intake & Output 07/15/18 07/15/18 07/16/18 06:59 18:59 06:59 Intake Total 375.485 6159 250 Output Total 755 520 295 Balance 629.754 7899 -45 Weight 55.5 kg Intake: IV 850 2500 250 Anidulafungin 100 mg In 100 100 Sodium Chloride 0.9% 100 ml @ 84 mls/hr IVPB DAILY @2100 [facility] Rx#:[id number] Dextrose 5%-0.45% NaCl 1, 650 500 150 000 ml @ 150 mls/hr IV . Q6H40M [facility] Rx#:[id number] Piperacillin-Tazobactam 3 100 .375 gm In Sodium Chloride 0.9% 100 ml @ 25 mls/hr IVPB Q12HR [facility] Rx #:[id number] Intake, IV Titration 115.667 125 Amount Diltiazem 125 mg In 115.667 125 Sodium Chloride 0.9% 100 ml @ 10 MG/HR 10 mls/hr IV .[id number] [facility] Rx#: [id number] Oral 260 Output: Urine 755 520 195 Estimated Blood Loss 100 Other: Voiding Method Indwelling Catheter Indwelling Catheter ABP, PAP, CO, CI - Last Documented Arterial Blood Pressure 118/57 - Exam 77-year-old woman cachectic HEENT: Anicteric conjunctiva are pink and moist nasal mucosa grossly intact without significant lesions, oral mucosa is dry but no lesions Neck: The neck is supple without significant lymphadenopathy or thyromegaly. Lungs: Symmetrical air entry is noted few basilar crackles and wheezing Heart: Irregular with an audible S4 2/6 systolic murmur that does not radiate PMI was nondisplaced Abdomen: Scaphoid postoperative, no bowel sounds, no palpable mass or rigidity Extremities: Extremities show the extensive muscular wasting, lower extremity edema is minimal feet are warm and no acute ulcerations are seen Neuro: Patient is awake - Labs CBC & Chem 7: 07/15/18 07:21 07/15/18 07:21 Labs: Abnormal Lab Results - Last 24 Hours (Table) 07/15/18 07/15/18 07/15/18 Range/Units 07:13 07:21 07:21 WBC 28.4 H (3.8-10.6) k/uL RDW 20.8 H (11.5-15.5) % ABG pH (7.35-7.45) ABG pCO2 (35-45) mmHg ABG pO2 (83-108) mmHg ABG HCO3 (21-25) mmol/L ABG Total CO2 (19-24) mmol/L ABG O2 Saturation (94-97) % Sodium 146 H (137-145) mmol/L Chloride 111 H (98-107) mmol/L BUN 70 H (7-17) mg/dL Creatinine 1.46 H (0.52-1.04) mg/dL Glucose 153 H (74-99) mg/dL POC Glucose (mg/dL) 113 H (75-99) mg/dL Magnesium 2.7 H (1.6-2.3) mg/dL 07/15/18 07/15/18 07/15/18 Range/Units 12:17 20:21 21:08 WBC (3.8-10.6) k/uL RDW (11.5-15.5) % ABG pH 7.34 L (7.35-7.45) ABG pCO2 55 H (35-45) mmHg ABG pO2 72 L (83-108) mmHg ABG HCO3 29 H (21-25) mmol/L ABG Total CO2 31 H (19-24) mmol/L ABG O2 Saturation 92.9 L (94-97) % Sodium (137-145) mmol/L Chloride (98-107) mmol/L BUN (7-17) mg/dL Creatinine (0.52-1.04) mg/dL Glucose (74-99) mg/dL POC Glucose (mg/dL) 134 H 54 L (75-99) mg/dL Magnesium (1.6-2.3) mg/dL 07/15/18 Range/Units 21:24 WBC (3.8-10.6) k/uL RDW (11.5-15.5) % ABG pH (7.35-7.45) ABG pCO2 (35-45) mmHg ABG pO2 (83-108) mmHg ABG HCO3 (21-25) mmol/L ABG Total CO2 (19-24) mmol/L ABG O2 Saturation (94-97) % Sodium (137-145) mmol/L Chloride (98-107) mmol/L BUN (7-17) mg/dL Creatinine (0.52-1.04) mg/dL Glucose (74-99) mg/dL POC Glucose (mg/dL) 197 H (75-99) mg/dL Magnesium (1.6-2.3) mg/dL Microbiology - Last 24 Hours (Table) 07/12/18 16:40 Urine Culture - Final Urine,Catheterized Terrie albicans 07/12/18 21:50 Blood Culture Gram Stain - Preliminary Blood Blood Culture - Preliminary Terrie albicans Laboratory Results WBC 28.4 k/uL (3.8-10.6) H 07/15/18 07:21 RBC 4.27 m/uL (3.80-5.40) 07/15/18 07:21 Hgb 11.4 gm/dL (11.4-16.0) 07/15/18 07:21 Hct 35.5 % (34.0-46.0) 07/15/18 07:21 MCV 83.1 fL (80.0-100.0) 07/15/18 07:21 MCH 26.7 pg (25.0-35.0) 07/15/18 07:21 MCHC 32.1 g/dL (31.0-37.0) 07/15/18 07:21 RDW 20.8 % (11.5-15.5) H 07/15/18 07:21 Plt Count 198 k/uL (150-450) 07/15/18 07:21 Neutrophils % 94 % 07/12/18 06:13 Lymphocytes % 2 % 07/12/18 06:13 Monocytes % 3 % 07/12/18 06:13 Eosinophils % 1 % 07/12/18 06:13 Basophils % 0 % 07/12/18 06:13 Neutrophils # 22.9 k/uL (1.3-7.7) H 07/12/18 06:13 Lymphocytes # 0.5 k/uL (1.0-4.8) L 07/12/18 06:13 Monocytes # 0.7 k/uL (0-1.0) 07/12/18 06:13 Eosinophils # 0.2 k/uL (0-0.7) 07/12/18 06:13 Basophils # 0.0 k/uL (0-0.2) 07/12/18 06:13 Hypochromasia Marked 07/15/18 07:21 Poikilocytosis Slight 07/15/18 07:21 Anisocytosis Moderate 07/15/18 07:21 Microcytosis Slight 07/15/18 07:21 ESR 2 mm/hr (0-20) 07/08/18 05:30 Retic Count 2.8 % (0.5-2.0) H 07/08/18 05:30 Haptoglobin 220.0 mg/dL (31.2-198.0) H 07/07/18 04:30 PT 10.7 sec (9.0-12.0) 07/07/18 13:26 INR 1.0 (<1.2) 07/07/18 13:26 APTT 23.1 sec (22.0-30.0) 07/07/18 13:26 D-Dimer 1.61 mg/L FEU (<0.60) H 07/07/18 13:26 Sample Site delmy 07/15/18 20:21 ABG pH 7.34 (7.35-7.45) L 07/15/18 20:21 ABG pCO2 55 mmHg (35-45) H 07/15/18 20:21 ABG pO2 72 mmHg (83-108) L 07/15/18 20:21 ABG HCO3 29 mmol/L (21-25) H 07/15/18 20:21 ABG Total CO2 31 mmol/L (19-24) H 07/15/18 20:21 ABG O2 Saturation 92.9 % (94-97) L 07/15/18 20:21 ABG Base Excess 3.5 mmol/L 07/15/18 20:21 Christiano Test Yes 07/15/18 20:21 FiO2 50 % 07/15/18 20:21 Sodium 146 mmol/L (137-145) H 07/15/18 07:21 Potassium 3.5 mmol/L (3.5-5.1) 07/15/18 07:21 Chloride 111 mmol/L (98-107) H 07/15/18 07:21 Carbon Dioxide 28 mmol/L (22-30) 07/15/18 07:21 Anion Gap 7 mmol/L 07/15/18 07:21 BUN 70 mg/dL (7-17) H 07/15/18 07:21 Creatinine 1.46 mg/dL (0.52-1.04) H 07/15/18 07:21 Est GFR (CKD-EPI)AfAm 40 (>60 ml/min/1.73 sqM) 07/15/18 07:21 Est GFR (CKD-EPI)NonAf 35 (>60 ml/min/1.73 sqM) 07/15/18 07:21 Glucose 153 mg/dL (74-99) H 07/15/18 07:21 POC Glucose (mg/dL) 197 mg/dL (75-99) H 07/15/18 21:24 POC Glu [employer] ID Purvi aVng 07/15/18 21:24 Lactic Ac Sepsis Rflx Y 07/07/18 06:23 Plasma Lactic Acid Feliberto 1.1 mmol/L (0.7-2.0) 07/12/18 19:19 Calcium 9.6 mg/dL (8.4-10.2) 07/15/18 07:21 Phosphorus 3.6 mg/dL (2.5-4.5) 07/15/18 07:21 Magnesium 2.7 mg/dL (1.6-2.3) H 07/15/18 07:21 Iron 19 ug/dL (50-170) L 07/08/18 07:30 TIBC 351 ug/dL (228-460) 07/08/18 07:30 Iron Saturation 5.41 (12.00-45.00) L 07/08/18 07:30 Ferritin 107.9 ng/mL (10.0-291.0) 07/08/18 07:30 Total Bilirubin 1.1 mg/dL (0.2-1.3) 07/11/18 06:18 AST 34 U/L (14-36) 07/11/18 06:18 ALT 42 U/L (9-52) 07/11/18 06:18 Alkaline Phosphatase 57 U/L (38-126) 07/11/18 06:18 Lactate Dehydrogenase 561 U/L (313-618) 07/08/18 07:30 Creatine Kinase 66 U/L (30-135) 07/05/18 17:02 CK-MB (CK-2) 2.3 ng/mL (0.0-2.4) 07/05/18 17:02 Troponin I 0.087 ng/mL (0.000-0.034) H* 07/12/18 19:19 Total Protein 6.2 g/dL (6.3-8.2) L 07/11/18 06:18 Total Protein (PEP) 6.6 g/dL (6.2-8.2) 07/08/18 07:30 Albumin 3.1 g/dL (3.5-5.0) L 07/11/18 06:18 Albumin (PEP) 3.05 g/dL (3.80-4.90) L 07/08/18 07:30 Vwjvg-1-Vrqtbgcaf 0.54 g/dL (0.10-0.40) H 07/08/18 07:30 Pzako-3-Amcezwtmo 0.73 g/dL (0.60-1.00) 07/08/18 07:30 Beta Globulins 0.71 g/dL (0.60-1.30) 07/08/18 07:30 Gamma Globulins 1.56 g/dL (0.70-1.50) H 07/08/18 07:30 PEP Interpretation SEE NOTE 07/08/18 07:30 Triglycerides 68 mg/dL (<150) 07/06/18 04:20 Cholesterol 90 mg/dL (<200) 07/06/18 04:20 LDL Cholesterol, Calc 47 mg/dL (0-99) 07/06/18 04:20 HDL Cholesterol 29 mg/dL (40-60) L 07/06/18 04:20 Vitamin B12 748.0 pg/mL (200.0-944.0) 07/08/18 07:30 Methylmalonic Acid 0.28 umol/L (<0.40) 07/08/18 07:30 Folate 15.2 ng/mL 07/08/18 07:30 TSH 5.960 mIU/L (0.465-4.680) H 07/05/18 17:02 Free T4 1.96 ng/dL (0.78-2.19) 07/05/18 17:02 Free T3 pg/mL 1.5 pg/ml (2.8-5.3) L 07/05/18 17:02 Urine Color Yellow 07/12/18 16:40 Urine Appearance Cloudy (Clear) H 07/12/18 16:40 Urine pH 5.0 (5.0-8.0) 07/12/18 16:40 Ur Specific [place] 1.018 (1.001-1.035) 07/12/18 16:40 Urine Protein 1+ (Negative) H 07/12/18 16:40 Urine Glucose (UA) Negative (Negative) 07/12/18 16:40 Urine Ketones Negative (Negative) 07/12/18 16:40 Urine Blood Small (Negative) H 07/12/18 16:40 Urine Nitrite Negative (Negative) 07/12/18 16:40 Urine Bilirubin Negative (Negative) 07/12/18 16:40 Urine Urobilinogen <2.0 mg/dL (<2.0) 07/12/18 16:40 Ur Leukocyte Esterase Negative (Negative) 07/12/18 16:40 Urine RBC 23 /hpf (0-5) H 07/12/18 16:40 Urine WBC 11 /hpf (0-5) H 07/12/18 16:40 Ur Squamous Epith Cells 29 /hpf (0-4) H 07/12/18 16:40 Amorphous Sediment Occasional /hpf (None) H 07/12/18 16:40 Hyaline Casts 1 /lpf (0-2) 07/12/18 16:40 Urine Mucus Rare /hpf (None) H 07/12/18 16:40 Ur Yeast w Hyphae Occasional /hpf (None) 07/12/18 16:40 Urine Yeast (Budding) Moderate /hpf (None) H 07/12/18 16:40 Stool Occult Blood Negative (Negative) 07/05/18 20:19 Random Vancomycin 18.1 ug/mL 07/15/18 07:21 IgG 1580.0 mg/dL (700.0-1600.0) 07/08/18 07:30 IgA 169.0 mg/dL (60.0-350.0) 07/08/18 07:30 IgM 146.0 mg/dL (40.0-280.0) 07/08/18 07:30 Serum MANDEEP Interpret SEE NOTE 07/08/18 07:[address] [place] LC, Quant 3.18 mg/dL (0.33-1.94) H 07/08/18 07:30 Free Lambda LC, Quant 2.55 mg/dL (0.57-2.63) 07/08/18 07:30 Influenza Type A RNA Not Detected (Not Detectd) 07/05/18 21:00 Influenza Type B (PCR) Not Detected (Not Detectd) 07/05/18 21:00 Blood Type AB Positive 07/05/18 20:50 Blood Type Confirm AB Positive 07/05/18 17:02 Blood Type Recheck CABO Indicated 07/05/18 20:50 Antibody Screen NEGATIVE 07/05/18 20:50 Crossmatch See Detail 07/05/18 20:50 Spec Expiration Date 07/08/2018234907/05/18 20:50 Microbiology 07/12/18 16:40 Urine,Catheterized Urine Culture - Final Terrie albicans 07/12/18 21:50 Blood Blood Culture Gram Stain - Preliminary 07/12/18 21:50 Blood Blood Culture - Preliminary Terrie albicans 07/12/18 21:50 Blood Blood Culture - Final 07/05/18 20:50 Blood Blood Culture - Final No Growth after 144 hours 07/06/18 16:45 Sputum Gram Stain - Final 07/06/18 16:45 Sputum Sputum Culture - Final 07/06/18 16:45 Urine,Catheterized Urine Culture - Final - Imaging and Cardiology Abdominal x-ray: report reviewed (Pneumoperitoneum preoperative) Assessment and Plan (1) Acute and chronic respiratory failure ([id number]) Narrative/Plan: 77-year-old female that has a history of advanced COPD has presented with respiratory failure acute on chronic in nature. Now requiring BiPAP therapy has evidence of abnormalities including possibility of infiltrate although the original computed tomography scan at admission did not show evidence of lily pneumonia. She's had significant anemia also complicating her stay. Evidence of some candiduria is seen at this time. Patient is being treated with antibiotic therapy includes vancomycin and Zosyn for concerns to pneumonia in this compromised patient. Eraxis is added for treatment of the underlying fungal infection of the urine that has occurred. Her prognosis is poor and family is contemplating transition to comfort care. 07/14/2018 is on the patient had evidence of candiduria and other laboratory has reported to a positive blood culture for yeast in the blood. Eraxis assertive and started. Follow blood cultures requested for tomorrow. She does not have an dwelling intravenous catheter. His peripheral IVs. We'll continue the Eraxis for now, given her current medications would not be a good candidate for fluconazole. Family is continuing to consider overall care plan. 07/15/2018 the patient had significant change of her status. Evidence of the candidemia and candiduria have been noted and she is on Eraxis. However she had increasing shortness of breath and imaging studies revealed evidence of pneumoperitoneum. She is up-to-date the operating room for the exploratory laparotomy and colostomy placement. Antibiotic therapy continued use with Levaquin and Zosyn and Eraxis. Await further cultures and continue supportive care. Current Visit: Yes Status: Acute Code(s): J96.20 - ACUTE AND CHR RESP FAILURE, UNSP W HYPOXIA OR HYPERCAPNIA SNOMED Code(s): 56956113 (2) IgM lambda monoclonal gammopathy Current Visit: Yes Status: Acute Priority: Medium Code(s): D47.2 - MONOCLONAL GAMMOPATHY SNOMED Code(s): 704982491 (3) Pulmonary cachexia due to chronic obstructive pulmonary disease Current Visit: Yes Status: Acute Code(s): J44.9 - CHRONIC OBSTRUCTIVE PULMONARY DISEASE, UNSPECIFIED; R64 - CACHEXIA SNOMED Code(s): 192686333
[2018-07-16] MEDS: IPRATROPIUM-ALBUTEROL 3 ML NEB INHALATION PRN ×2 (00:10→03:27)
[2018-07-16] MEDS: PIPERACILLIN-TAZOBACTAM 3.375 GM in SODIUM CHLORIDE 0.9% 100 ML IVPB SCH ×3 (00:40→18:52)
[2018-07-16 00:41] LABS: Anisocytosis Moderate; HCT 32.7 % (34.0-46.0); HGB 10.3 gm/dL (11.4-16.0); Hypochromasia Marked; MCH 26.8 pg (25.0-35.0); MCHC 31.6 g/dL (31.0-37.0); MCV 84.9 fL (80.0-100.0); Microcytosis Slight; Platelet Count 208 k/uL (150-450); Poikilocytosis Slight; RBC 3.85 m/uL (3.80-5.40); RDW 21.3 % (11.5-15.5); WBC 25.8 k/uL (3.8-10.6)
[2018-07-16] MEDS: HEPARIN SODIUM,PORCINE 5,000 UNIT/ML 1 ML VIAL SQ SCH ×3 (00:43→18:53)
[2018-07-16] MEDS: methylPREDNISolone SOD SUCCI 125 MG/2 ML VIAL IV SCH ×3 (00:43→18:52)
[2018-07-16] MEDS: DILTIAZEM 125 MG in SODIUM CHLORIDE 0.9% 100 ML IV SCH ×2 (00:53→13:29)
[2018-07-16] MEDS: DEXTROSE 5%-0.45% NACL 1,000 ML IV SCH ×2 (01:02→09:28)
[2018-07-16 04:37] LABS: ABG Base Excess 1.3 mmol/L; ABG HCO3 26 mmol/L (21-25); ABG Oxygen Saturation 94.6 % (94-97); ABG PCO2 43 mmHg (35-45); ABG PH 7.39 (7.35-7.45); ABG PO2 73 mmHg (83-108); ABG TCO2 28 mmol/L (19-24)
[2018-07-16 06:53] LABS: Anisocytosis Moderate; HCT 30.8 % (34.0-46.0); HGB 9.5 gm/dL (11.4-16.0); Hypochromasia Marked; MCH 25.7 pg (25.0-35.0); MCHC 30.9 g/dL (31.0-37.0); MCV 83.1 fL (80.0-100.0); Mean Platelet Volume 10.4; Microcytosis Slight; Platelet Count 174 k/uL (150-450); Poikilocytosis Slight; RDW 21.4 % (11.5-15.5); WBC 24.4 k/uL (3.8-10.6)
[2018-07-16 07:09] LABS: Glucose,Whole Blood 268 mg/dL (75-99)
[2018-07-16 07:12] LABS: Calcium 8.5 mg/dL (8.4-10.2); Magnesium 2.3 mg/dL (1.6-2.3); Phosphorus 3.8 mg/dL (2.5-4.5); Potassium 3.6 mmol/L (3.5-5.1)
[2018-07-16] MEDS: FORMOTEROL FUMARATE 20 MCG/2 ML NEBU INHALATION SCH ×2 (07:44→19:39)
[2018-07-16] MEDS: IPRATROPIUM-ALBUTEROL 3 ML NEB INHALATION SCH ×4 (07:44→19:39)
[2018-07-16] MEDS: BUDESONIDE 1 MG/2 ML NEBU INHALATION SCH ×2 (07:45→19:39)
--- NOTE | 2018-07-16 08:27 | P.PN ---
Subjective Patient is seen in follow-up for acute kidney injury. Renal function is mildly worse today. Creatinine 1.51 today. Patient is intubated. She underwent exploratory laparotomy with sigmoid colectomy with end ostomy on July 15. She is not on any vasopressors. She is also on antifungal as blood and urine culture is positive for Terrie. She remains on Cardizem drip for A. fib. Rate of IV fluids was increased to 1 50 mL an hour after the surgery. Urine output has been low the last few hours. Vital signs are stable. General: The patient appeared well nourished and normally developed. HEENT: Head exam is unremarkable. Neck is without jugular venous distension. LUNGS: Breath sounds decreased. HEART: Irregular rate and rhythm. ABDOMEN: Bowel sounds decreased. EXTREMITITES: No clubbing, cyanosis, or edema. Objective - Vital Signs Vital signs: Vital Signs Temp 98.8 F 07/16/18 04:00 Pulse 84 07/16/18 08:10 Resp 17 07/16/18 06:00 BP 96/65 07/16/18 06:00 Pulse Ox 94 L 07/16/18 06:00 Intake & Output 07/15/18 07/16/18 07/16/18 18:59 06:59 18:59 Intake Total 2885 1547.969 Output Total 520 520 Balance 2365 1027.969 Weight 55.5 kg 58.5 kg Intake: IV 2500 1400 Anidulafungin 100 mg In 100 Sodium Chloride 0.9% 100 ml @ 84 mls/hr IVPB DAILY @2100 [facility] Rx#:[id number] Dextrose 5%-0.45% NaCl 1, 500 1200 000 ml @ 150 mls/hr IV . Q6H40M [facility] Rx#:[id number] Piperacillin-Tazobactam 3 100 .375 gm In Sodium Chloride 0.9% 100 ml @ 25 mls/hr IVPB Q8HR [facility] Rx# :[id number] Intake, IV Titration 125 147.969 Amount Diltiazem 125 mg In 125 116.167 Sodium Chloride 0.9% 100 ml @ 10 MG/HR 10 mls/hr IV .[id number] [facility] Rx#: [id number] Propofol 1,000 mg In 31.802 Empty Bag 1 bag @ Titrate IV .Q0M [facility] Rx#: [id number] Oral 260 Output: Drainage 175 Right Abdomen 175 Urine 520 245 Estimated Blood Loss 100 Other: Voiding Method Indwelling Catheter Indwelling Catheter ABP, PAP, CO, CI - Last Documented Arterial Blood Pressure 145/50 - Labs CBC & Chem 7: 07/16/18 04:46 07/16/18 04:46 Labs: Abnormal Lab Results - Last 24 Hours (Table) 07/15/18 07/15/18 07/15/18 Range/Units 07:21 07:21 12:17 WBC 28.4 H (3.8-10.6) k/uL RBC (3.80-5.40) m/uL Hgb (11.4-16.0) gm/dL Hct (34.0-46.0) % MCHC (31.0-37.0) g/dL RDW 20.8 H (11.5-15.5) % ABG pH (7.35-7.45) ABG pCO2 (35-45) mmHg ABG pO2 (83-108) mmHg ABG HCO3 (21-25) mmol/L ABG Total CO2 (19-24) mmol/L ABG O2 Saturation (94-97) % Sodium 146 H (137-145) mmol/L Chloride 111 H (98-107) mmol/L BUN 70 H (7-17) mg/dL Creatinine 1.46 H (0.52-1.04) mg/dL Glucose 153 H (74-99) mg/dL POC Glucose (mg/dL) 134 H (75-99) mg/dL Magnesium 2.7 H (1.6-2.3) mg/dL 07/15/18 07/15/18 07/15/18 Range/Units 20:21 21:08 21:24 WBC (3.8-10.6) k/uL RBC (3.80-5.40) m/uL Hgb (11.4-16.0) gm/dL Hct (34.0-46.0) % MCHC (31.0-37.0) g/dL RDW (11.5-15.5) % ABG pH 7.34 L (7.35-7.45) ABG pCO2 55 H (35-45) mmHg ABG pO2 72 L (83-108) mmHg ABG HCO3 29 H (21-25) mmol/L ABG Total CO2 31 H (19-24) mmol/L ABG O2 Saturation 92.9 L (94-97) % Sodium (137-145) mmol/L Chloride (98-107) mmol/L BUN (7-17) mg/dL Creatinine (0.52-1.04) mg/dL Glucose (74-99) mg/dL POC Glucose (mg/dL) 54 L 197 H (75-99) mg/dL Magnesium (1.6-2.3) mg/dL 07/16/18 07/16/18 07/16/18 Range/Units 00:20 04:35 04:46 WBC 25.8 H 24.4 H (3.8-10.6) k/uL RBC 3.70 L (3.80-5.40) m/uL Hgb 10.3 L 9.5 L (11.4-16.0) gm/dL Hct 32.7 L 30.8 L (34.0-46.0) % MCHC 30.9 L (31.0-37.0) g/dL RDW 21.3 H 21.4 H (11.5-15.5) % ABG pH (7.35-7.45) ABG pCO2 (35-45) mmHg ABG pO2 73 L (83-108) mmHg ABG HCO3 26 H (21-25) mmol/L ABG Total CO2 28 H (19-24) mmol/L ABG O2 Saturation (94-97) % Sodium (137-145) mmol/L Chloride (98-107) mmol/L BUN (7-17) mg/dL Creatinine (0.52-1.04) mg/dL Glucose (74-99) mg/dL POC Glucose (mg/dL) (75-99) mg/dL Magnesium (1.6-2.3) mg/dL 07/16/18 07/16/18 Range/Units 04:46 07:08 WBC (3.8-10.6) k/uL RBC (3.80-5.40) m/uL Hgb (11.4-16.0) gm/dL Hct (34.0-46.0) % MCHC (31.0-37.0) g/dL RDW (11.5-15.5) % ABG pH (7.35-7.45) ABG pCO2 (35-45) mmHg ABG pO2 (83-108) mmHg ABG HCO3 (21-25) mmol/L ABG Total CO2 (19-24) mmol/L ABG O2 Saturation (94-97) % Sodium (137-145) mmol/L Chloride 108 H (98-107) mmol/L BUN 65 H (7-17) mg/dL Creatinine 1.51 H (0.52-1.04) mg/dL Glucose 251 H (74-99) mg/dL POC Glucose (mg/dL) 268 H (75-99) mg/dL Magnesium (1.6-2.3) mg/dL Microbiology - Last 24 Hours (Table) 07/15/18 04:45 Blood Culture - Preliminary Blood No Growth after 24 hours 07/12/18 21:50 Blood Culture Gram Stain - Final Blood Blood Culture - Final Terrie albicans 07/12/18 16:40 Urine Culture - Final Urine,Catheterized Terrie albicans Assessment and Plan Plan: Assessment: 1. Acute kidney injury secondary to ATN secondary to hypotension and sepsis. Renal function mildly worse. Creatinine 1.51 today. Urine output has decreased . 2. Atrial fibrillation maintained on Cardizem drip. 3. Mild hypernatremia improved with hypotonic fluids. 4. Pneumoperitoneum status post exploratory laparotomy with sigmoid colectomy with end ostomy on July 15. 5. Sepsis secondary to Terrie albicans bacteremia and UTI. Infectious disease following. Plan: I will change IV fluids to normal saline at 100 mL an hour. Continue to monitor renal function and urine output. If remains oliguric over the next 4-6 hours, I will give her dose of Lasix 60 mg IV once. Avoid nephrotoxins.
[2018-07-16] MEDS: VERAPAMIL SR 240 MG TABLET.ER PO SCH ×2 (08:31→21:46)
[2018-07-16] MEDS: CHLORHEXIDINE GLUCONATE 15 ML CUP MUCOUS MEM SCH ×2 (09:12→21:46)
[2018-07-16] MEDS: FERROUS SULFATE 325 MG TAB PO SCH ×2 (09:12→18:53)
[2018-07-16] MEDS: INSULIN ASPART (NovoLOG) 100 UNIT/ML VIAL SQ SCH ×4 (09:12→21:29)
[2018-07-16] MEDS: DOCUSATE 100 MG CAP PO SCH ×2 (09:14→21:41)
[2018-07-16] MEDS: SODIUM CHLORIDE 0.9% 1,000 ML IV SCH ×2 (09:16→18:53)
[2018-07-16] MEDS: PANTOPRAZOLE 40 MG TABLET PO SCH (09:16)
[2018-07-16] MEDS: SODIUM FERRIC GLUCONAT-SUCROSE 125 MG in SODIUM CHLORIDE 0.9% 100 ML IVPB SCH (09:28)
--- NOTE | 2018-07-16 10:10 | P.PN ---
Subjective Progress Note Date: 07/15/18 Principal diagnosis: Acute hypoxic/hypercapnic respiratory failure Acute exacerbation COPD The onset atrial fibrillation Acute blood loss anemia this is a pleasant 77 years old female with past medical history of COPD and rheumatoid arthritis, scleroderma and GERD. Presents with severe acute COPD exacerbation.patient currently remains in the ICU, improving slowly. She is a bit tachycardic above 100 . She saturating 93% on room air.her WBC is 20.4 k but she is on steroids too. . INR is 1.6. Plasma lactic acid 3.6. She remains on Xanax, Pulmicort, Levaquin, and Solu-Medrol 60 mg every 6 hours. She is also on Zosyn and Protonix.pulmonary team R following the case closely. As well as cardiology team 07/15/2018: Patient seen and examined in the intensive care unit with nursing staff at bedside. The patient just returned from CT of the chest. The patient is having abdominal distention and pain. She has not had much to eat because of this. She did have a bowel movement overnight. The patient has been hemodynamically stable. She was off of BiPAP from 3 AM until 11 AM. She's been placed on BiPAP again so that she can take a nap. CT of the chest shows small bilateral pleural effusions, mild cardiomegaly, moderate pericardial effusion, ascites. Objective - Vital Signs Vital signs: Vital Signs Temp 97 F L 07/15/18 04:00 Pulse 85 07/15/18 07:40 Resp 14 07/15/18 07:00 BP 135/87 07/15/18 07:00 Pulse Ox 92 L 07/15/18 07:18 Intake & Output 07/14/18 07/15/18 07/15/18 18:59 06:59 18:59 Intake Total 925 965.667 Output Total 845 755 Balance 80 210.667 Weight 57.3 kg Intake: IV 800 850 Anidulafungin 100 mg In 100 Sodium Chloride 0.9% 100 ml @ 84 mls/hr IVPB DAILY @2100 [facility] Rx#:[id number] Dextrose 5%-0.45% NaCl 1, 600 650 000 ml @ 50 mls/hr IV . Q20H [facility] Rx#:[id number] Piperacillin-Tazobactam 3 200 100 .375 gm In Sodium Chloride 0.9% 100 ml @ 25 mls/hr IVPB Q12HR [facility] Rx #:[id number] Intake, IV Titration 125 115.667 Amount Diltiazem 125 mg In 125 115.667 Sodium Chloride 0.9% 100 ml @ 10 MG/HR 10 mls/hr IV .[id number] [facility] Rx#: [id number] Output: Urine 845 755 Other: Voiding Method Indwelling Catheter Indwelling Catheter - Exam Gen.: Patient is somnolent but arousable to verbal stimuli, on BiPAP, resting comfortably Cardiovascular: Regular rate and rhythm, S1/S2 Lungs: Diminished breath sounds bilaterally Abdomen: Soft nontender nondistended positive bowel sounds Extremities: No edema - Labs CBC & Chem 7: 07/16/18 04:46 07/16/18 04:46 Labs: Abnormal Lab Results - Last 24 Hours (Table) 07/14/18 07/14/18 07/14/18 Range/Units 12:08 17:08 20:56 WBC (3.8-10.6) k/uL RDW (11.5-15.5) % Sodium (137-145) mmol/L Chloride (98-107) mmol/L BUN (7-17) mg/dL Creatinine (0.52-1.04) mg/dL Glucose (74-99) mg/dL POC Glucose (mg/dL) 149 H 136 H 155 H (75-99) mg/dL Magnesium (1.6-2.3) mg/dL 07/15/18 07/15/18 07/15/18 Range/Units 07:13 07:21 07:21 WBC 28.4 H (3.8-10.6) k/uL RDW 20.8 H (11.5-15.5) % Sodium 146 H (137-145) mmol/L Chloride 111 H (98-107) mmol/L BUN 70 H (7-17) mg/dL Creatinine 1.46 H (0.52-1.04) mg/dL Glucose 153 H (74-99) mg/dL POC Glucose (mg/dL) 113 H (75-99) mg/dL Magnesium 2.7 H (1.6-2.3) mg/dL Microbiology - Last 24 Hours (Table) 07/12/18 16:40 Urine Culture - Final Urine,Catheterized Terrie albicans 07/12/18 21:50 Blood Culture Gram Stain - Preliminary Blood Blood Culture - Preliminary Terrie albicans 07/12/18 21:50 Blood Culture - Final Blood Assessment and Plan Assessment: 1. Acute hypoxic and hypercapnic respiratory failure, requiring NIPPV - Acute exacerbation of COPD, severe, FEV1 32% of predicted - Small bilateral pleural effusions Continue bipap support, family has made the decision for DNR/DNI Continue with Solu-Medrol for 40 mg IV every 8 hours Irma Will Singulair, Perforomist Patient remains on IV Levaquin, vancomycin, Zosyn, anidulafungin per ID 2. Moderate pericardial effusion; monitor 3. Cadida urine and blood stream infection/ Sepsis Patient remains on anidulafungin per ID recommendations 4. Chronic tobacco use 5. New onset atrial fibrillation - Cardiology is following and IV Cardizem infusion is discontinued and transitioned to oral Cardizem 240 mg twice a day 6. Acute renal injury - Patient currently on D5 water decreased to 20 mL/h due to pleural and pericardial effusions - We will continue to monitor renal function, HOA's, daily weights and electrolytes 7. Abdominal distention rule out ileus versus obstruction - Start abdominal x-ray; further recommendations after results are available 8. Acute symptomatic anemia; etiology unclear - Patient remains on IV iron infusion per nephrology - We will continue to monitor H&H closely and transfuse his hemoglobin is less than 7 - Patient remains on GI prophylaxis with Protonix 9. DVT prophylaxis; subcu heparin CODE STATUS; DO NOT RESUSCITATE
--- NOTE | 2018-07-16 10:17 | P.PN ---
Subjective Progress Note Date: 07/16/18 Patient seen and examined at bedside. Intubated and sedated. No pressors overnight. Low urine output. ABIEL drain with 75 mL on overnight shift of serosanguiness fluid. Objective - Vital Signs Vital signs: Vital Signs Temp 98.8 F 07/16/18 04:00 Pulse 95 07/16/18 09:00 Resp 25 H 07/16/18 09:00 BP 96/65 07/16/18 09:00 Pulse Ox 94 L 07/16/18 06:00 Intake & Output 07/15/18 07/16/18 07/16/18 18:59 06:59 18:59 Intake Total 2885 1547.969 400 Output Total 520 520 15 Balance 2365 1027.969 385 Weight 55.5 kg 58.5 kg Intake: IV 2500 1400 400 0.9 100 Anidulafungin 100 mg In 100 Sodium Chloride 0.9% 100 ml @ 84 mls/hr IVPB DAILY @2100 [facility] Rx#:[id number] Dextrose 5%-0.45% NaCl 1, 500 1200 300 000 ml @ 150 mls/hr IV . Q6H40M [facility] Rx#:[id number] Piperacillin-Tazobactam 3 100 .375 gm In Sodium Chloride 0.9% 100 ml @ 25 mls/hr IVPB Q8HR [facility] Rx# :[id number] Intake, IV Titration 125 147.969 Amount Diltiazem 125 mg In 125 116.167 Sodium Chloride 0.9% 100 ml @ 10 MG/HR 10 mls/hr IV .[id number] [facility] Rx#: [id number] Propofol 1,000 mg In 31.802 Empty Bag 1 bag @ Titrate IV .Q0M [facility] Rx#: [id number] Oral 260 Output: Drainage 175 Right Abdomen 175 Urine 520 245 15 Estimated Blood Loss 100 Other: Voiding Method Indwelling Catheter Indwelling Catheter Indwelling Catheter ABP, PAP, CO, CI - Last Documented Arterial Blood Pressure 129/58 - Constitutional Constitutional Comment(s): Sedated and intubated - Respiratory Details: Intubated and on ventilator - Gastrointestinal Gastrointestinal Comment(s): Soft, mildly distended, no rebound, no guarding, midline incision clean, dry and intact, ostomy site pink and patent with no output, mildly edematous - Labs CBC & Chem 7: 07/16/18 04:46 07/16/18 04:46 Labs: Abnormal Lab Results - Last 24 Hours (Table) 07/15/18 07/15/18 07/15/18 Range/Units 12:17 20:21 21:08 WBC (3.8-10.6) k/uL RBC (3.80-5.40) m/uL Hgb (11.4-16.0) gm/dL Hct (34.0-46.0) % MCHC (31.0-37.0) g/dL RDW (11.5-15.5) % ABG pH 7.34 L (7.35-7.45) ABG pCO2 55 H (35-45) mmHg ABG pO2 72 L (83-108) mmHg ABG HCO3 29 H (21-25) mmol/L ABG Total CO2 31 H (19-24) mmol/L ABG O2 Saturation 92.9 L (94-97) % Chloride (98-107) mmol/L BUN (7-17) mg/dL Creatinine (0.52-1.04) mg/dL Glucose (74-99) mg/dL POC Glucose (mg/dL) 134 H 54 L (75-99) mg/dL 07/15/18 07/16/18 07/16/18 Range/Units 21:24 00:20 04:35 WBC 25.8 H (3.8-10.6) k/uL RBC (3.80-5.40) m/uL Hgb 10.3 L (11.4-16.0) gm/dL Hct 32.7 L (34.0-46.0) % MCHC (31.0-37.0) g/dL RDW 21.3 H (11.5-15.5) % ABG pH (7.35-7.45) ABG pCO2 (35-45) mmHg ABG pO2 73 L (83-108) mmHg ABG HCO3 26 H (21-25) mmol/L ABG Total CO2 28 H (19-24) mmol/L ABG O2 Saturation (94-97) % Chloride (98-107) mmol/L BUN (7-17) mg/dL Creatinine (0.52-1.04) mg/dL Glucose (74-99) mg/dL POC Glucose (mg/dL) 197 H (75-99) mg/dL 07/16/18 07/16/18 07/16/18 Range/Units 04:46 04:46 07:08 WBC 24.4 H (3.8-10.6) k/uL RBC 3.70 L (3.80-5.40) m/uL Hgb 9.5 L (11.4-16.0) gm/dL Hct 30.8 L (34.0-46.0) % MCHC 30.9 L (31.0-37.0) g/dL RDW 21.4 H (11.5-15.5) % ABG pH (7.35-7.45) ABG pCO2 (35-45) mmHg ABG pO2 (83-108) mmHg ABG HCO3 (21-25) mmol/L ABG Total CO2 (19-24) mmol/L ABG O2 Saturation (94-97) % Chloride 108 H (98-107) mmol/L BUN 65 H (7-17) mg/dL Creatinine 1.51 H (0.52-1.04) mg/dL Glucose 251 H (74-99) mg/dL POC Glucose (mg/dL) 268 H (75-99) mg/dL Microbiology - Last 24 Hours (Table) 07/15/18 04:45 Blood Culture - Preliminary Blood No Growth after 24 hours 07/12/18 21:50 Blood Culture Gram Stain - Final Blood Blood Culture - Final Terrie albicans Assessment and Plan (1) Pneumoperitoneum Current Visit: Yes Status: Acute Code(s): K66.8 - OTHER SPECIFIED DISORDERS OF PERITONEUM SNOMED Code(s): 88637523 Plan: 78-year-old female with sigmoid colon perforation and multiple medical issues - Postoperative day #1 from exploratory laparotomy and Bain's procedure - Critical care recommendations on ventilator settings and extubation - Appreciate nephrology recommendations on fluid balance and resuscitation. They are closely monitoring patient's urine output. - Continue ABIEL drain - Due to ileus, will withhold feeds at this time - Continue local wound and ostomy care - Continue Simmons catheter - Continue medical management - Prognosis poor
--- NOTE | 2018-07-16 10:17 | ECHOF ---
Referral Reason:large pericardial effusion MEASUREMENTS -------- HEIGHT: 170.2 cm WEIGHT: 57.2 kg BP: 145/80 FINDINGS -------- Sinus rhythm. This was a technically good study. Limited Study for assessment of pericardial effusion. There is a small, generalized pericardial effusion present. CONCLUSIONS -------- 1. Sinus rhythm. 2. This was a technically good study. 3. Limited Study for assessment of pericardial effusion. 4. There is a small, generalized pericardial effusion present. [employer]IST: Torsten Haro RDCS
--- NOTE | 2018-07-16 11:47 | P.PN ---
Subjective Patient has been intubated. Free air was noted in the peritoneum and she underwent abdominal surgery Reason atrial fibrillation and is on IV Cardizem with controlled rates and normal blood pressures Breath sounds are reduced bilaterally with rhonchorous breath sounds bilaterally heart sounds are irregular distant but normal and don't hear any murmurs Impression Very frail 78 old female with atrial fibrillation who just come back from abdominal surgery Suggest Continue IV Cardizem for now for rate control of atrial fibrillation Objective - Vital Signs Vital signs: Vital Signs Temp 98.8 F 07/16/18 04:00 Pulse 91 07/16/18 11:00 Resp 21 07/16/18 11:00 BP 113/60 07/16/18 11:00 Pulse Ox 94 L 07/16/18 06:00 Intake & Output 07/15/18 07/16/18 07/16/18 18:59 06:59 18:59 Intake Total 2885 1547.969 600 Output Total 520 520 25 Balance 2365 1027.969 575 Weight 55.5 kg 58.5 kg Intake: IV 2500 1400 600 0.9 300 Anidulafungin 100 mg In 100 Sodium Chloride 0.9% 100 ml @ 84 mls/hr IVPB DAILY @2100 [facility] Rx#:[id number] Dextrose 5%-0.45% NaCl 1, 500 1200 300 000 ml @ 150 mls/hr IV . Q6H40M [facility] Rx#:[id number] Piperacillin-Tazobactam 3 100 .375 gm In Sodium Chloride 0.9% 100 ml @ 25 mls/hr IVPB Q8HR [facility] Rx# :[id number] Intake, IV Titration 125 147.969 Amount Diltiazem 125 mg In 125 116.167 Sodium Chloride 0.9% 100 ml @ 10 MG/HR 10 mls/hr IV .[id number] [facility] Rx#: [id number] Propofol 1,000 mg In 31.802 Empty Bag 1 bag @ Titrate IV .Q0M [facility] Rx#: [id number] Oral 260 Output: Drainage 175 Right Abdomen 175 Urine 520 245 25 Estimated Blood Loss 100 Other: Voiding Method Indwelling Catheter Indwelling Catheter Indwelling Catheter ABP, PAP, CO, CI - Last Documented Arterial Blood Pressure 106/64 - Labs CBC & Chem 7: 07/16/18 04:46 07/16/18 04:46 Labs: Abnormal Lab Results - Last 24 Hours (Table) 07/15/18 07/15/18 07/15/18 Range/Units 12:17 20:21 21:08 WBC (3.8-10.6) k/uL RBC (3.80-5.40) m/uL Hgb (11.4-16.0) gm/dL Hct (34.0-46.0) % MCHC (31.0-37.0) g/dL RDW (11.5-15.5) % ABG pH 7.34 L (7.35-7.45) ABG pCO2 55 H (35-45) mmHg ABG pO2 72 L (83-108) mmHg ABG HCO3 29 H (21-25) mmol/L ABG Total CO2 31 H (19-24) mmol/L ABG O2 Saturation 92.9 L (94-97) % Chloride (98-107) mmol/L BUN (7-17) mg/dL Creatinine (0.52-1.04) mg/dL Glucose (74-99) mg/dL POC Glucose (mg/dL) 134 H 54 L (75-99) mg/dL 07/15/18 07/16/18 07/16/18 Range/Units 21:24 00:20 04:35 WBC 25.8 H (3.8-10.6) k/uL RBC (3.80-5.40) m/uL Hgb 10.3 L (11.4-16.0) gm/dL Hct 32.7 L (34.0-46.0) % MCHC (31.0-37.0) g/dL RDW 21.3 H (11.5-15.5) % ABG pH (7.35-7.45) ABG pCO2 (35-45) mmHg ABG pO2 73 L (83-108) mmHg ABG HCO3 26 H (21-25) mmol/L ABG Total CO2 28 H (19-24) mmol/L ABG O2 Saturation (94-97) % Chloride (98-107) mmol/L BUN (7-17) mg/dL Creatinine (0.52-1.04) mg/dL Glucose (74-99) mg/dL POC Glucose (mg/dL) 197 H (75-99) mg/dL 07/16/18 07/16/18 07/16/18 Range/Units 04:46 04:46 07:08 WBC 24.4 H (3.8-10.6) k/uL RBC 3.70 L (3.80-5.40) m/uL Hgb 9.5 L (11.4-16.0) gm/dL Hct 30.8 L (34.0-46.0) % MCHC 30.9 L (31.0-37.0) g/dL RDW 21.4 H (11.5-15.5) % ABG pH (7.35-7.45) ABG pCO2 (35-45) mmHg ABG pO2 (83-108) mmHg ABG HCO3 (21-25) mmol/L ABG Total CO2 (19-24) mmol/L ABG O2 Saturation (94-97) % Chloride 108 H (98-107) mmol/L BUN 65 H (7-17) mg/dL Creatinine 1.51 H (0.52-1.04) mg/dL Glucose 251 H (74-99) mg/dL POC Glucose (mg/dL) 268 H (75-99) mg/dL Microbiology - Last 24 Hours (Table) 07/15/18 04:45 Blood Culture - Preliminary Blood No Growth after 24 hours 07/12/18 21:50 Blood Culture Gram Stain - Final Blood Blood Culture - Final Terrie albicans
[2018-07-16 12:06] LABS: Glucose,Whole Blood 221 mg/dL (75-99)
--- NOTE | 2018-07-16 12:11 | PN ---
PROGRESS NOTE Madalyn Rosado was seen again on 07/16/2018. She underwent exploratory laparotomy with peritoneal lavage as well as Andrew's procedure with an ostomy due to perforated diverticulum with fecal contamination of the abdominal cavity. She is currently on the vent with AC 14, FiO2 50%. Tidal volume 400, PEEP of 5, and oxygenating well. She has not required any pressors through the night. Has only marginal urine output. She is sedated with propofol. PHYSICAL EXAMINATION: Blood pressure is 96/65, respiratory rate of 25, pulse rate of 95, blood pressure 129/58. HEENT reveals ET tube in place. Chest reveals decreased breath sounds at bases. Scattered rhonchi. Cardiovascular system reveals S1, S2. Abdomen is soft. There is post surgical dressing. There is 1+ to 2+ pedal edema. White count is 24.4, hemoglobin of 9.5. ABG showed a pH of 7.39, pCO2 of 43, PO2 of 73, bicarb of 26, O2 SAT of 94% to 96%. Sodium is 141, potassium 3.6, chloride 108, bicarb 24, BUN 65, creatinine of 1.1. Chest x-ray shows evidence of bilateral pleural effusions with possible right lower zone infiltrate. IMPRESSION: 1. Sepsis secondary to perforated diverticulum, status post abdominal surgery. 2. Fecal contamination of the abdominal cavity, peritonitis. 3. Acute on chronic respiratory failure. 4. Chronic obstructive pulmonary disease. 5. Systemic sclerosis and Sjogren's syndrome. 6. Atrial fibrillation with rapid ventricular rate. 7. Aspiration type pneumonia is likely. 8. Bilateral pleural and pericardial effusions on limited echo. There was small generalized pericardial effusion. 9. Acute respiratory failure on ventilator. At this point in time from a pulmonary standpoint, would continue ventilator support. Keep her sedated with propofol at this time. Would continue her on antibiotics and bronchodilators. Optimize her fluid status. Continue IV steroids for now, but hopefully will be able to start to taper them soon, depending on how she does with her respiratory status. Her prognosis is extremely guarded and she is not to be considered for CPR at this time. MMODL / IJN: [id number] /
[2018-07-16] MEDS: VANCOMYCIN 1,000 MG in SODIUM CHLORIDE 0.9% 250 ML IVPB SCH (13:29)
--- NOTE | 2018-07-16 14:21 | XR ---
EXAMINATION TYPE: XR chest 1V portable DATE OF EXAM: 07/16/2018 HISTORY: Tube placement. REFERENCE: Previous study dated 07/13/2018. FINDINGS: The patient has been intubated the patient is ET tube is in satisfactory position with its tip approximately 8.7 cm above the dinah. An NG tube is present and its tip is in the stomach. A rig ht internal jugular line is in place. Its tip is at the cavoatrial junction. There is worsening right basilar airspace disease. There are enlarging bilateral effusions. Heart siz e is obscured. I suspect underlying COPD. IMPRESSION: 1. WORSENING BIBASILAR AIRSPACE DISEASE. 2. WORSENING, BILATERAL EFFUSIONS.
[2018-07-16 17:56] LABS: Glucose,Whole Blood 107 mg/dL (75-99)
[2018-07-16] MEDS ORDERED: FUROSEMIDE 10 MG/ML 10 ML VIAL IV STA (18:06)
[2018-07-16] MEDS: LEVOFLOXACIN 250 MG TAB PO SCH (18:53)
[2018-07-16] MEDS: PROPOFOL 1,000 MG in EMPTY BAG 1 BAG IV SCH (19:11)
[2018-07-16] MEDS: ANIDULAFUNGIN 100 MG in SODIUM CHLORIDE 0.9% 100 ML IVPB SCH (21:40)
[2018-07-16] MEDS: MONTELUKAST 10 MG TAB PO SCH (21:41)
[2018-07-16 23:35] LABS: Glucose,Whole Blood 85 mg/dL (75-99)
[2018-07-17] MEDS: IPRATROPIUM-ALBUTEROL 3 ML NEB INHALATION PRN ×2 (00:21→03:55)
[2018-07-17] MEDS: PIPERACILLIN-TAZOBACTAM 3.375 GM in SODIUM CHLORIDE 0.9% 100 ML IVPB SCH ×4 (00:38→23:56)
[2018-07-17] MEDS: HEPARIN SODIUM,PORCINE 5,000 UNIT/ML 1 ML VIAL SQ SCH ×4 (00:38→23:56)
[2018-07-17] MEDS: methylPREDNISolone SOD SUCCI 125 MG/2 ML VIAL IV SCH ×2 (00:39→09:01)
[2018-07-17] MEDS: DILTIAZEM 125 MG in SODIUM CHLORIDE 0.9% 100 ML IV SCH ×3 (03:08→23:59)
[2018-07-17] MEDS: PROPOFOL 1,000 MG in EMPTY BAG 1 BAG IV SCH ×2 (03:49→09:29)
[2018-07-17 04:11] LABS: Anisocytosis Moderate; HCT 27.2 % (34.0-46.0); HGB 8.7 gm/dL (11.4-16.0); Hypochromasia Marked; MCH 25.8 pg (25.0-35.0); MCV 80.6 fL (80.0-100.0); Microcytosis Slight; Platelet Count 103 k/uL (150-450); Poikilocytosis Slight; RBC 3.38 m/uL (3.80-5.40); RDW 21.9 % (11.5-15.5); WBC 25.2 k/uL (3.8-10.6)
[2018-07-17 04:20] LABS: Calcium 8.7 mg/dL (8.4-10.2); Magnesium 2.3 mg/dL (1.6-2.3); Phosphorus 4.3 mg/dL (2.5-4.5); Potassium 3.6 mmol/L (3.5-5.1)
[2018-07-17] MEDS: SODIUM CHLORIDE 0.9% 1,000 ML IV SCH ×2 (04:37→15:41)
[2018-07-17 05:05] LABS: ABG Base Excess 1.1 mmol/L; ABG HCO3 26 mmol/L (21-25); ABG Oxygen Saturation 96.9 % (94-97); ABG PCO2 40 mmHg (35-45); ABG PH 7.42 (7.35-7.45); ABG PO2 81 mmHg (83-108); ABG TCO2 27 mmol/L (19-24)
[2018-07-17 05:38] LABS: Glucose,Whole Blood 92 mg/dL (75-99)
--- NOTE | 2018-07-17 06:12 | XR ---
EXAMINATION TYPE: XR chest 1V portable DATE OF EXAM: 07/17/2018 HISTORY: Tube placement. REFERENCE: Previous study dated 07/16/2018. FINDINGS: The patient is ET tube, NG tube and right internal jugular catheter remain in place, unchan ged in appearance. There continues to be right basilar airspace disease. The heart size is obscured. There are bilateral effusions, larger on the right than the left. IMPRESSION: NO SIGNIFICANT INTERVAL CHANGE IN THE APPEARANCE OF THE CHEST.
[2018-07-17] MEDS ORDERED: Potassium Replacement Protocol 1 EACH MISC MISCELLANE PRN (06:14)
[2018-07-17] MEDS ORDERED: POTASSIUM BICARBONATE/CIT AC 20 MEQ TABLET.EFF NG-TUBE SCH (07:00)
[2018-07-17] MEDS: IPRATROPIUM-ALBUTEROL 3 ML NEB INHALATION SCH ×4 (07:28→20:12)
[2018-07-17] MEDS: BUDESONIDE 1 MG/2 ML NEBU INHALATION SCH ×2 (07:28→20:11)
[2018-07-17] MEDS: FORMOTEROL FUMARATE 20 MCG/2 ML NEBU INHALATION SCH ×2 (07:28→20:11)
--- NOTE | 2018-07-17 08:08 | P.PN ---
Subjective Patient is seen in follow-up for acute kidney injury. Renal function is worse. Creatinine 1.99 today. Patient is intubated. She underwent exploratory laparotomy with sigmoid colectomy with end ostomy on July 15. She is not on any vasopressors. She is also on antifungal as blood and urine culture is positive for Terrie. She remains on Cardizem drip for A. fib. She is maintained on normal saline at 200 mL an hour. Urine output has been about 30-40 mL an hour. She did receive Lasix 60 mg IV last night with no significant response in urine output. Vital signs are stable. General: The patient appeared well nourished and normally developed. HEENT: Head exam is unremarkable. Neck is without jugular venous distension. LUNGS: Breath sounds decreased. HEART: Irregular rate and rhythm. ABDOMEN: Bowel sounds decreased. EXTREMITITES: No clubbing, cyanosis, or edema. Objective - Vital Signs Vital signs: Vital Signs Temp 97.4 F L 07/17/18 04:01 Pulse 88 07/17/18 07:57 Resp 16 07/17/18 07:00 BP 112/59 07/17/18 07:00 Pulse Ox 94 L 07/17/18 07:00 Intake & Output 07/16/18 07/17/18 07/17/18 18:59 06:59 18:59 Intake Total 2481.633 1538 100 Output Total 55 350 45 Balance 5203.774 1272 55 Weight 60.3 kg Intake: IV 1350 1300 100 0.9 1050 200 Dextrose 5%-0.45% NaCl 1, 300 000 ml @ 150 mls/hr IV . Q6H40M [facility] Rx#:[id number] Piperacillin-Tazobactam 3 100 .375 gm In Sodium Chloride 0.9% 100 ml @ 25 mls/hr IVPB Q8HR [facility] Rx# :[id number] Sodium Chloride 0.9% 1, 1000 100 000 ml @ 100 mls/hr IV . Q10H [facility] Rx#:[id number] Intake, IV Titration 193.198 225 Amount Diltiazem 125 mg In 125 125 Sodium Chloride 0.9% 100 ml @ 10 MG/HR 10 mls/hr IV .[id number] [facility] Rx#: [id number] Propofol 1,000 mg In 68.198 100 Empty Bag 1 bag @ Titrate IV .Q0M [facility] Rx#: [id number] Output: Urine 55 350 45 Other: Voiding Method Indwelling Catheter Indwelling Catheter ABP, PAP, CO, CI - Last Documented Arterial Blood Pressure 108/47 - Labs CBC & Chem 7: 07/17/18 04:00 07/17/18 04:00 Labs: Abnormal Lab Results - Last 24 Hours (Table) 07/16/18 07/16/18 07/17/18 Range/Units 12:05 17:55 04:00 WBC 25.2 H (3.8-10.6) k/uL RBC 3.38 L (3.80-5.40) m/uL Hgb 8.7 L (11.4-16.0) gm/dL Hct 27.2 L (34.0-46.0) % RDW 21.9 H (11.5-15.5) % Plt Count 103 L (150-450) k/uL ABG pO2 (83-108) mmHg ABG HCO3 (21-25) mmol/L ABG Total CO2 (19-24) mmol/L Chloride (98-107) mmol/L BUN (7-17) mg/dL Creatinine (0.52-1.04) mg/dL Glucose (74-99) mg/dL POC Glucose (mg/dL) 221 H 107 H (75-99) mg/dL 07/17/18 07/17/18 Range/Units 04:00 05:03 WBC (3.8-10.6) k/uL RBC (3.80-5.40) m/uL Hgb (11.4-16.0) gm/dL Hct (34.0-46.0) % RDW (11.5-15.5) % Plt Count (150-450) k/uL ABG pO2 81 L (83-108) mmHg ABG HCO3 26 H (21-25) mmol/L ABG Total CO2 27 H (19-24) mmol/L Chloride 111 H (98-107) mmol/L BUN 69 H (7-17) mg/dL Creatinine 1.99 H (0.52-1.04) mg/dL Glucose 122 H (74-99) mg/dL POC Glucose (mg/dL) (75-99) mg/dL Microbiology - Last 24 Hours (Table) 07/15/18 04:45 Blood Culture - Preliminary Blood No Growth after 48 hours Assessment and Plan Plan: Assessment: 1. Acute kidney injury secondary to ATN secondary to hypotension and sepsis. Renal function worse. Creatinine 1.99 today. Urine output 30-40 mL an hour. No significant response to IV Lasix last night. 2. Atrial fibrillation maintained on Cardizem drip. 3. Mild hypernatremia improved with hypotonic fluids. Resolved. 4. Pneumoperitoneum status post exploratory laparotomy with sigmoid colectomy with end ostomy on July 15. 5. Sepsis secondary to Terrie albicans bacteremia and UTI. Infectious disease following. Plan: Maintain normal saline at 100 mL an hour. Hold off on diuretics today. Continue to monitor renal function and urine output. Avoid nephrotoxins.
[2018-07-17] MEDS: FERROUS SULFATE 325 MG TAB PO SCH ×2 (09:00→18:05)
[2018-07-17] MEDS: PANTOPRAZOLE 40 MG TABLET PO SCH (09:00)
[2018-07-17] MEDS: INSULIN ASPART (NovoLOG) 100 UNIT/ML VIAL SQ SCH ×4 (09:00→20:59)
[2018-07-17] MEDS: CHLORHEXIDINE GLUCONATE 15 ML CUP MUCOUS MEM SCH ×2 (09:01→21:03)
[2018-07-17] MEDS: SODIUM FERRIC GLUCONAT-SUCROSE 125 MG in SODIUM CHLORIDE 0.9% 100 ML IVPB SCH (09:02)
[2018-07-17] MEDS: DOCUSATE 100 MG CAP PO SCH ×2 (09:09→21:03)
[2018-07-17] MEDS: VERAPAMIL SR 240 MG TABLET.ER PO SCH ×3 (09:57→21:03)
[2018-07-17] MEDS ORDERED: VANCOMYCIN TROUGH DUE 1 EACH MISC MISCELLANE ONE (11:00)
--- NOTE | 2018-07-17 11:20 | P.PN ---
Subjective Progress Note Date: 07/17/18 Patient seen and examined at bedside. Sedated and intubated. Nasogastric tube with continued bilious output appears to be significant, however is not recorded by nursing. Ostomy without any output at this time. Simmons catheter in place. Objective - Vital Signs Vital signs: Vital Signs Temp 96.4 F L 07/17/18 08:00 Pulse 82 07/17/18 11:11 Resp 21 07/17/18 10:00 BP 111/63 07/17/18 10:00 Pulse Ox 96 07/17/18 09:00 Intake & Output 07/16/18 07/17/18 07/17/18 18:59 06:59 18:59 Intake Total 0580.038 1980 663.393 Output Total 55 350 285 Balance 4596.749 4234 378.393 Weight 60.3 kg Intake: IV 1350 1300 425 0.9 1050 200 Dextrose 5%-0.45% NaCl 1, 300 000 ml @ 150 mls/hr IV . Q6H40M [facility] Rx#:[id number] Piperacillin-Tazobactam 3 100 25 .375 gm In Sodium Chloride 0.9% 100 ml @ 25 mls/hr IVPB Q8HR [facility] Rx# :[id number] Sodium Chloride 0.9% 1, 1000 400 000 ml @ 100 mls/hr IV . Q10H [facility] Rx#:[id number] Intake, IV Titration 193.198 225 238.393 Amount Diltiazem 125 mg In 125 125 58.833 Sodium Chloride 0.9% 100 ml @ 10 MG/HR 10 mls/hr IV .[id number] [facility] Rx#: [id number] Propofol 1,000 mg In 68.198 100 79.56 Empty Bag 1 bag @ Titrate IV .Q0M [facility] Rx#: [id number] Sodium Ferric Gluconat- 100 Sucrose 125 mg In Sodium Chloride 0.9% 100 ml @ 100 mls/hr IVPB DAILY [facility] Rx#:[id number] Output: Drainage 100 Right Abdomen 100 Urine 55 350 185 Other: Voiding Method Indwelling Catheter Indwelling Catheter ABP, PAP, CO, CI - Last Documented Arterial Blood Pressure 112/49 - Constitutional Constitutional Comment(s): Intubated and sedated - Respiratory Details: Intubated and on ventilator - Gastrointestinal Gastrointestinal Comment(s): Soft, mild distention, no rebound, no guarding, ostomy site is pink and edematous with no output - Labs CBC & Chem 7: 07/17/18 04:00 07/17/18 04:00 Labs: Abnormal Lab Results - Last 24 Hours (Table) 07/16/18 07/16/18 07/17/18 Range/Units 12:05 17:55 04:00 WBC 25.2 H (3.8-10.6) k/uL RBC 3.38 L (3.80-5.40) m/uL Hgb 8.7 L (11.4-16.0) gm/dL Hct 27.2 L (34.0-46.0) % RDW 21.9 H (11.5-15.5) % Plt Count 103 L (150-450) k/uL ABG pO2 (83-108) mmHg ABG HCO3 (21-25) mmol/L ABG Total CO2 (19-24) mmol/L Chloride (98-107) mmol/L BUN (7-17) mg/dL Creatinine (0.52-1.04) mg/dL Glucose (74-99) mg/dL POC Glucose (mg/dL) 221 H 107 H (75-99) mg/dL 07/17/18 07/17/18 Range/Units 04:00 05:03 WBC (3.8-10.6) k/uL RBC (3.80-5.40) m/uL Hgb (11.4-16.0) gm/dL Hct (34.0-46.0) % RDW (11.5-15.5) % Plt Count (150-450) k/uL ABG pO2 81 L (83-108) mmHg ABG HCO3 26 H (21-25) mmol/L ABG Total CO2 27 H (19-24) mmol/L Chloride 111 H (98-107) mmol/L BUN 69 H (7-17) mg/dL Creatinine 1.99 H (0.52-1.04) mg/dL Glucose 122 H (74-99) mg/dL POC Glucose (mg/dL) (75-99) mg/dL Microbiology - Last 24 Hours (Table) 07/15/18 04:45 Blood Culture - Preliminary Blood No Growth after 48 hours Assessment and Plan Plan: 78-year-old female with sigmoid colon perforation and multiple medical issues - Postoperative day #2 from exploratory laparotomy and Bain's procedure - Critical care recommendations on ventilator settings and extubation - Appreciate nephrology recommendations on fluid balance and resuscitation. They are closely monitoring patient's urine output. Lasix was given yesterday with no significant increase in output. Creatinine is 1.99 today. - Continue ABIEL drain - Due to ileus, will withhold feeds at this time - Continue local wound and ostomy care - Continue Simmons catheter - Continue medical management - Prognosis poor
[2018-07-17 11:52] LABS: Glucose,Whole Blood 136 mg/dL (75-99)
[2018-07-17] MEDS: VANCOMYCIN 1,000 MG in SODIUM CHLORIDE 0.9% 250 ML IVPB SCH (12:24)
--- NOTE | 2018-07-17 13:07 | P.CRDCN ---
History of Present Illness History of present illness: Patient is currently intubated, resting comfortably. No complications overnight. She is currently in atrial fibrillation and her readings are well controlled on IV Cardizem drip at 10 mg/hr. Blood pressures been stable with systolics in the low 100's. She has developed postoperative ileus and has high outputs from her NG tube. GENERAL: Well-appearing, well-nourished and in no acute distress. NECK: Supple without JVD or thyromegaly. LUNGS: Breath sounds are coarse throughout. Respiration equal and unlabored. No wheezes or rales HEART: Regular rate and rhythm without murmurs, rubs or gallops. S1 and S2 heard. EXTREMITIES: Normal range of motion, no edema. No clubbing or cyanosis. Peripheral pulses intact and strong. Labs: WBC count 25.2, hemoglobin 8.7, sodium 142, potassium 3.6, creatinine 1.9, BUN 69, phosphorus 4.3, magnesium 2.3 Assessment: Persistent atrial fibrillation, rate controlled Acute respiratory failure, on ventilator Sepsis Postoperative ileus, continue IV medications Plan: Continue IV Cardizem for rate control of atrial fibrillation. Resume PO Cardizem once ileus resolves. Past Medical History Past Medical History: COPD, Eye Disorder, GERD/Reflux, Rheumatoid Arthritis (RA) Additional Past Medical History / Comment(s): Scleroderma, Cataracts History of Any Multi-Drug Resistant Organisms: None Reported Past Surgical History: Tonsillectomy, Tubal Ligation Additional Past Surgical History / Comment(s): Colonoscopy, R cataract surgery in the past. Past Anesthesia/Blood Transfusion Reactions: No Reported Reaction Past Psychological History: Depression Additional Psychological History / Comment(s): FROM CANCER. Smoking Status: Current every day smoker Past Alcohol Use History: Rare Past Drug Use History: None Reported - Past Family History Mother Family Medical History: Cancer Additional Family Medical History / Comment(s): OVARIAN. Medications and Allergies Home Medications Medication Instructions Recorded Confirmed Type Hydroxychloroquine Sulfate 200 mg PO BID 12/25/13 07/05/18 History [Plaquenil] Budesonide [Pulmicort] 0.5 mg INHALATION RT-BID 07/05/18 07/05/18 History Montelukast [Singulair] 10 mg PO HS 07/05/18 07/05/18 History Allergies Allergy/AdvReac Type Severity Reaction Status Date / Time Sulfa (Sulfonamide Allergy Rash/Hives Verified 07/05/18 17:26 Antibiotics) Physical Exam Vitals: Vital Signs Temp Pulse Resp BP Pulse Ox 07/17/18 12:00 96.4 F L 85 20 100/57 92 L 07/17/18 11:39 76 07/17/18 11:11 82 07/17/18 11:00 78 21 104/53 96 07/17/18 10:00 79 21 111/63 07/17/18 09:00 82 21 108/60 96 07/17/18 08:12 78 07/17/18 08:00 96.4 F L 79 14 111/60 95 07/17/18 07:57 88 07/17/18 07:56 88 07/17/18 07:33 86 07/17/18 07:00 77 16 112/59 94 L 07/17/18 06:00 86 18 113/57 96 07/17/18 05:00 80 18 117/64 95 07/17/18 04:15 84 07/17/18 04:01 97.4 F L 77 14 110/56 99 07/17/18 03:55 80 07/17/18 03:00 80 19 116/50 95 07/17/18 02:00 89 25 H 116/63 95 07/17/18 01:00 77 19 112/58 95 07/17/18 00:33 80 07/17/18 00:21 87 07/17/18 00:00 98.0 F 81 18 117/61 94 L 07/16/18 23:11 84 21 107/59 96 07/16/18 23:00 81 20 107/57 99 07/16/18 22:00 83 19 111/59 94 L 07/16/18 21:00 84 20 111/66 96 07/16/18 20:00 97.6 F 86 21 114/50 96 07/16/18 19:55 95 07/16/18 19:54 88 07/16/18 19:48 84 07/16/18 19:47 86 07/16/18 19:39 88 07/16/18 19:00 86 20 113/62 07/16/18 18:00 85 23 109/72 07/16/18 17:00 93 25 H 120/59 07/16/18 16:05 92 07/16/18 16:00 97.8 F 91 28 H 109/63 95 07/16/18 15:55 90 30 H 07/16/18 15:00 87 27 H 108/63 98 07/16/18 14:00 90 24 112/59 99 07/16/18 13:00 89 19 108/64 96 Intake and Output 07/16/18 07/17/18 07/17/18 22:59 06:59 14:59 Intake Total 357.429 2280 863.393 Output Total 100 280 305 Balance 770.927 845 558.393 Intake: IV 850 900 625 0.9 650 Piperacillin-Tazobactam 3 100 25 .375 gm In Sodium Chloride 0.9% 100 ml @ 25 mls/hr IVPB Q8HR [facility] Rx# :[id number] Sodium Chloride 0.9% 1, 200 800 600 000 ml @ 100 mls/hr IV . Q10H [facility] Rx#:[id number] Intake, IV Titration 20.927 225 238.393 Amount Diltiazem 125 mg In 125 58.833 Sodium Chloride 0.9% 100 ml @ 10 MG/HR 10 mls/hr IV .[id number] [facility] Rx#: [id number] Propofol 1,000 mg In 20.927 100 79.56 Empty Bag 1 bag @ Titrate IV .Q0M [facility] Rx#: [id number] Sodium Ferric Gluconat- 100 Sucrose 125 mg In Sodium Chloride 0.9% 100 ml @ 100 mls/hr IVPB DAILY [facility] Rx#:[id number] Output: Drainage 100 Right Abdomen 100 Urine 100 280 205 Other: Voiding Method Indwelling Catheter Indwelling Catheter Weight 60.3 kg ABP, PAP, CO, CI - Last 8 Hours Arterial Blood Pressure 104/49 Arterial Blood Pressure 108/50 Arterial Blood Pressure 112/49 Arterial Blood Pressure 93/42 Arterial Blood Pressure 92/42 Arterial Blood Pressure 108/47 Arterial Blood Pressure 111/48 Arterial Blood Pressure 104/50 Results 07/17/18 04:00 07/17/18 04:00 CBC 07/17/18 Range/Units 04:00 WBC 25.2 H (3.8-10.6) k/uL RBC 3.38 L (3.80-5.40) m/uL Hgb 8.7 L (11.4-16.0) gm/dL Hct 27.2 L (34.0-46.0) % Plt Count 103 L (150-450) k/uL Comprehensive Metabolic Panel 07/17/18 Range/Units 04:00 Sodium 142 (137-145) mmol/L Potassium 3.6 (3.5-5.1) mmol/L Chloride 111 H (98-107) mmol/L Carbon Dioxide 24 (22-30) mmol/L BUN 69 H (7-17) mg/dL Creatinine 1.99 H (0.52-1.04) mg/dL Glucose 122 H (74-99) mg/dL Calcium 8.7 (8.4-10.2) mg/dL Current Medications Generic Name Dose Route Start Last Admin Trade Name Freq PRN Reason Stop Dose Admin Albuterol/Ipratropium 3 ml 07/06/18 08:00 07/17/18 11:06 Duoneb 0.5 Mg-3 Mg/3 Ml Soln INHALATION 3 ml RT-QID [facility] Administration Albuterol/Ipratropium 3 ml 07/05/18 20:48 07/17/18 03:55 Duoneb 0.5 Mg-3 Mg/3 Ml Soln INHALATION 3 ml RT-Q4H PRN Administration shortness of breath Alprazolam 0.25 mg 07/06/18 01:10 07/12/18 15:03 Xanax PO 0.25 mg TID PRN Administration Agitation or Acute Anxiety Budesonide 1 mg 07/13/18 08:00 07/17/18 07:28 Pulmicort INHALATION 1 mg RT-BID [facility] Administration Calcium Carbonate/Glycine 500 mg 07/07/18 17:00 07/15/18 09:17 Tums PO 500 mg QID PRN Administration Heartburn Chlorhexidine Gluconate 15 ml 07/16/18 09:00 07/17/18 09:01 Peridex MUCOUS MEM 15 ml BID [facility] Administration Docusate Sodium 100 mg 07/08/18 21:00 07/17/18 09:09 Colace PO Not Given BID [facility] Ferrous Sulfate 325 mg 07/09/18 07:30 07/17/18 09:00 Feosol PO 325 mg BID-W/MEALS [facility] Administration Formoterol Fumarate 20 mcg 07/12/18 20:52 07/17/18 07:28 Perforomist INHALATION 20 mcg RT-BID [facility] Administration Heparin Sodium (Porcine) 5,000 unit 07/13/18 16:00 07/17/18 09:00 Heparin SQ 5,000 unit Q8HR [facility] Administration Hydromorphone HCl 0.5 mg 07/17/18 09:44 Dilaudid IVP Q4HR PRN Pain Diltiazem HCl 125 mg/ Sodium 125 mls @ 10 mls/hr 07/13/18 10:00 07/17/18 09:01 Chloride IV 10 mg/hr .[id number] [facility] 10 mls/hr Administration 10 MG/HR Anidulafungin 100 mg/ Sodium 100 mls @ 84 mls/hr 07/14/18 23:00 07/16/18 21 :40 Chloride IVPB 84 mls/hr DAILY@2100 [facility] Administration Ferric Sodium Gluconate 125 mg 110 mls @ 100 mls/hr 07/15/18 09:00 07/17/18 09:02 / Sodium Chloride IVPB 100 mls/hr DAILY [facility] Administration Piperacillin Sod/Tazobactam 100 mls @ 25 mls/hr 07/14/18 16:00 07/17/18 09:02 Sod 3.375 gm/ Sodium Chloride IVPB 25 mls/hr Q8HR [facility] Administration Vancomycin HCl 1,000 mg/ 250 mls @ 125 mls/hr 07/15/18 14:00 07/17/18 12:24 Sodium Chloride IVPB 125 mls/hr DAILY@1200 [facility] Administration Propofol 1,000 mg/ IV Solution 100 mls @ 0 mls/hr 07/15/18 20:00 07/17/18 09:29 IV 40 mcg/kg/min .Q0M [facility] 14.472 mls/hr Administration Protocol Titrate Sodium Chloride 1,000 mls @ 100 mls/hr 07/16/18 08:45 07/17/18 04:37 Saline 0.9% IV 100 mls/hr .Q10H [facility] Administration Insulin Aspart 0 unit 07/06/18 12:30 07/17/18 11:54 Novolog SQ 1 unit ACHS [facility] Administration Protocol Levofloxacin 250 mg 07/11/18 15:00 07/16/18 18:53 Levaquin PO 250 mg Q24H [facility] Administration Methylprednisolone Sodium Succinate 60 mg 07/13/18 00:00 07/17/18 09:01 Solu-Medrol IV 60 mg Q8HR [facility] Administration Miscellaneous Information 1 each 07/05/18 20:48 Pneumonia Protocol Utilized PO ONCE PRN Per Protocol Miscellaneous Information 1 each 07/12/18 10:02 Potassium Per Protocol MISCELLANE DAILY PRN Per Protocol Protocol Miscellaneous Information 1 each 07/17/18 06:14 Potassium Per Protocol MISCELLANE DAILY PRN Per Protocol Protocol Montelukast Sodium 10 mg 07/06/18 21:00 07/16/18 21:41 Singulair PO 10 mg HS [facility] Administration Naloxone HCl 0.2 mg 07/06/18 00:51 Narcan IV Q2M PRN Opioid Reversal Pantoprazole Sodium 40 mg 07/06/18 14:00 07/17/18 09:00 Protonix PO 40 mg [id number] [facility] Administration Senna 2 mg 07/08/18 13:39 Senokot PO HS PRN Constipation Verapamil HCl 240 mg 07/10/18 21:00 07/17/18 11:07 Isoptin Sr PO Not Given BID [facility] Intake and Output 07/16/18 07/17/18 07/17/18 22:59 06:59 14:59 Intake Total 771.766 9843 863.393 Output Total 100 280 305 Balance 770.927 845 558.393 Intake: IV 850 900 625 0.9 650 Piperacillin-Tazobactam 3 100 25 .375 gm In Sodium Chloride 0.9% 100 ml @ 25 mls/hr IVPB Q8HR [facility] Rx# :[id number] Sodium Chloride 0.9% 1, 200 800 600 000 ml @ 100 mls/hr IV . Q10H [facility] Rx#:[id number] Intake, IV Titration 20.927 225 238.393 Amount Diltiazem 125 mg In 125 58.833 Sodium Chloride 0.9% 100 ml @ 10 MG/HR 10 mls/hr IV .[id number] [facility] Rx#: [id number] Propofol 1,000 mg In 20.927 100 79.56 Empty Bag 1 bag @ Titrate IV .Q0M [facility] Rx#: [id number] Sodium Ferric Gluconat- 100 Sucrose 125 mg In Sodium Chloride 0.9% 100 ml @ 100 mls/hr IVPB DAILY [facility] Rx#:[id number] Output: Drainage 100 Right Abdomen 100 Urine 100 280 205 Other: Voiding Method Indwelling Catheter Indwelling Catheter Weight 60.3 kg 07/17/18 04:00 07/17/18 04:00
[2018-07-17] MEDS ORDERED: VANCOMYCIN IV PER PHARMACY 1 EACH MISC MISCELLANE PRN (13:49)
--- NOTE | 2018-07-17 13:56 | PN ---
PROGRESS NOTE DATE OF SERVICE: 07/17/2018 Patient is a 78-year-old female who is seen in the ICU with nursing staff at bedside. Patient is sedated on a mechanical ventilator. The patient is afebrile. Vital signs are stable. PHYSICAL EXAM: VITAL SIGNS: Temperature is 96.4, heart rate 85, respiratory rate is 20, blood pressure is 100/57, O2 saturation is 92% on mechanical ventilator with an FiO2 at 50%. HEENT: Head is normocephalic, atraumatic. Neck is supple. Trachea is midline. LUNGS: Clear in the upper lobes with fair air entry. Diminished at the bases, more so on the right. HEART: S1, S2 are heard. Irregular, not tachycardic. ABDOMEN: Soft. Bowel sounds are positive. Colostomy is pink. Abdominal binder is intact. EXTREMITIES: With 2+ pedal edema bilaterally. Neurologic: Patient is sedated on mechanical ventilator. LABS: White count is 25.2, hemoglobin is 8.7, hematocrit 27.2 with 103,000 platelets, sodium is 142, potassium is 3.6, chloride 111, CO2 is 24, anion gap is 7, BUN is 69, creatinine 1.99, glucose is 122, calcium is 8.7, phosphorus is 4.3, magnesium is 2.3. ABGs, pH is 7.42, pCO2 is 40, PO2 is 81, bicarb is 26. IMAGING: Chest x-ray done this morning shows no significant interval change in the appearance of the chest, bilateral pleural effusions, right greater than left. IMPRESSION: 1. Acute and chronic respiratory failure, hypoxemic, hypercapnic. Continue mechanical ventilator. 2. Sepsis. 3. Fungemia. 4. Pneumoperitoneum status post exploratory laparotomy with colostomy. 5. Renal failure, oliguric 6. Severe chronic obstructive pulmonary disease. 7. Systemic sclerosis. PLAN: Continue mechanical ventilator. Patient not ready for weaning at this time. Decrease Solu-Medrol to 30 mg IV q.8 hours. Continue Duonebs. Continue antibiotics per Infectious Disease. Continue sedation per protocol. Continue Dilaudid p.r.n. for comfort. Continue IV fluids per Nephrology. A discussion was had with Dr. Negro regarding possibly tapping the right pleural effusion and we will not be tapping effusion because of patient's poor prognosis. Family is leaning toward palliative care. We will continue to follow patient closely with you making further changes as necessary. Patient was seen by Dr. Odette Kingston covering for Dr. Andreas Medina. I performed a History & Physical Examination of the patient and discussed their management with nurse practitioner. I reviewed the nurse practitioner's note and agree with the documented findings and plan of care. MMODL / IJN: [id number] / MTDD
--- NOTE | 2018-07-17 14:37 | P.PN ---
Subjective Progress Note Date: 07/16/18 Principal diagnosis: Acute hypoxic/hypercapnic respiratory failure Acute exacerbation COPD The onset atrial fibrillation Acute blood loss anemia this is a pleasant 77 years old female with past medical history of COPD and rheumatoid arthritis, scleroderma and GERD. Presents with severe acute COPD exacerbation.patient currently remains in the ICU, improving slowly. She is a bit tachycardic above 100 . She saturating 93% on room air.her WBC is 20.4 k but she is on steroids too. . INR is 1.6. Plasma lactic acid 3.6. She remains on Xanax, Pulmicort, Levaquin, and Solu-Medrol 60 mg every 6 hours. She is also on Zosyn and Protonix.pulmonary team R following the case closely. As well as cardiology team 07/15/2018: Patient seen and examined in the intensive care unit with nursing staff at bedside. The patient just returned from CT of the chest. The patient is having abdominal distention and pain. She has not had much to eat because of this. She did have a bowel movement overnight. The patient has been hemodynamically stable. She was off of BiPAP from 3 AM until 11 AM. She's been placed on BiPAP again so that she can take a nap. CT of the chest shows small bilateral pleural effusions, mild cardiomegaly, moderate pericardial effusion, ascites. 07/16/2018 Patient is seen and evaluated at bedside in ICU; patient is currently intubated; patient's abdominal flat plate yesterday showed pneumoperitoneum; surgical consultation was done and patient underwent exploratory laparotomy showing Perforated sigmoid colon with many diverticuli; Large amount of intra-abdominal stool and turbid fluid; Dilated small bowel and stomach; underwent sigmoid colectomy and with an ostomy Patient has evidence of candidemia and candidate Giardia and is on Eraxis; IDs following Patient is restarted on IV Cardizem drip for atrial fibrillation Lap shows slight worsening of renal function with a creatinine of 1.5; nephr ology is following and recommending to increase IV fluids to 150 mL per hour Objective - Vital Signs Vital signs: Vital Signs Temp 98.8 F 07/16/18 04:00 Pulse 95 07/16/18 09:00 Resp 25 H 07/16/18 09:00 BP 96/65 07/16/18 09:00 Pulse Ox 94 L 07/16/18 06:00 Intake & Output 07/15/18 07/16/18 07/16/18 18:59 06:59 18:59 Intake Total 2885 1547.969 500 Output Total 520 520 20 Balance 2365 1027.969 480 Weight 55.5 kg 58.5 kg Intake: IV 2500 1400 500 0.9 200 Anidulafungin 100 mg In 100 Sodium Chloride 0.9% 100 ml @ 84 mls/hr IVPB DAILY @2100 [facility] Rx#:[id number] Dextrose 5%-0.45% NaCl 1, 500 1200 300 000 ml @ 150 mls/hr IV . Q6H40M [facility] Rx#:[id number] Piperacillin-Tazobactam 3 100 .375 gm In Sodium Chloride 0.9% 100 ml @ 25 mls/hr IVPB Q8HR [facility] Rx# :[id number] Intake, IV Titration 125 147.969 Amount Diltiazem 125 mg In 125 116.167 Sodium Chloride 0.9% 100 ml @ 10 MG/HR 10 mls/hr IV .[id number] [facility] Rx#: [id number] Propofol 1,000 mg In 31.802 Empty Bag 1 bag @ Titrate IV .Q0M [facility] Rx#: [id number] Oral 260 Output: Drainage 175 Right Abdomen 175 Urine 520 245 20 Estimated Blood Loss 100 Other: Voiding Method Indwelling Catheter Indwelling Catheter Indwelling Catheter ABP, PAP, CO, CI - Last Documented Arterial Blood Pressure 129/58 - Exam Gen.: Patient is somnolent but arousable to verbal stimuli, on BiPAP, resting comfortably Cardiovascular: Regular rate and rhythm, S1/S2 Lungs: Diminished breath sounds bilaterally Abdomen: Soft nontender nondistended positive bowel sounds Extremities: No edema - Labs CBC & Chem 7: 07/16/18 04:46 07/16/18 04:46 Labs: Abnormal Lab Results - Last 24 Hours (Table) 07/15/18 07/15/18 07/15/18 Range/Units 12:17 20:21 21:08 WBC (3.8-10.6) k/uL RBC (3.80-5.40) m/uL Hgb (11.4-16.0) gm/dL Hct (34.0-46.0) % MCHC (31.0-37.0) g/dL RDW (11.5-15.5) % ABG pH 7.34 L (7.35-7.45) ABG pCO2 55 H (35-45) mmHg ABG pO2 72 L (83-108) mmHg ABG HCO3 29 H (21-25) mmol/L ABG Total CO2 31 H (19-24) mmol/L ABG O2 Saturation 92.9 L (94-97) % Chloride (98-107) mmol/L BUN (7-17) mg/dL Creatinine (0.52-1.04) mg/dL Glucose (74-99) mg/dL POC Glucose (mg/dL) 134 H 54 L (75-99) mg/dL 07/15/18 07/16/18 07/16/18 Range/Units 21:24 00:20 04:35 WBC 25.8 H (3.8-10.6) k/uL RBC (3.80-5.40) m/uL Hgb 10.3 L (11.4-16.0) gm/dL Hct 32.7 L (34.0-46.0) % MCHC (31.0-37.0) g/dL RDW 21.3 H (11.5-15.5) % ABG pH (7.35-7.45) ABG pCO2 (35-45) mmHg ABG pO2 73 L (83-108) mmHg ABG HCO3 26 H (21-25) mmol/L ABG Total CO2 28 H (19-24) mmol/L ABG O2 Saturation (94-97) % Chloride (98-107) mmol/L BUN (7-17) mg/dL Creatinine (0.52-1.04) mg/dL Glucose (74-99) mg/dL POC Glucose (mg/dL) 197 H (75-99) mg/dL 07/16/18 07/16/18 07/16/18 Range/Units 04:46 04:46 07:08 WBC 24.4 H (3.8-10.6) k/uL RBC 3.70 L (3.80-5.40) m/uL Hgb 9.5 L (11.4-16.0) gm/dL Hct 30.8 L (34.0-46.0) % MCHC 30.9 L (31.0-37.0) g/dL RDW 21.4 H (11.5-15.5) % ABG pH (7.35-7.45) ABG pCO2 (35-45) mmHg ABG pO2 (83-108) mmHg ABG HCO3 (21-25) mmol/L ABG Total CO2 (19-24) mmol/L ABG O2 Saturation (94-97) % Chloride 108 H (98-107) mmol/L BUN 65 H (7-17) mg/dL Creatinine 1.51 H (0.52-1.04) mg/dL Glucose 251 H (74-99) mg/dL POC Glucose (mg/dL) 268 H (75-99) mg/dL Microbiology - Last 24 Hours (Table) 07/15/18 04:45 Blood Culture - Preliminary Blood No Growth after 24 hours 07/12/18 21:50 Blood Culture Gram Stain - Final Blood Blood Culture - Final Terrie albicans Assessment and Plan Assessment: 1. Acute hypoxic and hypercapnic respiratory failure, requiring NIPPV - Acute exacerbation of COPD, severe, FEV1 32% of predicted - Small bilateral pleural effusions Continue bipap support, family has made the decision for DNR/DNI Continue with Solu-Medrol for 40 mg IV every 8 hours Irma Will, Jeaneth, Perforomist Patient remains on IV Levaquin, vancomycin, Zosyn, anidulafungin per ID 2. Moderate pericardial effusion; monitor 3. Cadida urine and blood stream infection/ Sepsis Patient remains on anidulafungin per ID recommendations 4. Chronic tobacco use 5. New onset atrial fibrillation - Cardiology is following and IV Cardizem infusion is discontinued and transitioned to oral Cardizem 240 mg twice a day 6. Acute renal injury - Patient currently on D5 water decreased to 20 mL/h due to pleural and pericardial effusions - We will continue to monitor renal function, HOA's, daily weights and electrolytes 7. Abdominal distention rule out ileus versus obstruction - Start abdominal x-ray; further recommendations after results are available 8. Acute symptomatic anemia; etiology unclear - Patient remains on IV iron infusion per nephrology - We will continue to monitor H&H closely and transfuse his hemoglobin is less than 7 - Patient remains on GI prophylaxis with Protonix 9. DVT prophylaxis; subcu heparin CODE STATUS; DO NOT RESUSCITATE Time with Patient: Greater than 30
[2018-07-17] MEDS: methylPREDNISolone SOD SUCCI 40 MG/ML 1 ML VIAL IV SCH ×2 (16:26→23:56)
[2018-07-17] MEDS: LEVOFLOXACIN 250 MG TAB PO SCH (16:26)
[2018-07-17] MEDS ORDERED: FUROSEMIDE 10 MG/ML 10 ML VIAL IV STA (17:55)
[2018-07-17 18:04] LABS: Glucose,Whole Blood 134 mg/dL (75-99)
[2018-07-17 21:00] LABS: Glucose,Whole Blood 99 mg/dL (75-99)
[2018-07-17] MEDS: ANIDULAFUNGIN 100 MG in SODIUM CHLORIDE 0.9% 100 ML IVPB SCH (21:03)
[2018-07-17] MEDS: MONTELUKAST 10 MG TAB PO SCH (21:03)
--- NOTE | 2018-07-17 22:22 | P.PN ---
Subjective Progress Note Date: 07/17/18 77-year-old female presented hospital 8 days ago which point in time she was with severe shortness of breath and was having difficulty with acute exacerbation of COPD and had developed difficulties with atrial fibrillation with a rapid ventricular response and concerns pneumonia. She subsequently has been treated was having some improvement. However. Just today she had acute decompensation and again had atrial fibrillation with rapid ventricular response and was brought to the intensive care unit where she's been treated with BiPAP, Cardizem drip and supportive care. It is noted from documentation that the family is contemplating further reduction of level of care but for now she will not be intubated. The patient is able to relate to no further history given that she has BiPAP in place and is remaining with significant dyspnea. 07/14/2018 patient is feeling better today. BiPAP is off and she has nasal cannula is eating her meal without difficulties. She received a carrot cake today for her birthday she turned 78 today. Her family members are present and believe that she is definitely more comfortable. Patient vocalizes no new complaints. Pain is under good control. 07/15/2018 initially the patient had worsening dyspnea. It with that further interventions occurred with a computed tomography scan. There was an evidence of acute changes and abdominal flat plate was performed. This confirmed the pneumoperitoneum. Surgical consult occurred the patient's been taken the operating room for the exploratory laparotomy with evidence of the perforated sigmoid colon, colostomy has been performed. 07/17/2018 The patient remains on the ventilator and with her lung disease there has not been able to be weaned and extubated. Sedated Objective - Vital Signs Vital signs: Vital Signs Temp 96.9 F L 07/17/18 16:00 Pulse 83 07/17/18 20:27 Resp 26 H 07/17/18 20:27 BP 108/58 07/17/18 19:00 Pulse Ox 95 07/17/18 19:00 Intake & Output 07/17/18 07/17/18 07/18/18 06:59 18:59 06:59 Intake Total 1525 1463.393 100 Output Total 350 610 415 Balance 1175 853.393 -315 Weight 60.3 kg 60.3 kg Intake: IV 1300 1225 100 0.9 200 Piperacillin-Tazobactam 3 100 25 .375 gm In Sodium Chloride 0.9% 100 ml @ 25 mls/hr IVPB Q8HR [facility] Rx# :[id number] Sodium Chloride 0.9% 1, 1000 1200 100 000 ml @ 100 mls/hr IV . Q10H [facility] Rx#:[id number] Intake, IV Titration 225 238.393 Amount Diltiazem 125 mg In 125 58.833 Sodium Chloride 0.9% 100 ml @ 10 MG/HR 10 mls/hr IV .[id number] [facility] Rx#: [id number] Propofol 1,000 mg In 100 79.56 Empty Bag 1 bag @ Titrate IV .Q0M [facility] Rx#: [id number] Sodium Ferric Gluconat- 100 Sucrose 125 mg In Sodium Chloride 0.9% 100 ml @ 100 mls/hr IVPB DAILY [facility] Rx#:[id number] Output: Gastric Drainage 400 Drainage 300 Right Abdomen 300 Urine 350 310 15 Other: Voiding Method Indwelling Catheter Indwelling Catheter ABP, PAP, CO, CI - Last Documented Arterial Blood Pressure 114/53 - Exam Intubated sedated and mechanically ventilated 77-year-old woman cachectic HEENT: Anicteric conjunctiva are pink and moist nasal mucosa grossly intact without significant lesions, oral mucosa is dry but no lesions Neck: The neck is supple without significant lymphadenopathy or thyromegaly. Lungs: Symmetrical air entry is noted few basilar crackles and wheezing Heart: Irregular with an audible S4 2/6 systolic murmur that does not radiate PMI was nondisplaced Abdomen: Scaphoid Positive bowel sounds soft and nontender without palpable masses or organomegaly. There was no guarding or rebound. Extremities: Extremities show the extensive muscular wasting, lower extremity edema is minimal feet are warm and no acute ulcerations are seen Neuro: Remains on the ventilator and sedated - Labs CBC & Chem 7: 07/17/18 04:00 07/17/18 04:00 Labs: Abnormal Lab Results - Last 24 Hours (Table) 07/17/18 07/17/18 07/17/18 Range/Units 04:00 04:00 05:03 WBC 25.2 H (3.8-10.6) k/uL RBC 3.38 L (3.80-5.40) m/uL Hgb 8.7 L (11.4-16.0) gm/dL Hct 27.2 L (34.0-46.0) % RDW 21.9 H (11.5-15.5) % Plt Count 103 L (150-450) k/uL ABG pO2 81 L (83-108) mmHg ABG HCO3 26 H (21-25) mmol/L ABG Total CO2 27 H (19-24) mmol/L Chloride 111 H (98-107) mmol/L BUN 69 H (7-17) mg/dL Creatinine 1.99 H (0.52-1.04) mg/dL Glucose 122 H (74-99) mg/dL POC Glucose (mg/dL) (75-99) mg/dL 07/17/18 07/17/18 Range/Units 11:50 18:02 WBC (3.8-10.6) k/uL RBC (3.80-5.40) m/uL Hgb (11.4-16.0) gm/dL Hct (34.0-46.0) % RDW (11.5-15.5) % Plt Count (150-450) k/uL ABG pO2 (83-108) mmHg ABG HCO3 (21-25) mmol/L ABG Total CO2 (19-24) mmol/L Chloride (98-107) mmol/L BUN (7-17) mg/dL Creatinine (0.52-1.04) mg/dL Glucose (74-99) mg/dL POC Glucose (mg/dL) 136 H 134 H (75-99) mg/dL Microbiology - Last 24 Hours (Table) 07/15/18 04:45 Blood Culture - Preliminary Blood No Growth after 48 hours Laboratory Results WBC 25.2 k/uL (3.8-10.6) H 07/17/18 04:00 RBC 3.38 m/uL (3.80-5.40) L 07/17/18 04:00 Hgb 8.7 gm/dL (11.4-16.0) L 07/17/18 04:00 Hct 27.2 % (34.0-46.0) L 07/17/18 04:00 MCV 80.6 fL (80.0-100.0) 07/17/18 04:00 MCH 25.8 pg (25.0-35.0) 07/17/18 04:00 MCHC 32.0 g/dL (31.0-37.0) 07/17/18 04:00 RDW 21.9 % (11.5-15.5) H 07/17/18 04:00 Plt Count 103 k/uL (150-450) L 07/17/18 04:00 Neutrophils % 94 % 07/12/18 06:13 Lymphocytes % 2 % 07/12/18 06:13 Monocytes % 3 % 07/12/18 06:13 Eosinophils % 1 % 07/12/18 06:13 Basophils % 0 % 07/12/18 06:13 Neutrophils # 22.9 k/uL (1.3-7.7) H 07/12/18 06:13 Lymphocytes # 0.5 k/uL (1.0-4.8) L 07/12/18 06:13 Monocytes # 0.7 k/uL (0-1.0) 07/12/18 06:13 Eosinophils # 0.2 k/uL (0-0.7) 07/12/18 06:13 Basophils # 0.0 k/uL (0-0.2) 07/12/18 06:13 Hypochromasia Marked 07/17/18 04:00 Poikilocytosis Slight 07/17/18 04:00 Anisocytosis Moderate 07/17/18 04:00 Microcytosis Slight 07/17/18 04:00 ESR 2 mm/hr (0-20) 07/08/18 05:30 Retic Count 2.8 % (0.5-2.0) H 07/08/18 05:30 Haptoglobin 220.0 mg/dL (31.2-198.0) H 07/07/18 04:30 PT 10.7 sec (9.0-12.0) 07/07/18 13:26 INR 1.0 (<1.2) 07/07/18 13:26 APTT 23.1 sec (22.0-30.0) 07/07/18 13:26 D-Dimer 1.61 mg/L FEU (<0.60) H 07/07/18 13:26 Sample Site white swan 07/17/18 05:03 ABG pH 7.42 (7.35-7.45) 07/17/18 05:03 ABG pCO2 40 mmHg (35-45) 07/17/18 05:03 ABG pO2 81 mmHg (83-108) L 07/17/18 05:03 ABG HCO3 26 mmol/L (21-25) H 07/17/18 05:03 ABG Total CO2 27 mmol/L (19-24) H 07/17/18 05:03 ABG O2 Saturation 96.9 % (94-97) 07/17/18 05:03 ABG Base Excess 1.1 mmol/L 07/17/18 05:03 Christiano Test Yes 07/17/18 05:03 FiO2 50 % 07/17/18 05:03 Sodium 142 mmol/L (137-145) 07/17/18 04:00 Potassium 3.6 mmol/L (3.5-5.1) 07/17/18 04:00 Chloride 111 mmol/L (98-107) H 07/17/18 04:00 Carbon Dioxide 24 mmol/L (22-30) 07/17/18 04:00 Anion Gap 7 mmol/L 07/17/18 04:00 BUN 69 mg/dL (7-17) H 07/17/18 04:00 Creatinine 1.99 mg/dL (0.52-1.04) H 07/17/18 04:00 Est GFR (CKD-EPI)AfAm 28 (>60 ml/min/1.73 sqM) 07/17/18 04:00 Est GFR (CKD-EPI)NonAf 24 (>60 ml/min/1.73 sqM) 07/17/18 04:00 Glucose 122 mg/dL (74-99) H 07/17/18 04:00 POC Glucose (mg/dL) 99 mg/dL (75-99) 07/17/18 20:59 POC Glu [employer] Garth Kim 07/17/18 20:59 Lactic Ac Sepsis Rflx Y 07/07/18 06:23 Plasma Lactic Acid Feliberto 1.1 mmol/L (0.7-2.0) 07/12/18 19:19 Calcium 8.7 mg/dL (8.4-10.2) 07/17/18 04:00 Phosphorus 4.3 mg/dL (2.5-4.5) 07/17/18 04:00 Magnesium 2.3 mg/dL (1.6-2.3) 07/17/18 04:00 Iron 19 ug/dL (50-170) L 07/08/18 07:30 TIBC 351 ug/dL (228-460) 07/08/18 07:30 Iron Saturation 5.41 (12.00-45.00) L 07/08/18 07:30 Ferritin 107.9 ng/mL (10.0-291.0) 07/08/18 07:30 Total Bilirubin 1.1 mg/dL (0.2-1.3) 07/11/18 06:18 AST 34 U/L (14-36) 07/11/18 06:18 ALT 42 U/L (9-52) 07/11/18 06:18 Alkaline Phosphatase 57 U/L (38-126) 07/11/18 06:18 Lactate Dehydrogenase 561 U/L (313-618) 07/08/18 07:30 Creatine Kinase 66 U/L (30-135) 07/05/18 17:02 CK-MB (CK-2) 2.3 ng/mL (0.0-2.4) 07/05/18 17:02 Troponin I 0.087 ng/mL (0.000-0.034) H* 07/12/18 19:19 Total Protein 6.2 g/dL (6.3-8.2) L 07/11/18 06:18 Total Protein (PEP) 6.6 g/dL (6.2-8.2) 07/08/18 07:30 Albumin 3.1 g/dL (3.5-5.0) L 07/11/18 06:18 Albumin (PEP) 3.05 g/dL (3.80-4.90) L 07/08/18 07:30 Imkmz-5-Xxkecaeip 0.54 g/dL (0.10-0.40) H 07/08/18 07:30 Dxgvq-3-Oqmimcmsl 0.73 g/dL (0.60-1.00) 07/08/18 07:30 Beta Globulins 0.71 g/dL (0.60-1.30) 07/08/18 07:30 Gamma Globulins 1.56 g/dL (0.70-1.50) H 07/08/18 07:30 PEP Interpretation SEE NOTE 07/08/18 07:30 Triglycerides 68 mg/dL (<150) 07/06/18 04:20 Cholesterol 90 mg/dL (<200) 07/06/18 04:20 LDL Cholesterol, Calc 47 mg/dL (0-99) 07/06/18 04:20 HDL Cholesterol 29 mg/dL (40-60) L 07/06/18 04:20 Vitamin B12 748.0 pg/mL (200.0-944.0) 07/08/18 07:30 Methylmalonic Acid 0.28 umol/L (<0.40) 07/08/18 07:30 Folate 15.2 ng/mL 07/08/18 07:30 TSH 5.960 mIU/L (0.465-4.680) H 07/05/18 17:02 Free T4 1.96 ng/dL (0.78-2.19) 07/05/18 17:02 Free T3 pg/mL 1.5 pg/ml (2.8-5.3) L 07/05/18 17:02 Urine Color Yellow 07/12/18 16:40 Urine Appearance Cloudy (Clear) H 07/12/18 16:40 Urine pH 5.0 (5.0-8.0) 07/12/18 16:40 Ur Specific Burton 1.018 (1.001-1.035) 07/12/18 16:40 Urine Protein 1+ (Negative) H 07/12/18 16:40 Urine Glucose (UA) Negative (Negative) 07/12/18 16:40 Urine Ketones Negative (Negative) 07/12/18 16:40 Urine Blood Small (Negative) H 07/12/18 16:40 Urine Nitrite Negative (Negative) 07/12/18 16:40 Urine Bilirubin Negative (Negative) 07/12/18 16:40 Urine Urobilinogen <2.0 mg/dL (<2.0) 07/12/18 16:40 Ur Leukocyte Esterase Negative (Negative) 07/12/18 16:40 Urine RBC 23 /hpf (0-5) H 07/12/18 16:40 Urine WBC 11 /hpf (0-5) H 07/12/18 16:40 Ur Squamous Epith Cells 29 /hpf (0-4) H 07/12/18 16:40 Amorphous Sediment Occasional /hpf (None) H 07/12/18 16:40 Hyaline Casts 1 /lpf (0-2) 07/12/18 16:40 Urine Mucus Rare /hpf (None) H 07/12/18 16:40 Ur Yeast w Hyphae Occasional /hpf (None) 07/12/18 16:40 Urine Yeast (Budding) Moderate /hpf (None) H 07/12/18 16:40 Stool Occult Blood Negative (Negative) 07/05/18 20:19 Vancomycin Trough 27.2 ug/mL 07/17/18 11:00 Random Vancomycin 18.1 ug/mL 07/15/18 07:21 IgG 1580.0 mg/dL (700.0-1600.0) 07/08/18 07:30 IgA 169.0 mg/dL (60.0-350.0) 07/08/18 07:30 IgM 146.0 mg/dL (40.0-280.0) 07/08/18 07:30 Serum MANDEEP Interpret SEE NOTE 07/08/18 07:30 Free [place] LC, Quant 3.18 mg/dL (0.33-1.94) H 07/08/18 07:30 Free Lambda LC, Quant 2.55 mg/dL (0.57-2.63) 07/08/18 07:30 Influenza Type A RNA Not Detected (Not Detectd) 07/05/18 21:00 Influenza Type B (PCR) Not Detected (Not Detectd) 07/05/18 21:00 Blood Type AB Positive 07/05/18 20:50 Blood Type Confirm AB Positive 07/05/18 17:02 Blood Type Recheck CABO Indicated 07/05/18 20:50 Antibody Screen NEGATIVE 07/05/18 20:50 Crossmatch See Detail 07/05/18 20:50 Spec Expiration Date 07/08/2018 - 234907/05/18 20:50 Microbiology 07/15/18 04:45 Blood Blood Culture - Preliminary No Growth after 48 hours 07/12/18 21:50 Blood Blood Culture Gram Stain - Final 07/12/18 21:50 Blood Blood Culture - Final Terrie albicans 07/12/18 16:40 Urine,Catheterized Urine Culture - Final Terrie albicans 07/12/18 21:50 Blood Blood Culture - Final 07/05/18 20:50 Blood Blood Culture - Final No Growth after 144 hours 07/06/18 16:45 Sputum Gram Stain - Final 07/06/18 16:45 Sputum Sputum Culture - Final 07/06/18 16:45 Urine,Catheterized Urine Culture - Final Assessment and Plan (1) Acute and chronic respiratory failure ([id number]) Narrative/Plan: 77-year-old female that has a history of advanced COPD has presented with respiratory failure acute on chronic in nature. Now requiring BiPAP therapy has evidence of abnormalities including possibility of infiltrate alth ough the original computed tomography scan at admission did not show evidence of lily pneumonia. She's had significant anemia also complicating her stay. Evidence of some candiduria is seen at this time. Patient is being treated with antibiotic therapy includes vancomycin and Zosyn for concerns to pneumonia in this compromised patient. Eraxis is added for treatment of the underlying fungal infection of the urine that has occurred. Her prognosis is poor and family is contemplating transition to comfort care. 07/14/2018 is on the patient had evidence of candiduria and other laboratory has reported to a positive blood culture for yeast in the blood. Eraxis assertive and started. Follow blood cultures requested for tomorrow. She does not have an dwelling intravenous catheter. His peripheral IVs. We'll continue the Eraxis for now, given her current medications would not be a good candidate for fluconazole. Family is continuing to consider overall care plan. 07/15/2018 the patient had significant change of her status. Evidence of the candidemia and candiduria have been noted and she is on Eraxis. However she had increasing shortness of breath and imaging studies revealed evidence of pneumoperitoneum. She is up-to-date the operating room for the exploratory laparotomy and colostomy placement. Antibiotic therapy continued use with Levaquin and Zosyn and Eraxis. Await further cultures and continue supportive care 07/17/2018 patient is status post surgery with the exploratory laparotomy and colostomy. She however has not been extubated due to her Very poor pulmonary status. Patient is not recovering well. Contemplation for palliative care. Continue current antibiotic and antifungal therapy, if goes to a palliative care would not need further antimicrobials. Current Visit: Yes Status: Acute Code(s): J96.20 - ACUTE AND CHR RESP FAILURE, UNSP W HYPOXIA OR HYPERCAPNIA SNOMED Code(s): 10981317 (2) IgM lambda monoclonal gammopathy Current Visit: Yes Status: Acute Priority: Medium Code(s): D47.2 - MONOCLONAL GAMMOPATHY SNOMED Code(s): 663910361 (3) Pulmonary cachexia due to chronic obstructive pulmonary disease Current Visit: Yes Status: Acute Code(s): J44.9 - CHRONIC OBSTRUCTIVE PULMONARY DISEASE, UNSPECIFIED; R64 - CACHEXIA SNOMED Code(s): 153929935
[2018-07-18 00:03] LABS: Glucose,Whole Blood 94 mg/dL (75-99)
[2018-07-18] MEDS: SODIUM CHLORIDE 0.9% 1,000 ML IV SCH ×3 (00:08→20:27)
[2018-07-18 04:25] LABS: ABG Base Excess -2.1 mmol/L; ABG HCO3 23 mmol/L (21-25); ABG Oxygen Saturation 95.8 % (94-97); ABG PCO2 39 mmHg (35-45); ABG PH 7.38 (7.35-7.45); ABG PO2 77 mmHg (83-108); ABG TCO2 24 mmol/L (19-24)
[2018-07-18 06:08] LABS: Anisocytosis Moderate; HCT 25.1 % (34.0-46.0); HGB 7.8 gm/dL (11.4-16.0); Hypochromasia Moderate; MCH 25.4 pg (25.0-35.0); MCHC 31.1 g/dL (31.0-37.0); MCV 81.8 fL (80.0-100.0); Mean Platelet Volume 9.7; Microcytosis Slight; Poikilocytosis Slight; RBC 3.06 m/uL (3.80-5.40); RDW 21.9 % (11.5-15.5); WBC 22.5 k/uL (3.8-10.6)
[2018-07-18 06:29] LABS: Calcium 8.2 mg/dL (8.4-10.2); Magnesium 2.2 mg/dL (1.6-2.3); Phosphorus 5.5 mg/dL (2.5-4.5); Potassium 3.6 mmol/L (3.5-5.1)
[2018-07-18 06:39] VITALS: BP 104/53
[2018-07-18 06:41] LABS: Platelet Count 91 k/uL (150-450)
--- NOTE | 2018-07-18 07:13 | XR ---
EXAMINATION TYPE: XR chest 1V portable DATE OF EXAM: 07/18/2018 COMPARISON: Prior chest x-ray 07/17/2018 HISTORY: Intubated TECHNIQUE: Single frontal view of the chest is obtained. FINDINGS: Endotracheal tube and NG tube, right jugular central venous catheter are overlying appropr iate positions. Patient is rotated and there are overlying cardiac leads. No evident pneumothorax. Bi basilar increased density persists, heart remains enlarged. IMPRESSION: Bibasilar effusions and associated edema versus atelectasis, correlate to exclude pneumo juanita.
[2018-07-18] MEDS: FORMOTEROL FUMARATE 20 MCG/2 ML NEBU INHALATION SCH ×2 (07:27→19:32)
[2018-07-18] MEDS: BUDESONIDE 1 MG/2 ML NEBU INHALATION SCH ×2 (07:27→19:32)
[2018-07-18] MEDS: IPRATROPIUM-ALBUTEROL 3 ML NEB INHALATION SCH ×4 (07:27→19:32)
[2018-07-18] MEDS: PROPOFOL 1,000 MG in EMPTY BAG 1 BAG IV SCH ×2 (08:11)
[2018-07-18] MEDS: FERROUS SULFATE 325 MG TAB PO SCH ×2 (08:33→18:06)
[2018-07-18] MEDS: INSULIN ASPART (NovoLOG) 100 UNIT/ML VIAL SQ SCH ×4 (08:33→20:17)
[2018-07-18] MEDS: PANTOPRAZOLE 40 MG TABLET PO SCH (08:33)
[2018-07-18] MEDS: VERAPAMIL SR 240 MG TABLET.ER PO SCH ×2 (08:34→20:17)
[2018-07-18] MEDS: HEPARIN SODIUM,PORCINE 5,000 UNIT/ML 1 ML VIAL SQ SCH ×2 (08:40→15:49)
[2018-07-18] MEDS: CHLORHEXIDINE GLUCONATE 15 ML CUP MUCOUS MEM SCH ×2 (08:40→20:28)
[2018-07-18] MEDS: PIPERACILLIN-TAZOBACTAM 3.375 GM in SODIUM CHLORIDE 0.9% 100 ML IVPB SCH ×3 (08:40→23:59)
[2018-07-18] MEDS: methylPREDNISolone SOD SUCCI 40 MG/ML 1 ML VIAL IV SCH ×2 (08:41→15:58)
[2018-07-18] MEDS: DOCUSATE 100 MG CAP PO SCH ×2 (08:41→20:28)
--- NOTE | 2018-07-18 09:05 | P.PN ---
Subjective Progress Note Date: 07/18/18 Patient seen and examined at bedside. Currently intubated and sedated. Ostomy is functioning with significant output. NG tube in place, also with significant output. Objective - Vital Signs Vital signs: Vital Signs Temp 97.5 F L 07/18/18 04:00 Pulse 68 07/18/18 07:50 Resp 21 07/18/18 06:00 BP 104/53 07/18/18 06:00 Pulse Ox 96 07/18/18 06:00 Intake & Output 07/17/18 07/18/18 07/18/18 18:59 06:59 18:59 Intake Total 5042.797 5154.527 55.717 Output Total 610 1370 Balance 953.393 194.527 55.717 Weight 60.3 kg 60.7 kg Intake: IV 1225 1400 Piperacillin-Tazobactam 3 25 .375 gm In Sodium Chloride 0.9% 100 ml @ 25 mls/hr IVPB Q8HR [facility] Rx# :[id number] Sodium Chloride 0.9% 1, 1200 1400 000 ml @ 100 mls/hr IV . Q10H [facility] Rx#:[id number] Intake, IV Titration 338.393 164.527 55.717 Amount Diltiazem 125 mg In 58.833 125 Sodium Chloride 0.9% 100 ml @ 5 MG/HR 5 mls/hr IV .Q24H [facility] Rx#:[id number] Propofol 1,000 mg In 179.56 39.527 55.717 Empty Bag 1 bag @ Titrate IV .Q0M [facility] Rx#: [id number] Sodium Ferric Gluconat- 100 Sucrose 125 mg In Sodium Chloride 0.9% 100 ml @ 100 mls/hr IVPB DAILY [facility] Rx#:[id number] Output: Gastric Drainage 900 Drainage 300 175 Right Abdomen 300 175 Urine 310 295 Other: Voiding Method Indwelling Catheter Indwelling Catheter ABP, PAP, CO, CI - Last Documented Arterial Blood Pressure 124/56 - Constitutional Constitutional Comment(s): Intubated and sedated - Respiratory Details: No difficulty with respiration - Gastrointestinal Gastrointestinal Comment(s): Soft, distention improving, no rebound, no guarding, ostomy site is pink and patent with significant output, ABIEL drain in place with serosanguineous output - Labs CBC & Chem 7: 07/18/18 05:40 07/18/18 05:40 Labs: Abnormal Lab Results - Last 24 Hours (Table) 07/17/18 07/17/18 07/18/18 Range/Units 11:50 18:02 04:23 WBC (3.8-10.6) k/uL RBC (3.80-5.40) m/uL Hgb (11.4-16.0) gm/dL Hct (34.0-46.0) % RDW (11.5-15.5) % Plt Count (150-450) k/uL ABG pO2 77 L (83-108) mmHg Chloride (98-107) mmol/L BUN (7-17) mg/dL Creatinine (0.52-1.04) mg/dL Glucose (74-99) mg/dL POC Glucose (mg/dL) 136 H 134 H (75-99) mg/dL Calcium (8.4-10.2) mg/dL Phosphorus (2.5-4.5) mg/dL 07/18/18 07/18/18 Range/Units 05:40 05:40 WBC 22.5 H (3.8-10.6) k/uL RBC 3.06 L (3.80-5.40) m/uL Hgb 7.8 L (11.4-16.0) gm/dL Hct 25.1 L (34.0-46.0) % RDW 21.9 H (11.5-15.5) % Plt Count 91 L (150-450) k/uL ABG pO2 (83-108) mmHg Chloride 112 H (98-107) mmol/L BUN 70 H (7-17) mg/dL Creatinine 2.29 H (0.52-1.04) mg/dL Glucose 119 H (74-99) mg/dL POC Glucose (mg/dL) (75-99) mg/dL Calcium 8.2 L (8.4-10.2) mg/dL Phosphorus 5.5 H (2.5-4.5) mg/dL Microbiology - Last 24 Hours (Table) 07/15/18 04:45 Blood Culture - Preliminary Blood No Growth after 72 hours Assessment and Plan Plan: 78-year-old female with sigmoid colon perforation and multiple medical issues - Postoperative day #3 from exploratory laparotomy and Bain's procedure - Critical care recommendations on ventilator settings and extubation - Appreciate nephrology recommendations on fluid balance and resuscitation. They are closely monitoring patient's urine output and creatinine. - Continue ABIEL drain - Due to ileus, will withhold feeds at this time. The patient still does have a significant output from nasogastric tube. - Continue local wound and ostomy care - Continue Simmons catheter - Continue medical management - Prognosis poor
--- NOTE | 2018-07-18 10:12 | PN ---
PROGRESS NOTE Patient is seen for followup for acute kidney injury. Her urine output remains poor at 15-20 mL/hour. Serum creatinine is higher today at 2.29 from 1.9. The patient is not on any pressors. She is a maintained on IV fluids at 100 mL an hour. Patient remains on the vent and there is consideration for possible comfort care measures when the family comes by today. PHYSICAL EXAMINATION: Patient is currently sedated. Blood pressure this morning 124/56, heart rate 65 per minute. She is afebrile. Examination of the heart, S1, S2. Examination of the lungs, bilateral breath sounds are heard. Abdomen is dressed, tympanic. Examination of the lower extremities shows no significant edema. REGISTRY NP exam cannot be performed. LABS: Show A hemoglobin of 7.8, sodium 144, potassium 3.6, BUN 70, serum creatinine 2.29. ASSESSMENT: 1. Acute kidney injury, acute tubular necrosis secondary to hemodynamic instability and patient was hypotensive initially. She also had perforated colon at the time of surgery. 2. Acute hypoxic respiratory failure, currently on the vent. .. 3. Severe chronic obstructive pulmonary disease with exacerbation on this admission. 4. Atrial fibrillation with controlled ventricular response, maintained on Cardizem. 5. Sepsis with bowel perforation, status post explorative laparotomy with sigmoid colectomy and end ostomy. 6. Urinary tract infection. Urine culture growing Terrie. 7. Candidemia with blood cultures growing Terrie as well. PLAN: Continue antibiotics, continue IV fluids. Overall prognosis is guarded. Agree with comfort care measures if the patient's family wants to proceed with it. MMODL / IJN: [id number] /
[2018-07-18] MEDS: SODIUM FERRIC GLUCONAT-SUCROSE 125 MG in SODIUM CHLORIDE 0.9% 100 ML IVPB SCH (10:14)
[2018-07-18 12:19] LABS: Glucose,Whole Blood 135 mg/dL (75-99)
[2018-07-18 12:27] LABS: Glucose,Whole Blood 140 mg/dL (75-99)
--- NOTE | 2018-07-18 14:17 | P.PN ---
Subjective Progress Note Date: 07/18/18 07/18/2018: Patient seen and examined in the intensive care unit with nursing staff at bedside. The patient has been hemodynamically stable. She is calm and comfortable on propofol. She does follow some commands. Spontaneous breathing trial is attempted with pressure support of 8 and PEEP of 5. The patient seems to be tolerating at this time. We will continue spontaneous breathing trial. Plan is for family meeting tomorrow at noon. Objective - Vital Signs Vital signs: Vital Signs Temp 97.5 F L 07/18/18 12:00 Pulse 92 07/18/18 13:00 Resp 26 H 07/18/18 13:00 BP 104/53 07/18/18 06:00 Pulse Ox 93 L 07/18/18 13:00 Intake & Output 07/17/18 07/18/18 07/18/18 18:59 06:59 18:59 Intake Total 2047.903 5301.527 902.151 Output Total 610 1370 815 Balance 953.393 194.527 87.151 Weight 60.3 kg 60.7 kg Intake: IV 1225 1400 800 Piperacillin-Tazobactam 3 25 200 .375 gm In Sodium Chloride 0.9% 100 ml @ 25 mls/hr IVPB Q8HR [facility] Rx# :[id number] Sodium Chloride 0.9% 1, 1200 1400 600 000 ml @ 100 mls/hr IV . Q10H [facility] Rx#:[id number] Intake, IV Titration 338.393 164.527 102.151 Amount Diltiazem 125 mg In 58.833 125 Sodium Chloride 0.9% 100 ml @ 5 MG/HR 5 mls/hr IV .Q24H [facility] Rx#:[id number] Propofol 1,000 mg In 179.56 39.527 102.151 Empty Bag 1 bag @ Titrate IV .Q0M [facility] Rx#: [id number] Sodium Ferric Gluconat- 100 Sucrose 125 mg In Sodium Chloride 0.9% 100 ml @ 100 mls/hr IVPB DAILY [facility] Rx#:[id number] Output: Gastric Drainage 900 Drainage 300 175 255 Right Abdomen 300 175 255 Urine 310 295 160 Stool 400 Other: Voiding Method Indwelling Catheter Indwelling Catheter Indwelling Catheter ABP, PAP, CO, CI - Last Documented Arterial Blood Pressure 119/50 - Exam General: Patient is sedated on ventilator, thin and frail Cardiovascular: Regular rate and rhythm, S1/S2 Lungs: Diminished breath sounds bilaterally Abdomen: Ostomy in place, diminished bowel sounds Extremities: + edema - Labs CBC & Chem 7: 07/18/18 05:40 07/18/18 05:40 Labs: Abnormal Lab Results - Last 24 Hours (Table) 07/17/18 07/18/18 07/18/18 Range/Units 18:02 04:23 05:40 WBC 22.5 H (3.8-10.6) k/uL RBC 3.06 L (3.80-5.40) m/uL Hgb 7.8 L (11.4-16.0) gm/dL Hct 25.1 L (34.0-46.0) % RDW 21.9 H (11.5-15.5) % Plt Count 91 L (150-450) k/uL ABG pO2 77 L (83-108) mmHg Chloride (98-107) mmol/L BUN (7-17) mg/dL Creatinine (0.52-1.04) mg/dL Glucose (74-99) mg/dL POC Glucose (mg/dL) 134 H (75-99) mg/dL Calcium (8.4-10.2) mg/dL Phosphorus (2.5-4.5) mg/dL 07/18/18 07/18/18 07/18/18 Range/Units 05:40 12:17 12:25 WBC (3.8-10.6) k/uL RBC (3.80-5.40) m/uL Hgb (11.4-16.0) gm/dL Hct (34.0-46.0) % RDW (11.5-15.5) % Plt Count (150-450) k/uL ABG pO2 (83-108) mmHg Chloride 112 H (98-107) mmol/L BUN 70 H (7-17) mg/dL Creatinine 2.29 H (0.52-1.04) mg/dL Glucose 119 H (74-99) mg/dL POC Glucose (mg/dL) 135 H 140 H (75-99) mg/dL Calcium 8.2 L (8.4-10.2) mg/dL Phosphorus 5.5 H (2.5-4.5) mg/dL Microbiology - Last 24 Hours (Table) 07/12/18 21:50 Blood Culture Gram Stain - Final Blood Blood Culture - Final Terrie albicans 07/15/18 04:45 Blood Culture - Preliminary Blood No Growth after 72 hours Assessment and Plan Assessment: Acute hypoxic and hypercapnic respiratory failure s/p sigmoid colon perforation with ex lap and Bain's procedure Acute exacerbation of COPD, severe, FEV1 32% of predicted Small bilateral pleural effusions Moderate pericardial effusion Terrie urine and blood stream infection Active tobacco abuse Lactic acidosis, multifactorial 3 out of 4 SIRS present on admission, sepsis Hypoglycemia New onset atrial fibrillation Acute symptomatic anemia, unclear etiology NSTEMI ALFIE, unsure of baseline creatinine History of RA and systemic sclerosis Spontaneous breathing trial with PS 8 and PEEP 5, maintain saturation > or = 88% Rate control per cardiology Transfuse for hemoglobin <7 Solumedrol taper ABX and antifungals per ID iNcolette Puldeborah, Jeaneth, Perforomist O2 to maintain saturation > or = 90% GI and DVT prophylaxis: Subcu heparin, Protonix Monitor urine output and renal function Plan is to discuss goals of care with family tomorrow at noon.
--- NOTE | 2018-07-18 15:30 | P.PN ---
Subjective Patient remains intubated. Her rhythm is atrial fibrillation him a rate controlled. The dose of IV Cardizem was reduced. Blood pressure 108/46 limit his mercury pulse rate 75 beats a minute atrial fibrillation Afebrile Respirations greater than 20 Breath sounds are reduced bilaterally with Heart sounds are irregular no murmurs Impression Atrial fibrillation with a controlled ventricular response on IV Cardizem. Continue with IV Cardizem drip until she is extubated intake orally after her abdominal surgery No by mouth verapamil for now until her bowels recover completely Labs are reviewed sodium 144 potassium 3.6, BUN 17 creatinine 2.29 Magnesium 2.2 Objective - Vital Signs Vital signs: Vital Signs Temp 97.5 F L 07/18/18 12:00 Pulse 82 07/18/18 14:00 Resp 25 H 07/18/18 14:00 BP 104/53 07/18/18 06:00 Pulse Ox 92 L 07/18/18 14:00 Intake & Output 07/17/18 07/18/18 07/18/18 18:59 06:59 18:59 Intake Total 7869.423 0877.527 1102.151 Output Total 610 1370 855 Balance 953.393 194.527 247.151 Weight 60.3 kg 60.7 kg Intake: IV 1225 1400 1000 Piperacillin-Tazobactam 3 25 200 .375 gm In Sodium Chloride 0.9% 100 ml @ 25 mls/hr IVPB Q8HR [facility] Rx# :[id number] Sodium Chloride 0.9% 1, 1200 1400 800 000 ml @ 100 mls/hr IV . Q10H [facility] Rx#:[id number] Intake, IV Titration 338.393 164.527 102.151 Amount Diltiazem 125 mg In 58.833 125 Sodium Chloride 0.9% 100 ml @ 5 MG/HR 5 mls/hr IV .Q24H [facility] Rx#:[id number] Propofol 1,000 mg In 179.56 39.527 102.151 Empty Bag 1 bag @ Titrate IV .Q0M [facility] Rx#: [id number] Sodium Ferric Gluconat- 100 Sucrose 125 mg In Sodium Chloride 0.9% 100 ml @ 100 mls/hr IVPB DAILY [facility] Rx#:[id number] Output: Gastric Drainage 900 Drainage 300 175 255 Right Abdomen 300 175 255 Urine 310 295 200 Stool 400 Other: Voiding Method Indwelling Catheter Indwelling Catheter Indwelling Catheter ABP, PAP, CO, CI - Last Documented Arterial Blood Pressure 120/50 - Labs CBC & Chem 7: 07/18/18 05:40 07/18/18 05:40 Labs: Abnormal Lab Results - Last 24 Hours (Table) 07/17/18 07/18/18 07/18/18 Range/Units 18:02 04:23 05:40 WBC 22.5 H (3.8-10.6) k/uL RBC 3.06 L (3.80-5.40) m/uL Hgb 7.8 L (11.4-16.0) gm/dL Hct 25.1 L (34.0-46.0) % RDW 21.9 H (11.5-15.5) % Plt Count 91 L (150-450) k/uL ABG pO2 77 L (83-108) mmHg Chloride (98-107) mmol/L BUN (7-17) mg/dL Creatinine (0.52-1.04) mg/dL Glucose (74-99) mg/dL POC Glucose (mg/dL) 134 H (75-99) mg/dL Calcium (8.4-10.2) mg/dL Phosphorus (2.5-4.5) mg/dL 07/18/18 07/18/18 07/18/18 Range/Units 05:40 12:17 12:25 WBC (3.8-10.6) k/uL RBC (3.80-5.40) m/uL Hgb (11.4-16.0) gm/dL Hct (34.0-46.0) % RDW (11.5-15.5) % Plt Count (150-450) k/uL ABG pO2 (83-108) mmHg Chloride 112 H (98-107) mmol/L BUN 70 H (7-17) mg/dL Creatinine 2.29 H (0.52-1.04) mg/dL Glucose 119 H (74-99) mg/dL POC Glucose (mg/dL) 135 H 140 H (75-99) mg/dL Calcium 8.2 L (8.4-10.2) mg/dL Phosphorus 5.5 H (2.5-4.5) mg/dL Microbiology - Last 24 Hours (Table) 07/12/18 21:50 Blood Culture Gram Stain - Final Blood Blood Culture - Final Terrie albicans 07/15/18 04:45 Blood Culture - Preliminary Blood No Growth after 72 hours
[2018-07-18] MEDS: LEVOFLOXACIN 250 MG TAB PO SCH (15:49)
[2018-07-18] MEDS: HYDROmorphone 0.5 MG/0.5 ML SYRINGE IVP PRN (15:57)
[2018-07-18] MEDS: DILTIAZEM 125 MG in SODIUM CHLORIDE 0.9% 100 ML IV SCH (15:58)
[2018-07-18 18:13] LABS: Glucose,Whole Blood 126 mg/dL (75-99)
[2018-07-18 19:55] LABS: Glucose,Whole Blood 130 mg/dL (75-99)
[2018-07-18] MEDS: ANIDULAFUNGIN 100 MG in SODIUM CHLORIDE 0.9% 100 ML IVPB SCH (20:27)
[2018-07-18] MEDS: MONTELUKAST 10 MG TAB PO SCH (20:28)
[2018-07-18 23:38] LABS: Glucose,Whole Blood 105 mg/dL (75-99)
--- NOTE | 2018-07-19 00:07 | PN ---
PROGRESS NOTE DATE OF SERVICE: July 18, 2018. PRESENTING COMPLAINT: Intubated. INTERVAL HISTORY: Patient remains in the ICU on the ventilator with FiO2 15 and a PEEP of 5. The patient's ostomy did put out some bowel movement. Patient drips include Diprivan at 30 mics, a Cardizem drip at 5 mics. The patient's atrial fibrillation rate is controlled. The patient has a NG tube to suction and otherwise n.p.o. Does seem to follow some simple commands. REVIEW OF SYSTEMS: Cannot be done as patient is noncommunicative, fairly. CURRENT MEDICATIONS: Reviewed that include DuoNeb, Anidulafungin, inhaled steroids. Cardizem drip, IV iron, p.o. Levaquin, IV Solu-Medrol, Singulair, Protonix, IV Zosyn, IV propofol, Verapamil. PHYSICAL EXAMINATION: VITAL SIGNS: Temperature 97.5, pulse 73, respiration 25, blood pressure 120/49, pulse ox 98% on FiO2 50%. GENERAL APPEARANCE: Lying in bed intubated. EYES: Pupils are equal. Conjunctivae normal. HEENT: External appearance of nose and ears normal. Oral cavity a bit dry. Endotracheal tube in place. NECK: JVD unable to assess. Mass not palpable. RESPIRATORY: Effort increased. LUNGS: Diminished breath sounds. CARDIOVASCULAR: Heart sounds irregular. No edema. ABDOMEN: Soft. Colostomy bag in place with some liquid stool. Nontender. PSYCHIATRY: Unable to assess. NEUROLOGICAL: Pupils are equal, reactive. INVESTIGATIONS: White count 22.5, hemoglobin 7.8, platelets 91, potassium 3.6, BUN 70, creatinine 2.29. Chest x-ray film personally reviewed by me shows some infiltrates. ASSESSMENT: 1. Acute hypoxic and hypercapnic respiratory failure. 2. Status post sigmoid colon perforation with Andrew's procedure. 3. Acute severe exacerbation of chronic obstructive pulmonary disease, slow to respond. 4. Moderate pericardial effusion, cause undetermined. 5. Terrie urine and bloodstream infection. 6. Active nicotine dependence, patient is a cigarette smoker. 7. Lactic acidosis. 8. Atrial fibrillation, rate controlled. 9. Acute kidney injury likely acute tubular necrosis, multifactorial. 10.Rheumatoid arthritis with systemic sclerosis. 11.Acute hypoxic hypercapnic respiratory failure, currently on ventilator support, ventilator support. 12.Thrombocytopenia could be from underlying infection like infection. PLAN: Prognosis is guarded. Continue current medication and treatment plan including IV antibiotic, antifungals, bronchodilators. The patient's heart rate is controlled. Strict being maintained. The patient remains on the ventilator. The patient also being followed by Nephrology. Prognosis is guarded. MMODL / IJN: [id number] /
[2018-07-19 04:36] LABS: ABG Base Excess -4.7 mmol/L; ABG HCO3 21 mmol/L (21-25); ABG Oxygen Saturation 95.3 % (94-97); ABG PCO2 41 mmHg (35-45); ABG PH 7.32 (7.35-7.45); ABG PO2 80 mmHg (83-108); ABG TCO2 23 mmol/L (19-24)
[2018-07-19 05:03] LABS: Anisocytosis Moderate; HCT 25.2 % (34.0-46.0); HGB 7.7 gm/dL (11.4-16.0); Hypochromasia Marked; MCH 25.2 pg (25.0-35.0); MCHC 30.5 g/dL (31.0-37.0); MCV 82.5 fL (80.0-100.0); Mean Platelet Volume 9.6; Microcytosis Slight; Poikilocytosis Slight; RBC 3.05 m/uL (3.80-5.40); RDW 21.9 % (11.5-15.5); WBC 22.8 k/uL (3.8-10.6)
[2018-07-19 05:23] LABS: Platelet Count 94 k/uL (150-450)
[2018-07-19 05:24] LABS: Calcium 8.3 mg/dL (8.4-10.2); Magnesium 2.3 mg/dL (1.6-2.3); Phosphorus 6.6 mg/dL (2.5-4.5); Potassium 3.8 mmol/L (3.5-5.1)
[2018-07-19 05:40] LABS: Vancomycin,Random 29.7 ug/mL
--- NOTE | 2018-07-19 07:24 | XR ---
EXAMINATION TYPE: XR chest 1V portable DATE OF EXAM: 07/19/2018 COMPARISON: 07/28/2018 HISTORY: SOB, Follow Up FINDINGS: Indwelling tubes and catheters are unchanged. No change in bibasilar opacities. Stable appearance of the cardio-mediastinal structures at this time. Pleural effusion unchanged. IMPRESSION: 1. Stable portable chest. Clinical correlation and follow up until resolution is recommended.
[2018-07-19] MEDS: FORMOTEROL FUMARATE 20 MCG/2 ML NEBU INHALATION SCH ×2 (07:39→20:12)
[2018-07-19] MEDS: BUDESONIDE 1 MG/2 ML NEBU INHALATION SCH ×2 (07:39→20:12)
[2018-07-19] MEDS: IPRATROPIUM-ALBUTEROL 3 ML NEB INHALATION SCH ×4 (07:39→20:12)
[2018-07-19] MEDS: PANTOPRAZOLE 40 MG TABLET PO SCH (07:47)
[2018-07-19] MEDS: FERROUS SULFATE 325 MG TAB PO SCH ×2 (07:47→17:21)
[2018-07-19 07:52] LABS: Glucose,Whole Blood 108 mg/dL (75-99)
[2018-07-19] MEDS: VERAPAMIL SR 240 MG TABLET.ER PO SCH ×2 (07:52→19:41)
[2018-07-19] MEDS: INSULIN ASPART (NovoLOG) 100 UNIT/ML VIAL SQ SCH ×4 (07:52→19:47)
[2018-07-19] MEDS: DOCUSATE 100 MG CAP PO SCH ×2 (07:52→20:04)
[2018-07-19] MEDS: HEPARIN SODIUM,PORCINE 5,000 UNIT/ML 1 ML VIAL SQ SCH ×4 (07:52→23:31)
[2018-07-19] MEDS: CHLORHEXIDINE GLUCONATE 15 ML CUP MUCOUS MEM SCH ×2 (08:08→20:03)
[2018-07-19] MEDS: PROPOFOL 1,000 MG in EMPTY BAG 1 BAG IV SCH ×2 (08:08→18:33)
[2018-07-19] MEDS: HYDROmorphone 0.5 MG/0.5 ML SYRINGE IVP PRN ×4 (08:08→23:35)
[2018-07-19] MEDS: PIPERACILLIN-TAZOBACTAM 3.375 GM in SODIUM CHLORIDE 0.9% 100 ML IVPB SCH ×2 (08:09→20:04)
[2018-07-19] MEDS: SODIUM CHLORIDE 0.9% 1,000 ML IV SCH ×2 (08:09→16:35)
[2018-07-19] MEDS: methylPREDNISolone SOD SUCCI 40 MG/ML 1 ML VIAL IV SCH ×4 (08:09→23:36)
[2018-07-19] MEDS: SODIUM FERRIC GLUCONAT-SUCROSE 125 MG in SODIUM CHLORIDE 0.9% 100 ML IVPB SCH (08:27)
[2018-07-19 12:55] LABS: Glucose,Whole Blood 112 mg/dL (75-99)
--- NOTE | 2018-07-19 13:35 | P.PN ---
<RitaRoger - Last Filed: 07/19/18 13:35> Objective - Vital Signs Vital signs: Vital Signs Temp 98.3 F 07/19/18 12:00 Pulse 90 07/19/18 13:00 Resp 27 H 07/19/18 13:00 BP 104/53 07/18/18 06:00 Pulse Ox 92 L 07/19/18 13:00 Intake & Output 07/18/18 07/19/18 07/19/18 18:59 06:59 18:59 Intake Total 9617.097 2467 600 Output Total 1225 520 390 Balance 555.717 780 210 Weight 67.9 kg Intake: IV 1500 1300 600 Anidulafungin 100 mg In 100 Sodium Chloride 0.9% 100 ml @ 84 mls/hr IVPB DAILY @2100 [facility] Rx#:[id number] Piperacillin-Tazobactam 3 300 100 100 .375 gm In Sodium Chloride 0.9% 100 ml @ 25 mls/hr IVPB Q8HR [facility] Rx# :[id number] Sodium Chloride 0.9% 1, 1200 1100 400 000 ml @ 100 mls/hr IV . Q10H [facility] Rx#:[id number] Sodium Ferric Gluconat- 100 Sucrose 125 mg In Sodium Chloride 0.9% 100 ml @ 100 mls/hr IVPB DAILY [facility] Rx#:[id number] Intake, IV Titration 280.717 Amount Diltiazem 125 mg In 125 Sodium Chloride 0.9% 100 ml @ 5 MG/HR 5 mls/hr IV .Q24H [facility] Rx#:[id number] Propofol 1,000 mg In 155.717 Empty Bag 1 bag @ Titrate IV .Q0M [facility] Rx#: [id number] Output: Gastric Drainage 100 50 Drainage 465 200 230 Right Abdomen 465 200 230 Urine 260 320 110 Stool 400 Other: Voiding Method Indwelling Catheter Indwelling Catheter Indwelling Catheter ABP, PAP, CO, CI - Last Documented Arterial Blood Pressure 141/57 - Labs CBC & Chem 7: 07/19/18 04:33 07/19/18 04:33 Labs: Abnormal Lab Results - Last 24 Hours (Table) 07/18/18 07/18/18 07/18/18 Range/Units 18:11 19:54 23:36 WBC (3.8-10.6) k/uL RBC (3.80-5.40) m/uL Hgb (11.4-16.0) gm/dL Hct (34.0-46.0) % MCHC (31.0-37.0) g/dL RDW (11.5-15.5) % Plt Count (150-450) k/uL ABG pH (7.35-7.45) ABG pO2 (83-108) mmHg Chloride (98-107) mmol/L Carbon Dioxide (22-30) mmol/L BUN (7-17) mg/dL Creatinine (0.52-1.04) mg/dL Glucose (74-99) mg/dL POC Glucose (mg/dL) 126 H 130 H 105 H (75-99) mg/dL Calcium (8.4-10.2) mg/dL Phosphorus (2.5-4.5) mg/dL 07/19/18 07/19/18 07/19/18 Range/Units 04:31 04:33 04:33 WBC 22.8 H (3.8-10.6) k/uL RBC 3.05 L (3.80-5.40) m/uL Hgb 7.7 L (11.4-16.0) gm/dL Hct 25.2 L (34.0-46.0) % MCHC 30.5 L (31.0-37.0) g/dL RDW 21.9 H (11.5-15.5) % Plt Count 94 L (150-450) k/uL ABG pH 7.32 L (7.35-7.45) ABG pO2 80 L (83-108) mmHg Chloride 113 H (98-107) mmol/L Carbon Dioxide 20 L (22-30) mmol/L BUN 76 H (7-17) mg/dL Creatinine 2.58 H (0.52-1.04) mg/dL Glucose 110 H (74-99) mg/dL POC Glucose (mg/dL) (75-99) mg/dL Calcium 8.3 L (8.4-10.2) mg/dL Phosphorus 6.6 H (2.5-4.5) mg/dL 07/19/18 07/19/18 Range/Units 07:50 12:53 WBC (3.8-10.6) k/uL RBC (3.80-5.40) m/uL Hgb (11.4-16.0) gm/dL Hct (34.0-46.0) % MCHC (31.0-37.0) g/dL RDW (11.5-15.5) % Plt Count (150-450) k/uL ABG pH (7.35-7.45) ABG pO2 (83-108) mmHg Chloride (98-107) mmol/L Carbon Dioxide (22-30) mmol/L BUN (7-17) mg/dL Creatinine (0.52-1.04) mg/dL Glucose (74-99) mg/dL POC Glucose (mg/dL) 108 H 112 H (75-99) mg/dL Calcium (8.4-10.2) mg/dL Phosphorus (2.5-4.5) mg/dL Microbiology - Last 24 Hours (Table) 07/15/18 04:45 Blood Culture - Preliminary Blood No Growth after 96 hours 07/12/18 21:50 Blood Culture Gram Stain - Final Blood Blood Culture - Final Terrie albicans <Carrie Oneill - Last Filed: 07/19/18 15:21> Subjective Patient was seen and examined resting comfortably in bed. She remains intubated. She continues in atrial fibrillation with controlled ventricular response on IV Cardizem. Heart rates are in the 90s. Family is at the bedside and they state they plan to terminally wean also start tomorrow and go to comfort care. Blood pressure 123/56. Laboratory data reviewed, WBC 22.8, hemoglobin 7.7, platelets 94, pH 7.32, sodium 143, potassium 3.8, creatinine 2.58, magnesium 2.3. GENERAL: Intubated NECK: Supple without JVD or thyromegaly. LUNGS: Breath sounds clear to auscultation bilaterally. Respiration equal and unlabored. No wheezes, rales or rhonchi. HEART: Irregular rate and rhythm without murmurs, rubs or gallops. S1 and S2 heard. EXTREMITIES: Normal range of motion, no edema. No clubbing or cyanosis. Peripheral pulses intact. ASSESSMENT Persistent atrial fibrillation on IV Cardizem, unknown duration. Acute hypoxic and hypercapnic respiratory failure Sigmoid colon perforation Acute exacerbation of chronic COPD Lactic acidosis COPD Chronic nicotine dependence PLAN Continue current medical regimen. Agree with family's decision as prognosis is extremely guarded at this point. Nurse Practitioner note has been reviewed, I agree with a documented findings and plan of care. Patient was seen and examined. Objective - Vital Signs Vital signs: Vital Signs Temp 98.3 F 07/19/18 12:00 Pulse 96 07/19/18 15:00 Resp 15 07/19/18 15:00 BP 104/53 07/18/18 06:00 Pulse Ox 93 L 07/19/18 15:00 Intake & Output 07/18/18 07/19/18 07/19/18 18:59 06:59 18:59 Intake Total 3041.519 9064 1125 Output Total 1225 520 680 Balance 555.717 780 445 Weight 67.9 kg Intake: IV 1500 1300 1000 Anidulafungin 100 mg In 100 Sodium Chloride 0.9% 100 ml @ 84 mls/hr IVPB DAILY @2100 [facility] Rx#:[id number] Piperacillin-Tazobactam 3 300 100 100 .375 gm In Sodium Chloride 0.9% 100 ml @ 25 mls/hr IVPB Q8HR [facility] Rx# :[id number] Sodium Chloride 0.9% 1, 1200 1100 800 000 ml @ 100 mls/hr IV . Q10H [facility] Rx#:[id number] Sodium Ferric Gluconat- 100 Sucrose 125 mg In Sodium Chloride 0.9% 100 ml @ 100 mls/hr IVPB DAILY [facility] Rx#:[id number] Intake, IV Titration 280.717 125 Amount Diltiazem 125 mg In 125 125 Sodium Chloride 0.9% 100 ml @ 5 MG/HR 5 mls/hr IV .Q24H [facility] Rx#:[id number] Propofol 1,000 mg In 155.717 Empty Bag 1 bag @ Titrate IV .Q0M [facility] Rx#: [id number] Output: Gastric Drainage 100 200 Drainage 465 200 270 Right Abdomen 465 200 270 Urine 260 320 210 Stool 400 Other: Voiding Method Indwelling Catheter Indwelling Catheter Indwelling Catheter ABP, PAP, CO, CI - Last Documented Arterial Blood Pressure 123/56 - Labs CBC & Chem 7: 07/19/18 04:33 07/19/18 04:33 Labs: Abnormal Lab Results - Last 24 Hours (Table) 07/18/18 07/18/18 07/18/18 Range/Units 18:11 19:54 23:36 WBC (3.8-10.6) k/uL RBC (3.80-5.40) m/uL Hgb (11.4-16.0) gm/dL Hct (34.0-46.0) % MCHC (31.0-37.0) g/dL RDW (11.5-15.5) % Plt Count (150-450) k/uL ABG pH (7.35-7.45) ABG pO2 (83-108) mmHg Chloride (98-107) mmol/L Carbon Dioxide (22-30) mmol/L BUN (7-17) mg/dL Creatinine (0.52-1.04) mg/dL Glucose (74-99) mg/dL POC Glucose (mg/dL) 126 H 130 H 105 H (75-99) mg/dL Calcium (8.4-10.2) mg/dL Phosphorus (2.5-4.5) mg/dL 07/19/18 07/19/18 07/19/18 Range/Units 04:31 04:33 04:33 WBC 22.8 H (3.8-10.6) k/uL RBC 3.05 L (3.80-5.40) m/uL Hgb 7.7 L (11.4-16.0) gm/dL Hct 25.2 L (34.0-46.0) % MCHC 30.5 L (31.0-37.0) g/dL RDW 21.9 H (11.5-15.5) % Plt Count 94 L (150-450) k/uL ABG pH 7.32 L (7.35-7.45) ABG pO2 80 L (83-108) mmHg Chloride 113 H (98-107) mmol/L Carbon Dioxide 20 L (22-30) mmol/L BUN 76 H (7-17) mg/dL Creatinine 2.58 H (0.52-1.04) mg/dL Glucose 110 H (74-99) mg/dL POC Glucose (mg/dL) (75-99) mg/dL Calcium 8.3 L (8.4-10.2) mg/dL Phosphorus 6.6 H (2.5-4.5) mg/dL 07/19/18 07/19/18 Range/Units 07:50 12:53 WBC (3.8-10.6) k/uL RBC (3.80-5.40) m/uL Hgb (11.4-16.0) gm/dL Hct (34.0-46.0) % MCHC (31.0-37.0) g/dL RDW (11.5-15.5) % Plt Count (150-450) k/uL ABG pH (7.35-7.45) ABG pO2 (83-108) mmHg Chloride (98-107) mmol/L Carbon Dioxide (22-30) mmol/L BUN (7-17) mg/dL Creatinine (0.52-1.04) mg/dL Glucose (74-99) mg/dL POC Glucose (mg/dL) 108 H 112 H (75-99) mg/dL Calcium (8.4-10.2) mg/dL Phosphorus (2.5-4.5) mg/dL Microbiology - Last 24 Hours (Table) 07/15/18 04:45 Blood Culture - Preliminary Blood No Growth after 96 hours
[2018-07-19] MEDS: LEVOFLOXACIN 250 MG TAB PO SCH (14:30)
[2018-07-19] MEDS: DILTIAZEM 125 MG in SODIUM CHLORIDE 0.9% 100 ML IV SCH (16:34)
--- NOTE | 2018-07-19 16:37 | P.PN ---
Subjective Progress Note Date: 07/19/18 Patient seen and examined at bedside. No acute events overnight. Ostomy continues to have output. Objective - Vital Signs Vital signs: Vital Signs Temp 98.3 F 07/19/18 12:00 Pulse 98 07/19/18 15:54 Resp 15 07/19/18 15:00 BP 104/53 07/18/18 06:00 Pulse Ox 93 L 07/19/18 15:00 Intake & Output 07/18/18 07/19/18 07/19/18 18:59 06:59 18:59 Intake Total 6149.961 7364 1125 Output Total 1225 520 680 Balance 555.717 780 445 Weight 67.9 kg Intake: IV 1500 1300 1000 Anidulafungin 100 mg In 100 Sodium Chloride 0.9% 100 ml @ 84 mls/hr IVPB DAILY @2100 [facility] Rx#:[id number] Piperacillin-Tazobactam 3 300 100 100 .375 gm In Sodium Chloride 0.9% 100 ml @ 25 mls/hr IVPB Q8HR [facility] Rx# :[id number] Sodium Chloride 0.9% 1, 1200 1100 800 000 ml @ 100 mls/hr IV . Q10H [facility] Rx#:[id number] Sodium Ferric Gluconat- 100 Sucrose 125 mg In Sodium Chloride 0.9% 100 ml @ 100 mls/hr IVPB DAILY [facility] Rx#:[id number] Intake, IV Titration 280.717 125 Amount Diltiazem 125 mg In 125 125 Sodium Chloride 0.9% 100 ml @ 5 MG/HR 5 mls/hr IV .Q24H [facility] Rx#:[id number] Propofol 1,000 mg In 155.717 Empty Bag 1 bag @ Titrate IV .Q0M [facility] Rx#: [id number] Output: Gastric Drainage 100 200 Drainage 465 200 270 Right Abdomen 465 200 270 Urine 260 320 210 Stool 400 Other: Voiding Method Indwelling Catheter Indwelling Catheter Indwelling Catheter ABP, PAP, CO, CI - Last Documented Arterial Blood Pressure 123/56 - Constitutional Constitutional Comment(s): Intubated and sedated - Gastrointestinal Gastrointestinal Comment(s): Soft, mild distention, no rebound, no guarding, ostomy is pink and patent with output - Labs CBC & Chem 7: 07/19/18 04:33 07/19/18 04:33 Labs: Abnormal Lab Results - Last 24 Hours (Table) 07/18/18 07/18/18 07/18/18 Range/Units 18:11 19:54 23:36 WBC (3.8-10.6) k/uL RBC (3.80-5.40) m/uL Hgb (11.4-16.0) gm/dL Hct (34.0-46.0) % MCHC (31.0-37.0) g/dL RDW (11.5-15.5) % Plt Count (150-450) k/uL ABG pH (7.35-7.45) ABG pO2 (83-108) mmHg Chloride (98-107) mmol/L Carbon Dioxide (22-30) mmol/L BUN (7-17) mg/dL Creatinine (0.52-1.04) mg/dL Glucose (74-99) mg/dL POC Glucose (mg/dL) 126 H 130 H 105 H (75-99) mg/dL Calcium (8.4-10.2) mg/dL Phosphorus (2.5-4.5) mg/dL 07/19/18 07/19/18 07/19/18 Range/Units 04:31 04:33 04:33 WBC 22.8 H (3.8-10.6) k/uL RBC 3.05 L (3.80-5.40) m/uL Hgb 7.7 L (11.4-16.0) gm/dL Hct 25.2 L (34.0-46.0) % MCHC 30.5 L (31.0-37.0) g/dL RDW 21.9 H (11.5-15.5) % Plt Count 94 L (150-450) k/uL ABG pH 7.32 L (7.35-7.45) ABG pO2 80 L (83-108) mmHg Chloride 113 H (98-107) mmol/L Carbon Dioxide 20 L (22-30) mmol/L BUN 76 H (7-17) mg/dL Creatinine 2.58 H (0.52-1.04) mg/dL Glucose 110 H (74-99) mg/dL POC Glucose (mg/dL) (75-99) mg/dL Calcium 8.3 L (8.4-10.2) mg/dL Phosphorus 6.6 H (2.5-4.5) mg/dL 07/19/18 07/19/18 Range/Units 07:50 12:53 WBC (3.8-10.6) k/uL RBC (3.80-5.40) m/uL Hgb (11.4-16.0) gm/dL Hct (34.0-46.0) % MCHC (31.0-37.0) g/dL RDW (11.5-15.5) % Plt Count (150-450) k/uL ABG pH (7.35-7.45) ABG pO2 (83-108) mmHg Chloride (98-107) mmol/L Carbon Dioxide (22-30) mmol/L BUN (7-17) mg/dL Creatinine (0.52-1.04) mg/dL Glucose (74-99) mg/dL POC Glucose (mg/dL) 108 H 112 H (75-99) mg/dL Calcium (8.4-10.2) mg/dL Phosphorus (2.5-4.5) mg/dL Microbiology - Last 24 Hours (Table) 07/15/18 04:45 Blood Culture - Preliminary Blood No Growth after 96 hours Assessment and Plan Plan: 78-year-old female with sigmoid colon perforation and multiple medical issues - Postoperative day #4 from exploratory laparotomy and Bain's procedure - Critical care recommendations on ventilator settings and extubation - Family meeting was held today. Plan is for extubation tomorrow. Plan is to keep the patient DO NOT RESUSCITATE and DO NOT INTUBATE after extubation, per nursing. - Appreciate nephrology recommendations on fluid balance and resuscitation. They are closely monitoring patient's urine output and creatinine. - Continue ABIEL drain - Due to ileus, will withhold feeds at this time. The patient still does have a significant output from nasogastric tube. - Continue local wound and ostomy care - Continue Simmons catheter - Continue medical management - Prognosis poor
[2018-07-19 17:18] LABS: Glucose,Whole Blood 116 mg/dL (75-99)
--- NOTE | 2018-07-19 18:55 | PN ---
PROGRESS NOTE Patient is seen for followup for acute kidney injury. She remains on the vent. Patient, however, has been responding to verbal stimuli. Urine output is borderline at about 20-30 mL/hour. No pressors on board. Patient remains on the vent. On examination this morning, blood pressure was 121/53, heart rate 96 per minute. Patient is afebrile. EXAMINATION OF THE HEART: S1 and S2. EXAMINATION OF LUNGS: Bilateral breath sounds are heard. Examination of lower extremities shows no significant edema. Abdomen is soft. POT MAKER exam is not performed. Labs show sodium 143, potassium 3.8, BUN 76, serum creatinine 2.58. ASSESSMENT: 1. Acute kidney injury, acute tubular necrosis, nonoliguric with borderline urine output. Renal function is worse today. I have discussed with the family who is present at bedside. Patient is not an ideal candidate for renal replacement therapy if her renal function continues to worsen. However, at this time there is no acute indication for dialysis. We will continue to avoid any nephrotoxic agents and continue with the IV fluids for now. 2. Atrial fibrillation with controlled ventricular response. 3. Severe chronic obstructive pulmonary disease with acute exacerbation this admission. 4. Sepsis with bowel perforation, status post explorative laparotomy with sigmoid colectomy and end ostomy. 5. Urinary tract infection with urine culture growing ignacio. 6. Candidemia. PLAN: Continue with IV fluids. Overall prognosis is guarded. MMODL / IJN: [id number] /
--- NOTE | 2018-07-19 19:07 | P.PN ---
Subjective Progress Note Date: 07/19/18 07/19/2018: Patient seen and examined in the ICU with nursing staff and family at bedside. The patient is currently on the ventilator, sedated on propofol. The patient's family is considering comfort care. The options and goals of care are discussed at length. The family is wanting to proceed with comfort care and will do this tomorrow morning. The patient has been hemodynamically stable. Objective - Vital Signs Vital signs: Vital Signs Temp 98.4 F 07/19/18 17:00 Pulse 88 07/19/18 18:00 Resp 16 07/19/18 18:00 BP 104/53 07/18/18 06:00 Pulse Ox 95 07/19/18 18:00 Intake & Output 07/19/18 07/19/18 07/20/18 06:59 18:59 06:59 Intake Total 1300 1425 Output Total 520 820 Balance 780 605 Weight 67.9 kg Intake: IV 1300 1200 Anidulafungin 100 mg In 100 Sodium Chloride 0.9% 100 ml @ 84 mls/hr IVPB DAILY @2100 [facility] Rx#:[id number] Piperacillin-Tazobactam 3 100 100 .375 gm In Sodium Chloride 0.9% 100 ml @ 25 mls/hr IVPB Q8HR [facility] Rx# :[id number] Sodium Chloride 0.9% 1, 1100 1000 000 ml @ 100 mls/hr IV . Q10H [facility] Rx#:[id number] Sodium Ferric Gluconat- 100 Sucrose 125 mg In Sodium Chloride 0.9% 100 ml @ 100 mls/hr IVPB DAILY [facility] Rx#:[id number] Intake, IV Titration 225 Amount Diltiazem 125 mg In 125 Sodium Chloride 0.9% 100 ml @ 5 MG/HR 5 mls/hr IV .Q24H [facility] Rx#:[id number] Propofol 1,000 mg In 100 Empty Bag 1 bag @ Titrate IV .Q0M [facility] Rx#: [id number] Output: Gastric Drainage 200 Drainage 200 370 Right Abdomen 200 370 Urine 320 250 Other: Voiding Method Indwelling Catheter Indwelling Catheter ABP, PAP, CO, CI - Last Documented Arterial Blood Pressure 143/59 - Exam General: Patient is sedated on ventilator, thin and frail Cardiovascular: Regular rate and rhythm, S1/S2 Lungs: Diminished breath sounds bilaterally Abdomen: Ostomy in place, diminished bowel sounds Extremities: + edema - Labs CBC & Chem 7: 07/19/18 04:33 07/19/18 04:33 Labs: Abnormal Lab Results - Last 24 Hours (Table) 07/18/18 07/18/18 07/19/18 Range/Units 19:54 23:36 04:31 WBC (3.8-10.6) k/uL RBC (3.80-5.40) m/uL Hgb (11.4-16.0) gm/dL Hct (34.0-46.0) % MCHC (31.0-37.0) g/dL RDW (11.5-15.5) % Plt Count (150-450) k/uL ABG pH 7.32 L (7.35-7.45) ABG pO2 80 L (83-108) mmHg Chloride (98-107) mmol/L Carbon Dioxide (22-30) mmol/L BUN (7-17) mg/dL Creatinine (0.52-1.04) mg/dL Glucose (74-99) mg/dL POC Glucose (mg/dL) 130 H 105 H (75-99) mg/dL Calcium (8.4-10.2) mg/dL Phosphorus (2.5-4.5) mg/dL 07/19/18 07/19/18 07/19/18 Range/Units 04:33 04:33 07:50 WBC 22.8 H (3.8-10.6) k/uL RBC 3.05 L (3.80-5.40) m/uL Hgb 7.7 L (11.4-16.0) gm/dL Hct 25.2 L (34.0-46.0) % MCHC 30.5 L (31.0-37.0) g/dL RDW 21.9 H (11.5-15.5) % Plt Count 94 L (150-450) k/uL ABG pH (7.35-7.45) ABG pO2 (83-108) mmHg Chloride 113 H (98-107) mmol/L Carbon Dioxide 20 L (22-30) mmol/L BUN 76 H (7-17) mg/dL Creatinine 2.58 H (0.52-1.04) mg/dL Glucose 110 H (74-99) mg/dL POC Glucose (mg/dL) 108 H (75-99) mg/dL Calcium 8.3 L (8.4-10.2) mg/dL Phosphorus 6.6 H (2.5-4.5) mg/dL 07/19/18 07/19/18 Range/Units 12:53 17:16 WBC (3.8-10.6) k/uL RBC (3.80-5.40) m/uL Hgb (11.4-16.0) gm/dL Hct (34.0-46.0) % MCHC (31.0-37.0) g/dL RDW (11.5-15.5) % Plt Count (150-450) k/uL ABG pH (7.35-7.45) ABG pO2 (83-108) mmHg Chloride (98-107) mmol/L Carbon Dioxide (22-30) mmol/L BUN (7-17) mg/dL Creatinine (0.52-1.04) mg/dL Glucose (74-99) mg/dL POC Glucose (mg/dL) 112 H 116 H (75-99) mg/dL Calcium (8.4-10.2) mg/dL Phosphorus (2.5-4.5) mg/dL Microbiology - Last 24 Hours (Table) 07/15/18 04:45 Blood Culture - Preliminary Blood No Growth after 96 hours Assessment and Plan Assessment: Acute hypoxic and hypercapnic respiratory failure s/p sigmoid colon perforation with ex lap and Bain's procedure Acute exacerbation of COPD, severe, FEV1 32% of predicted Small bilateral pleural effusions Moderate pericardial effusion Terrie urine and blood stream infection Active tobacco abuse Lactic acidosis, multifactorial 3 out of 4 SIRS present on admission, sepsis Hypoglycemia New onset atrial fibrillation Acute symptomatic anemia, unclear etiology NSTEMI ALFIE, unsure of baseline creatinine History of RA and systemic sclerosis Spontaneous breathing trial with PS 8 and PEEP 5, maintain saturation > or = 88% Rate control per cardiology Transfuse for hemoglobin <7 Solumedrol taper ABX and antifungals per ID Duonebs, Pulmicort, Singulair, Perforomist O2 to maintain saturation > or = 90% GI and DVT prophylaxis: Subcu heparin, Protonix Monitor urine output and renal function Plan is to proceed with comfort care tomorrow
[2018-07-19 19:47] LABS: Glucose,Whole Blood 118 mg/dL (75-99)
[2018-07-19] MEDS: ANIDULAFUNGIN 100 MG in SODIUM CHLORIDE 0.9% 100 ML IVPB SCH (20:04)
[2018-07-19] MEDS: MONTELUKAST 10 MG TAB PO SCH (20:04)
[2018-07-19 23:40] LABS: Glucose,Whole Blood 113 mg/dL (75-99)
--- NOTE | 2018-07-20 00:59 | PN ---
PROGRESS NOTE DATE OF SERVICE: 07/19/2018 PRESENTING COMPLAINT: Intubated. INTERVAL HISTORY: Patient remains in the ICU on the ventilator. FiO2 of 50 and a PEEP of 5. Ostomy bag is in place. Had some bowel output. The patient has been on Diprivan drip. Remains in atrial fibrillation, rate is controlled. NG tube remains to suction. The patient's family including daughter at the bedside. Earlier Dr. Abrams from Pulmonary talked to the patient. The patient's family decided to terminally extubate the patient tomorrow morning. The patient herself is noncommunicative. REVIEW OF SYSTEMS: Cannot be done as patient is noncommunicative. CURRENT MEDICATIONS: Reviewed in the electronic records from today and include IV Solu-Medrol, IV Zosyn. PHYSICAL EXAMINATION: VITAL SIGNS: Temperature 97.7, pulse 54, respirations 13, blood pressure 140/55, pulse ox 94 percent on ventilator. GENERAL APPEARANCE: Lying in bed, intubated. EYES: Pupils equal. Conjunctivae normal. HEENT: Oral cavity dry. Endotracheal tube in place. NG tube in place. NECK: JVD unable to assess. Mass not palpable. RESPIRATORY: Effort increased. LUNGS: Diminished breath sounds. CARDIOVASCULAR: Heart sounds irregular. No edema. ABDOMEN: Soft, nontender. Colostomy bag in place with some liquid stool. Nontender. PSYCHIATRY: Unable to assess. NEUROLOGICAL: Pupils are equal, reactive. INVESTIGATIONS: White count 22.8, hemoglobin 7.7, platelets 94. Potassium 3.8, BUN 76, creatinine 2.58. Chest x-ray unchanged. ASSESSMENT: 1. Acute hypoxic and hypercapnic respiratory failure from underlying chronic obstructive pulmonary disease. 2. Status post sigmoid colon perforation with Andrew's procedure. 3. Acute severe chronic obstructive pulmonary disease exacerbation, slow to respond. 4. Moderate pericardial effusion, cause undetermined. 5. Terrie urine, blood stream infection. 6. Chronic nicotine dependence, patient is a cigarette smoker. 7. Lactic acidosis. 8. Persistent atrial fibrillation rate controlled. 9. Acute kidney injury likely acute tubular necrosis, multifactorial. 10.Rheumatoid arthritis with systemic sclerosis. 11.Acute ventilator support. 12.Thrombocytopenia could be from underlying infection. PLAN: Prognosis remains poor. Dr. Abrams did speak to the family and family decided to make the patient proceed with terminal extubation tomorrow morning. Family has decided to get [facility]. Informational visit will be done today and the patient, depending on the clinical picture, may be converted to hospice tomorrow morning. I also discussed the case with Dr. Abrams today. Total time spent today was about 45 minutes with over 25 minutes of discussion. HENRY / GIRISHN: [id number] /
[2018-07-20 04:23] LABS: ABG Base Excess -8.3 mmol/L; ABG HCO3 19 mmol/L (21-25); ABG Oxygen Saturation 97.1 % (94-97); ABG PCO2 47 mmHg (35-45); ABG PH 7.23 (7.35-7.45); ABG PO2 95 mmHg (83-108); ABG TCO2 21 mmol/L (19-24)
[2018-07-20 05:05] LABS: Anisocytosis Moderate; Basophils % (A) 0 %; Eosinophils # (A) 0.1 k/uL (0-0.7); Eosinophils % (A) 0 %; HCT 26.8 % (34.0-46.0); HGB 8.1 gm/dL (11.4-16.0); Hypochromasia Marked; Lymphocytes # (A) 0.2 k/uL (1.0-4.8); Lymphocytes % (A) 1 %; MCH 25.5 pg (25.0-35.0); MCHC 30.4 g/dL (31.0-37.0); MCV 84.1 fL (80.0-100.0); Microcytosis Slight; Monocytes # (A) 0.6 k/uL (0-1.0); Monocytes % (A) 3 %; Neutrophils % (A) 96 %; Platelet Count 92 k/uL (150-450); Poikilocytosis Slight; RBC 3.18 m/uL (3.80-5.40); RDW 21.9 % (11.5-15.5)
[2018-07-20] MEDS: HYDROmorphone 0.5 MG/0.5 ML SYRINGE IVP PRN (05:07)
[2018-07-20 05:21] LABS: Calcium 8.3 mg/dL (8.4-10.2); Magnesium 2.4 mg/dL (1.6-2.3); Potassium 4.3 mmol/L (3.5-5.1)
--- NOTE | 2018-07-20 07:39 | XR ---
EXAMINATION TYPE: XR chest 1V portable DATE OF EXAM: 07/20/2018 COMPARISON: 07/19/2018 HISTORY: Tube placement. TECHNIQUE: Single frontal view of the chest is obtained. FINDINGS: Endotracheal tubes and enteric tubes are similar in position to the prior as well as an un changed right internal jugular central venous catheter. Pulmonary hyperinflation of underlying COPD i s seen. Slight rightward mediastinal shift is partially secondary to rotation and partially secondary to right lower lung atelectasis. Layering bilateral pleural effusions, right greater than left are a gain noted overall small with bibasilar opacities. Generalized osseous demineralization is also seen. IMPRESSION: Similar exam to the prior of 07/19/2018 with small layering bilateral pleural effusions an d associated bibasilar airspace disease, right greater than left. Stable lines and tubes.
[2018-07-20] MEDS: IPRATROPIUM-ALBUTEROL 3 ML NEB INHALATION SCH (08:04)
[2018-07-20] MEDS: BUDESONIDE 1 MG/2 ML NEBU INHALATION SCH (08:04)
[2018-07-20] MEDS: FORMOTEROL FUMARATE 20 MCG/2 ML NEBU INHALATION SCH ×2 (08:04→08:17)
[2018-07-20 08:39] VITALS: RESP 14; TEMP 97.4
[2018-07-20] MEDS: FERROUS SULFATE 325 MG TAB PO SCH (08:40)
[2018-07-20] MEDS: INSULIN ASPART (NovoLOG) 100 UNIT/ML VIAL SQ SCH (08:40)
[2018-07-20] MEDS: PANTOPRAZOLE 40 MG TABLET PO SCH (08:41)
[2018-07-20] MEDS: CHLORHEXIDINE GLUCONATE 15 ML CUP MUCOUS MEM SCH (08:41)
[2018-07-20] MEDS: PIPERACILLIN-TAZOBACTAM 3.375 GM in SODIUM CHLORIDE 0.9% 100 ML IVPB SCH (08:41)
[2018-07-20] MEDS: SODIUM FERRIC GLUCONAT-SUCROSE 125 MG in SODIUM CHLORIDE 0.9% 100 ML IVPB SCH (08:41)
[2018-07-20] MEDS: methylPREDNISolone SOD SUCCI 40 MG/ML 1 ML VIAL IV SCH (08:41)
[2018-07-20] MEDS: HEPARIN SODIUM,PORCINE 5,000 UNIT/ML 1 ML VIAL SQ SCH (08:41)
[2018-07-20] MEDS: DOCUSATE 100 MG CAP PO SCH (08:41)
[2018-07-20] MEDS: VERAPAMIL SR 240 MG TABLET.ER PO SCH (08:43)
[2018-07-20] MEDS: SODIUM CHLORIDE 0.9% 1,000 ML IV SCH (08:44)
[2018-07-20] MEDS: PROPOFOL 1,000 MG in EMPTY BAG 1 BAG IV SCH (09:57)
[2018-07-20 10:07] VITALS: BMI 24.3
[2018-07-20 10:28] VITALS: PULSE 85
--- NOTE | 2018-07-21 08:19 | DS ---
DISCHARGE SUMMARY DATE OF ADMISSION: 07/05/2018 DATE OF DISCHARGE: 07/20/2018 FINAL DIAGNOSES: 1. Acute hypoxic and hypercapnic respiratory failure from underlying chronic obstructive pulmonary disease. 2. Status post sigmoid colon perforation with Andrew's procedure. 3. Acute severe chronic obstructive pulmonary disease exacerbation. 4. Moderate pericardial effusion, cause undetermined. 5. Terrie in the urine, bloodstream infection. 6. Chronic nicotine dependence, patient is a cigarette smoker. 7. Lactic acidosis. 8. Persistent atrial fibrillation, rate uncontrolled. 9. Acute kidney injury likely acute tubular necrosis, multifactorial. 10.Rheumatoid arthritis with systemic sclerosis. 11.Acute ventilator support for hypoxia. 12.Thrombocytopenia likely from underlying infection. CONSULTATIONS: Dr. Abrams and colleagues from Pulmonary; Dr. Negro and colleagues from General Surgery; [facility] including Dr. Salinas; Dr. Crump from Infectious Disease; Dr. Navarro from Oncology. HOSPITAL COURSE: The patient is a long-standing smoker, admitted with atrial fibrillation, shortness of breath, had to be intubated. Subsequently found to have also bowel perforation. Seen by multiple consultants. Had a rather tumultuous course. Finally, family decided to make the patient comfort care and the patient on 07/20/2018 was terminally extubated with admission to the hospice service with medications for the same. On examination, vital signs were noted. The patient was intubated, ventilated. DISPOSITION: Inpatient hospice. Terminal extubation. MMODL / IJN: [id number] /
== END 2018-07-20 10:59 | disposition hospice, inpatient (51) | DRG 853 ==
LOC: EC 16:35 → UNDOADMIN 20:48 → 3SCARD 20:48 → 2SICU 22:07 → 3SCARD 07-09 09:34 → 2SICU 07-12 22:20
PROVIDERS: ADMIT Hospitalist; ATTEND Hospitalist
PROC: 30233N1 Transfusion of Nonautologous Red Blood Cells into Peripheral Vein, Percutaneous Approach (ICD-10-PCS; principal; 2018-07-06)
PROC: 5A09557 Assistance with Respiratory Ventilation, Greater than 96 Consecutive Hours, Continuous Positive Airway Pressure (ICD-10-PCS; 2018-07-06)
PROC: 0DTN0ZZ Resection of Sigmoid Colon, Open Approach (ICD-10-PCS; 2018-07-15)
PROC: 0D1M0Z4 Bypass Descending Colon to Cutaneous, Open Approach (ICD-10-PCS; 2018-07-15)
PROC: 5A1955Z Respiratory Ventilation, Greater than 96 Consecutive Hours (ICD-10-PCS; 2018-07-15)
PROC: 0D9670Z Drainage of Stomach with Drainage Device, Via Natural or Artificial Opening (ICD-10-PCS; 2018-07-16)
DX: B37.7 Candidal sepsis (principal); N17.0 Acute kidney failure with tubular necrosis; E43 Unspecified severe protein-calorie malnutrition; J96.21 Acute and chronic respiratory failure with hypoxia; J96.22 Acute and chronic respiratory failure with hypercapnia; I21.4 Non-ST elevation (NSTEMI) myocardial infarction; K65.9 Peritonitis, unspecified; J18.9 Pneumonia, unspecified organism; I48.1 Persistent atrial fibrillation; N17.9 Acute kidney failure, unspecified; Z68.1 Body mass index [BMI] 19.9 or less, adult; E87.2 Acidosis; R64 Cachexia; K56.7 Ileus, unspecified; K57.20 Diverticulitis of large intestine with perforation and abscess without bleeding; D62 Acute posthemorrhagic anemia; I31.3 Pericardial effusion (noninflammatory); J90 Pleural effusion, not elsewhere classified; J98.11 Atelectasis; C90.00 Multiple myeloma not having achieved remission; E87.0 Hyperosmolality and hypernatremia; R18.8 Other ascites; J43.9 Emphysema, unspecified; Z66 Do not resuscitate; Z51.5 Encounter for palliative care; E87.5 Hyperkalemia; M34.9 Systemic sclerosis, unspecified; D69.59 Other secondary thrombocytopenia; I27.20 Pulmonary hypertension, unspecified; M35.00 Sjogren syndrome, unspecified; D63.8 Anemia in other chronic diseases classified elsewhere; I34.0 Nonrheumatic mitral (valve) insufficiency; M06.9 Rheumatoid arthritis, unspecified; B37.49 Other urogenital candidiasis; N14.1 Nephropathy induced by other drugs, medicaments and biological substances; R54 Age-related physical debility; E16.2 Hypoglycemia, unspecified; I49.3 Ventricular premature depolarization; K21.9 Gastro-esophageal reflux disease without esophagitis; D50.9 Iron deficiency anemia, unspecified; I10 Essential (primary) hypertension; I25.2 Old myocardial infarction; F41.9 Anxiety disorder, unspecified; F32.9 Major depressive disorder, single episode, unspecified; T50.8X5A Adverse effect of diagnostic agents, initial encounter; T38.0X5A Adverse effect of glucocorticoids and synthetic analogues, initial encounter; F17.210 Nicotine dependence, cigarettes, uncomplicated; Z71.6 Tobacco abuse counseling; Z79.51 Long term (current) use of inhaled steroids; Z79.899 Other long term (current) drug therapy; Z86.010 Personal history of colon polyps; Z98.51 Tubal ligation status; Z98.41 Cataract extraction status, right eye; Z88.2 Allergy status to sulfonamides; Z80.41 Family history of malignant neoplasm of ovary; W10.9XXA Fall (on) (from) unspecified stairs and steps, initial encounter; Y92.009 Unspecified place in unspecified non-institutional (private) residence as the place of occurrence of the external cause
CPT/HCPCS: 36415; 36600; 70450; 71045; 71046; 71250; 71275; 74022; 80048; 80053; 80061; 80202; 81001; 81003; 82272; 82550; 82553; 82607; 82728; 82746; 82784; 82805; 83010; 83540; 83550; 83605; 83615; 83735; 83883; 83921; 84100; 84132; 84165; 84439; 84443; 84481; 84484; 85025; 85027; 85045; 85379; 85610; 85652; 85730; 86334; 86850; 86900; 86901; 86920; 87040; 87070; 87086; 87205; 87502; 88307; 93005; 93306; 93308; 94002; 94003; 94640; 94660; 94760; 96365; 96366; 96368; 96375; 96376; 99291

== ENCOUNTER 2018-07-20 10:25 | Inpatient (IN) | payer MEDICAID ==
[2018-07-20] MEDS ORDERED: LORazepam 2 MG/ML INJ IV PRN (10:41)
[2018-07-20] MEDS ORDERED: ONDANSETRON 4 MG/2 ML VIAL IVP PRN (10:41)
[2018-07-20] MEDS ORDERED: ACETAMINOPHEN SUPPOSITORY 650 MG SUPP RECTAL PRN (10:41)
[2018-07-20] MEDS ORDERED: ATROPINE OPHTH SOLN 1% 5ML BTL SUBLINGUAL PRN (10:41)
[2018-07-20] MEDS ORDERED: MORPHINE SULFATE 2 MG/ML SYRINGE IVP ONE (10:41)
[2018-07-20] MEDS ORDERED: MORPHINE SULFATE (100 MG/2 ML) 100 MG in SODIUM CHLORIDE 0.9% 100 ML IV SCH (10:45)
[2018-07-20] MEDS ORDERED: SCOPOLAMINE 1.5MG/72HR PATCH TRANSDERM SCH (11:00)
[2018-07-20] MEDS ORDERED: MORPHINE SULFATE 2 MG/ML SYRINGE IV PRN (12:23)
[2018-07-20 14:42] VITALS: PULSE 0; RESP 0
--- NOTE | 2018-07-21 08:19 | DS ---
DISCHARGE SUMMARY HISTORY AND PHYSICAL AND DISCHARGE SUMMARY DATE OF ADMISSION: 07/20/2018 DATE OF DISCHARGE/EXPIRATION: 07/20/2018 CAUSE OF : Chronic obstructive pulmonary disease. OTHER MEDICAL PROBLEMS: 1. Acute hypoxic respiratory failure. 2. Chronic nicotine dependence. 3. Atrial fibrillation. HOSPITAL COURSE: Patient was admitted to inpatient hospice service for GIP, symptom control. The patient succumbed to underlying condition and patient on 07/20/2018. MMODL / IJN: [id number] /
== END 2018-07-20 14:13 | disposition expired | DRG 951 ==
LOC: 2SICU 10:53
PROVIDERS: ADMIT Hospitalist; ATTEND Hospitalist
DX: Z51.5 Encounter for palliative care (principal); J96.01 Acute respiratory failure with hypoxia; Z66 Do not resuscitate; I48.91 Unspecified atrial fibrillation; J44.9 Chronic obstructive pulmonary disease, unspecified; F17.200 Nicotine dependence, unspecified, uncomplicated